=== PATIENT | female | born 1950 | race Caucasian/White ===

== ENCOUNTER 2018-12-20 01:00 | Observation (INO) ==
[2018-12-20] MEDS ORDERED: TRAMADOL HCL 50 MG TABLET PO STA (01:18)
[2018-12-20] MEDS ORDERED: SODIUM CHLORIDE 0.9% 1000ML 1,000 ML IV ONE (01:18)
[2018-12-20] MEDS ORDERED: fentaNYL citrate 100 MCG/2 ML VIAL IV STA (01:18)
[2018-12-20 01:38] LABS: Hematocrit (blood only) 35.8 % (37-47); Hemoglobin 11.8 g/dL (12.0-16.0); Mean Corpuscular Volume 87.1 fL (80-100); Mean Platelet Volume 10.9 fL (7.4-10.4); Platelet Count 109 K/uL (130-400); RDW Coefficient of Variation 14.2 % (11.5-14.5); RDW Standard Deviation 45.4 fL (36.4-46.3); Red Blood Count 4.11 M/uL (4.2-5.4); White Blood Count 22.16 K/uL (4.8-10.8)
[2018-12-20 01:55] LABS: Alanine Aminotransferase 17 U/L (12-78); Albumin Level 3.7 gm/dl (3.4-5.0); Aspartate Aminotransferase 10 U/L (15-37); BUN Creatinine Ratio 19.4 (10-20); Bilirubin Direct < 0.1 mg/dl (0-0.2); Blood Urea Nitrogen 18 mg/dl (7-18); Calcium 8.8 mg/dl (8.5-10.1); Carbon Dioxide 27 mmol/L (21-32); Chloride 107 mmol/L (98-107); Creatinine Clr Calc Pharmacy 50.3 ml/min; Est GFR (African American) 73.2; Est GFR (Non-African American) 63.1; Glucose 96 mg/dl (70-99); Sodium 138 mmol/L (136-145)
[2018-12-20 01:57] LABS: Alkaline Phosphatase 47 U/L (45-117); Bilirubin,Total 0.3 mg/dl (0.2-1); C Reactive Protein < 0.29 mg/dl (0-0.29); Total Protein 6.1 gm/dl (6.4-8.2)
[2018-12-20 02:20] LABS: Basophils # (auto) 0.02 K/uL (0-0.2); Basophils % (auto) 0.1 %; Eosinophils # (auto) 0.02 K/uL (0-0.5); Eosinophils % (auto) 0.1 %; Immature Granulocytes # (auto) 0.08 K/uL (0.00-0.02); Immature Granulocytes % (auto) 0.4 %; Lymphocytes # (auto) 18.55 K/uL (1.2-3.4); Lymphocytes % (auto) 83.7 %; Monocytes % (auto) 1.8 %; Neutrophils # (auto) 3.09 K/uL (1.4-6.5); Neutrophils % (auto) 13.9 %; Smudge Cells Present
[2018-12-20] MEDS ORDERED: MoRPHine SULFATE 10 MG/ML CARP/VIAL IV STA ×2 (02:35→03:33)
[2018-12-20] MEDS ORDERED: ONDANSETRON INJ 2 MG/ML 2 ML VIAL IV STA (02:35)
[2018-12-20] MEDS ORDERED: LORazepam 0.5 MG/1 ML VIAL IV STA (02:57)
[2018-12-20] MEDS ORDERED: DEXAMETHASONE **PF** INJ 10 MG/ML VIAL IV ONE (03:33)
[2018-12-20 03:40] LABS: Appearance Urine Clear (Clear); Bilirubin Urine Negative (Negative); Color Urine Yellow; Glucose Urine UA Negative (Negative); Ketones Urine Negative (Negative); Leukocyte Esterase Urine Negative (Negative); Nitrite Urine Negative (Negative); Protein Urine Negative (Negative); Specific Gravity Urine 1.012 (1.000-1.030); Urobilinogen Urine Negative (Negative); pH Urine 8.5 (4.5-7.5)
--- NOTE | 2018-12-20 06:32 | Emergency Department Note ---
Entered by Kenna Ziegler acting as a scribe for ED Provider Note Name: Tina Mclean Age: 68 F Arrives Via: EMS Informant: The patient CC: Head pain HPI: A 68 year old female arrives for evaluation of worsening head pain starting 1 month ago. The patient reports that she had head pain, chills and abdominal pain. She states that she feels a pressure behind her face and temples. She notes that her tonsils and neck were swelled. She adds that she hasnt been able to sleep and has lost 20 pounds because she has no appetite. The patient reports that she feels week and fatigued. She states that she was in the hospital 5 days ago where she had a CT done that was negative. She notes that she also had a biopsy done that she does not know the results of. The patient reports that she sees Dr. Clevealnd Valiente PCP. She states that she took Prednisone and Venlafaxine which helped with her swelling. 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 She denies shortness of breath, chest pains, sore throat and fevers. ROS: See above HPI for pertinent positives & negatives. A total of 10 systems reviewed and were otherwise negative. Past Medical History: CLL Past Surgical History: Lymphnode and thyroid biopsy Family History: none Social History: Lives at home with spouse, nonsmoker, no etoh, no drug use, retired Home Medications: Omeprazole, Lisinopril, Metoclopramide Allergies Penicillin Physical: Vitals: BP: 163/81, Pulse: 61, Resp: 16, Temp: 98.1F, O2 Sat: 99, Delivery: Room Air Exam: GENERAL: Patient is elderly, tired appearing and in moderate distress. EYES: No scleral icterus, unremarkable pupils. ENT: Mucous membranes dry, no nasal congestion. NECK: No masses appreciated, no meningismus, trachea is midline. RESPIRATORY: No dyspnea. Clear to auscultation and equal bilaterally. No wheeze , no rhonchi. CARDIOVASCULAR: Regular rate and rhythm. No murmurs, rubs, gallops appreciated. GASTROINTESTINAL: Abdomen soft, non-tender, no peritonitis. Bowel sounds positive. No masses appreciated. BACK: No midline tenderness, no CVA tenderness EXTREMITIES: Normal motion all extremities, no cyanosis, no edema. NEUROLOGIC: Alert and oriented, no acute motor or sensory deficits, no focal weakness, cranial nerves grossly intact. SKIN: No rash, no jaundice, no diaphoresis. ED Course: Prior Medical Record, Triage/Nursing Notes, Medications, Allergies reviewed by Me 0107: Past medical records reviewed. The patient was evaluated in room C4, and a complete history and physical examination were performed. 0250: I reevaluated the patient at this time who reports that she is now experiencing lower abdominal pain. She states that her nausea is worse and that her facial pain is still present. The patient is crying and anxious appearing. She is asking for medication that can help her nausea and continued facial pain. 0325: I reevaluated the patient at this time who is having continuous pain and has had no resolution with any medications here. She was able to walk to the bathroom with no distress however states that she was unable to do so. Dr. Bong carbone has been paged for consult. 0345: I reviewed the patient's case with Dr. Bong carbone. [facility]. 0515:Dr. Bong carbone will evaluate the patient for further management. Vital Signs: reviewed and remarkable for HTN Labs: Reviewed and remarkable for wbc 22 otherwise normal cbc, bmp, crp, esr Interventions: Saline Lock, Tramadol PO, Fentanyl 25mcg IV, Morphine 6mg IV, Ativan .5mg IV, Morphine 6mg IV, decadron 10mg IV Imaging: Reviewed [facility] CT face without acute findings EKG: none Consults: Dr Woody Blood pressure: Elevated - Further management by hospitalist Disposition: Being evaluated by hospitalist Differentials: Sinus infection, temporal arteritis, trigeminal neuralgia, uti, electrolyte imbalance amongst other pathologies. Medical Decision Making: Uncomfortable 68 yr old female with bilateral facial pain of uncertain etiology who has been following with PCP and ENT, has been on two rounds abx/steroids. Also notes recent lymph node swelling of neck which has resolved. Furthermore had recent FNA of neck lymph node and thyroid. Review in chart reveals CLL on path as well as atypical cells thyroid (I have made it clear to patient I do not regularly evaluate these reports and that she should discuss these with ENT/ PCP). She notes continued pain in face dispite multiple rounds of IV narcotics. WBC is 22 which is consistent with her CLL. No recent labs in the chart though EPIC reveals WBC several months ago of 22. No fevers, no rashes, no other findings of infection. She does not have evidence of ICH, meningitis, dissection. She while here she notes worsening nausea and UTI symptoms, though abdominal exam is completely benign and UA is clear. She is clearly upset with all of this she has been going through though I do not have clear cause of her symptoms of bilateral facial pain. I am unable to discharge her due to continued complaints of severe pain and thus asked hospitalist to evaluate her further. Impression: Intractable Pain CLL Atypical Face Pain Leukocytosis Bigg Gaytan MD The scribe's documentation has been prepared under my direction and personally reviewed by me in its entirety. I confirm that the note above accurately reflects all work, treatment, procedures, and medical decision making performed by me. Impression & Plan Intractable pain, CLL (chronic lymphocytic leukemia), Atypical face pain, Leukocytosis Past Med/Surg History Medical History CLL (chronic lymphocytic leukemia) Social History Feels Safe at Home: Yes Smoking Status: Never smoker Results & Data Vital Signs Vital Signs - 24 hr 12/20/18 01:05 12/20/18 02:02 12/20/18 03:25 Temperature 36.7 C Temperature Source Oral Sepsis Recent Fever Within 48 Hours No Sepsis Action Taken by Nursing No Action Required Pulse Rate 65 Pulse Rate [Right Finger] 61 63 Pulse Rhythm [Right Finger] Pulse Strength [Right Finger] Respiratory Rate 12 16 22 Respiratory Effort / Characteristics Non-Labored Respiratory Depth Normal Respiratory Pattern Regular Blood Pressure 171/73 H Blood Pressure [Left Arm] 163/81 H 175/104 H Blood Pressure Mean 105 Blood Pressure Mean [Left Arm] 108 127 Blood Pressure Position Lying Blood Pressure Position [Left Arm] Sitting Pulse Oximetry 98 99 91 Oxygen Delivery Method Room Air Room Air Oxygen Flow Rate 12/20/18 03:40 12/20/18 03:50 12/20/18 04:31 Temperature Temperature Source Sepsis Recent Fever Within 48 Hours Sepsis Action Taken by Nursing Pulse Rate Pulse Rate [Right Finger] 64 62 Pulse Rhythm [Right Finger] Regular Regular Pulse Strength [Right Finger] Normal Respiratory Rate 14 20 Respiratory Effort / Characteristics Non-Labored Spontaneous Non-Labored Spontaneous Respiratory Depth Normal Normal Respiratory Pattern Regular Regular Blood Pressure Blood Pressure [Left Arm] 156/66 H 170/70 H Blood Pressure Mean Blood Pressure Mean [Left Arm] 96 103 Blood Pressure Position Blood Pressure Position [Left Arm] Pulse Oximetry 98 95 100 Oxygen Delivery Method Room Air Nasal Cannula Nasal Cannula Oxygen Flow Rate 2 2 12/20/18 06:16 Temperature Temperature Source Sepsis Recent Fever Within 48 Hours Sepsis Action Taken by Nursing Pulse Rate 62 Pulse Rate [Right Finger] Pulse Rhythm [Right Finger] Pulse Strength [Right Finger] Respiratory Rate Respiratory Effort / Characteristics Respiratory Depth Respiratory Pattern Blood Pressure 125/63 Blood Pressure [Left Arm] Blood Pressure Mean Blood Pressure Mean [Left Arm] Blood Pressure Position Blood Pressure Position [Left Arm] Pulse Oximetry 99 Oxygen Delivery Method Room Air Oxygen Flow Rate Home Medications Current Medication List: was personally reviewed by me Laboratory Data Attestation: I reviewed the patient's lab results. Result diagrams: 12/20/18 01:29 12/20/18 01:29 Lab Results 12/20/18 12/20/18 12/20/18 Range/Units 01:29 01:29 01:29 WBC 22.16 H (4.8-10.8) K/uL RBC 4.11 L (4.2-5.4) M/uL Hgb 11.8 L (12.0-16.0) g/dL Hct 35.8 L (37-47) % MCV 87.1 (80-100) fL MCH 28.7 (25-34) pg MCHC 33.0 (32-36) g/dL RDW Std Deviation 45.4 (36.4-46.3) fL RDW Coeff of [place] 14.2 (11.5-14.5) % Plt Count 109 L (130-400) K/uL MPV 10.9 H (7.4-10.4) fL Immature Gran % (Auto) 0.4 % Neut % (Auto) 13.9 % Lymph % (Auto) 83.7 % [place] % (Auto) 1.8 % Eos % (Auto) 0.1 % Baso % (Auto) 0.1 % Immature Gran # (Auto) 0.08 H (0.00-0.02) K/uL Neut # (Auto) 3.09 (1.4-6.5) K/uL Lymph # (Auto) 18.55 H (1.2-3.4) K/uL [place] # (Auto) 0.40 (0.11-0.59) K/uL Eos # (Auto) 0.02 (0-0.5) K/uL Baso # (Auto) 0.02 (0-0.2) K/uL Smudge Cells Present ESR 2 (0-21) mm/hr Sodium 138 (136-145) mmol/L Potassium 4.0 (3.5-5.1) mmol/L Chloride 107 (98-107) mmol/L Carbon Dioxide 27 (21-32) mmol/L Anion Gap 4.0 (3-11) BUN 18 (7-18) mg/dl Creatinine 0.93 (0.6-1.2) mg/dl Est Cr Clr Drug Dosing 50.3 ml/min Est GFR ( Amer) 73.2 Est GFR (Non-Af Amer) 63.1 BUN/Creatinine Ratio 19.4 (10-20) Glucose 96 (70-99) mg/dl Calcium 8.8 (8.5-10.1) mg/dl Total Bilirubin 0.3 (0.2-1) mg/dl Direct Bilirubin < 0.1 (0-0.2) mg/dl AST 10 L (15-37) U/L ALT 17 (12-78) U/L Alkaline Phosphatase 47 (45-117) U/L C-Reactive Protein < 0.29 (0-0.29) mg/dl Total Protein 6.1 L (6.4-8.2) gm/dl Albumin 3.7 (3.4-5.0) gm/dl Lipase 175 (73-393) U/L Urine Color Urine Appearance (Clear) Urine pH (4.5-7.5) Ur Specific [place] (1.000-1.030) Urine Protein (Negative) Urine Glucose (UA) (Negative) Urine Ketones (Negative) Urine Blood (Negative) Urine Nitrite (Negative) Urine Bilirubin (Negative) Urine Urobilinogen (Negative) Ur Leukocyte Esterase (Negative) 12/20/18 Range/Units 03:25 WBC (4.8-10.8) K/uL RBC (4.2-5.4) M/uL Hgb (12.0-16.0) g/dL Hct (37-47) % MCV (80-100) fL MCH (25-34) pg MCHC (32-36) g/dL RDW Std Deviation (36.4-46.3) fL RDW Coeff of [place] (11.5-14.5) % Plt Count (130-400) K/uL MPV (7.4-10.4) fL Immature Gran % (Auto) % Neut % (Auto) % Lymph % (Auto) % [place] % (Auto) % Eos % (Auto) % Baso % (Auto) % Immature Gran # (Auto) (0.00-0.02) K/uL Neut # (Auto) (1.4-6.5) K/uL Lymph # (Auto) (1.2-3.4) K/uL [place] # (Auto) (0.11-0.59) K/uL Eos # (Auto) (0-0.5) K/uL Baso # (Auto) (0-0.2) K/uL Smudge Cells ESR (0-21) mm/hr Sodium (136-145) mmol/L Potassium (3.5-5.1) mmol/L Chloride (98-107) mmol/L Carbon Dioxide (21-32) mmol/L Anion Gap (3-11) BUN (7-18) mg/dl Creatinine (0.6-1.2) mg/dl Est Cr Clr Drug Dosing ml/min Est GFR ( Amer) Est GFR (Non-Af Amer) BUN/Creatinine Ratio (10-20) Glucose (70-99) mg/dl Calcium (8.5-10.1) mg/dl Total Bilirubin (0.2-1) mg/dl Direct Bilirubin (0-0.2) mg/dl AST (15-37) U/L ALT (12-78) U/L Alkaline Phosphatase (45-117) U/L C-Reactive Protein (0-0.29) mg/dl Total Protein (6.4-8.2) gm/dl Albumin (3.4-5.0) gm/dl Lipase (73-393) U/L Urine Color Yellow Urine Appearance Clear (Clear) Urine pH 8.5 H (4.5-7.5) Ur Specific [place] 1.012 (1.000-1.030) Urine Protein Negative (Negative) Urine Glucose (UA) Negative (Negative) Urine Ketones Negative (Negative) Urine Blood Negative (Negative) Urine Nitrite Negative (Negative) Urine Bilirubin Negative (Negative) Urine Urobilinogen Negative (Negative) Ur Leukocyte Esterase Negative (Negative) Administered Medications Discontinued Medications Dexamethasone Sodium Phosphate (Decadron Pf) 10 mg IV NOW ONE Stop: 12/20/18 03:34 Last Admin: 12/20/18 03:39 Dose: 10 mg Fentanyl Citrate (Fentanyl Citrate) 25 mcg IV NOW STA Stop: 12/20/18 01:19 Last Admin: 12/20/18 01:33 Dose: 25 mcg Sodium Chloride (Nss 1000ml) 1,000 mls @ 999 mls/hr IV .Q1H1M ONE Stop: 12/20/18 02:18 Last Infusion: 12/20/18 02:29 Dose: 0 mls/hr Admin: 12/20/18 01:33 Dose: 999 mls/hr Lorazepam (Ativan) 0.5 mg in 1 mls @ 1 mls/min IV NOW STA Stop: 12/20/18 02:58 Last Admin: 12/20/18 03:08 Dose: 1 mls/min Morphine Sulfate (Morphine Sulfate) 6 mg IV NOW STA Stop: 12/20/18 02:36 Last Admin: 12/20/18 02:43 Dose: 6 mg Morphine Sulfate (Morphine Sulfate) 6 mg IV NOW STA Stop: 12/20/18 03:34 Last Admin: 12/20/18 03:39 Dose: 6 mg Ondansetron HCl (Zofran) 4 mg IV NOW STA Stop: 12/20/18 02:36 Last Admin: 12/20/18 02:43 Dose: 4 mg Tramadol HCl (Ultram) 50 mg PO NOW STA Stop: 12/20/18 01:19 Last Admin: 12/20/18 01:34 Dose: 50 mg Blood Pressure Blood Pressure Findings: Elevated blood pressure Blood Pressure Disposition: further management by hospitalist Discharge Plan Visit Data Chief Complaint: Head Pain ED Provider: Bigg Gaytan Discharge Problem: Intractable pain, CLL (chronic lymphocytic leukemia), Atypical face pain, Leukocytosis Patient Disposition: Being Evaluated by Hospitalist Discharge Instructions Interventions: ED Discharge Assessment Last Done: 12/20/18 06:16 Forms Stand Alone Forms: My [facility] Prescriptions Prescriptions: No Action lisinopril 20 mg tablet 20 mg PO DAILY RF: 0 metoclopramide HCl 5 mg tablet 5 mg PO AC RF: 0 omeprazole 20 mg capsule,delayed release(DR/EC) 20 mg PO QAM RF: 0 fluticasone 50 mcg/actuation spray,suspension 2 spray Intranasal DAILY RF: 0 peg 400-propylene glycol (PF) [Systane (PF)] 0.4-0.3 % Dropperette 1 drp OPB BID PRN (Reason: Dry Eyes) RF: 0 Referrals Referrals: PCP,NO [Primary Care Provider] - The scribe's documentation has been prepared under my direction and personally reviewed by me in its entirety. I confirm that the note above accurately reflects all work, treatment, procedures, and medical decision making performed by me.
[2018-12-20] MEDS ORDERED: ACETAMINOPHEN 325 MG TAB PO PRN (07:05)
[2018-12-20] MEDS ORDERED: ALUMINUM/MAGNESIUM SUSP 30 ML UDC PO PRN (07:05)
[2018-12-20] MEDS ORDERED: ARTIFICIAL TEARS OPB PRN (07:05)
[2018-12-20] MEDS ORDERED: MoRPHine SULFATE 4 MG/ML 1 ML CARP\\VIAL IV PRN (07:05)
[2018-12-20] MEDS ORDERED: OXYCODONE/ACETAMINOPHEN 5mg/325mg TAB PO PRN (07:05)
[2018-12-20] MEDS ORDERED: ONDANSETRON INJ 2 MG/ML 2 ML VIAL IV PRN (07:05)
[2018-12-20] MEDS ORDERED: KETOROLAC TROMETHAMINE 15 MG/ML VIAL IV PRN (07:18)
[2018-12-20 07:31] LABS: Hematocrit (blood only) 35.9 % (37-47); Hemoglobin 11.6 g/dL (12.0-16.0); Mean Corpuscular Hgb Conc 32.3 g/dL (32-36); Mean Corpuscular Volume 88.9 fL (80-100); Mean Platelet Volume 10.8 fL (7.4-10.4); Platelet Count 103 K/uL (130-400); RDW Coefficient of Variation 14.1 % (11.5-14.5); RDW Standard Deviation 45.8 fL (36.4-46.3); Red Blood Count 4.04 M/uL (4.2-5.4)
--- NOTE | 2018-12-20 07:47 | History and Physical Report ---
DATE OF ADMISSION: 12/20/2018 CHIEF COMPLAINT: Severe facial and head pain. HISTORY OF PRESENT ILLNESS: This is a 68-year-old female with past medical history significant for hypertension, gastroparesis, GERD, chronic kidney disease stage III, generalized osteoarthritis, CLL, presents with severe facial pain and head pain. The patient states that this facial pain is going on for some time,few months now.. She was recently seen by ENT. The facial pain is located in the forehead, temples and posterior side of the neck for several months. She states since fall last year, she has on and off congestion and took antibiotics, it seems goes away and then it comes back. She is getting cough on and off. The pain is getting severe. She also states she has enlarged tonsils which made her difficulty swallowing and lost few pounds, but it is improved now. Denies any chest pain, no shortness of breath. After pain medications in the ER, she had episode of vomiting. No abdominal pain, somewhat constipated, but no black or blood in the stools. Normal micturition. No blurred vision. No runny nose currently. No sore throat. Appetite is not great. Afebrile. Lives with her and ambulates okay. She also has thyroid nodule, cervical lymph nodes, for some time now, follows with hematology and she recently had biopsies done, awaiting results. ENT also ordered a facial CT and it was unremarkable. ENT advised if she still has severe pain, to consider neurology consult. Because the pain is not getting better, she came to the ER and somewhat adamant of getting admitted. ALLERGIES: PENICILLINS. PAST MEDICAL HISTORY: As mentioned above. PAST SURGICAL HISTORY: Colonoscopy with biopsy, EGDs, right foot fusion of bones, upper endoscopy. MEDICATIONS: The patient is on omeprazole 20 mg p.o. daily, fluticasone nasal spray, lisinopril 20 mg p.o. daily, Reglan 5 mg p.o. a.c. and Systane ophthalmic eyedrops. FAMILY HISTORY: Significant for: Mother has arthritis, heart disorder, osteoporosis. Father of [place] at age 68, history of diabetes. SOCIAL HISTORY: , lives with . No smoking history, no alcohol use, no drug use. REVIEW OF SYMPTOMS: As per HPI. Rest of review of systems is negative. PHYSICAL EXAMINATION: GENERAL: The patient is of moderate build, not in acute distress. VITAL SIGNS: Temperature 36.7, pulse 62, respiratory rate 20, blood pressure 170/70, oxygen 100% on 2 liters. HEENT: No pallor, no icterus. Pupils equal, round, and react to light. NECK: No JVD, no neck masses. Thyroid was palpable. CARDIOVASCULAR: S1, S2 heard. Regular rate and rhythm. No murmur, no gallop. RESPIRATORY SYSTEM: Clear to auscultation bilaterally. No wheezing. No crackles. ABDOMEN: Soft, bowel sounds present. Nontender. No distention. CENTRAL NERVOUS SYSTEM: Nonfocal. EXTREMITIES: No edema, no erythema. LABORATORY DATA: WBC 22, hemoglobin 11.8, hematocrit 35.8, platelets 109. Sodium 138, potassium 4, chloride 107, bicarbonate 27, BUN 18, creatinine 0.9, serum glucose 96, calcium 8.8, total bilirubin 0.3, direct bilirubin less than 0.1, AST 10, ALT 17, alkaline phosphatase is 47. C-reactive protein is less than 0.29. Lipase 175. Urinalysis negative. ASSESSMENT AND PLAN: This is a 68-year-old female who presents with severe head pain and facial pain. 1. Severe facial pain and head pain in the forehead and temporal regions in the back of the neck. The patient was seen by ENT. Nasal endoscopy was normal and recommended a CT of the sinuses which was done and it was unremarkable and ENT recommended a neurology consult if the CT sinus is negative. The patient still has significant pain. We will place her on pain medications as needed and then consult neurology for further recommendations. Observe in medical floor. 2. Thyroid nodules and cervical lymph nodes, history of CLL, recently had a biopsy done. Awaiting for the biopsy results. 3. Malnutrition. The patient says she is losing weight. We will consult nutrition. 4. Hypertension. Continue lisinopril. The patient' says blood pressure is going up and down, mostly be from her pain and anxiety. We will monitor blood pressure. 5. Gastroesophageal reflux disease and gastroparesis. On omeprazole and Reglan. Follows with GI. 6. DVT prophylaxis. Will be placed on SCDs. 7. Disposition: Observation in medical floor. Expect discharge home and follow with her family doctor. Level 1 full code. MTDD
[2018-12-20 07:57] LABS: BUN Creatinine Ratio 17.2 (10-20); Calcium 8.3 mg/dl (8.5-10.1); Creatinine Clr Calc Pharmacy 49.2 ml/min; Est GFR (African American) 71.3; Est GFR (Non-African American) 61.5; Magnesium 1.8 mg/dl (1.8-2.4); Potassium 4.4 mmol/L (3.5-5.1)
[2018-12-20] MEDS ORDERED: LISINOPRIL 20 MG TAB PO STA ×2 (08:20→08:26)
[2018-12-20] MEDS: METOCLOPRAMIDE HCL 5 MG TABLET PO SCH ×3 (08:21→17:42)
[2018-12-20] MEDS: PANTOprazole 40 MG TAB PO SCH (08:21)
[2018-12-20 08:23] LABS: Basophils # (auto) 0.02 K/uL (0-0.2); Basophils % (auto) 0.1 %; Eosinophils # (auto) 0.01 K/uL (0-0.5); Immature Granulocytes # (auto) 0.11 K/uL (0.00-0.02); Immature Granulocytes % (auto) 0.4 %; Lymphocytes # (auto) 19.92 K/uL (1.2-3.4); Lymphocytes % (auto) 72.2 %; Monocytes # (auto) 0.11 K/uL (0.11-0.59); Monocytes % (auto) 0.4 %; Neutrophils # (auto) 7.43 K/uL (1.4-6.5); Neutrophils % (auto) 26.9 %; Smudge Cells Present
[2018-12-20] MEDS: FLUTICASONE PROPIONATE NA SPR 16 GM BTL SCH (08:26)
--- NOTE | 2018-12-20 08:26 | Hospitalist Progress Note ---
Date of Service December 20, 2018 Assessment & Plan (1) CLL (chronic lymphocytic leukemia): Chronic Lymphocytic Leukemia outpatient WBC months ago was 16,000 of note, patient had recent steroid use and it is unclear whether this promoted recent leukocytosis admission WBC 22K, follow up WBC 27,000 recent 12/15/18 aspiration by ENT of thyroid gland and left cervical lymph node consistent will some lymphocyte involvement as per pathology report but it is unclear whether these results are consistent with severe worsening of CLL no fevers discussed with Dr. Gilman for hematology consult and initial suggestions of infection work up will send blood cultures, ESR, and CRP Head/Neck pain CLL workup as above control pain: give anti-inflammatory such as Toradol for now, other pain control medication with percocet Hypertension: control blood pressure, blood pressure on exam 179/68 in AM of 08/28, will increase lisinopril home dose from 20 mg daily to 40 mg daily for now admitting physician had also placed neurology consult Malnutrition The patient says she is losing weight consult nutrition. Gastroesophageal reflux disease and gastroparesis On omeprazole and Reglan DVT prophylaxis. SCDs Subjective Discussed with patient with her at bedside. Patient reports history of CLL diagnosed 5 years ago with chronic head and neck pain symptoms starting around 1 year ago. Reported recent treatment with prednisone for head/neck inflammation. Recent 12/15/18 aspiration by ENT of thyroid gland and left cervical lymph node. Recent head CT CT SINUS FUSION WO CONTRAST - 12/15/2018 as outpatient: "No obstructive paranasal sinus disease appreciated. No masses within the skullbase" Patient not in acute distress. But reports pressure discomfort of forehead and maxillary area. No acute tenderness on palpation. But patient evidently bothered by her symptoms and these symptoms have been lingering. denies recent fevers. denies vomiting. denies chest pain or abdominal pain. only when asked, patient reports feeling dizziness or lightheaded before but not currently no obvious palpable lymph nodes on exam Physical Exam 2 Vital Signs (Past 24 Hours): Last Vital Signs Temp 36.4 C L 12/20/18 07:07 Pulse 63 12/20/18 07:07 Resp 16 12/20/18 07:07 BP 179/68 H 12/20/18 07:07 Pulse Ox 94 12/20/18 07:07 Constitutional: WD/WN, vitals as above Eyes: PERRL, conjunctivae normal, anicteric sclerae ENMT: external ear and nose normal, oropharynx normal Neck: trachea midline, no thyromegaly Respiratory: normal respiratory effort, lungs clear to auscultation Cardiovascular: RRR, no murmur, no edema Gastrointestinal (Abdomen): normal bowel sounds, soft, nontender, no hepatosplenomegaly Musculoskeletal: no cyanosis or clubbing, extremities motor strength 5/5 Head/Neck/Chest: normocephalic and head atraumatic Neurologic: PERRL, EOMI, accommodation nl, no face palsy, no dysarthria CN' s II-XI intact bilaterally Psychiatric: A+Ox3, euthymic affect
[2018-12-20] MEDS ORDERED: MAGNESIUM SULFATE / D5W 1 GM/100 ML BAG IV ONE (08:36)
[2018-12-20] MEDS ORDERED: LISINOPRIL 20 MG TAB PO SCH (09:00)
[2018-12-20] MEDS ORDERED: LORazepam 0.25 MG/0.5 ML VIAL IV PRN (11:14)
--- NOTE | 2018-12-20 12:09 | Consultation Report ---
DATE OF CONSULTATION: 12/20/2018 REASON FOR CONSULTATION: Head pain. HISTORY OF PRESENT ILLNESS: Mrs. Mclean is a 68-year-old right-handed female with a history of hypertension, gastroparesis, reflux, chronic kidney disease, osteoarthritis, CLL, never been treated, presented with severe facial and head pain. This pain has been going on for months. It was atraumatic. She noted in the fall that she had multiple bouts of nasal congestion with clear and frequent nasal discharge, during which time she would have head pain. This was treated several times with an oral antibiotic. She recently saw ENT, I believe they did a thyroid biopsy, they did a general exam and a CT of the sinuses, I am assuming all of which were normal. The headache has been continuous for an unknown period of time. It is not worse lying or sitting or any particular time of day, it is a frontotemporal and occipital pressure type pain. There has been no real change in vision, no graying out of vision. She had had some blurred vision, but recently had cataract surgeries. She has lost 25 pounds over the last 1 year, but that much of that weight loss predated the headache. She occasionally has chills. Her jaw sometimes hurt, it is not clear that there is jaw claudication. There is no unilateral weakness or numbness. There has been no trauma. There has been no change in her medications. There is neck pain, but nonradiating neck pain. She has tried ibuprofen 400, has not tried Tylenol as it is not effective for her and she has tried Excedrin Migraine. REVIEW OF SYSTEMS: In addition to above, the patient notes a sense of decreased taste and smell since the upper respiratory tract infection which she explains was attributed to her antibiotic use. The headaches are worse with activity and coughing. PAST MEDICAL HISTORY: As above. PAST SURGICAL HISTORY: Colonoscopy, right first fusion, bilateral cataracts. SOCIAL HISTORY: Nonsmoker, nondrinker. 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 FAMILY HISTORY: Mother had leukemia, heart disease, osteoporosis. Father and brother, [place], diabetes. HOME MEDICATIONS: Omeprazole, Nasonex, lisinopril, Reglan and Systane. ALLERGIES: PENICILLIN. LABORATORY DATA: Database: White count 22.16, platelet count 109, lymphocytes 18.6. Sed rate 2. Chemistry profile notable for an AST of 10, total protein of 6.1. Urinalysis negative. Flow cytometry pending. PHYSICAL EXAMINATION: VITAL SIGNS: On initial admission, blood pressure was 177/73, it has varied, but on the whole has remained that approximate level. Her temperature has been afebrile. Pulse ox 98%, although transiently overnight was 81%. GENERAL: She is awake and alert. There is normal speech and language. Her affect is appropriate. There is a right carotid bruit. HEART: No heart murmurs are noted. Heart is regular rate and rhythm. HEAD: There is no temporal tenderness, temporal artery tenderness. She is mildly diffusely tender in the biparietal region. There is bilateral paracervical muscle spasm. There is some pain on palpation in the occipital notches bilaterally. NECK: Her neck is otherwise supple. NEUROLOGIC: Pupils are equal, postsurgical I had difficulty visualizing the optic nerves. Yap were full, motility, normal facial sensation and facial symmetry. Speech and language are normal. Motor 5/5, no drift. Normal rapid alternating movement. Mildly diffusely brisk reflexes, nonpathologic. Toes ____ withdrawal. [id number] and [id number]-uh-[id number] are normal. Sensation is intact bilaterally to light touch and temperature. IMPRESSION: New onset persistent tension type headache. Query with cervicogenic trigger or component of occipital neuralgia. PLAN: 1. MRI brain with or without contrast. 2. Cervical spine x-ray. 3. Begin gabapentin prophylaxis. 4. Treat headaches with nonsteroidals if possible. 5. The patient may need pain management for evaluation of trigger point injections and/or occipital nerve injection. 6. Physical therapy may be helpful. 7. Finally the patient appears to have a right carotid bruit, I would recommend a carotid ultrasound.
[2018-12-20] MEDS: GABAPENTIN 100 MG CAP PO SCH ×2 (12:22→21:16)
--- NOTE | 2018-12-20 13:21 | Oncology Consultation ---
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 Her WBC is elevated above her baseline with new thrombocytopenia and neutrophilia. She recently took prednisone and levaquin, felt improvement in tonsillitis but not in frontal headache or maxillary facial pain Spoke to Dr Harry this morning and recommended neuro consult and Recommend rule out infection as she has neutrophilia which is new and due to her symptoms. She also had recent prednisone outpatient. monitor cbc w/ diff also recommend check MRI brain and also neck imaging new thrombcoytopenia mild anemia: recommend check smear immature platelet fraction LDH haptoglobin retic count direct wesley iron tibc ferritin b12 folate She has unintentional weight loss and abdominal discomfort and reports discomfort in her chest with eating - recommend further evaluation with CT scan of the chest abdomen and pelvis to evaluate for any bulky adenopathy or other abnormality. when feasible. She is going to MRI at this time. also continue follow up with ENT for thyroid nodules and recommend endocrine evaluation as well recommend follow up with hematology in the office upon discharge. thank you for consult Reason for consult: Chronic lymphocytic leukemia History of Present Illness Attending Physician: Go Harry MD 68 year old female with chronic lymphocytic leukemia ZAP 70 positive, CD38 negative, IgVH unmutated. She has with chronic lymphocytosis since 2008, flow cytometry in 05/2015 showed chronic lymphocytic leukemia. She states that since fall she has been having facial pain/pressure and treated with antibiotics for this and that she would feel some mild improvement but then symptoms would recur. She has thyroid nodules and cervical lymphadenopathy and was evaluated by ENT and had thyroid FNA and left cervical LN FNA recently. She was also treated with prednisone and levaquin for acute tonsillitis and maxillary sinusitis recently. She states that her tonsillitis and cervical LN swelling improved but that she continued to have pressure in the forehead and maxillary sinus areas. She states that she has also recently noticed some tinnitus and states that she has nausea on and off at home. She states that she vomited one this morning. She denies fever but has chills sometimes, denies night sweats. Denies any other swollen glands than in her neck. She has unintentional weight loss. She states that appetite has decreased over the past several months and that she has some pain/discomfort in the abdomen. She states she is eating her meals but not regaining her weight and that she also has some discomfort when she eats, states she feels as if food is going down but there is some discomfort in chest area when she eats as food is going down. She had head CT sinus 12/15/18 that showed no obstructive paranasal sinus disease appreciated. No masses within the skull. She states that she also notice blurriness of the vision sometimes and said she avoids bending due to symptoms tend to worsen with bending. She states that her sense of taste and smell have also been decreased. WBC at baseline is between 16 to 19 range. In 05/05/18 wbc was 16.03 hgb 11.7 and platelet counts were previously normal On admission WBC was 22 with ALC 19.9 neutr 3.09 and new thrombocytopenia with platelet ct 109 today her cbc with diff show WBC 27.6 WITH alc 22.16 AND NEUTROPHILS 7.43 AND PLATELET count 103 hemoglobin 11.6 Allergies Allergy/AdvReac Type Severity Reaction Status Date / Time Penicillins Allergy Unknown Verified 12/20/18 04:32 Home Medications Home Medications Medication Instructions Recorded Confirmed Type fluticasone 2 spray INTRANASAL DAILY 12/20/18 12/20/18 History lisinopril 20 mg PO DAILY 12/20/18 12/20/18 History metoclopramide HCl 5 mg PO AC 12/20/18 12/20/18 History omeprazole 20 mg PO QAM 12/20/18 12/20/18 History peg 400-propylene glycol (PF) 1 drp OPB BID PRN 12/20/18 12/20/18 History [Systane (PF)] Patient History Medical History CLL (chronic lymphocytic leukemia) Social History Current Living Situation: Spouse Other Information That Helps Us Care for You: No Feels Safe at Home: Yes Safety Concerns: Feels Safe At This Time Smoking Status: Never smoker Hx Alcohol Use: No Hx Substance Use: No Beliefs That Will Affect Care: Restoration Restoration Beliefs: Temple Preferred Language: Sierra Leonean Communication Ability: Effective Electron Tube Assembler Required: No Review of Systems as stated per HPI Physical Exam 2 Vital Signs (Past 24 Hours): Last Vital Signs Temp 36.4 C L 12/20/18 07:07 Pulse 63 12/20/18 07:07 Resp 16 12/20/18 07:07 BP 179/68 H 12/20/18 07:07 Pulse Ox 94 12/20/18 07:07 Gen: thin female, ill appearing, no acute distress HEENT: anicteric, no pallor, moist buccal mucosa, Neck: palpable cervical adenopathy lungs: CTAB no wheezes or rales or rhonchi CV: S1 S2, RRR Abd: bowel sounds present soft NT/ND Ext: no edema Neuro: alert and oriented x3 Results & Data Laboratory Results PATHOLOGY: FINAL DIAGNOSIS THYROID GLAND, LEFT MID (FINE NEEDLE ASPIRATION): 1. BENIGN FOLLICULAR EPITHELIAL CELLS, SCATTERED HURTHLE CELLS, AND MANY LYMPHOCYTES ARE ALL SEEN. 2. AN EPITHELIAL NEOPLASM IS NOT SEEN ON CYTOLOGY. 3. A MONOCLONAL CD5, CD23 POSITIVE B-CELL POPULATION CONSISTENT WITH CHRONIC LYMPHOCYTIC LEUKEMIA/SMALL LYMPHOCYTIC LYMPHOMA IS IDENTIFIED, THIS NODULE REPRESENTS EITHER FAY'S THYROIDITIS CONTAMINATED WITH PERIPHERAL BLOOD DURING ASPIRATION, CHRONIC LYMPHOCYTIC LEUKEMIA PRESENTING A NODULE IN THE THYROID GLAND, OR A COMBINATION OF BOTH PROCESSES. 4. PLEASE SEE ABOVE DISCUSSION. FINAL DIAGNOSIS THYROID GLAND, LEFT LOBE, LOWER REGION (FINE NEEDLE ASPIRATION): 1. ATYPIA OF UNDETERMINED SIGNIFICANCE/FOLLICULAR LESION OF UNDETERMINED SIGNIFICANCE IS SEEN. 2. PLEASE SEE ABOVE DISCUSSION. LYMPH NODE, LEFT CERVICAL (FINE NEEDLE ASPIRATION): 1. CHANGES CONSISTENT WITH CHRONIC LYMPHOCYTIC LEUKEMIA/SMALL LYMPHOCYTIC LYMPHOMA ARE SEEN. 2. PLEASE SEE ABOVE DISCUSSION.
[2018-12-20] MEDS ORDERED: GADOBUTROL 7.5ML VIAL IV PRN (13:34)
--- NOTE | 2018-12-20 14:33 | XRay Report ---
CERVICAL SPINE 5 VIEWS HISTORY: neck pAIN, HEADACHE COMPARISON: None. FINDINGS: The cervical spine is visualized from C1 through C7. There is no fracture. No subluxation. Disc spaces are preserved. Prevertebral soft tissues and the atlantodens interval are intact. Mild f acet degenerative changes throughout the cervical spine. IMPRESSION: No fracture or subluxation within the cervical spine. Mild facet degenerative changes. Electronically signed by: Mendez Bravo M.D. 12/20/2018 2:32 PM
--- NOTE | 2018-12-20 15:02 | Magnetic Resonance Report ---
MRI OF THE BRAIN WITHOUT AND WITH IV CONTRAST CLINICAL HISTORY: headache COMPARISON STUDY: No previous studies for comparison. TECHNIQUE: Utilizing a 1.5 Xiomara magnet and dedicated coil, multiplanar, multiecho imaging of the br ain was performed pre and postcontrast administration. IV administration of 5.5 mL of Gadavist contr ast was uneventful. FINDINGS: There are no foci of restricted diffusion to suggest acute infarct. No acute intracranial h emorrhage, midline shift or mass effect is present. Ventricular system is normal. Basilar cisterns ar e patent. There are no extra-axial collections. Flow-voids for the major intracranial vessels are pre sent. There is no intracranial mass or pathologic enhancement. Scattered white matter T2 hyperintense foci suggest mild small vessel disease. Calvarial signal is maintained. There is no intracranial mas s or pathologic enhancement. There is mild polypoid mucosal thickening of the left maxillary sinus. IMPRESSION: 1. No acute intracranial findings. 2. No intracranial mass or pathologic adenopathy. 3. Scattered white matter T2 hyperintense foci which favor mild small vessel disease. Electronically signed by: Héctor Apodaca M.D. 12/20/2018 3:00 PM
[2018-12-21 07:35] LABS: Hematocrit (blood only) 37.6 % (37-47); Hemoglobin 11.9 g/dL (12.0-16.0); Mean Corpuscular Hgb Conc 31.6 g/dL (32-36); Mean Platelet Volume 10.9 fL (7.4-10.4); Platelet Count 100 K/uL (130-400); RDW Coefficient of Variation 14.6 % (11.5-14.5); RDW Standard Deviation 47.9 fL (36.4-46.3); Red Blood Count 4.18 M/uL (4.2-5.4); Reticulocyte % 1.1 % (0.5-2.0); Reticulocytes # 0.05 10^6/uL (0.02-0.10); White Blood Count 19.27 K/uL (4.8-10.8)
[2018-12-21] MEDS: METOCLOPRAMIDE HCL 5 MG TABLET PO SCH ×2 (08:04→10:36)
[2018-12-21 08:14] LABS: BUN Creatinine Ratio 16.3 (10-20); Calcium 8.6 mg/dl (8.5-10.1); Creatinine Clr Calc Pharmacy 53.7 ml/min; Est GFR (African American) 79.3; Est GFR (Non-African American) 68.5; Magnesium 2.3 mg/dl (1.8-2.4)
[2018-12-21 08:18] LABS: Folate (Folic Acid) 7.95 ng/ml (>5.38)
[2018-12-21 08:25] LABS: Ferritin 46.7 ng/ml (8-388)
[2018-12-21 08:30] LABS: Basophils # (auto) 0.01 K/uL (0-0.2); Basophils % (auto) 0.1 %; Eosinophils # (auto) 0.01 K/uL (0-0.5); Eosinophils % (auto) 0.1 %; Immature Granulocytes # (auto) 0.04 K/uL (0.00-0.02); Immature Granulocytes % (auto) 0.2 %; Lymphocytes % (auto) 72.7 %; Monocytes % (auto) 2.1 %; Neutrophils # (auto) 4.81 K/uL (1.4-6.5); Neutrophils % (auto) 24.8 %; Smudge Cells Present
[2018-12-21] MEDS ORDERED: LISINOPRIL 40 MG TAB PO SCH (09:00)
[2018-12-21] MEDS ORDERED: IOVERSOL 100ml IV PRN (10:00)
--- NOTE | 2018-12-21 10:30 | CT Scan Report ---
CT abd pelvis oral and IV con CLINICAL HISTORY: CLL, weight loss COMPARISON STUDY: None. TECHNIQUE: The patient was scanned following administration of dilute oral contrast, and in a dynamic helical fashion during intravenous administration of 93 cc of Optiray 320.. A dose lowering techniq ue was utilized adhering to the principles of ALARA. CT DOSE: 261.37 mGy.cm FINDINGS: Lower chest: There are minor dependent atelectatic changes. Liver: There are 2 subcentimeter right lobe hypodensities, the largest of which measures 8 mm. These likely represent small cysts Gallbladder: Unremarkable. Spleen: Spleen is enlarged measuring 15 cm in length. No focal splenic masses are visualized. The spl enic vein is prominent. Pancreas: Unremarkable. Adrenal glands: Unremarkable. Kidneys: There is an 8 mm left renal cyst. There is no hydronephrosis. Bowel: There are no transition zones indicate bowel obstruction. There is no acute diverticulitis. Th ere are no findings to indicate appendicitis. Peritoneum: There is no intraperitoneal free air or abdominal ascites. Vasculature: The abdominal aorta is normal in course and caliber. Adenopathy: None. Pelvic viscera: The bladder, and pelvic viscera are unremarkable. Skeletal structures: No destructive osseous lesions are seen. IMPRESSION: 1. Splenomegaly (15 cm). 2. No evidence of pathologic adenopathy Electronically signed by: Mir Gibson M.D. 12/21/2018 10:29 AM
[2018-12-21] MEDS: FLUTICASONE PROPIONATE NA SPR 16 GM BTL SCH (10:35)
[2018-12-21] MEDS: GABAPENTIN 100 MG CAP PO SCH (10:35)
[2018-12-21] MEDS: PANTOprazole 40 MG TAB PO SCH (10:35)
--- NOTE | 2018-12-21 13:17 | Hospitalist Progress Note ---
Date of Service December 21, 2018 Assessment & Plan (1) CLL (chronic lymphocytic leukemia): Chronic Lymphocytic Leukemia outpatient WBC months ago was 16,000 of note, patient had recent steroid use and it is unclear whether this promoted recent leukocytosis Recent head CT CT SINUS FUSION WO CONTRAST - 12/15/2018 as outpatient: "No obstructive paranasal sinus disease appreciated. No masses within the skullbase " Recent 12/15/18 aspiration by ENT of thyroid gland and left cervical lymph node consistent will some lymphocyte involvement as per pathology report admission WBC 22K, follow up WBC 27,000. WBC on 12/21/18 is 19,000 and patient remains afebrile, blood culture from 12/20/18 are pending results but patient can follow up results as outpatient no antibiotics at this time Patient was evaluated by hematology service Dr. Gilman who recommended CT abdomen/ Pelvis imaging CT abdomen/Pelvis with no evidence of CLL associated adnenopathy Head/Neck pain CLL workup as above pain medication: controlled in the hospital with pain medications Patient should take gabapentin 100 mg twice a day for fdc pain control of headache and neck pain Patient can take Ibuprofen 200 mg every 6 hours as needed for pain (5 day prescription supply made) Patient should take lisinopril 40 mg daily for hypertension all new prescriptions sent to [facility] electronically patient evaluated by neurology service with relative normal Brain MRI and Cervical X ray imaging (No fracture or subluxation within the cervical spine. Mild facet degenerative changes) Hypertension: blood pressure on exam 179/68 in AM of 12/20/18, increased lisinopril home dose from 20 mg daily to 40 mg daily, MRI brain on 12/20/18 as ordered by neurology to work up the headache shows evidence for need for better blood pressure control but there is no evidence of stroke "1. No acute intracranial findings. 2. No intracranial mass or pathologic adenopathy. 3. Scattered white matter T2 hyperintense foci which favor mild small vessel disease" blood pressure improved as of 12/21/18 and to be discharged on lisinopril 40 mg daily Carotid Ultrasound as outpatient 11/12/2018 Right carotid artery duplex examination indicates evidence of less than 50% stenosis of the internal carotid artery. Left carotid artery duplex examination indicates evidence of less than 50% stenosis of the internal carotid artery. Gastroesophageal reflux disease and gastroparesis On omeprazole and Reglan Malnutrition The patient reports she is losing weight CT abdomen with no evidence of CLL assoiated adnenopathy CT abdomen showing Splenomegaoly (15 cm) -outpatient follow up DVT prophylaxis. 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 a day for fdc pain control of headache and neck pain Patient can take Ibuprofen 200 mg every 6 hours as needed for pain (5 day prescription supply made) Patient should take lisinopril 40 mg daily for hypertension all new prescriptions sent to [facility] electronically Patient is discharged to home and should follow up with primary care doctor including the hospital blood culture results 12/22/2018 8:00 AM Provider Carmen Haider MD Department Internal Medicine [facility] 12/25/2018 11:15 AM Provider Kaitlyn Ruffin PA-C Department Hematology/Oncology [facility] 12/25/2018 1:00 PM Provider Pham Guthrie DO Department Internal Medicine [facility] Neurology clinic at Address: [address] [place] [address], [place] [id number] will arrange for outpatient follow up with the patient for headache symptoms if these symptoms return Subjective Patient had CT abdomen and pelvis test today Patient has been feeling much better even before the testing and continues to be asymptomatic afterwards. denies headache or neck pain. no vomiting. no abdominal pain. no fever. no lightheadedness. no chest pain. no shortness of breath Physical Exam 2 Vital Signs (Past 24 Hours): Last Vital Signs Temp 36.8 C 12/21/18 07:18 Pulse 51 L 12/21/18 07:18 Resp 20 12/21/18 07:18 BP 120/70 12/21/18 07:18 Pulse Ox 99 12/21/18 07:18 Constitutional: WD/WN, vitals as above Eyes: PERRL, conjunctivae normal, anicteric sclerae ENMT: external ear and nose normal, oropharynx normal Neck: trachea midline, no thyromegaly Respiratory: normal respiratory effort, lungs clear to auscultation Cardiovascular: RRR, no murmur, no edema Gastrointestinal (Abdomen): normal bowel sounds, soft, nontender, no hepatosplenomegaly Musculoskeletal: no cyanosis or clubbing, extremities motor strength 5/5 Head/Neck/Chest: normocephalic and head atraumatic Neurologic: PERRL, EOMI, accommodation nl, no face palsy, no dysarthria CN' s II-XI intact bilaterally Psychiatric: A+Ox3, euthymic affect
[2018-12-21] MEDS ORDERED: IBUPROFEN 200 MG TAB PO PRN (13:21)
--- NOTE | 2018-12-21 13:49 | Discharge Summary ---
Date of Service December 21, 2018 Admission HPI Per Admitting Provider CHIEF COMPLAINT: Severe facial and head pain. HISTORY OF PRESENT ILLNESS: This is a 68-year-old female with past medical history significant for hypertension, gastroparesis, GERD, chronic kidney disease stage III, generalized osteoarthritis, CLL, presents with severe facial pain and head pain. The patient states that this facial pain is going on for some time,few months now.. She was recently seen by ENT. The facial pain is located in the forehead, temples and posterior side of the neck for several months. She states since fall last year, she has on and off congestion and took antibiotics, it seems goes away and then it comes back. She is getting cough on and off. The pain is getting severe. She also states she has enlarged tonsils which made her difficulty swallowing and lost few pounds, but it is improved now. Denies any chest pain, no shortness of breath. After pain medications in the ER, she had episode of vomiting. No abdominal pain, somewhat constipated, but no black or blood in the stools. Normal micturition. No blurred vision. No runny nose currently. No sore throat. Appetite is not great. Afebrile. Lives with her and ambulates okay. She also has thyroid nodule, cervical lymph nodes, for some time now, follows with hematology and she recently had biopsies done, awaiting results. ENT also ordered a facial CT and it was unremarkable. ENT advised if she still has severe pain, to consider neurology consult. Because the pain is not getting better, she came to the ER and somewhat adamant of getting admitted. ALLERGIES: PENICILLINS. PAST MEDICAL HISTORY: As mentioned above. PAST SURGICAL HISTORY: Colonoscopy with biopsy, EGDs, right foot fusion of bones, upper endoscopy. MEDICATIONS: The patient is on omeprazole 20 mg p.o. daily, fluticasone nasal spray, lisinopril 20 mg p.o. daily, Reglan 5 mg p.o. a.c. and Systane ophthalmic eyedrops. FAMILY HISTORY: Significant for: Mother has arthritis, heart disorder, osteoporosis. Father of ND at age 68, history of diabetes. SOCIAL HISTORY: , lives with . No smoking history, no alcohol use, no drug use. REVIEW OF SYMPTOMS: As per HPI. Rest of review of systems is negative. Admission Exam Per Admitting Provider PHYSICAL EXAMINATION: GENERAL: The patient is of moderate build, not in acute distress. VITAL SIGNS: Temperature 36.7, pulse 62, respiratory rate 20, blood pressure 170/70, oxygen 100% on 2 liters. HEENT: No pallor, no icterus. Pupils equal, round, and react to light. NECK: No JVD, no neck masses. Thyroid was palpable. CARDIOVASCULAR: S1, S2 heard. Regular rate and rhythm. No murmur, no gallop. RESPIRATORY SYSTEM: Clear to auscultation bilaterally. No wheezing. No crackles. ABDOMEN: Soft, bowel sounds present. Nontender. No distention. CENTRAL NERVOUS SYSTEM: Nonfocal. EXTREMITIES: No edema, no erythema. Principal Diagnosis Discharge Diagnosis: Chronic Lymphocytic Leukemia, Headache/Neck pain resolved, Splenomegaly, Hypertension Discharge Exam Constitutional WD/WN, vitals as above Eyes PERRL, conjunctivae normal, anicteric sclerae ENMT external ear and nose normal, oropharynx normal Neck trachea midline, no thyromegaly Respiratory normal respiratory effort, lungs clear to auscultation Cardiovascular RRR, no murmur, no edema Gastrointestinal (Abdomen) normal bowel sounds, soft, nontender, no hepatosplenomegaly Musculoskeletal no cyanosis or clubbing, extremities motor strength 5/5 Head/Neck/Chest: normocephalic and head atraumatic Neurologic PERRL, EOMI, accommodation nl, no face palsy, no dysarthria CN's II-XI intact bilaterally Psychiatric A+Ox3, euthymic affect Discharge Data Allergies Allergy/AdvReac Type Severity Reaction Status Date / Time Penicillins Allergy Unknown Verified 12/20/18 04:32 Consultations 12/20/18 05:22 ED Decision to Admit Stat 12/20/18 07:05 Consult Neurology Routine 12/20/18 08:21 Consult Hematology Routine Ordered Studies 12/20/18 11:15 MR brain wo/w con Routine 12/21/18 07:23 CT abd pelvis oral and IV con Routine Hospital Course (1) CLL (chronic lymphocytic leukemia): Chronic Lymphocytic Leukemia outpatient WBC months ago was 16,000 of note, patient had recent steroid use and it is unclear whether this promoted recent leukocytosis Recent head CT CT SINUS FUSION WO CONTRAST - 12/15/2018 as outpatient: "No obstructive paranasal sinus disease appreciated. No masses within the skullbase " Recent 12/15/18 aspiration by ENT of thyroid gland and left cervical lymph node consistent will some lymphocyte involvement as per pathology report admission WBC 22K, follow up WBC 27,000. WBC on 12/21/18 is 19,000 and patient remains afebrile, blood culture from 12/20/18 are pending results but patient can follow up results as outpatient no antibiotics at this time Patient was evaluated by hematology service Dr. Gilman who recommended CT abdomen/ Pelvis imaging CT abdomen/Pelvis with no evidence of CLL associated adnenopathy Head/Neck pain CLL workup as above pain medication: controlled in the hospital with pain medications Patient should take gabapentin 100 mg twice a day for halfway pain control of headache and neck pain Patient can take Ibuprofen 200 mg every 6 hours as needed for pain (5 day prescription supply made) Patient should take lisinopril 40 mg daily for hypertension all new prescriptions sent to [facility] electronically patient evaluated by neurology service with relative normal Brain MRI and Cervical X ray imaging (No fracture or subluxation within the cervical spine. Mild facet degenerative changes) Hypertension: blood pressure on exam 179/68 in AM of 12/20/18, increased lisinopril home dose from 20 mg daily to 40 mg daily, MRI brain on 12/20/18 as ordered by neurology to work up the headache shows evidence for need for better blood pressure control but there is no evidence of stroke "1. No acute intracranial findings. 2. No intracranial mass or pathologic adenopathy. 3. Scattered white matter T2 hyperintense foci which favor mild small vessel disease" blood pressure improved as of 12/21/18 and to be discharged on lisinopril 40 mg daily Carotid Ultrasound as outpatient 11/12/2018 Right carotid artery duplex examination indicates evidence of less than 50% stenosis of the internal carotid artery. Left carotid artery duplex examination indicates evidence of less than 50% stenosis of the internal carotid artery. Gastroesophageal reflux disease and gastroparesis On omeprazole and Reglan Malnutrition The patient reports she is losing weight CT abdomen with no evidence of CLL assoiated adnenopathy CT abdomen showing Splenomegaoly (15 cm) -outpatient follow up DVT prophylaxis. 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 control of headache and neck pain Patient can take Ibuprofen 200 mg every 6 hours as needed for pain (5 day prescription supply made) Patient should take lisinopril 40 mg daily for hypertension all new prescriptions sent to [facility] electronically Patient is discharged to home and should follow up with primary care doctor including the hospital blood culture results 12/22/2018 8:00 AM Provider Carmen Haider MD Department Internal Medicine [facility] 12/25/2018 11:15 AM Provider Kaitlyn Ruffin PA-C Department Hematology/Oncology [facility] 12/25/2018 1:00 PM Provider Pham Guthrie DO Department Internal Medicine [facility] Neurology clinic at Address: [address] [place] [address] will arrange for outpatient follow up with the patient for headache symptoms if these symptoms return Total Time Total Time Spent Total Time Spent (In Minutes): 40 minutes Total Time Includes: Examination of the Patient, Discharge Planning and Medication Reconciliation Discharge Plan Discharge Items Patient Disposition: Home - Self-Care Reason For Visit: SEVERE FACIAL PAIN Discharge Diagnosis: Chronic Lymphocytic Leukemia with Leukocytosis but no signs of infection, Headache/Neck pain resolved, Splenomegaly, Hypertension Condition: Good Discharge Goals: Decrease discomfort Activity: Resume your previous activity Sexual Activity: When tolerated Non-emergency contact: Primary Care Provider and Specialist Call non-emergency contact if: you have any medication questions Diet: Regular Addtl Provider Instructions: Discharge Instructions Patient should take gabapentin 100 mg twice a day for halfway pain control of headache and neck pain Patient can take Ibuprofen 200 mg every 6 hours as needed for pain (5 day prescription supply made) Patient should take lisinopril 40 mg daily for hypertension all new prescriptions sent to [facility] electronically Patient is discharged to home and should follow up with primary care doctor including the hospital blood culture results 12/22/2018 8:00 AM Provider Carmen Haider MD Department Internal Medicine [facility] 12/25/2018 11:15 AM Provider Kaitlyn Ruffin PA-C Department Hematology/Oncology [facility] 12/25/2018 1:00 PM Provider Pham Guthrie DO Department Internal Medicine [facility] Neurology clinic at Address: [address] [place] [address] will arrange for outpatient follow up with the patient for headache symptoms if these symptoms return Prescriptions: New ibuprofen 200 mg Tablet 200 mg PO Q6H PRN (Reason: pain) 5 Days Qty: 20 RF: 0 gabapentin 100 mg Capsule 100 mg PO BID 30 Days Qty: 60 RF: 0 lisinopril [Zestril] 40 mg Tablet 40 mg PO QAM 30 Days Qty: 30 RF: 0 Continue metoclopramide HCl 5 mg tablet 5 mg PO AC RF: 0 omeprazole 20 mg capsule,delayed release(DR/EC) 20 mg PO QAM RF: 0 fluticasone 50 mcg/actuation spray,suspension 2 spray Intranasal DAILY RF: 0 peg 400-propylene glycol (PF) [Systane (PF)] 0.4-0.3 % Dropperette 1 drp OPB BID PRN (Reason: Dry Eyes) RF: 0 Discontinued lisinopril 20 mg tablet 20 mg PO DAILY RF: 0 Stand-Alone Forms: [facility] Discharge Orders: Discharge Order (Routine); Ordered 12/21/18 Ordered By: Go Harry Admission Data Admit Date/Time: 12/20/18 04:39 Attending Provider: Go Harry Admit Provider: William Woody Primary Care Provider: PCP,NO Other Providers: William Woody ; Lacey Fernandez ; Jono Owens ; Lacey Obando ; Evette Martinez ; Dwight Mota ; Jeni Parikh ; Dave Gilman Service: Medical Other Pending Studies at Discharge: Yes (12/20/18 blood cultures)
== END 2018-12-21 14:13 | disposition home or self-care (01) ==
LOC: 4E 01:00 → ED 01:00 → 4E 06:16

== ENCOUNTER 2021-08-19 22:25 | Inpatient (IN) ==
[2021-08-19 23:33] LABS: Appearance Urine Cloudy (Clear); Bacteria Urine Automated 4+ (Negative); Bilirubin Urine Negative (Negative); Blood Urine 2+ (Negative); Color Urine Dark Yellow; Epithelial Cell Urine Auto >30 /lpf (0-5); Glucose Urine UA Negative (Negative); Ketones Urine Negative (Negative); Leukocyte Esterase Urine Trace (Negative); Nitrite Urine Positive (Negative); Protein Urine 1+ (Negative); RBC Urine Automated 0-4 /hpf (0-4); Specific Gravity Urine 1.024 (1.000-1.030); Urobilinogen Urine Negative (Negative); pH Urine 5.5 (4.5-7.5)
[2021-08-19 23:40] LABS: INR 1.1 (0.9-1.1); Partial Thromboplastin Time 27.6 Seconds (21.0-31.0); Prothrombin Time 11.1 Seconds (9.0-12.0)
[2021-08-19 23:50] LABS: Alanine Aminotransferase 13 U/L (12-78); Albumin Level 2.8 gm/dl (3.4-5.0); Aspartate Aminotransferase 17 U/L (15-37); BUN Creatinine Ratio 16.1 (10-20); Blood Urea Nitrogen 15 mg/dl (7-18); Calcium 7.9 mg/dl (8.5-10.1); Carbon Dioxide 25 mmol/L (21-32); Chloride 103 mmol/L (98-107); Creatinine Clr Calc Pharmacy 45.9 ml/min; Est GFR (African American) 71.7 ml/min; Est GFR (Non-African American) 61.8 ml/min; Glucose 107 mg/dl (70-99); Lipase 131 U/L (73-393); Magnesium 1.2 mg/dl (1.8-2.4); Potassium 3.8 mmol/L (3.5-5.1); Sodium 137 mmol/L (136-145)
[2021-08-19 23:55] LABS: Albumin Globulin Ratio 0.9 (0.9-2); Alkaline Phosphatase 50 U/L (45-117); Bilirubin,Total 0.2 mg/dl (0.2-1); Globulin 3.2 gm/dl (2.5-4.0); Troponin I < 0.015 ng/ml (0-0.045)
[2021-08-20] LABS: Hematocrit (blood only) 29.3 % (37-47); Hemoglobin 8.9 g/dL (12.0-16.0); Mean Corpuscular Hgb Conc 30.4 g/dL (32-36); Mean Corpuscular Volume 85.7 fL (80-100); Mean Platelet Volume 11.8 fL (7.4-10.4); Platelet Count 157 K/uL (130-400); RDW Coefficient of Variation 15.4 % (11.5-14.5); RDW Standard Deviation 47.2 fL (36.4-46.3); Red Blood Count 3.42 M/uL (4.2-5.4); White Blood Count 102.18 K/uL (4.8-10.8)
[2021-08-20 00:14] LABS: Mucus Urine Present (None Prsent)
[2021-08-20 00:16] LABS: Influenza A virus by PCR Negative (Negative); Influenza B virus by PCR Negative (Negative)
[2021-08-20] MEDS ORDERED: ONDANSETRON INJ 2 MG/ML 2 ML VIAL ONE (00:17)
[2021-08-20 00:21] LABS: Basophils # (auto) 0.16 K/uL (0-0.2); Basophils % (auto) 0.2 %; Eosinophils # (auto) 0.17 K/uL (0-0.5); Eosinophils % (auto) 0.2 %; Immature Granulocytes # (auto) 0.19 K/uL (0.00-0.02); Immature Granulocytes % (auto) 0.2 %; Lymphocytes # (auto) 94.11 K/uL (1.2-3.4); Lymphocytes % (auto) 92.1 %; Monocytes # (auto) 1.15 K/uL (0.11-0.59); Monocytes % (auto) 1.1 %; Neutrophils % (auto) 6.2 %; Ovalocytes 1+; Smudge Cells Present
[2021-08-20] MEDS: MAGNESIUM SULFATE / D5W 1 GM/100 ML BAG IV SCH ×5 (00:53→09:34)
[2021-08-20] MEDS ORDERED: OPTIRAY 320 100ml IV ONE (00:59)
[2021-08-20] MEDS ORDERED: CIPROFLOXACIN / D5W 400 MG/200 ML BAG IV STA (01:10)
--- NOTE | 2021-08-20 01:11 | Emergency Department Note ---
History of Present Illness General Chief complaint: Hip Pain Stated complaint: ?syncope, fall, CHEN Time Seen by Provider: 08/19/21 23:14 History of Present Illness Provider complaint: Weakness fall left hip pain Onset (ago): day(s) 1 Location: hip and left Radiation: non-radiation Severity: moderate Maximum Pain Intensity: 5 Current Pain Intensity: 5 Quality: + stabbing, + aching, + sharp and + dull Relieved By: + immobilization Exacerbated By: + movement Associated symptoms: + cough, + malaise and + weakness; no chest pain, no fever/chills, no headaches, no nausea/vomiting or no shortness of breath 71-year-old female on chemotherapy for CLL presents emergency department for weakness and left hip pain. Patient states she got up this evening after lying down and was feeling very weak and faint. Patient states she fell and hit her head. She reports left hip pain after she fell. She reports she has been feeling increasingly weak. She states her tested positive for COVID-19 this week. Patient states she is vaccinated with the maternal vaccine. Patient reports having diarrhea. She reports her stools have been black. She reports no hematuria or dysuria. Home Medications Medication Instructions Recorded Confirmed Type fluticasone propionate 50 2 spray INTRANASAL DAILY 12/20/18 12/20/18 History mcg/actuation nasal spray,suspension metoclopramide HCl 5 mg tablet 5 mg PO AC 12/20/18 12/20/18 History omeprazole 20 mg capsule,delayed 20 mg PO QAM 12/20/18 12/20/18 History release peg 400-propylene glycol (PF) 0.4 1 drp OPB BID PRN 12/20/18 12/20/18 History %-0.3 % eye drops in a dropperette (Systane (PF)) Allergies Allergy/AdvReac Type Severity Reaction Status Date / Time Penicillins Allergy Unknown Verified 12/20/18 04:32 Past Med/Surg History Medical History CLL (chronic lymphocytic leukemia) No pertinent family history Surgical History No pertinent past surgical history Social History Smoking Status: Never smoker Hx Alcohol Use: No Hx Substance Use: No Preferred Language: Greek Communication Ability: Effective [place] Seamer Required: No Beliefs That Will Affect Care: Scientologist Scientologist Beliefs: Sikh Current Living Situation: Spouse Feels Safe at Home: Yes Assistive Devices: None Review of Systems A total of 10 systems reviewed and were otherwise negative Physical Exam Vital Signs Vital Signs - 24 hr 08/19/21 22:44 08/19/21 22:50 08/19/21 22:58 Temperature 36.8 C Temperature Source Oral Pulse Rate 73 63 64 Pulse Rhythm Regular Pulse Strength Normal Respiratory Rate 13 24 20 Respiratory Effort / Characteristics Non-Labored Respiratory Depth Normal Blood Pressure 113/60 113/60 Blood Pressure Mean 77 77 Blood Pressure Position Lying Pulse Oximetry 100 97 92 Oxygen Delivery Method Nasal Cannula Nasal Cannula Room Air Oxygen Flow Rate 2 2 Sepsis Recent Fever Within 48 Hours No Sepsis New/Unexplained Change in Mental Status No Sepsis Action Taken by Nursing No Action Required 08/19/21 23:00 08/19/21 23:10 08/19/21 23:20 Temperature Temperature Source Pulse Rate 65 66 61 Pulse Rhythm Pulse Strength Respiratory Rate 24 21 23 Respiratory Effort / Characteristics Respiratory Depth Blood Pressure Blood Pressure Mean Blood Pressure Position Pulse Oximetry 99 99 100 Oxygen Delivery Method Nasal Cannula Nasal Cannula Nasal Cannula Oxygen Flow Rate 2 2 2 Sepsis Recent Fever Within 48 Hours Sepsis New/Unexplained Change in Mental Status Sepsis Action Taken by Nursing 08/19/21 23:30 08/19/21 23:40 08/19/21 23:50 Temperature Temperature Source Pulse Rate 57 L 72 75 Pulse Rhythm Pulse Strength Respiratory Rate 26 H 19 16 Respiratory Effort / Characteristics Respiratory Depth Blood Pressure Blood Pressure Mean Blood Pressure Position Pulse Oximetry 98 96 94 Oxygen Delivery Method Oxygen Flow Rate 2 2 2 Sepsis Recent Fever Within 48 Hours Sepsis New/Unexplained Change in Mental Status Sepsis Action Taken by Nursing 08/20/21 00:00 08/20/21 00:10 08/20/21 00:40 Temperature Temperature Source Pulse Rate 66 64 68 Pulse Rhythm Pulse Strength Respiratory Rate 19 18 13 Respiratory Effort / Characteristics Respiratory Depth Blood Pressure 126/59 L Blood Pressure Mean 81 Blood Pressure Position Pulse Oximetry 98 99 Oxygen Delivery Method Oxygen Flow Rate 2 2 Sepsis Recent Fever Within 48 Hours Sepsis New/Unexplained Change in Mental Status Sepsis Action Taken by Nursing 08/20/21 00:50 08/20/21 01:00 08/20/21 01:10 Temperature Temperature Source Pulse Rate 72 63 66 Pulse Rhythm Pulse Strength Respiratory Rate 17 18 18 Respiratory Effort / Characteristics Respiratory Depth Blood Pressure Blood Pressure Mean Blood Pressure Position Pulse Oximetry 96 96 97 Oxygen Delivery Method Oxygen Flow Rate 2 2 2 Sepsis Recent Fever Within 48 Hours Sepsis New/Unexplained Change in Mental Status Sepsis Action Taken by Nursing 08/20/21 01:20 08/20/21 01:30 08/20/21 01:40 Temperature Temperature Source Pulse Rate 56 L 71 65 Pulse Rhythm Pulse Strength Respiratory Rate 20 15 20 Respiratory Effort / Characteristics Respiratory Depth Blood Pressure Blood Pressure Mean Blood Pressure Position Pulse Oximetry 91 93 97 Oxygen Delivery Method Oxygen Flow Rate Sepsis Recent Fever Within 48 Hours Sepsis New/Unexplained Change in Mental Status Sepsis Action Taken by Nursing 08/20/21 01:50 08/20/21 02:00 08/20/21 02:10 Temperature Temperature Source Pulse Rate 69 66 72 Pulse Rhythm Pulse Strength Respiratory Rate 16 20 20 Respiratory Effort / Characteristics Respiratory Depth Blood Pressure Blood Pressure Mean Blood Pressure Position Pulse Oximetry 94 92 94 Oxygen Delivery Method Oxygen Flow Rate Sepsis Recent Fever Within 48 Hours Sepsis New/Unexplained Change in Mental Status Sepsis Action Taken by Nursing 08/20/21 02:20 08/20/21 02:30 08/20/21 02:40 Temperature Temperature Source Pulse Rate 68 65 57 L Pulse Rhythm Pulse Strength Respiratory Rate 20 17 23 Respiratory Effort / Characteristics Respiratory Depth Blood Pressure Blood Pressure Mean Blood Pressure Position Pulse Oximetry 96 98 96 Oxygen Delivery Method Oxygen Flow Rate Sepsis Recent Fever Within 48 Hours Sepsis New/Unexplained Change in Mental Status Sepsis Action Taken by Nursing 08/20/21 02:50 Temperature Temperature Source Pulse Rate 63 Pulse Rhythm Pulse Strength Respiratory Rate 23 Respiratory Effort / Characteristics Respiratory Depth Blood Pressure Blood Pressure Mean Blood Pressure Position Pulse Oximetry 96 Oxygen Delivery Method Oxygen Flow Rate Sepsis Recent Fever Within 48 Hours Sepsis New/Unexplained Change in Mental Status Sepsis Action Taken by Nursing Physical Exam GENERAL: She is oriented to person, place, and time. She appears well-developed and well-nourished. She does not appear distressed. HENT: Exam performed. -Head: Normocephalic and atraumatic. -Right Ear: External ear normal. No mastoid tenderness. -Left Ear: External ear normal. No mastoid tenderness. -Mouth/Throat: The oropharynx is clear and moist. No trismus in the jaw. No dental abscesses or uvula swelling. No oropharyngeal exudate or tonsillar abscesses. EYES: Conjunctivae and EOM are normal. Pupils are equal, round, and reactive to light. Right eye exhibits no discharge. Left eye exhibits no discharge. No scleral icterus. NECK: Normal range of motion. Neck supple. No JVD present. No spinous process tenderness present. No carotid bruit present. No rigidity. No tracheal deviation and normal range of motion present. No Brudzinski's sign and no Kernig's sign noted. CV: Normal rate, regular rhythm, normal heart sounds and intact distal pulses. There is no peripheral edema. Palpable radial pulses bue. PULM/CHEST: Rhonchi bilaterally. -Chest Wall: She exhibits no tenderness. ABD: The abdomen is soft. Bowel sounds are normal. She has no distension. No mass is present. There is no tenderness. There is no rebound, no guarding, no Vanec's sign and no tenderness at McBurney's point. Rovsig negative MUSC/SKEL: Pain on palpation of the left hip. LYMPH: No cervical adenopathy. NEURO: She is alert and oriented to person, place, and time. She has normal strength. No cranial nerve deficit or sensory deficit. GCS eye subscore is 4. GCS verbal subscore is 5. GCS motor subscore is 6. Cerebellar tests wnl. SKIN: Skin is warm and dry. She is not diaphoretic. PSYCH: She has a normal mood and affect. Behavior is normal. Judgment and thought content normal. Course Course 2314: The patient was evaluated in room C8. A complete history and physical exam was performed Cardiac monitoring: An order was placed for continuous cardiac monitoring. The monitor shows a rate of 60 sinus with rhythm 0257: Vital signs stable. Imaging shows left-sided hip fracture. CT of the head C-spine and abdomen is negative. Patient has hypomagnesemia. Labs show leukocytosis of 102. This is baseline for the patient only obtain labs from [facility] as the patient has CLL. Lactic acid is within normal limits. Magnesium replaced in the emergency department. Patient also has UTI. Patient started Cipro for UTI. Patient also tested positive for COVID-19. Patient will be admitted to the [facility] hospitalist team Dr. Guaman. Administered Medications Ciprofloxacin (Cipro / D5w) 400 mg in 200 mls @ 100 mls/hr IV NOW STA; Protocol Stop: 08/20/21 03:09 Last Admin: 08/20/21 02:08 Dose: 100 mls/hr Documented by: [id number] Pantoprazole Sodium 40 mg/ (Dextrose) 100 mls @ 20 mls/hr IV Q5H REBEKA Stop: 09/19/21 01:44 Last Admin: 08/20/21 02:33 Dose: 8 mg/hr, 20 mls/hr Documented by: [id number] Discontinued Medications Magnesium Sulfate/Dextrose (Magnesium Sulfate / D5w) 1 gm in 100 mls @ 100 mls/hr IV Q1H REBEKA Stop: 08/20/21 01:54 Last Infusion: 08/20/21 02:03 Dose: 100 mls/hr Documented by: [id number] Admin: 08/20/21 00:53 Dose: 100 mls/hr Documented by: [id number] Pantoprazole Sodium (Protonix Bolus/Drip) 0 mls @ 1 mls/hr IV ONE STA Stop: 08/20/21 01:22 Last Admin: 08/20/21 01:49 Dose: Not Given Documented by: [id number] Pantoprazole Sodium 80 mg/ (Dextrose) 120 mls @ 400 mls/hr IV NOW ONE Stop: 08/20/21 01:38 Last Infusion: 08/20/21 02:52 Dose: 400 mls/hr Documented by: [id number] Admin: 08/20/21 02:05 Dose: 400 mls/hr Documented by: [id number] Ioversol (Optiray 320 100ml) 94 ml IV ONCE ONE Stop: 08/20/21 01:00 Last Admin: 08/20/21 00:59 Dose: 1 ml Documented by: [id number] Morphine Sulfate (Morphine Sulfate 2 Mg/Ml Carp) 2 mg IV NOW STA Stop: 08/20/21 01:22 Last Admin: 08/20/21 02:03 Dose: 2 mg Documented by: [id number] Ondansetron HCl (Ondansetron Inj 2 Mg/Ml 2 Ml Vial) Confirm Administered Dose 4 mg .ROUTE .STK-MED ONE Stop: 08/20/21 00:18 Last Admin: 08/20/21 00:20 Dose: 4 mg Documented by: [id number] Medical Decision Making Laboratory Data Result diagrams: 08/19/21 Unknown 08/19/21 Unknown Lab Results 08/19/21 08/19/21 08/19/21 Range/Units 23:49 23:49 Unknown WBC 102.18 H* (4.8-10.8) K/uL RBC 3.42 L (4.2-5.4) M/uL Hgb 8.9 L (12.0-16.0) g/dL Hct 29.3 L (37-47) % MCV 85.7 (80-100) fL MCH 26.0 (25-34) pg MCHC 30.4 L (32-36) g/dL RDW Std Deviation 47.2 H (36.4-46.3) fL RDW Coeff of Ashanti 15.4 H (11.5-14.5) % Plt Count 157 (130-400) K/uL MPV 11.8 H (7.4-10.4) fL Immature Gran % (Auto) 0.2 % Neut % (Auto) 6.2 % Lymph % (Auto) 92.1 % [place] % (Auto) 1.1 % Eos % (Auto) 0.2 % Baso % (Auto) 0.2 % Neut # (Auto) 6.40 (1.4-6.5) K/uL Lymph # (Auto) 94.11 H (1.2-3.4) K/uL [place] # (Auto) 1.15 H (0.11-0.59) K/uL Eos # (Auto) 0.17 (0-0.5) K/uL Baso # (Auto) 0.16 (0-0.2) K/uL Immature Gran # (Auto) 0.19 H (0.00-0.02) K/uL Smudge Cells Present Ovalocytes 1+ PT (9.0-12.0) Seconds INR (0.9-1.1) APTT (21.0-31.0) Seconds PTT Ratio Sodium (136-145) mmol/L Potassium (3.5-5.1) mmol/L Chloride (98-107) mmol/L Carbon Dioxide (21-32) mmol/L Anion Gap (3-11) BUN (7-18) mg/dl Creatinine (0.6-1.2) mg/dl Est Cr Clr Drug Dosing ml/min Est GFR ( Amer) ml/min Est GFR (Non-Af Amer) ml/min BUN/Creatinine Ratio (10-20) Glucose (70-99) mg/dl Lactate 0.8 (0.4-2.0) mmol/L Calcium (8.5-10.1) mg/dl Magnesium (1.8-2.4) mg/dl Total Bilirubin (0.2-1) mg/dl AST (15-37) U/L ALT (12-78) U/L Alkaline Phosphatase (45-117) U/L Troponin I (0-0.045) ng/ml Total Protein (6.4-8.2) gm/dl Albumin (3.4-5.0) gm/dl Globulin (2.5-4.0) gm/dl Albumin/Globulin Ratio (0.9-2) Lipase (73-393) U/L Urine Color Urine Appearance (Clear) Urine pH (4.5-7.5) Ur Specific [place] (1.000-1.030) Urine Protein (Negative) Urine Glucose (UA) (Negative) Urine Ketones (Negative) Urine Blood (Negative) Urine Nitrite (Negative) Urine Bilirubin (Negative) Urine Urobilinogen (Negative) Ur Leukocyte Esterase (Negative) Urine WBC (Auto) (0-5) /hpf Urine RBC (Auto) (0-4) /hpf U Hyaline Cast (Auto) (0-5) /lpf U Epithel Cells (Auto) (0-5) /lpf Urine Bacteria (Auto) (Negative) Ur Renal Epithelial Cell Urine Mucus (None Prsent) COVID-19 Eval Order SARS-CoV-2 (PCR) (Negative) Influ A Molecular Assay (Negative) Influ B Molecular Assay (Negative) Blood Type AB Positive Antibody Screen NEGATIVE 08/19/21 08/19/21 08/19/21 Range/Units Unknown Unknown Unknown WBC (4.8-10.8) K/uL RBC (4.2-5.4) M/uL Hgb (12.0-16.0) g/dL Hct (37-47) % MCV (80-100) fL MCH (25-34) pg MCHC (32-36) g/dL RDW Std Deviation (36.4-46.3) fL RDW Coeff of [place]anti (11.5-14.5) % Plt Count (130-400) K/uL MPV (7.4-10.4) fL Immature Gran % (Auto) % Neut % (Auto) % Lymph % (Auto) % [place] % (Auto) % Eos % (Auto) % Baso % (Auto) % Neut # (Auto) (1.4-6.5) K/uL Lymph # (Auto) (1.2-3.4) K/uL [place] # (Auto) (0.11-0.59) K/uL Eos # (Auto) (0-0.5) K/uL Baso # (Auto) (0-0.2) K/uL Immature Gran # (Auto) (0.00-0.02) K/uL Smudge Cells Ovalocytes PT 11.1 (9.0-12.0) Seconds INR 1.1 (0.9-1.1) APTT 27.6 (21.0-31.0) Seconds PTT Ratio 1.0 Sodium 137 (136-145) mmol/L Potassium 3.8 (3.5-5.1) mmol/L Chloride 103 (98-107) mmol/L Carbon Dioxide 25 (21-32) mmol/L Anion Gap 9.0 (3-11) BUN 15 (7-18) mg/dl Creatinine 0.93 (0.6-1.2) mg/dl Est Cr Clr Drug Dosing 45.9 ml/min Est GFR ( Amer) 71.7 ml/min Est GFR (Non-Af Amer) 61.8 ml/min BUN/Creatinine Ratio 16.1 (10-20) Glucose 107 H (70-99) mg/dl Lactate (0.4-2.0) mmol/L Calcium 7.9 L (8.5-10.1) mg/dl Magnesium 1.2 L (1.8-2.4) mg/dl Total Bilirubin 0.2 (0.2-1) mg/dl AST 17 (15-37) U/L ALT 13 (12-78) U/L Alkaline Phosphatase 50 (45-117) U/L Troponin I < 0.015 (0-0.045) ng/ml Total Protein 6.0 L (6.4-8.2) gm/dl Albumin 2.8 L (3.4-5.0) gm/dl Globulin 3.2 (2.5-4.0) gm/dl Albumin/Globulin Ratio 0.9 (0.9-2) Lipase 131 (73-393) U/L Urine Color Dark Yellow Urine Appearance Cloudy A (Clear) Urine pH 5.5 (4.5-7.5) Ur Specific [place] 1.024 (1.000-1.030) Urine Protein 1+ H (Negative) Urine Glucose (UA) Negative (Negative) Urine Ketones Negative (Negative) Urine Blood 2+ H (Negative) Urine Nitrite Positive A (Negative) Urine Bilirubin Negative (Negative) Urine Urobilinogen Negative (Negative) Ur Leukocyte Esterase Trace H (Negative) Urine WBC (Auto) 10-30 H (0-5) /hpf Urine RBC (Auto) 0-4 (0-4) /hpf U Hyaline Cast (Auto) 10-30 H (0-5) /lpf U Epithel Cells (Auto) >30 H (0-5) /lpf Urine Bacteria (Auto) 4+ H (Negative) Ur Renal Epithelial Cell Not Reportable Urine Mucus Present A (None Prsent) COVID-19 Eval Order SARS-CoV-2 (PCR) (Negative) Influ A Molecular Assay (Negative) Influ B Molecular Assay (Negative) Blood Type Antibody Screen 08/19/21 08/19/21 08/19/21 Range/Units Unknown Unknown Unknown WBC (4.8-10.8) K/uL RBC (4.2-5.4) M/uL Hgb (12.0-16.0) g/dL Hct (37-47) % MCV (80-100) fL MCH (25-34) pg MCHC (32-36) g/dL RDW Std Deviation (36.4-46.3) fL RDW Coeff of [place] (11.5-14.5) % Plt Count (130-400) K/uL MPV (7.4-10.4) fL Immature Gran % (Auto) % Neut % (Auto) % Lymph % (Auto) % [place] % (Auto) % Eos % (Auto) % Baso % (Auto) % Neut # (Auto) (1.4-6.5) K/uL Lymph # (Auto) (1.2-3.4) K/uL [place] # (Auto) (0.11-0.59) K/uL Eos # (Auto) (0-0.5) K/uL Baso # (Auto) (0-0.2) K/uL Immature Gran # (Auto) (0.00-0.02) K/uL Smudge Cells Ovalocytes PT (9.0-12.0) Seconds INR (0.9-1.1) APTT (21.0-31.0) Seconds PTT Ratio Sodium (136-145) mmol/L Potassium (3.5-5.1) mmol/L Chloride (98-107) mmol/L Carbon Dioxide (21-32) mmol/L Anion Gap (3-11) BUN (7-18) mg/dl Creatinine (0.6-1.2) mg/dl Est Cr Clr Drug Dosing ml/min Est GFR ( Amer) ml/min Est GFR (Non-Af Amer) ml/min BUN/Creatinine Ratio (10-20) Glucose (70-99) mg/dl Lactate (0.4-2.0) mmol/L Calcium (8.5-10.1) mg/dl Magnesium (1.8-2.4) mg/dl Total Bilirubin (0.2-1) mg/dl AST (15-37) U/L ALT (12-78) U/L Alkaline Phosphatase (45-117) U/L Troponin I (0-0.045) ng/ml Total Protein (6.4-8.2) gm/dl Albumin (3.4-5.0) gm/dl Globulin (2.5-4.0) gm/dl Albumin/Globulin Ratio (0.9-2) Lipase (73-393) U/L Urine Color Urine Appearance (Clear) Urine pH (4.5-7.5) Ur Specific [place] (1.000-1.030) Urine Protein (Negative) Urine Glucose (UA) (Negative) Urine Ketones (Negative) Urine Blood (Negative) Urine Nitrite (Negative) Urine Bilirubin (Negative) Urine Urobilinogen (Negative) Ur Leukocyte Esterase (Negative) Urine WBC (Auto) (0-5) /hpf Urine RBC (Auto) (0-4) /hpf U Hyaline Cast (Auto) (0-5) /lpf U Epithel Cells (Auto) (0-5) /lpf Urine Bacteria (Auto) (Negative) Ur Renal Epithelial Cell Urine Mucus (None Prsent) COVID-19 Eval Order Covid19 at [facility] SARS-CoV-2 (PCR) POSITIVE A* (Negative) Influ A Molecular Assay Negative (Negative) Influ B Molecular Assay Negative (Negative) Blood Type Antibody Screen Imaging Data My Impression: Chest x-ray negative. Airway clear. No pneumothorax. No consolidation. No cardiomegaly or cephalization.. No free air under the diaphragm. No fractures of the skeletal structures. Pelvis and femur x-ray: Left-sided hip fracture. Radiologist's Impression: Preliminary Findings Only See Final Report For Complete Findings CT C SPINE: No fracture or listhesis. Multiple, small scattered bony lucencies that may relate to osteoporosis, metastatic lesions not excluded. Radiologist: Azalia Schofield M.D. Study ready at 01:08 and initial results transmitted at 02:53 Preliminary Findings Only See Final Report For Complete Findings CT ABDOMEN & PELVIS With Contrast: Comparison is made with previous CT abdomen pelvis December 21, 2018. Stable, moderate to severe splenomegaly and splenic varices. Moderate fluid levels throughout the mildly distended colon, nonspecific, possible gastroenteritis or ileus. Somewhat hyperdense focus within the lumen of the cecum and right colon, nonspecific, could possibly reflect site of GI bleeding. Consider confirmation with CTA or nuclear medicine bleeding study. Mildly prominent fluid distended appendix, without secondary signs of an acute appendicitis. No SBO, free air or free fluid. Radiologist: Azalia Schofield M.D. Study ready at 01:08 and initial results transmitted at 02:51 Preliminary Findings Only See Final Report For Complete Findings CT HEAD: No skull fracture, acute bleed, infarct, or acute intracranial abnormality. Partially imaged left maxillary and ethmoid sinusitis, nonspecific, may be acute and/or chronic. Mild age-related findings. Radiologist: Azalia Schofield M.D. Study ready at 01:08 and initial results transmitted at 01:15 ECG Data Indication: + weakness Rate (beats per minute): 60 Rhythm: + normal sinus ECG Intervals/blocks: + Normal MS and + Normal QT-c ECG ST segments: + Normal ST segments Additional Comments: QRS 72 MDM Narrative Vital signs stable. Imaging shows left-sided hip fracture. CT of the head C- spine and abdomen is negative. Patient has hypomagnesemia. Labs show leukocytosis of 102. This is baseline for the patient only obtain labs from [facility] as the patient has CLL. Lactic acid is within normal limits. Magnesium replaced in the emergency department. Patient also has UTI. Patient started Cipro for UTI. Patient also tested positive for COVID-19. Patient will be admitted to the [facility] hospitalist team Dr. Guaman. Impression & Plan Closed hip fracture, CLL (chronic lymphocytic leukemia), Acute UTI, Hypomagnesemia, COVID-19 Discharge Plan Visit Data Chief Complaint: Hip Pain Stated Complaint: ?syncope, fall, CHEN Discharge Problem: Closed hip fracture, CLL (chronic lymphocytic leukemia), Acute UTI, Hypomagnesemia, COVID-19 Patient Disposition: Admitted As Inpatient Forms Stand Alone Forms: [facility] Prescriptions Prescriptions: No Action metoclopramide HCl 5 mg tablet 5 mg PO AC RF: 0 omeprazole 20 mg capsule,delayed release(DR/EC) 20 mg PO QAM RF: 0 fluticasone propionate 50 mcg/actuation spray,suspension 2 spray Intranasal DAILY RF: 0 peg 400-propylene glycol (PF) [Systane (PF)] 0.4-0.3 % Dropperette 1 drp OPB BID PRN (Reason: Dry Eyes) RF: 0 Referrals Referrals: Carmen Pineda MD [Primary Care Provider] -
[2021-08-20] MEDS ORDERED: PANTOPRAZOLE BOLUS/DRIP 1 EA IV STA (01:21)
[2021-08-20] MEDS ORDERED: PANTOprazole 80 MG in DEXTROSE 5% 100 ML IV ONE (01:21)
[2021-08-20] MEDS ORDERED: MoRPHine SULFATE 2 MG/ML CARP IV STA (01:21)
[2021-08-20] MEDS: PANTOprazole 40 MG in DEXTROSE 5% 100 ML IV SCH ×5 (02:33→22:08)
--- NOTE | 2021-08-20 03:56 | History & Physical Report ---
Date of Service August 20, 2021 Assessment & Plan (1) UGIB (upper gastrointestinal bleed): Plan: Hemoglobin drop from baseline Patient predisposed by blood dyscrasia from CLL and ongoing ibrutinib chemotherapy. Left hip fracture secondary to fall from syncopal event Syncopal event likely secondary to orthostasis given low BP noted at the ER Rule out obstructive cardiac pathology Complicated UTI, no sepsis for now COVID-19 illness with dry cough symptoms and stable oxygenation. hypertension, BP on the lower side Medical telemetry IV PPI Serial H&H, transfuse PRBC to maintain hemoglobin greater than 7 and or for symptomatic anemia Hold ibrutinib for now given acute bleed [Patient's oncologist (Dr. Ortiz) agreeable.] GI consult Re: UGI B Orthopedics consult Re: Left hip fracture Urine CS, Cefepime TTE RE syncope Appropriate to hold home BP medication for now until BP stable. DVT prophylaxis. SCDs Re: GI bleed Full code Text document was generated using [employer] voice recognition software. It may contain grammatical or spelling errors. Kindly contact undersigned for clarification of any documentation item in question. History of Present Illness Chief Complaint: Fall, left hip pain Primary Care Provider: Carmen Haider MD History obtained from patient and records. Medical history significant for CLL on chemotherapy, hypogammaglobinemia, hypertension, GERD, gastroparesis, chronic anemia (baseline hemoglobin 10), chronic thrombocytopenia. Last confinement December 2018 for CLL and head and neck pain. Patient not feeling well the last few days. Dry cough symptoms without shortness of breath. Sick COVID-19 contacts at home. Poor appetite. Achy abdominal pain with dark stools which patient attributed to iron prescription at home. Patient felt lightheaded when she got up last night. She subsequently felt weak and passed out for few seconds. Patient landed on the floor. Achy left hip pain. Patient unable to get up. No witnessed seizures. Patient brought to the ER for evaluation. IV Protonix started for UGI B with positive Hemoccult. Ciprofloxacin given for UTI. 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 Allergies Allergy/AdvReac Type Severity Reaction Status Date / Time Penicillins Allergy Unknown Verified 08/20/21 03:19 Home Medications Medication Instructions Recorded Confirmed Type fluticasone propionate 50 2 spray INTRANASAL DAILY 12/20/18 08/20/21 History mcg/actuation nasal spray,suspension omeprazole 20 mg capsule,delayed 20 mg PO QAM 12/20/18 08/20/21 History release peg 400-propylene glycol (PF) 0.4 1 drp OPB BID PRN 12/20/18 08/20/21 History %-0.3 % eye drops in a dropperette (Systane (PF)) allopurinol 100 mg tablet 100 mg PO DAILY PRN 08/20/21 08/20/21 History amlodipine 10 mg tablet 10 mg PO DAILY 08/20/21 08/20/21 History azelastine 137 mcg (0.1 %) nasal 2 spray INTRANASAL BID 08/20/21 08/20/21 History spray aerosol ferrous sulfate 325 mg (65 mg 325 mg PO Q OTHER DAY 08/20/21 08/20/21 History iron) tablet (FeroSul) ibrutinib 420 mg tablet (Imbruvica) 420 mg PO DAILY 08/20/21 08/20/21 History lisinopril 40 mg tablet 40 mg PO DAILY 08/20/21 08/20/21 History ondansetron HCl 4 mg tablet 4 mg PO Q6 PRN 08/20/21 08/20/21 History Past Med/Surg History Medical History CLL (chronic lymphocytic leukemia) No pertinent family history Surgical History No pertinent past surgical history Social History Smoking Status: Never smoker Hx Alcohol Use: No Hx Substance Use: No Preferred Language: Sinhala Communication Ability: Effective Pathology Specialist Required: No Beliefs That Will Affect Care: None Current Living Situation: Spouse Feels Safe at Home: Yes Safety Concerns: Feels Safe At This Time Assistive Devices: None Review of Systems Review of Systems: As per HPI, all 10 systems reviewed, all other ROS negative Physical Exam Physical Exam: GENERAL: Slightly uncomfortable , no respiratory distress SKIN: Pallor , warm HEENT: Pale palpebral conjunctivae, no ptosis, dry buccal mucosa NECK : Supple, no tenderness CHEST : Decreased breath sounds, no tenderness HEART : RRR, no obvious murmurs ABDOMEN: Some distention, nontender EXTREMITIES : Minimal LE swelling, left hip tenderness NEUROLOGIC : Coherent, no facial asymmetry, no other gross focality Results & Data Results & Data ([facility]) Vital Signs (Past 12 Hours) Vital Signs Temp Pulse Resp BP Pulse Ox 08/20/21 02:50 63 23 96 08/20/21 02:40 57 L 23 96 08/20/21 02:30 65 17 98 08/20/21 02:20 68 20 96 08/20/21 02:10 72 20 94 08/20/21 02:00 66 20 92 08/20/21 01:50 69 16 94 08/20/21 01:40 65 20 97 08/20/21 01:30 71 15 93 08/20/21 01:20 56 L 20 91 08/20/21 01:10 66 18 97 08/20/21 01:00 63 18 96 08/20/21 00:50 72 17 96 08/20/21 00:40 68 13 126/59 L 08/20/21 00:10 64 18 99 08/20/21 00:00 66 19 98 08/19/21 23:50 75 16 94 08/19/21 23:40 72 19 96 08/19/21 23:30 57 L 26 H 98 08/19/21 23:20 61 23 100 08/19/21 23:10 66 21 99 08/19/21 23:00 65 24 99 08/19/21 22:58 36.8 C 64 20 113/60 92 08/19/21 22:50 63 24 113/60 97 08/19/21 22:44 73 13 100 Laboratory Results Laboratory Results WBC 102.18 K/uL (4.8-10.8) H* 08/19/21 Unknown RBC 3.42 M/uL (4.2-5.4) L 08/19/21 Unknown Hgb 8.9 g/dL (12.0-16.0) L 08/19/21 Unknown Hct 29.3 % (37-47) L 08/19/21 Unknown MCV 85.7 fL (80-100) 08/19/21 Unknown MCH 26.0 pg (25-34) 08/19/21 Unknown MCHC 30.4 g/dL (32-36) L 08/19/21 Unknown RDW Std Deviation 47.2 fL (36.4-46.3) H 08/19/21 Unknown RDW Coeff of Ashanti 15.4 % (11.5-14.5) H 08/19/21 Unknown Plt Count 157 K/uL (130-400) 08/19/21 Unknown MPV 11.8 fL (7.4-10.4) H 08/19/21 Unknown Immature Gran % (Auto) 0.2 % 08/19/21 Unknown Neut % (Auto) 6.2 % 08/19/21 Unknown Lymph % (Auto) 92.1 % 08/19/21 Unknown [place] % (Auto) 1.1 % 08/19/21 Unknown Eos % (Auto) 0.2 % 08/19/21 Unknown Baso % (Auto) 0.2 % 08/19/21 Unknown Neut # (Auto) 6.40 K/uL (1.4-6.5) 08/19/21 Unknown Lymph # (Auto) 94.11 K/uL (1.2-3.4) H 08/19/21 Unknown Gladwin # (Auto) 1.15 K/uL (0.11-0.59) H 08/19/21 Unknown Eos # (Auto) 0.17 K/uL (0-0.5) 08/19/21 Unknown Baso # (Auto) 0.16 K/uL (0-0.2) 08/19/21 Unknown Immature Gran # (Auto) 0.19 K/uL (0.00-0.02) H 08/19/21 Unknown Smudge Cells Present 08/19/21 Unknown Ovalocytes 1+ 08/19/21 Unknown PT 11.1 Seconds (9.0-12.0) 08/19/21 Unknown INR 1.1 (0.9-1.1) 08/19/21 Unknown APTT 27.6 Seconds (21.0-31.0) 08/19/21 Unknown PTT Ratio 1.0 08/19/21 Unknown Sodium 137 mmol/L (136-145) 08/19/21 Unknown Potassium 3.8 mmol/L (3.5-5.1) 08/19/21 Unknown Chloride 103 mmol/L (98-107) 08/19/21 Unknown Carbon Dioxide 25 mmol/L (21-32) 08/19/21 Unknown Anion Gap 9.0 (3-11) 08/19/21 Unknown BUN 15 mg/dl (7-18) 08/19/21 Unknown Creatinine 0.93 mg/dl (0.6-1.2) 08/19/21 Unknown Est Cr Clr Drug Dosing 45.9 ml/min 08/19/21 Unknown Est GFR ( Amer) 71.7 ml/min 08/19/21 Unknown Est GFR (Non-Af Amer) 61.8 ml/min 08/19/21 Unknown BUN/Creatinine Ratio 16.1 (10-20) 08/19/21 Unknown Glucose 107 mg/dl (70-99) H 08/19/21 Unknown Lactate 0.8 mmol/L (0.4-2.0) 08/19/21 23:49 Calcium 7.9 mg/dl (8.5-10.1) L 08/19/21 Unknown Magnesium 1.2 mg/dl (1.8-2.4) L 08/19/21 Unknown Total Bilirubin 0.2 mg/dl (0.2-1) 08/19/21 Unknown AST 17 U/L (15-37) 08/19/21 Unknown ALT 13 U/L (12-78) 08/19/21 Unknown Alkaline Phosphatase 50 U/L (45-117) 08/19/21 Unknown Troponin I < 0.015 ng/ml (0-0.045) 08/19/21 Unknown Total Protein 6.0 gm/dl (6.4-8.2) L 08/19/21 Unknown Albumin 2.8 gm/dl (3.4-5.0) L 08/19/21 Unknown Globulin 3.2 gm/dl (2.5-4.0) 08/19/21 Unknown Albumin/Globulin Ratio 0.9 (0.9-2) 08/19/21 Unknown Lipase 131 U/L (73-393) 08/19/21 Unknown Urine Color Dark Yellow 08/19/21 Unknown Urine Appearance Cloudy (Clear) A 08/19/21 Unknown Urine pH 5.5 (4.5-7.5) 08/19/21 Unknown Ur Specific [place] 1.024 (1.000-1.030) 08/19/21 Unknown Urine Protein 1+ (Negative) H 08/19/21 Unknown Urine Glucose (UA) Negative (Negative) 08/19/21 Unknown Urine Ketones Negative (Negative) 08/19/21 Unknown Urine Blood 2+ (Negative) H 08/19/21 Unknown Urine Nitrite Positive (Negative) A 08/19/21 Unknown Urine Bilirubin Negative (Negative) 08/19/21 Unknown Urine Urobilinogen Negative (Negative) 08/19/21 Unknown Ur Leukocyte Esterase Trace (Negative) H 08/19/21 Unknown Urine WBC (Auto) 10-30 /hpf (0-5) H 08/19/21 Unknown Urine RBC (Auto) 0-4 /hpf (0-4) 08/19/21 Unknown U Hyaline Cast (Auto) 10-30 /lpf (0-5) H 08/19/21 Unknown U Epithel Cells (Auto) >30 /lpf (0-5) H 08/19/21 Unknown Urine Bacteria (Auto) 4+ (Negative) H 08/19/21 Unknown Ur Renal Epithelial Cell Not Reportable 08/19/21 Unknown Urine Mucus Present (None Prsent) A 08/19/21 Unknown COVID-19 Eval Order Covid19 at [facility] 08/19/21 Unknown SARS-CoV-2 (PCR) POSITIVE (Negative) A* 08/19/21 Unknown Influ A Molecular Assay Negative (Negative) 08/19/21 Unknown Influ B Molecular Assay Negative (Negative) 08/19/21 Unknown Blood Type AB Positive 08/19/21 23:49 Antibody Screen NEGATIVE 08/19/21 23:[address] head initial read: No skull fracture, acute bleed, infarct, or acute intracranial abnormality. Partiallyimaged left maxillaryand ethmoid sinusitis, nonspecific, maybe acute and/or chronic. Mild age-related findings. CT cervical spine initial read: No fracture or listhesis. Multiple, small scattered bonylucencies that mayrelate to osteoporosis, metastatic lesions not excluded. CT abdomen pelvis initial read: Comparison is made with previous CT abdomen pelvis 2018. Stable, moderate to severe splenomegalyand splenic varices. Moderate fluid levels throughout the mildlydistended colon, nonspecific, possible gastroenteritis or ileus. Somewhat hyperdense focuswithin the lumen of the cecumand right colon, nonspecific, could possiblyreflect site of GI bleeding. Consider confirmation with CTAor nuclear medicine bleeding study. Mildlyprominent fluid distended appendix, without secondarysigns of an acute appendicitis. No SBO, free air or free fluid Left femur x-ray as per my interpretation femoral neck fracture Chest x-ray as per my interpretation borderline cardiomegaly EKG as per my interpretation : Rate 65, NSR, normal axis, T wave flattening inferior leads
[2021-08-20] MEDS ORDERED: MAGNESIUM SULFATE / D5W 1 GM/100 ML BAG IV STA (04:08)
[2021-08-20] MEDS ORDERED: CEFEPIME CONSULT ACTIVE PRN (04:13)
[2021-08-20] MEDS ORDERED: CEFEPIME 20 ML IV STA (04:21)
[2021-08-20] MEDS: NSS + 20MEQ KCL 20 MEQ/1,000 ML BAG IV SCH ×2 (05:22→17:59)
[2021-08-20] MEDS ORDERED: allopurinoL 100 MG TAB PO PRN (06:07)
[2021-08-20] MEDS ORDERED: NALOXONE HCL 0.4 MG/1 ML VIAL/CARP IV PRN (06:07)
[2021-08-20] MEDS ORDERED: ARTIFICIAL TEARS OP PRN (06:11)
--- NOTE | 2021-08-20 06:44 | XRay Report ---
XR chest 1V portable HISTORY: 71 years-old Female hypoxic acute hypoxia COMPARISON: None TECHNIQUE: Portable AP view of the chest FINDINGS: The patient is slightly rotated. The cardiac silhouette is upper limits of normal in size. No pneumot horax, pleural effusion, airspace consolidation or overt pulmonary edema. No acute fracture. IMPRESSION: No acute process. ACT 112: Negative or not required by law. The above report was generated using voice recognition software. It may contain grammatical, syntax o r spelling errors. Electronically signed by: Bruce Saini M.D. 08/20/2021 6:43 AM
--- NOTE | 2021-08-20 06:48 | XRay Report ---
XR pelvis 1-2V routine, XR femur LT 2V routine HISTORY: 71 years-old Female fall acute pelvic and left hip pain status post fall COMPARISON: CT abdomen and pelvis of same day TECHNIQUE: AP view of the pelvis with 2 views of the left femur FINDINGS: PELVIS: Acute impacted left femoral neck fracture. Mild to moderate osteoarthritis of the hips. Mildly demine ralized appearance of the bones. No dislocation, additional acute fracture or opaque foreign body. No avascular necrosis. FEMUR: There is an acute impacted subcapital fracture of the left femoral neck with several millimeters of i mpaction and no significant displacement. The mid and distal femur appear intact. Osteoarthritis of t he left knee with trace left knee joint effusion. No additional acute fracture or dislocation. IMPRESSION: Acute impacted subcapital fracture of the left femoral neck. ACT 112: Negative or not required by law. The above report was generated using voice recognition software. It may contain grammatical, syntax o r spelling errors. Electronically signed by: Bruce Saini M.D. 08/20/2021 6:46 AM
[2021-08-20 06:54] LABS: Hematocrit (blood only) 28.4 % (37-47); Hemoglobin 8.8 g/dL (12.0-16.0); Mean Corpuscular Hemoglobin 26.3 pg (25-34); Mean Corpuscular Volume 84.8 fL (80-100); Mean Platelet Volume 11.9 fL (7.4-10.4); Platelet Count 140 K/uL (130-400); RDW Coefficient of Variation 15.1 % (11.5-14.5); RDW Standard Deviation 46.2 fL (36.4-46.3); Red Blood Count 3.35 M/uL (4.2-5.4); White Blood Count 89.43 K/uL (4.8-10.8)
--- NOTE | 2021-08-20 07:04 | CT Scan Report ---
CT head/brain wo con CLINICAL HISTORY: 71 years-old Female with fall. Acute head trauma status post fall TECHNIQUE: Multiple axial CT images of the head were obtained without contrast. A dose lowering tech nique was utilized adhering to the principles of ALARA. COMPARISON: Brain MRI 12/20/2018 FINDINGS: No acute intracranial hemorrhage, midline shift, intracranial mass, hydrocephalus, territorial ischem ia or abnormal extra-axial collection. Age-related involutional changes. Minimal white matter hypoden sities suggest chronic microvascular ischemic disease. The calvarium is intact. The mastoid air cells and middle ear cavities are clear. Mucoperiosteal thi ckening of the paranasal sinuses, at least moderate within the left maxillary sinus. Prior bilateral lens repair. IMPRESSION: No acute intracranial abnormality. ACT 112: Negative or not required by law. The above report was generated using voice recognition software. It may contain grammatical, syntax o r spelling errors. Electronically signed by: Bruce Saini M.D. 08/20/2021 7:03 AM
[2021-08-20 07:09] LABS: BUN Creatinine Ratio 12.4 (10-20); Calcium 7.4 mg/dl (8.5-10.1); Creatinine Clr Calc Pharmacy 47.4 ml/min; Est GFR (African American) 74.6 ml/min; Est GFR (Non-African American) 64.3 ml/min; Potassium 4.1 mmol/L (3.5-5.1)
--- NOTE | 2021-08-20 07:14 | CT Scan Report ---
CERVICAL SPINE CT CT DOSE: 1257.41 mGy.cm HISTORY: Neck pain. fall TECHNIQUE: Multiaxial CT images of the cervical spine were performed and reformatted in the sagittal and coronal plane without the use of contrast. A dose lowering technique was utilized adhering to th e principles of ALARA. COMPARISON: None. FINDINGS: No fractures. No subluxation. Prevertebral soft tissues and the C1-C2 interval are intact. No pneumothorax. A few borderline-enlarged cervical lymph nodes. The palatine and lingual tonsils are enlarged. IMPRESSION: 1. No fractures within the cervical spine. 2. The palatine and lingual tonsils are enlarged. This could be due to reactive hypertrophy in the se tting of a tonsillitis. However, direct visualization recommended to exclude an underlying lesion. Cl inical correlation recommended. 3. Mild bilateral cervical lymphadenopathy. 4. These findings were called/faxed to the emergency department following dictation. ACT 112: Negative or not required by law. Electronically signed by: Mendez Bravo M.D. 08/20/2021 7:12 AM
[2021-08-20] MEDS: MoRPHine SULFATE 2 MG/ML CARP IV PRN ×3 (07:41→15:57)
[2021-08-20 07:52] LABS: Basophils # (auto) 0.11 K/uL (0-0.2); Basophils % (auto) 0.1 %; Eosinophils # (auto) 0.01 K/uL (0-0.5); Immature Granulocytes # (auto) 0.16 K/uL (0.00-0.02); Immature Granulocytes % (auto) 0.2 %; Lymphocytes # (auto) 81.38 K/uL (1.2-3.4); Monocytes # (auto) 0.73 K/uL (0.11-0.59); Monocytes % (auto) 0.8 %; Neutrophils # (auto) 7.04 K/uL (1.4-6.5); Neutrophils % (auto) 7.9 %; Ovalocytes 1+; Smudge Cells Present
--- NOTE | 2021-08-20 07:53 | CT Scan Report ---
ABDOMEN AND PELVIS CT WITH IV CONTRAST HISTORY: Acute generalized abdominal pain and left hip pain status post fall. Acute left femoral frac ture. abd pain fall TECHNIQUE: Multiaxial CT images of the abdomen and pelvis were performed following the IV administrat ion of 94 cc of Optiray, A dose lowering technique was utilized adhering to the principles of ALARA. COMPARISON STUDY: Radiographs of the pelvis and left femur 08/19/2021, CT abdomen and pelvis 9. FINDINGS: Moderate cardiomegaly. Bibasilar groundglass densities are suggestive of atelectasis. Mildl y motion degraded exam. No pneumatosis or pneumoperitoneum. The spleen is enlarged measuring up to 16 .4 cm in length, previously approximately 15 cm. There is a linear area of ill-defined decreased atte nuation involving the posterolateral spleen on image 90 series 7 measuring 2.2 x 1.1 cm. Trace adjace nt perisplenic edema/hemorrhage. Upper abdominal varices. Mild thickening of the adrenal glands sugge stive of hyperplasia. Patency of the hepatic and portal veins. Unremarkable appearance of the liver w ith probable cyst of the right hepatic lobe, 9 mm. Unremarkable gallbladder and pancreas. The kidneys are within normal limits. 11 mm cyst of the superior pole left kidney. No hydronephrosis. Pelvic floor relaxation. Unremarkable urinary bladder, uterus and adnexa. The abdominal aorta and IV C are unremarkable. There is no adenopathy. Small hiatal hernia with air-fluid level of the distal esophagus. No bowel obstruction or bowel wall thickening. Scattered colonic air-fluid levels may be physiologic or represent a diarrheal illness. T he appendix is mildly dilated measuring 8 mm and is fluid-filled however appears noninflamed. Layerin g hyperdense material within the cecum may be medicinal or less likely hemorrhagic. Scattered air-flu id levels are also noted within nondilated loops of small bowel, likely physiologic. Chronic appearing left-sided rib fractures. There is an acute impacted and slightly angulated subcapi alek fracture of the left femur with anterior displacement of approximately 11 mm. Chondrocalcinosis w ith severe degeneration of the pubic symphysis. Mild superior endplate compression at T11 without ret ropulsion. Age-indeterminate however favor to be chronic. IMPRESSION: 1. Moderate to marked splenomegaly has increased in size from 12/21/2018. There is a 2.2 x 1.1 cm line ar area of decreased attenuation involving the peripheral posterior mid spleen with trace perisplenic fluid/hemorrhage. With history of recent trauma, this is suggestive of an acute splenic laceration ( grade II injury). This finding was called/faxed to the emergency department at time of dictation. 2. Acute, impacted, mildly displaced and angulated subcapital fracture of the left femur. 3. Additional findings as above. ACT 112: Negative or not required by law. The above report was generated using voice recognition software. It may contain grammatical, syntax o r spelling errors. Electronically signed by: Bruce Saini M.D. 08/20/2021 7:51 AM
--- NOTE | 2021-08-20 09:05 | Communication Note ---
Date of Service: August 20, 2021 Chart reviewed given COVID-19 infection. 71 year old female w/ history of CLL on chemotherapy, hypogammaglobinemia, hypertension, GERD, gastroparesis, chronic anemia (baseline hemoglobin 10), chronic thrombocytopenia admitted w/ weakness, syncopal event, drop in HGB. HGB 8.8 from baselines 12. No BUN elevation. Imaging shows fracture of left femur a nd concern for splenic laceration. CTAP 2020: . Moderate to marked splenomegaly has increased in size from 12/21/2018. There is a 2.2 x 1.1 cm linear area of decreased attenuation involv ing the peripheral posterior mid spleen with trace perisplenic fluid/hemorrhage. With history of recent trauma, this is suggestive of an acute splenic laceration (grade II injury). This finding was called/faxed to the emergency department at time of dictation. Acute, impacted, mildly displaced and angulated subcapital fracture of the left femur. Additional findings as above. 71 year old female admitted w/ fall, syncope imaging showing left hip fracture, splenic laceration and COVID-19 infection. Drop in HGB likely multifactorial as no dark stools are reported. No acute indication for EGD. Would recommend IV PPI BID and monitor HGB. Thank you for allowing us to participate in the care of this patient. Please call with any acute changes, questions or concerns. Please see addendum below with additional recommendation from my supervising physician. Patient discussed in detail with LUCILA Peterson. Chart, imaging and labs reviewed. Recommendations as above. note written along with LUCILA.
[2021-08-20 10:08] LABS: Hematocrit (blood only) 28.4 % (37-47); Hemoglobin 8.8 g/dL (12.0-16.0)
--- NOTE | 2021-08-20 11:46 | Surgery Consultation ---
Date of Consultation August 20, 2021 Assessment & Plan (1) Closed hip fracture: (2) UGIB (upper gastrointestinal bleed): (3) COVID-19: (4) Splenic laceration: 71-year-old woman with CLL on chemotherapy presents following a fall at home. She has a grade 2 splenic laceration, a left hip fracture, and is positive for COVID-19. She also has Hemoccult positive stools with dark stools. For the splenic laceration, she will need to be on bedrest for the next 24 hours. We will check every 6 hour hemoglobin and hematocrit for 24 hours, and subsequently every 12 hours to ensure stability of her hemoglobin. No surgical intervention is required at this time. If her hemoglobin continues to drop, she will likely need a repeat CT scan. We will follow closely with you. History of Present Illness Reason for Consultation: Grade 2 splenic laceration Requesting Physician: Angel Cantrell MD Attending Physician: Angel Cantrell MD History of Present Illness 71-year-old woman with a history of chronic lymphocytic leukemia currently on chemotherapy presents to the hospital after falling on her left side at home. She states that she felt weak and fell. She does not know if she hit anything. When she woke up her hip and abdomen were painful. Her tested positive for Covid last week. On entry to the emergency department, she has tested positive for Covid. She denies shortness of breath or chest pain. She has had a dry cough. She denies fevers or chills. She does endorse dark stools, however she states that this started after starting her chemotherapy pills 3 weeks ago. She denies coffee-ground emesis, nausea, bright red blood per rectum. Allergies Allergy/AdvReac Type Severity Reaction Status Date / Time Penicillins Allergy Unknown Verified 08/20/21 03:19 Home Medications Medication Instructions Recorded Confirmed Type fluticasone propionate 50 2 spray INTRANASAL DAILY 12/20/18 08/20/21 History mcg/actuation nasal spray,suspension omeprazole 20 mg capsule,delayed 20 mg PO QAM 12/20/18 08/20/21 History release peg 400-propylene glycol (PF) 0.4 1 drp OPB BID PRN 12/20/18 08/20/21 History %-0.3 % eye drops in a dropperette (Systane (PF)) allopurinol 100 mg tablet 100 mg PO DAILY PRN 08/20/21 08/20/21 History amlodipine 10 mg tablet 10 mg PO DAILY 08/20/21 08/20/21 History azelastine 137 mcg (0.1 %) nasal 2 spray INTRANASAL BID 08/20/21 08/20/21 History spray aerosol ferrous sulfate 325 mg (65 mg 325 mg PO Q OTHER DAY 08/20/21 08/20/21 History iron) tablet (FeroSul) ibrutinib 420 mg tablet (Imbruvica) 420 mg PO DAILY 08/20/21 08/20/21 History lisinopril 40 mg tablet 40 mg PO DAILY 08/20/21 08/20/21 History ondansetron HCl 4 mg tablet 4 mg PO Q6 PRN 08/20/21 08/20/21 History Patient History Medical History CLL (chronic lymphocytic leukemia) No pertinent family history Surgical History No pertinent past surgical history Social History Smoking Status: Never smoker Hx Alcohol Use: No Hx Substance Use: No Preferred Language: [place] Communication Ability: Effective 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 Beliefs That Will Affect Care: None Current Living Situation: Spouse Feels Safe at Home: Yes Safety Concerns: Feels Safe At This Time Assistive Devices: None Review of Systems Review of Systems: All systems reviewed & are unremarkable except as noted in HPI & below Physical Exam Constitutional: WD/WN, vitals as above Eyes: PERRL, conjunctivae normal, anicteric sclerae Neck: trachea midline, no thyromegaly Respiratory: normal respiratory effort, lungs clear to auscultation Cardiovascular: RRR, no murmur, no edema Gastrointestinal (Abdomen): normal bowel sounds, soft, nontender, no hepatosplenomegaly Musculoskeletal: Head/Neck/Chest: normocephalic and head atraumatic Extremities: no cyanosis and no clubbing Skin: no rashes, warm and dry Psychiatric: A+Ox3, euthymic affect Lymphatic: no cervical lymphadenopathy Results & Data ([facility]) Vital Signs (Past 12 Hours) Vital Signs Pulse Pulse Resp BP BP Pulse Ox Pulse Ox 10/11/21 11:30 63 19 96 08/20/21 11:00 65 22 100 08/20/21 10:30 61 20 138/70 94 08/20/21 10:00 55 L 16 98 08/20/21 09:30 55 L 19 99 08/20/21 09:00 66 18 94 08/20/21 08:30 56 L 18 100 08/20/21 08:00 71 68 17 141/68 H 94 08/20/21 07:30 65 18 08/20/21 07:00 56 L 20 92 08/20/21 06:30 66 20 96 08/20/21 06:16 63 18 129/60 98 08/20/21 06:10 99 08/20/21 06:02 74 19 94 08/20/21 05:30 60 23 95 08/20/21 05:25 59 L 16 106/68 98 08/20/21 05:20 58 L 17 97 08/20/21 05:10 58 L 13 99 08/20/21 05:00 57 L 17 96 08/20/21 04:50 58 L 16 98 08/20/21 04:40 58 L 20 97 08/20/21 04:30 60 21 99 08/20/21 04:20 59 L 25 H 96 08/20/21 04:00 68 17 127/62 100 08/20/21 03:50 62 28 H 98 08/20/21 03:40 66 22 97 08/20/21 03:30 60 17 96 08/20/21 03:20 55 L 19 99 08/20/21 03:10 66 30 H 96 08/20/21 03:00 58 L 18 95 08/20/21 02:50 63 23 96 08/20/21 02:40 57 L 23 96 08/20/21 02:30 65 17 98 08/20/21 02:20 68 20 96 08/20/21 02:10 72 20 94 08/20/21 02:00 66 20 92 08/20/21 01:50 69 16 94 08/20/21 01:40 65 20 97 08/20/21 01:30 71 15 93 08/20/21 01:20 56 L 20 91 08/20/21 01:10 66 18 97 08/20/21 01:00 63 18 96 08/20/21 00:50 72 17 96 08/20/21 00:40 68 13 126/59 L 08/20/21 00:10 64 18 99 08/20/21 00:00 66 19 98 08/19/21 23:50 75 16 94 Laboratory Results 08/20/21 08/20/21 08/20/21 Range/Units 09:53 06:27 06:27 WBC (4.8-10.8) K/uL RBC (4.2-5.4) M/uL Hgb 8.8 L (12.0-16.0) g/dL Hct 28.4 L (37-47) % MCV (80-100) fL MCH (25-34) pg MCHC (32-36) g/dL RDW Std Deviation (36.4-46.3) fL RDW Coeff of Ash[place] (11.5-14.5) % Plt Count (130-400) K/uL MPV (7.4-10.4) fL Immature Gran % (Auto) % Neut % (Auto) % Lymph % (Auto) % [place] % (Auto) % Eos % (Auto) % Baso % (Auto) % Neut # (Auto) (1.4-6.5) K/uL Lymph # (Auto) (1.2-3.4) K/uL [place] # (Auto) (0.11-0.59) K/uL Eos # (Auto) (0-0.5) K/uL Baso # (Auto) (0-0.2) K/uL Immature Gran # (Auto) (0.00-0.02) K/uL Smudge Cells Ovalocytes PT (9.0-12.0) Seconds INR (0.9-1.1) APTT (21.0-31.0) Seconds PTT Ratio Sodium 132 L (136-145) mmol/L Potassium 4.1 (3.5-5.1) mmol/L Chloride 102 (98-107) mmol/L Carbon Dioxide 22 (21-32) mmol/L Anion Gap 8.0 (3-11) BUN 11 (7-18) mg/dl Creatinine 0.90 (0.6-1.2) mg/dl Est Cr Clr Drug Dosing 47.4 ml/min Est GFR ( Amer) 74.6 ml/min Est GFR (Non-Af Amer) 64.3 ml/min BUN/Creatinine Ratio 12.4 (10-20) Glucose 128 H (70-99) mg/dl Lactate 0.7 (0.4-2.0) mmol/L Calcium 7.4 L (8.5-10.1) mg/dl Magnesium (1.8-2.4) mg/dl Total Bilirubin (0.2-1) mg/dl AST (15-37) U/L ALT (12-78) U/L Alkaline Phosphatase (45-117) U/L Troponin I (0-0.045) ng/ml Total Protein (6.4-8.2) gm/dl Albumin (3.4-5.0) gm/dl Globulin (2.5-4.0) gm/dl Albumin/Globulin Ratio (0.9-2) Lipase (73-393) U/L Urine Color Urine Appearance (Clear) Urine pH (4.5-7.5) Ur Specific [place] (1.000-1.030) Urine Protein (Negative) Urine Glucose (UA) (Negative) Urine Ketones (Negative) Urine Blood (Negative) Urine Nitrite (Negative) Urine Bilirubin (Negative) Urine Urobilinogen (Negative) Ur Leukocyte Esterase (Negative) Urine WBC (Auto) (0-5) /hpf Urine RBC (Auto) (0-4) /hpf U Hyaline Cast (Auto) (0-5) /lpf U Epithel Cells (Auto) (0-5) /lpf Urine Bacteria (Auto) (Negative) Ur Renal Epithelial Cell Urine Mucus (None Prsent) COVID-19 Eval Order SARS-CoV-2 (PCR) (Negative) Influ A Molecular Assay (Negative) Influ B Molecular Assay (Negative) Blood Type Antibody Screen 08/20/21 08/19/21 08/19/21 Range/Units 06:27 Unknown Unknown WBC 89.43 H* D (4.8-10.8) K/uL RBC 3.35 L (4.2-5.4) M/uL Hgb 8.8 L (12.0-16.0) g/dL Hct 28.4 L (37-47) % MCV 84.8 (80-100) fL MCH 26.3 (25-34) pg MCHC 31.0 L (32-36) g/dL RDW Std Deviation 46.2 (36.4-46.3) fL RDW Coeff of [place] 15.1 H (11.5-14.5) % Plt Count 140 (130-400) K/uL MPV 11.9 H (7.4-10.4) fL Immature Gran % (Auto) 0.2 % Neut % (Auto) 7.9 % Lymph % (Auto) 91.0 % [place] % (Auto) 0.8 % Eos % (Auto) 0.0 % Baso % (Auto) 0.1 % Neut # (Auto) 7.04 H (1.4-6.5) K/uL Lymph # (Auto) 81.38 H (1.2-3.4) K/uL [place] # (Auto) 0.73 H (0.11-0.59) K/uL Eos # (Auto) 0.01 (0-0.5) K/uL Baso # (Auto) 0.11 (0-0.2) K/uL Immature Gran # (Auto) 0.16 H (0.00-0.02) K/uL Smudge Cells Present Ovalocytes 1+ PT (9.0-12.0) Seconds INR (0.9-1.1) APTT (21.0-31.0) Seconds PTT Ratio Sodium (136-145) mmol/L Potassium (3.5-5.1) mmol/L Chloride (98-107) mmol/L Carbon Dioxide (21-32) mmol/L Anion Gap (3-11) BUN (7-18) mg/dl Creatinine (0.6-1.2) mg/dl Est Cr Clr Drug Dosing ml/min Est GFR ( Amer) ml/min Est GFR (Non-Af Amer) ml/min BUN/Creatinine Ratio (10-20) Glucose (70-99) mg/dl Lactate (0.4-2.0) mmol/L Calcium (8.5-10.1) mg/dl Magnesium (1.8-2.4) mg/dl Total Bilirubin (0.2-1) mg/dl AST (15-37) U/L ALT (12-78) U/L Alkaline Phosphatase (45-117) U/L Troponin I (0-0.045) ng/ml Total Protein (6.4-8.2) gm/dl Albumin (3.4-5.0) gm/dl Globulin (2.5-4.0) gm/dl Albumin/Globulin Ratio (0.9-2) Lipase (73-393) U/L Urine Color Urine Appearance (Clear) Urine pH (4.5-7.5) Ur Specific [place] (1.000-1.030) Urine Protein (Negative) Urine Glucose (UA) (Negative) Urine Ketones (Negative) Urine Blood (Negative) Urine Nitrite (Negative) Urine Bilirubin (Negative) Urine Urobilinogen (Negative) Ur Leukocyte Esterase (Negative) Urine WBC (Auto) (0-5) /hpf Urine RBC (Auto) (0-4) /hpf U Hyaline Cast (Auto) (0-5) /lpf U Epithel Cells (Auto) (0-5) /lpf Urine Bacteria (Auto) (Negative) Ur Renal Epithelial Cell Urine Mucus (None Prsent) COVID-19 Eval Order Covid19 at [facility] SARS-CoV-2 (PCR) POSITIVE A* (Negative) Influ A Molecular Assay (Negative) Influ B Molecular Assay (Negative) Blood Type Antibody Screen 08/19/21 08/19/21 08/19/21 Range/Units Unknown Unknown Unknown WBC (4.8-10.8) K/uL RBC (4.2-5.4) M/uL Hgb (12.0-16.0) g/dL Hct (37-47) % MCV (80-100) fL MCH (25-34) pg MCHC (32-36) g/dL RDW Std Deviation (36.4-46.3) fL RDW Coeff of Ash[place] (11.5-14.5) % Plt Count (130-400) K/uL MPV (7.4-10.4) fL Immature Gran % (Auto) % Neut % (Auto) % Lymph % (Auto) % [place] % (Auto) % Eos % (Auto) % Baso % (Auto) % Neut # (Auto) (1.4-6.5) K/uL Lymph # (Auto) (1.2-3.4) K/uL [place] # (Auto) (0.11-0.59) K/uL Eos # (Auto) (0-0.5) K/uL Baso # (Auto) (0-0.2) K/uL Immature Gran # (Auto) (0.00-0.02) K/uL Smudge Cells Ovalocytes PT (9.0-12.0) Seconds INR (0.9-1.1) APTT (21.0-31.0) Seconds PTT Ratio Sodium 137 (136-145) mmol/L Potassium 3.8 (3.5-5.1) mmol/L Chloride 103 (98-107) mmol/L Carbon Dioxide 25 (21-32) mmol/L Anion Gap 9.0 (3-11) BUN 15 (7-18) mg/dl Creatinine 0.93 (0.6-1.2) mg/dl Est Cr Clr Drug Dosing 45.9 ml/min Est GFR ( Amer) 71.7 ml/min Est GFR (Non-Af Amer) 61.8 ml/min BUN/Creatinine Ratio 16.1 (10-20) Glucose 107 H (70-99) mg/dl Lactate (0.4-2.0) mmol/L Calcium 7.9 L (8.5-10.1) mg/dl Magnesium 1.2 L (1.8-2.4) mg/dl Total Bilirubin 0.2 (0.2-1) mg/dl AST 17 (15-37) U/L ALT 13 (12-78) U/L Alkaline Phosphatase 50 (45-117) U/L Troponin I < 0.015 (0-0.045) ng/ml Total Protein 6.0 L (6.4-8.2) gm/dl Albumin 2.8 L (3.4-5.0) gm/dl Globulin 3.2 (2.5-4.0) gm/dl Albumin/Globulin Ratio 0.9 (0.9-2) Lipase 131 (73-393) U/L Urine Color Dark Yellow Urine Appearance Cloudy A (Clear) Urine pH 5.5 (4.5-7.5) Ur Specific [place] 1.024 (1.000-1.030) Urine Protein 1+ H (Negative) Urine Glucose (UA) Negative (Negative) Urine Ketones Negative (Negative) Urine Blood 2+ H (Negative) Urine Nitrite Positive A (Negative) Urine Bilirubin Negative (Negative) Urine Urobilinogen Negative (Negative) Ur Leukocyte Esterase Trace H (Negative) Urine WBC (Auto) 10-30 H (0-5) /hpf Urine RBC (Auto) 0-4 (0-4) /hpf U Hyaline Cast (Auto) 10-30 H (0-5) /lpf U Epithel Cells (Auto) >30 H (0-5) /lpf Urine Bacteria (Auto) 4+ H (Negative) Ur Renal Epithelial Cell Not Reportable Urine Mucus Present A (None Prsent) COVID-19 Eval Order SARS-CoV-2 (PCR) (Negative) Influ A Molecular Assay Negative (Negative) Influ B Molecular Assay Negative (Negative) Blood Type Antibody Screen 08/19/21 08/19/21 08/19/21 Range/Units Unknown Unknown 23:49 WBC 102.18 H* (4.8-10.8) K/uL RBC 3.42 L (4.2-5.4) M/uL Hgb 8.9 L (12.0-16.0) g/dL Hct 29.3 L (37-47) % MCV 85.7 (80-100) fL MCH 26.0 (25-34) pg MCHC 30.4 L (32-36) g/dL RDW Std Deviation 47.2 H (36.4-46.3) fL RDW Coeff of Ash[place] 15.4 H (11.5-14.5) % Plt Count 157 (130-400) K/uL MPV 11.8 H (7.4-10.4) fL Immature Gran % (Auto) 0.2 % Neut % (Auto) 6.2 % Lymph % (Auto) 92.1 % [place] % (Auto) 1.1 % Eos % (Auto) 0.2 % Baso % (Auto) 0.2 % Neut # (Auto) 6.40 (1.4-6.5) K/uL Lymph # (Auto) 94.11 H (1.2-3.4) K/uL [place] # (Auto) 1.15 H (0.11-0.59) K/uL Eos # (Auto) 0.17 (0-0.5) K/uL Baso # (Auto) 0.16 (0-0.2) K/uL Immature Gran # (Auto) 0.19 H (0.00-0.02) K/uL Smudge Cells Present Ovalocytes 1+ PT 11.1 (9.0-12.0) Seconds INR 1.1 (0.9-1.1) APTT 27.6 (21.0-31.0) Seconds PTT Ratio 1.0 Sodium (136-145) mmol/L Potassium (3.5-5.1) mmol/L Chloride (98-107) mmol/L Carbon Dioxide (21-32) mmol/L Anion Gap (3-11) BUN (7-18) mg/dl Creatinine (0.6-1.2) mg/dl Est Cr Clr Drug Dosing ml/min Est GFR ( Amer) ml/min Est GFR (Non-Af Amer) ml/min BUN/Creatinine Ratio (10-20) Glucose (70-99) mg/dl Lactate 0.8 (0.4-2.0) mmol/L Calcium (8.5-10.1) mg/dl Magnesium (1.8-2.4) mg/dl Total Bilirubin (0.2-1) mg/dl AST (15-37) U/L ALT (12-78) U/L Alkaline Phosphatase (45-117) U/L Troponin I (0-0.045) ng/ml Total Protein (6.4-8.2) gm/dl Albumin (3.4-5.0) gm/dl Globulin (2.5-4.0) gm/dl Albumin/Globulin Ratio (0.9-2) Lipase (73-393) U/L Urine Color Urine Appearance (Clear) Urine pH (4.5-7.5) Ur Specific [place] (1.000-1.030) Urine Protein (Negative) Urine Glucose (UA) (Negative) Urine Ketones (Negative) Urine Blood (Negative) Urine Nitrite (Negative) Urine Bilirubin (Negative) Urine Urobilinogen (Negative) Ur Leukocyte Esterase (Negative) Urine WBC (Auto) (0-5) /hpf Urine RBC (Auto) (0-4) /hpf U Hyaline Cast (Auto) (0-5) /lpf U Epithel Cells (Auto) (0-5) /lpf Urine Bacteria (Auto) (Negative) Ur Renal Epithelial Cell Urine Mucus (None Prsent) COVID-19 Eval Order SARS-CoV-2 (PCR) (Negative) Influ A Molecular Assay (Negative) Influ B Molecular Assay (Negative) Blood Type Antibody Screen 08/19/21 Range/Units 23:49 WBC (4.8-10.8) K/uL RBC (4.2-5.4) M/uL Hgb (12.0-16.0) g/dL Hct (37-47) % MCV (80-100) fL MCH (25-34) pg MCHC (32-36) g/dL RDW Std Deviation (36.4-46.3) fL RDW Coeff of [place] (11.5-14.5) % Plt Count (130-400) K/uL MPV (7.4-10.4) fL Immature Gran % (Auto) % Neut % (Auto) % Lymph % (Auto) % [place] % (Auto) % Eos % (Auto) % Baso % (Auto) % Neut # (Auto) (1.4-6.5) K/uL Lymph # (Auto) (1.2-3.4) K/uL [place] # (Auto) (0.11-0.59) K/uL Eos # (Auto) (0-0.5) K/uL Baso # (Auto) (0-0.2) K/uL Immature Gran # (Auto) (0.00-0.02) K/uL Smudge Cells Ovalocytes PT (9.0-12.0) Seconds INR (0.9-1.1) APTT (21.0-31.0) Seconds PTT Ratio Sodium (136-145) mmol/L Potassium (3.5-5.1) mmol/L Chloride (98-107) mmol/L Carbon Dioxide (21-32) mmol/L Anion Gap (3-11) BUN (7-18) mg/dl Creatinine (0.6-1.2) mg/dl Est Cr Clr Drug Dosing ml/min Est GFR ( Amer) ml/min Est GFR (Non-Af Amer) ml/min BUN/Creatinine Ratio (10-20) Glucose (70-99) mg/dl Lactate (0.4-2.0) mmol/L Calcium (8.5-10.1) mg/dl Magnesium (1.8-2.4) mg/dl Total Bilirubin (0.2-1) mg/dl AST (15-37) U/L ALT (12-78) U/L Alkaline Phosphatase (45-117) U/L Troponin I (0-0.045) ng/ml Total Protein (6.4-8.2) gm/dl Albumin (3.4-5.0) gm/dl Globulin (2.5-4.0) gm/dl Albumin/Globulin Ratio (0.9-2) Lipase (73-393) U/L Urine Color Urine Appearance (Clear) Urine pH (4.5-7.5) Ur Specific [place] (1.000-1.030) Urine Protein (Negative) Urine Glucose (UA) (Negative) Urine Ketones (Negative) Urine Blood (Negative) Urine Nitrite (Negative) Urine Bilirubin (Negative) Urine Urobilinogen (Negative) Ur Leukocyte Esterase (Negative) Urine WBC (Auto) (0-5) /hpf Urine RBC (Auto) (0-4) /hpf U Hyaline Cast (Auto) (0-5) /lpf U Epithel Cells (Auto) (0-5) /lpf Urine Bacteria (Auto) (Negative) Ur Renal Epithelial Cell Urine Mucus (None Prsent) COVID-19 Eval Order SARS-CoV-2 (PCR) (Negative) Influ A Molecular Assay (Negative) Influ B Molecular Assay (Negative) Blood Type AB Positive Antibody Screen NEGATIVE Diagnostic Findings ABDOMEN AND PELVIS CT WITH IV CONTRAST HISTORY: Acute generalized abdominal pain and left hip pain status post fall. Acute left femoral fracture. abd pain fall TECHNIQUE: Multiaxial CT images of the abdomen and pelvis were performed following the IV administration of 94 cc of Optiray, A dose lowering technique was utilized adhering to the principles of ALARA. COMPARISON STUDY: Radiographs of the pelvis and left femur 08/19/2021, CT abdomen and pelvis 12/21/2018. FINDINGS: Moderate cardiomegaly. Bibasilar groundglass densities are suggestive of atelectasis. Mildly motion degraded exam. No pneumatosis or pneumoperitoneum. The spleen is enlarged measuring up to 16.4 cm in length, previously approximately 15 cm. There is a linear area of ill-defined decreased attenuation involving the posterolateral spleen on image 90 series 7 measuring 2.2 x 1.1 cm. Trace adjacent perisplenic edema/hemorrhage. Upper abdominal varices. Mild thickening of the adrenal glands suggestive of hyperplasia. Patency of the hepatic and portal veins. Unremarkable appearance of the liver with probable cyst of the right hepatic lobe, 9 mm. Unremarkable gallbladder and pancreas. The kidneys are within normal limits. 11 mm cyst of the superior pole left kidney. No hydronephrosis. Pelvic floor relaxation. Unremarkable urinary bladder, uterus and adnexa. The abdominal aorta and IVC are unremarkable. There is no adenopathy. Small hiatal hernia with air-fluid level of the distal esophagus. No bowel obstruction or bowel wall thickening. Scattered colonic air-fluid levels may be physiologic or represent a diarrheal illness. The appendix is mildly dilated measuring 8 mm and is fluid-filled however appears noninflamed. Layering hyperdense material within the cecum may be medicinal or less likely hemorrhagic. Scattered air-fluid levels are also noted within nondilated loops of small bowel, likely physiologic. Chronic appearing left-sided rib fractures. There is an acute impacted and slightly angulated subcapital fracture of the left femur with anterior displacement of approximately 11 mm. Chondrocalcinosis with severe degeneration of the pubic symphysis. Mild superior endplate compression at T11 without ret ropulsion. Age-indeterminate however favor to be chronic. IMPRESSION: 1. Moderate to marked splenomegaly has increased in size from 12/21/2018. There is a 2.2 x 1.1 cm linear area of decreased attenuation involving the peripheral posterior mid spleen with trace perisplenic fluid/hemorrhage. With history of recent trauma, this is suggestive of an acute splenic laceration (grade II injury). This finding was called/faxed to the emergency department at time of dictation. 2. Acute, impacted, mildly displaced and angulated subcapital fracture of the left femur. 3. Additional findings as above. (1) Closed hip fracture Encounter type: initial encounter Laterality: left Qualified Code(s): S72.002A - Fracture of unspecified part of neck of left femur, initial encounter for closed fracture
--- NOTE | 2021-08-20 12:42 | Orthopedic Consultation ---
Date of Consultation August 20, 2021 Assessment & Plan (1) Closed hip fracture: 1. Left displaced subcapital hip fracture 2. Covid 19 positive 3. Small splenic laceration 4. CLL 5. UTI-urine culture pending 6. Anemia with Hemoccult positive stool X-rays have been reviewed. Patient may require bipolar hemiarthroplasty. Will discuss with [facility] physicians. Patient would like to get the surgery done as soon as possible. We discussed that with her Covid positive status along with her immunocompromised system secondary to her CLL with chemotherapeutic treatment makes her a high risk patient for complications. I have spoken to Dr. Cantrell who has spoken to the patient's oncology physician. Chemotherapy agents will be discontinued at this time. Along with her CLL and positive Covid 19, is the question of GI bleed with anemia and her splenic laceration which will need to b e monitored. We will continue to follow and plan for operative fixation of the left hip fracture when she is cleared medically. History of Present Illness Reason for Consultation: Left hip fracture Attending Physician: Angel Cantrell MD History of Present Illness Patient is a 71-year-old female with past medical history significant for CLL on chemotherapy, hypogammaglobinemia, hypertension, GERD, gastroparesis, chronic anemia (baseline hemoglobin 10), chronic thrombocytopenia. Patient states that she had been not feeling well over the last several days at home. She apparently has some positive contacts at home for Covid. She was feeling tired and weak when she decided to get up and attempt to ambulate. She ended up falling and hit her head. She had immediate pain in her left hip and groin and was having difficulty ambulating. She was brought into the emergency room and was seen by the staff. X-rays were taken and was found that she had a subcapital hip fracture of the left hip. Patient was also noted to be Covid positive and also positive for UTI. During her work-up it was also found that she had a small splenic laceration as well as the possibility of a upper GI bleed with positive Hemoccult test. Patient apparently was having dark stools at home but attributed that to iron pills that she has been taking. She is being admitted to the hospitalist service and we have been asked to take care of her hip fracture. Allergies Allergy/AdvReac Type Severity Reaction Status Date / Time Penicillins Allergy Unknown Verified 08/20/21 03:19 Home Medications Medication Instructions Recorded Confirmed Type fluticasone propionate 50 2 spray INTRANASAL DAILY 12/20/18 08/20/21 History mcg/actuation nasal spray,suspension omeprazole 20 mg capsule,delayed 20 mg PO QAM 12/20/18 08/20/21 History release peg 400-propylene glycol (PF) 0.4 1 drp OPB BID PRN 12/20/18 08/20/21 History %-0.3 % eye drops in a dropperette (Systane (PF)) allopurinol 100 mg tablet 100 mg PO DAILY PRN 08/20/21 08/20/21 History amlodipine 10 mg tablet 10 mg PO DAILY 08/20/21 08/20/21 History azelastine 137 mcg (0.1 %) nasal 2 spray INTRANASAL BID 08/20/21 08/20/21 History spray aerosol ferrous sulfate 325 mg (65 mg 325 mg PO Q OTHER DAY 08/20/21 08/20/21 History iron) tablet (FeroSul) ibrutinib 420 mg tablet (Imbruvica) 420 mg PO DAILY 08/20/21 08/20/21 History lisinopril 40 mg tablet 40 mg PO DAILY 08/20/21 08/20/21 History ondansetron HCl 4 mg tablet 4 mg PO Q6 PRN 08/20/21 08/20/21 History Patient History Medical History CLL (chronic lymphocytic leukemia) No pertinent family history Surgical History No pertinent past surgical history Social History Smoking Status: Never smoker Hx Alcohol Use: No Hx Substance Use: No Preferred Language: Nigerian Communication Ability: Effective 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 She states that she is currently having some hip discomfort but pain medication is helping. She is keeping the left hip in a flexed position which is the most comfortable for her. On examination of the left lower extremity, taking her through gentle range of motion causes her discomfort in the left hip and groin. There is some mild leg length discrepancy compared to the right. She has no overt ecchymosis noted over the left lateral hip but is mildly tender on palpation. She has no pain in the left knee or ankle. Range of motion is are intact. Right lower extremity is unaffected and is nontender at the hip, knee, ankle. Range of motion within normal limits. Upper extremities are unaffected and she is nontender at the shoulders, elbows, and wrists. Range of motion within normal limits. Distal pulses are equal bilaterally of the upper and lower extremities. There is no gross motor or sensory loss seen at this time. Results & Data ([facility]) Vital Signs (Past 12 Hours) Vital Signs Pulse Pulse Resp BP BP Pulse Ox Pulse Ox 08/20/21 11:30 63 19 96 08/20/21 11:00 65 22 100 08/20/21 10:30 61 20 138/70 94 08/20/21 10:00 55 L 16 98 08/20/21 09:30 55 L 19 99 08/20/21 09:00 66 18 94 08/20/21 08:30 56 L 18 100 08/20/21 08:00 71 68 17 141/68 H 94 08/20/21 07:30 65 18 08/20/21 07:00 56 L 20 92 08/20/21 06:30 66 20 96 08/20/21 06:16 63 18 129/60 98 08/20/21 06:10 99 08/20/21 06:02 74 19 94 08/20/21 05:30 60 23 95 08/20/21 05:25 59 L 16 106/68 98 08/20/21 05:20 58 L 17 97 08/20/21 05:10 58 L 13 99 08/20/21 05:00 57 L 17 96 08/20/21 04:50 58 L 16 98 08/20/21 04:40 58 L 20 97 08/20/21 04:30 60 21 99 08/20/21 04:20 59 L 25 H 96 08/20/21 04:00 68 17 127/62 100 08/20/21 03:50 62 28 H 98 08/20/21 03:40 66 22 97 08/20/21 03:30 60 17 96 08/20/21 03:20 55 L 19 99 08/20/21 03:10 66 30 H 96 08/20/21 03:00 58 L 18 95 08/20/21 02:50 63 23 96 08/20/21 02:40 57 L 23 96 08/20/21 02:30 65 17 98 08/20/21 02:20 68 20 96 08/20/21 02:10 72 20 94 08/20/21 02:00 66 20 92 08/20/21 01:50 69 16 94 08/20/21 01:40 65 20 97 08/20/21 01:30 71 15 93 08/20/21 01:20 56 L 20 91 08/20/21 01:10 66 18 97 08/20/21 01:00 63 18 96 08/20/21 00:50 72 17 96 08/20/21 00:40 68 13 126/59 L Diagnostic Findings Patient: SARAH BERUMENAdmit Date: 08/20/21#: [id number]: [address] ID:[id number]: Date: 1950[facility] Zip: [place] [id number]: [id number]: EDINPSex: FRoom/Bed: [facility] 1-10Att Phy: Angel Cantrell, MDDiagnosis: UGIB, L HIP FX, COVIDPri Phy: Carmen Pineda, MDService Date: 08/19/21Fa Phy:Interpreting Phy: Bruce SainiAdmit Phy: Pola Ring MD Ordering Phy: Darrian Quesada MD cc: ~ XR pelvis 1-2V routine, XR femur LT 2V routine HISTORY: 71 years-old Female fall acute pelvic and left hip pain status post fall COMPARISON: CT abdomen and pelvis of same day TECHNIQUE: AP view of the pelvis with 2 views of the left femur FINDINGS: PELVIS: Acute impacted left femoral neck fracture. Mild to moderate osteoarthritis of the hips. Mildly demineralized appearance of the bones. No dislocation, additional acute fracture or opaque foreign body. No avascular necrosis. FEMUR: There is an acute impacted subcapital fracture of the left femoral neck with several millimeters of impaction and no significant displacement. The mid and distal femur appear intact. Osteoarthritis of the left knee with trace left knee joint effusion. No additional acute fracture or dislocation. IMPRESSION: Acute impacted subcapital fracture of the left femoral neck. ABDOMEN AND PELVIS CT WITH IV CONTRAST HISTORY: Acute generalized abdominal pain and left hip pain status post fall. Acute left femoral fracture. abd pain fall TECHNIQUE: Multiaxial CT images of the abdomen and pelvis were performed following the IV administration of 94 cc of Optiray, A dose lowering technique was utilized adhering to the principles of ALARA. COMPARISON STUDY: Radiographs of the pelvis and left femur 08/19/2021, CT abdomen and pelvis 12/21/2018. FINDINGS: Moderate cardiomegaly. Bibasilar groundglass densities are suggestive of atelectasis. Mildly motion degraded exam. No pneumatosis or pneumoperitoneum. The spleen is enlarged measuring up to 16.4 cm in length, previously approximately 15 cm. There is a linear area of ill-defined decreased attenuation involving the posterolateral spleen on image 90 series 7 measuring 2.2 x 1.1 cm. Trace adjacent perisplenic edema/hemorrhage. Upper abdominal varices. Mild thickening of the adrenal glands suggestive of hyperplasia. Patency of the hepatic and portal veins. Unremarkable appearance of the liver with probable cyst of the right hepatic lobe, 9 mm. Unremarkable gallbladder and pancreas. The kidneys are within normal limits. 11 mm cyst of the superior pole left kidney. No hydronephrosis. Pelvic floor relaxation. Unremarkable urinary bladder, uterus and adnexa. The abdominal aorta and IVC are unremarkable. There is no adenopathy. Small hiatal hernia with air-fluid level of the distal esophagus. No bowel obstruction or bowel wall thickening. Scattered colonic air-fluid levels may be physiologic or represent a diarrheal illness. The appendix is mildly dilated measuring 8 mm and is fluid-filled however appears noninflamed. Layering hyperdense material within the cecum may be medicinal or less likely hemorrhagic. Scattered air-fluid levels are also noted within nondilated loops of small bowel, likely physiologic. Chronic appearing left-sided rib fractures. There is an acute impacted and slightly angulated subcapital fracture of the left femur with anterior displacement of approximately 11 mm. Chondrocalcinosis with severe degeneration of the pubic symphysis. Mild superior endplate compression at T11 without retropulsion. Age-indeterminate however favor to be chronic. IMPRESSION: 1. Moderate to marked splenomegaly has increased in size from 12/21/2018. There is a 2.2 x 1.1 cm linear area of decreased attenuation involving the peripheral posterior mid spleen with trace perisplenic fluid/hemorrhage. With history of recent trauma, this is suggestive of an acute splenic laceration (grade II injury). This finding was called/faxed to the emergency department at time of dictation. 2. Acute, impacted, mildly displaced and angulated subcapital fracture of the left femur. 3. Additional findings as above. (1) Closed hip fracture Encounter type: initial encounter Laterality: left Qualified Code(s): S72.002A - Fracture of unspecified part of neck of left femur, initial encounter for closed fracture
--- NOTE | 2021-08-20 14:20 | Electrocardiogram Report ---
Test Reason : Blood Pressure : / mmHG Vent. Rate : 060 BPM Atrial Rate : 060 BPM P-R Int : 134 ms QRS Dur : 072 ms QT Int : 406 ms P-R-T Axes : 069 046 043 degrees QTc Int : 406 ms Poor data quality, interpretation may be adversely affected Normal sinus rhythm Normal ECG No previous ECGs available Confirmed by Xavier Woods ([id number]) on 08/20/2021 2:20:19 PM Referred By: REFERRED SELF Confirmed By:Xavier Woods
--- NOTE | 2021-08-20 14:29 | Electrocardiogram Report ---
Test Reason : Blood Pressure : / mmHG Vent. Rate : 065 BPM Atrial Rate : 065 BPM P-R Int : 142 ms QRS Dur : 080 ms QT Int : 388 ms P-R-T Axes : 044 019 014 degrees QTc Int : 403 ms Normal sinus rhythm Normal ECG When compared with ECG of 19-AUG-2021 22:46, (unconfirmed) No significant change was found Confirmed by Xavier Woods ([id number]) on 08/20/2021 2:29:15 PM Referred By: REFERRED SELF Confirmed By:Xavier Woods
[2021-08-20] MEDS ORDERED: SODIUM CHLORIDE 0.9% 250 ML IV PRN (16:00)
--- NOTE | 2021-08-20 16:05 | Hospitalist Progress Note ---
Date of Service August 20, 2021 Assessment & Plan (1) UGIB (upper gastrointestinal bleed): Plan: Melena Acute on Chronic anemia Baseline Hb ~10 Hb 8.8 Hemoglobin drop likely multifactorial given melena, splenic rupture, left hip fracture in setting of CLL Monitor H&H Transfuse PRBCs as needed GI consulted Continue PPI Avoid anticoagulation Acute respiratory failure with hypoxia COVID 19 Infection COVID Screen:positive on 08/19/21 H/O COVID 19 exposure CXR:No acute process. Found to have oxygen saturation in the 80s while in ED Check CRP, Procalcitonin in AM Started on Dexamethasone Ok to use steroids in setting of CLL as per oncology Lasix, Albuterol PRN Continue Supplemental Oxygen as needed DVT prophylaxis: SCDs Re: Melena Left Hip Fracture Secondary to Fall Syncopal Episode likely due to Orthostasis X ray:Acute impacted subcapital fracture of the left femoral neck. ECHO: Left ventricle is normal in size. Normal left ventricular wall thickness. Left ventricle wall motion is normal. EF 55 to 60%. Diastolic function is normal. No significant valvular disease. Doppler findings do not suggest pulmonary hypertension. Pain Control High risk for surgery given multiple comorbidities Appreciate Orthopedics Input Acute Splenic Laceration: ? Secondary to Fall --CT ABD:Moderate to marked splenomegaly has increased in size from 12/21/2018. There is a 2.2 x 1.1 cm linear area of decreased attenuation involving the peripheral posterior mid spleen with trace perisplenic fluid/hemorrhage. With history of recent trauma, this is suggestive of an acute splenic laceration (grade II injury). -Monitor H&H -Transfuse PRBCs as needed -Appreciate Surgery Input Suspected Tonsillitis Incidental finding on Imaging --CT Neck:No fractures within the cervical spine. The palatine and lingual tonsils are enlarged. This could be due to reactive hypertrophy in the setting of a tonsillitis. However, direct visualization recommended to exclude an underlying lesion. Clinical correlation recommended. Mild bilateral cervical lymphadenopathy. -Currently denies any sore throat, dysphagia, odynophagia -On Cefepime Complicated UTI Culture pending Urine culture pending Empirically started on cefepime CLL Ongoing chemotherapy with ibrutinib Follows with Dr. Ariel Ortiz for oncology Appreciate oncology input Hold chemotherapy for now Monitor CBC Hypertension BP on the lower side on presentation Continue to hold amlodipine, lisinopril for now Monitor DVT Px: SCDs Re: GI bleed Code Status Full code Admission and Anticipated Discharge Date Admission Date: August 20, 2021 Subjective Patient is seen and examined at bedside States having left hip pain which worsens with movement Also states having abdominal pain earlier today which resolved Denies any significant cough Also denies dyspnea, dizziness, nausea Discussed with orthopedics, surgery. Oncology today Review of Systems Review of Systems: All systems reviewed & are unremarkable except as noted in Subjective Physical Exam Physical Exam: Physical Exam: Vitals signs as noted above General Appearance:Thin, Chronic ill appearing, no apparent distress Head: normocephalic, Atraumatic Eyes: normal inspection, EOMI Neck: supple, Trachea midline Respiratory/Chest: Decreased breath sounds, CTA Cardiovascular: S1, S2, No murmur Abdomen/GI:Soft, Non tender, Bowel sounds present Extremities/Musculoskeletal:normal inspection, Left hip tender, decreased ROM due to pain Neurologic/Psych:AAOX3, grossly no focal neurological deficits Skin: normal color, warm Results & Data Results & Data ([facility]) Vital Signs (Past 12 Hours) Vital Signs Temp Pulse Pulse Resp BP BP Pulse Ox 08/20/21 15:10 36.6 C 64 14 135/66 95 08/20/21 14:41 59 L 16 151/63 H 98 08/20/21 14:30 59 L 26 H 94 08/20/21 14:00 56 L 20 151/63 H 97 08/20/21 13:00 58 L 20 144/68 H 100 08/20/21 12:00 56 L 19 124/48 L 93 08/20/21 11:30 63 19 96 08/20/21 11:00 65 22 100 08/20/21 10:30 61 20 138/70 94 08/20/21 10:00 55 L 16 98 08/20/21 09:30 55 L 19 99 08/20/21 09:00 66 18 94 08/20/21 08:30 56 L 18 100 08/20/21 08:00 71 68 17 141/68 H 94 08/20/21 07:30 65 18 08/20/21 07:00 56 L 20 92 08/20/21 06:30 66 20 96 08/20/21 06:16 63 18 129/60 98 08/20/21 06:10 08/20/21 06:02 74 19 94 08/20/21 05:30 60 23 95 08/20/21 05:25 59 L 16 106/68 98 08/20/21 05:20 58 L 17 97 08/20/21 05:10 58 L 13 99 08/20/21 05:00 57 L 17 96 08/20/21 04:50 58 L 16 98 08/20/21 04:40 58 L 20 97 08/20/21 04:30 60 21 99 08/20/21 04:20 59 L 25 H 96 Pulse Ox 08/20/21 15:10 08/20/21 14:41 08/20/21 14:30 08/20/21 14:00 08/20/21 13:00 08/20/21 12:00 08/20/21 11:30 08/20/21 11:00 08/20/21 10:30 08/20/21 10:00 08/20/21 09:30 08/20/21 09:00 08/20/21 08:30 08/20/21 08:00 08/20/21 07:30 08/20/21 07:00 08/20/21 06:30 08/20/21 06:16 08/20/21 06:10 99 08/20/21 06:02 08/20/21 05:30 08/20/21 05:25 08/20/21 05:20 08/20/21 05:10 08/20/21 05:00 08/20/21 04:50 08/20/21 04:40 08/20/21 04:30 08/20/21 04:20 Laboratory Results Short CBC 08/19/21 08/20/21 08/20/21 Range/Units Unknown 06:27 09:53 WBC 102.18 H* 89.43 H* D (4.8-10.8) K/uL Hgb 8.9 L 8.8 L 8.8 L (12.0-16.0) g/dL Hct 29.3 L 28.4 L 28.4 L (37-47) % Plt Count 157 140 (130-400) K/uL 08/20/21 Range/Units 15:42 WBC (4.8-10.8) K/uL Hgb 8.8 L (12.0-16.0) g/dL Hct 28.4 L (37-47) % Plt Count (130-400) K/uL BMP 08/19/21 08/20/21 Unknown 06:27 Sodium 137 132 L Potassium 3.8 4.1 Chloride 103 102 Carbon Dioxide 25 22 BUN 15 11 Creatinine 0.93 0.90 Glucose 107 H 128 H Calcium 7.9 L 7.4 L Cardiac Enzymes 08/19/21 Range/Units Unknown Troponin I < 0.015 (0-0.045) ng/ml Liver Function 08/19/21 Range/Units Unknown Total Bilirubin 0.2 (0.2-1) mg/dl AST 17 (15-37) U/L ALT 13 (12-78) U/L Alkaline Phosphatase 50 (45-117) U/L Albumin 2.8 L (3.4-5.0) gm/dl Urine 08/19/21 Range/Units Unknown Urine Color Dark Yellow Urine Appearance Cloudy A (Clear) Urine pH 5.5 (4.5-7.5) Ur Specific [place] 1.024 (1.000-1.030) Urine Protein 1+ H (Negative) Urine Glucose (UA) Negative (Negative)
[2021-08-20 16:06] LABS: Hematocrit (blood only) 28.4 % (37-47); Hemoglobin 8.8 g/dL (12.0-16.0)
[2021-08-20] MEDS: dexAMETHasone 6 MG in SYRINGE 0 ML IV SCH (17:05)
[2021-08-20 21:09] LABS: Hematocrit (blood only) 27.5 % (37-47); Hemoglobin 8.6 g/dL (12.0-16.0)
[2021-08-20] MEDS: oxyCODONE HCL IR 5 MG TAB (IMMEDIATE RELEASE) PO PRN (23:17)
[2021-08-21] MEDS: PANTOprazole 40 MG in DEXTROSE 5% 100 ML IV SCH ×4 (03:05→18:54)
[2021-08-21 04:02] LABS: Albumin Globulin Ratio 0.6 (0.9-2); Albumin Level 2.2 gm/dl (3.4-5.0); BUN Creatinine Ratio 9.9 (10-20); Bilirubin,Total 0.3 mg/dl (0.2-1); C Reactive Protein 4.49 mg/dl (0-0.29); Calcium 7.1 mg/dl (8.5-10.1); Creatinine Clr Calc Pharmacy 50.2 ml/min; Est GFR (African American) 79.9 ml/min; Est GFR (Non-African American) 68.9 ml/min; Globulin 3.5 gm/dl (2.5-4.0); Magnesium 1.9 mg/dl (1.8-2.4); Total Protein 5.7 gm/dl (6.4-8.2)
[2021-08-21 04:08] LABS: Hematocrit (blood only) 27.4 % (37-47); Hemoglobin 8.4 g/dL (12.0-16.0); Mean Corpuscular Hemoglobin 25.8 pg (25-34); Mean Corpuscular Hgb Conc 30.7 g/dL (32-36); Mean Platelet Volume 12.2 fL (7.4-10.4); Platelet Count 118 K/uL (130-400); RDW Coefficient of Variation 15.1 % (11.5-14.5); RDW Standard Deviation 45.6 fL (36.4-46.3); Red Blood Count 3.26 M/uL (4.2-5.4); White Blood Count 75.92 K/uL (4.8-10.8)
[2021-08-21 04:16] LABS: Basophils # (auto) 0.18 K/uL (0-0.2); Basophils % (auto) 0.2 %; Immature Granulocytes # (auto) 0.08 K/uL (0.00-0.02); Immature Granulocytes % (auto) 0.1 %; Lymphocytes # (auto) 68.78 K/uL (1.2-3.4); Lymphocytes % (auto) 90.6 %; Monocytes # (auto) 0.61 K/uL (0.11-0.59); Monocytes % (auto) 0.8 %; Neutrophils # (auto) 6.27 K/uL (1.4-6.5); Neutrophils % (auto) 8.3 %; Ovalocytes 1+; Platelet Estimate Normal (Normal); Smudge Cells Present
[2021-08-21] MEDS: oxyCODONE HCL IR 5 MG TAB (IMMEDIATE RELEASE) PO PRN (06:28)
[2021-08-21] MEDS: CEFEPIME 2,000 MG in SYRINGE 0 ML IV SCH (06:28)
[2021-08-21] MEDS: NSS + 20MEQ KCL 20 MEQ/1,000 ML BAG IV SCH (06:29)
[2021-08-21] MEDS ORDERED: ALBUTEROL 0.083% NEBU SOLN 3 ML VIAL NEB PRN (09:57)
[2021-08-21 10:33] LABS: Hematocrit (blood only) 28.7 % (37-47); Hemoglobin 8.8 g/dL (12.0-16.0)
[2021-08-21] MEDS: SODIUM CHLORIDE 0.9% 1000ML 1,000 ML IV SCH (10:48)
--- NOTE | 2021-08-21 14:29 | Communication Note ---
Date of Service: August 21, [address] Cantrell as well as Dr. Ramos Jose from Gen Surgery. From General Surgery standpoint, patient is stable for OR. Hgb remaining stable. No further c/o abominal discomort. I discussed need for blood transfusion prior to surgery with Dr. Cantrell. (Dr Sánchez asking Hgb be around 10 for surgery if possible). Pt will need Irradiated blood secondary to CLL/treatment. He stated with will need to come from a facility outside of [facility]. 3 units of blood has been ordered and put on hold. Once blood consent has been signed, plan to tra nsfuse one unit of PRBC's initially. Repeat Hgb in the early AM. Currently, patient remaining stable. Plan for Bipolar Hemiarthroplasty tomorrow late morning.
--- NOTE | 2021-08-21 15:09 | Surgery Progress Note ---
Date of Service August 21, 2021 Assessment & Plan (1) Closed hip fracture: (2) UGIB (upper gastrointestinal bleed): (3) COVID-19: (4) Splenic laceration: Plan: 71-year-old woman with CLL on chemotherapy presents following a fall at home. She has a grade 2 splenic laceration, a left hip fracture, and is positive for COVID-19. She also has Hemoccult positive stools with dark stools. She has been on bedrest for 24 hours. Her every 6 hours hemoglobin and hematocrits have been stable. She is awaiting orthopedics for treatment of her hip. The blood counts can be scaled back to every 12 hours. We will continue to follow. Admission and Anticipated Discharge Date Admission Date: August 20, 2021 Subjective pain in left hip; no abdominal pain today Physical Exam Constitutional: WD/WN, vitals as above Eyes: PERRL, conjunctivae normal, anicteric sclerae Gastrointestinal (Abdomen): normal bowel sounds, soft, nontender, no hepatosplenomegaly Musculoskeletal: Head/Neck/Chest: normocephalic and head atraumatic Extremities: no cyanosis and no clubbing Skin: no rashes, warm and dry Psychiatric: A+Ox3, euthymic affect Results & Data ([facility]) Vital Signs (Past 12 Hours) Vital Signs Temp Pulse Pulse Resp BP Pulse Ox Pulse Ox 08/21/21 11:57 36.6 C 62 20 139/67 91 08/21/21 10:00 95 08/21/21 08:04 36.8 C 57 L 18 111/47 L 95 08/21/21 07:22 47 L 08/21/21 06:07 36.8 C 56 L 14 125/65 96 08/21/21 06:00 96 08/21/21 03:42 36.8 C 54 L 18 109/55 L 96 (1) Closed hip fracture Encounter type: initial encounter Laterality: left Qualified Code(s): S72.002A - Fracture of unspecified part of neck of left femur, initial encounter for closed fracture
[2021-08-21 15:23] LABS: Hematocrit (blood only) 28.8 % (37-47)
--- NOTE | 2021-08-21 15:52 | Anesthesiology Consultation ---
Date of Service August 21, 2021 The patient is positive for Covid 19. The patient has a splenic laceration and upper GI bleed but her hgb appears to be slowly increasing. There are four units of irradiated PRBCs available if necessary for transfusion. Medicine and general surgery are following the patient on the floor. Assessment & Plan (1) Encounter for pre-operative examination: Chart Review Chart Review: Pending: Refer to Additional Notes / Consult section (CBC is to be rechecked, also internal medicine is to re-evaluate the patient prior to surgery) and Patient NOT seen in Pre Admission Testing Consults Requested none medicine is following History Surgery Operation Date: 08/22/21 09:20 Proposed Procedures p Left Bipolar Hip - Henrik Sánchez MD Height/Weight Height: 5 ft 3 in Weight: 61.8 kg Allergies Allergy/AdvReac Type Severity Reaction Status Date / Time Penicillins Allergy Unknown Verified 08/20/21 03:19 Medications Home Medications Medication Instructions Recorded Confirmed Last Taken fluticasone propionate 50 2 spray INTRANASAL DAILY 12/20/18 08/20/21 Unknown mcg/actuation nasal spray,suspension omeprazole 20 mg capsule,delayed 20 mg PO QAM 12/20/18 08/20/21 12/19/18 release peg 400-propylene glycol (PF) 0.4 1 drp OPB BID PRN 12/20/18 08/20/21 Unknown %-0.3 % eye drops in a dropperette (Systane (PF)) allopurinol 100 mg tablet 100 mg PO DAILY PRN 08/20/21 08/20/21 Unknown amlodipine 10 mg tablet 10 mg PO DAILY 08/20/21 08/20/21 Unknown azelastine 137 mcg (0.1 %) nasal 2 spray INTRANASAL BID 08/20/21 08/20/21 Unknown spray aerosol ferrous sulfate 325 mg (65 mg 325 mg PO Q OTHER DAY 08/20/21 08/20/21 Unknown iron) tablet (FeroSul) ibrutinib 420 mg tablet (Imbruvica) 420 mg PO DAILY 08/20/21 08/20/21 Unknown lisinopril 40 mg tablet 40 mg PO DAILY 08/20/21 08/20/21 Unknown ondansetron HCl 4 mg tablet 4 mg PO Q6 PRN 08/20/21 08/20/21 Unknown Active Medications Generic Name Dose Route Start Last Admin Trade Name Freq PRN Reason Stop Dose Admin Pantoprazole Sodium 40 mg/ 100 mls @ 20 mls/hr 08/20/21 01:45 08/21/21 13:30 Dextrose IV 09/19/21 01:44 8 mg/hr Q5H REBEKA 20 mls/hr Administration 8 MG/HR Cefepime HCl 2,000 mg/ Syringe 20 mls @ 5 mls/min 08/21/21 06:00 08/21/21 06:28 IV 08/31/21 05:59 5 mls/min Q24H REBEKA Administration Protocol Dexamethasone 6 mg/ Syringe 1.5 mls @ 1 mls/min 08/20/21 16:15 08/20/21 17:05 IV 09/19/21 16:14 1 mls/min Q24H REBEKA Administration Sodium Chloride 1,000 mls @ 60 mls/hr 08/21/21 10:00 08/21/21 10:48 Nss 1000ml IV 08/22/21 19:19 60 mls/hr .[id number] REBEKA Administration Morphine Sulfate 2 mg 08/20/21 04:08 08/20/21 15:57 Morphine Sulfate 2 Mg/Ml Carp IV 09/03/21 04:07 2 mg Q3H PRN Administration Pain (1,2,3,4,5) & Pre PT Oxycodone HCl 5 mg 08/20/21 04:08 08/21/21 06:28 Oxycodone Hcl Ir 5 Mg Tab (Immediate Release) PO 09/03/21 04:07 5 mg Q4H PRN Administration MODERATE Pain (4,5,6) & Pre PT Oxycodone HCl 10 mg 08/20/21 04:08 08/20/21 23:17 Oxycodone Hcl Ir 5 Mg Tab (Immediate Release) PO 09/03/21 04:07 10 mg Q4H PRN Administration SEVERE Pain (7,8,9,10) Past Medical History Medical History Anemia CLL (chronic lymphocytic leukemia) COVID-19 GERD (gastroesophageal reflux disease) Hypertension Splenic laceration Thrombocytopenia Exercise / Class Metabolic Activity II 4-5 Yardwork/Stairs/Walk up hill Past Surgical History Surgical History No pertinent past surgical history Past Anesthesia History No Hx of Anesthesia Complications and No Family Hx of Anesthesia Complications Social History Smoking Status: Never smoker Hx Alcohol Use: No Hx Substance Use: No Physical Exam Vital Signs Last Vital Signs Temp 36.6 C 08/21/21 11:57 Pulse 62 08/21/21 11:57 Resp 20 08/21/21 11:57 BP 139/67 08/21/21 11:57 Pulse Ox 91 08/21/21 11:57 Testing Laboratory Results 08/21/21 15:11 08/21/21 03:18 PT 11.1 Seconds (9.0-12.0) 08/19/21 Unknown INR 1.1 (0.9-1.1) 08/19/21 Unknown APTT 27.6 Seconds (21.0-31.0) 08/19/21 Unknown Urine Color Dark Yellow 08/19/21 Unknown Urine Appearance Cloudy (Clear) A 08/19/21 Unknown Urine pH 5.5 (4.5-7.5) 08/19/21 Unknown Ur Specific [place] 1.024 (1.000-1.030) 08/19/21 Unknown Urine Protein 1+ (Negative) H 08/19/21 Unknown Urine Glucose (UA) Negative (Negative) 08/19/21 Unknown Urine Ketones Negative (Negative) 08/19/21 Unknown Urine Nitrite Positive (Negative) A 08/19/21 Unknown Ur Leukocyte Esterase Trace (Negative) H 08/19/21 Unknown Urine WBC (Auto) 10-30 /hpf (0-5) H 08/19/21 Unknown Urine RBC (Auto) 0-4 /hpf (0-4) 08/19/21 Unknown U Hyaline Cast (Auto) 10-30 /lpf (0-5) H 08/19/21 Unknown U Epithel Cells (Auto) >30 /lpf (0-5) H 08/19/21 Unknown Urine Bacteria (Auto) 4+ (Negative) H 08/19/21 Unknown Blood Type AB Positive 08/19/21 23:49 Antibody Screen NEGATIVE 08/19/21 23:49 08/19/21 Unknown Urine Culture - Preliminary Urine,Straight Cath Escherichia coli 08/19/21 23:49 Aerobic Blood Culture - Preliminary Blood No growth in Aerobic bottle after 24 hours. Anaerobic Blood Culture - Preliminary No growth in Anaerobic bottle after 24 hours. 08/19/21 23:49 Aerobic Blood Culture - Preliminary Blood No growth in Aerobic bottle after 24 hours. Anaerobic Blood Culture - Preliminary No growth in Anaerobic bottle after 24 hours. Electrocardiogram Date: 08/20/21 DICTATED BY: Xavier Woods MD Test Reason : Blood Pressure : / mmHG Vent. Rate : 060 BPM Atrial Rate : 060 BPM P-R Int : 134 ms QRS Dur : 072 ms QT Int : 406 ms P-R-T Axes : 069 046 043 degrees QTc Int : 406 ms Poor data quality, interpretation may be adversely affected Normal sinus rhythm Normal ECG No previous ECGs available Confirmed by Xavier Woods ([id number]) on 08/20/2021 2:20:19 PM Referred By: REFERRED SELF Confirmed By:Xavier Woods Signed By:[id number] Dictated: 08/19/216 Transcribed: Mortgage Banker: Chest X-Ray Date: 08/19/21 XR chest 1V portable HISTORY: 71 years-old Female hypoxic acute hypoxia COMPARISON: None TECHNIQUE: Portable AP view of the chest FINDINGS: The patient is slightly rotated. The cardiac silhouette is upper limits of normal in size. No pneumothorax, pleural effusion, airspace consolidation or overt pulmonary edema. No acute fracture. IMPRESSION: No acute process. ACT 112: Negative or not required by law. The above report was generated using voice recognition software. It may contain grammatical, syntax or spelling errors. Electronically signed by: Bruce Saini M.D. 08/20/2021 6:43 AM Dictated: 08/20/2142Transcribed: 08/20/21641 Echocardiogram Date: 08/20/21 EF: 55-60 LV Function: normal Valvular Disease: + no significant valvular disease Other Testing CERVICAL SPINE CT CT DOSE: 1257.41 mGy.cm HISTORY: Neck pain. fall TECHNIQUE: Multiaxial CT images of the cervical spine were performed and reformatted in the sagittal and coronal plane without the use of contrast. A dose lowering technique was utilized adhering to the principles of ALARA. COMPARISON: None. FINDINGS: No fractures. No subluxation. Prevertebral soft tissues and the C1-C2 interval are intact. No pneumothorax. A few borderline-enlarged cervical lymph nodes. The palatine and lingual tonsils are enlarged. IMPRESSION: 1. No fractures within the cervical spine. 2. The palatine and lingual tonsils are enlarged. This could be due to reactive hypertrophy in the setting of a tonsillitis. However, direct visualization recommended to exclude an underlying lesion. Clinical correlation recommended. 3. Mild bilateral cervical lymphadenopathy. 4. These findings were called/faxed to the emergency department following dictation. ACT 112: Negative or not required by law. Electronically signed by: Mendez Bravo M.D. 08/20/2021 7:12 AM Dictated: 08/20/21708Transcribed: 08/20/21708 CT head/brain wo con CLINICAL HISTORY: 71 years-old Female with fall. Acute head trauma status post fall TECHNIQUE: Multiple axial CT images of the head were obtained without contrast. A dose lowering technique was utilized adhering to the principles of ALARA. COMPARISON: Brain MRI 12/20/2018 FINDINGS: No acute intracranial hemorrhage, midline shift, intracranial mass, hydrocephalus, territorial ischemia or abnormal extra-axial collection. Age- related involutional changes. Minimal white matter hypodensities suggest chronic microvascular ischemic disease. The calvarium is intact. The mastoid air cells and middle ear cavities are clear. Mucoperiosteal thickening of the paranasal sinuses, at least moderate within the left maxillary sinus. Prior bilateral lens repair. IMPRESSION: No acute intracranial abnormality. ACT 112: Negative or not required by law. The above report was generated using voice recognition software. It may contain grammatical, syntax or spelling errors. Electronically signed by: Bruce Saini M.D. 08/20/2021 7:03 AM Dictated: 08/20/21700Transcribed: 08/20/21700
[2021-08-21] MEDS ORDERED: SODIUM CHLORIDE 0.9% 250 ML IV PRN (16:17)
[2021-08-21] MEDS ORDERED: ACETAMINOPHEN 325 MG TAB PO ONE (16:22)
[2021-08-21] MEDS: dexAMETHasone 6 MG in SYRINGE 0 ML IV SCH (16:23)
--- NOTE | 2021-08-21 18:48 | Hospitalist Progress Note ---
Date of Service August 21, 2021 Assessment & Plan (1) UGIB (upper gastrointestinal bleed): Plan: Melena Acute on Chronic anemia Baseline Hb ~10 Hb 9.0 Hemoglobin drop likely multifactorial given melena, splenic rupture, left hip fracture in setting of CLL Monitor H&H Transfuse PRBCs as needed GI consulted Continue PPI Hb stable Acute respiratory failure with hypoxia COVID 19 Infection COVID Screen:positive on 08/19/21 H/O COVID 19 exposure CXR:No acute process. Found to have oxygen saturation in the 80s while in ED CRP: 4.49 Procalcitonin Normal Continue Dexamethasone Ok to use steroids in setting of CLL as per oncology Lasix, Albuterol PRN Continue Supplemental Oxygen as needed DVT prophylaxis: SCDs Re: Melena Left Hip Fracture Secondary to Fall Syncopal Episode likely due to Orthostasis X ray:Acute impacted subcapital fracture of the left femoral neck. ECHO: Left ventricle is normal in size. Normal left ventricular wall thickness. Left ventricle wall motion is normal. EF 55 to 60%. Diastolic function is normal. No significant valvular disease. Doppler findings do not suggest pulmonary hypertension. Pain Control High risk for surgery given multiple comorbidities Appreciate Orthopedics Input Plan for surgery tomorrow Acute Splenic Laceration: ? Secondary to Fall --CT ABD:Moderate to marked splenomegaly has increased in size from 12/21/2018. There is a 2.2 x 1.1 cm linear area of decreased attenuation involving the peripheral posterior mid spleen with trace perisplenic fluid/hemorrhage. With history of recent trauma, this is suggestive of an acute splenic laceration (grade II injury). -Monitor H&H -Transfuse PRBCs as needed -Appreciate Surgery Input CBC stable Suspected Tonsillitis Incidental finding on Imaging --CT Neck:No fractures within the cervical spine. The palatine and lingual tonsils are enlarged. This could be due to reactive hypertrophy in the setting of a tonsillitis. However, direct visualization recommended to exclude an underlying lesion. Clinical correlation recommended. Mild bilateral cervical lymphadenopathy. -Currently denies any sore throat, dysphagia, odynophagia -On Cefepime Complicated UTI Urine Culture E.coli: Sensitivities pending Continue cefepime CLL Ongoing chemotherapy with ibrutinib Follows with Dr. Ariel Ortiz for oncology Appreciate oncology input Hold chemotherapy for now Monitor CBC Hypertension BP on the lower side on presentation Resume amlodipine, lisinopril as able Monitor DVT Px: SCDs Re: GI bleed Code Status Full code Admission and Anticipated Discharge Date Admission Date: August 20, 2021 Subjective Patient is seen and examined at bedside Reports left hip pain Discussed with orthopedics today Plan for left hip surgery tomorrow States having minimal nonexpectorant cough Denies any dyspnea, dizziness, nausea, dysuria Abdominal pain is better today Updated patient's family over the phone Review of Systems Review of Systems: All systems reviewed & are unremarkable except as noted in Subjective Physical Exam Physical Exam: Physical Exam: Vitals signs as noted above General Appearance:Thin, Chronic ill appearing, no apparent distress Head: normocephalic, Atraumatic Eyes: normal inspection, EOMI Neck: supple, Trachea midline Respiratory/Chest: Decreased breath sounds, CTA Cardiovascular: S1, S2, No murmur Abdomen/GI:Soft, Non tender, Bowel sounds present Extremities/Musculoskeletal:normal inspection, Left hip tender, decreased ROM due to pain Neurologic/Psych:AAOX3, grossly no focal neurological deficits Skin: normal color, warm Results & Data Results & Data ([facility]) Vital Signs (Past 12 Hours) Vital Signs Temp Pulse Pulse Resp BP BP BP 08/21/21 18:17 36.5 C 61 16 140/77 08/21/21 15:00 36.6 C 64 16 150/67 H 08/21/21 14:00 36.6 C 64 16 150/67 H 08/21/21 11:57 36.6 C 62 20 139/67 08/21/21 10:00 08/21/21 08:04 36.8 C 57 L 18 111/47 L 08/21/21 07:22 47 L Pulse Ox Pulse Ox 08/21/21 18:17 92 08/21/21 15:00 95 08/21/21 14:00 94 96 08/21/21 11:57 91 08/21/21 10:00 95 08/21/21 08:04 95 08/21/21 07:22 Laboratory Results Short CBC 08/20/21 08/21/21 08/21/21 Range/Units 20:50 03:18 10:00 WBC 75.92 H* D (4.8-10.8) K/uL Hgb 8.6 L 8.4 L 8.8 L (12.0-16.0) g/dL Hct 27.5 L 27.4 L 28.7 L (37-47) % Plt Count 118 L (130-400) K/uL 08/21/21 Range/Units 15:11 WBC (4.8-10.8) K/uL Hgb 9.0 L (12.0-16.0) g/dL Hct 28.8 L (37-47) % Plt Count (130-400) K/uL BMP 08/21/21 03:18 Sodium 133 L Potassium 5.0 D Chloride 105 Carbon Dioxide 23 BUN 8 Creatinine 0.85 Glucose 123 H Calcium 7.1 L Liver Function 08/21/21 Range/Units 03:18 Total Bilirubin 0.3 (0.2-1) mg/dl AST 21 (15-37) U/L ALT 14 (12-78) U/L Alkaline Phosphatase 42 L (45-117) U/L Albumin 2.2 L (3.4-5.0) gm/dl
[2021-08-21] MEDS: PANTOprazole 40 MG in SYRINGE 0 ML IV SCH (22:08)
[2021-08-21 23:18] LABS: Hematocrit (blood only) 31.2 % (37-47); Hemoglobin 10.1 g/dL (12.0-16.0)
[2021-08-22] MEDS: SODIUM CHLORIDE 0.9% 1000ML 1,000 ML IV SCH ×2 (03:49→17:11)
[2021-08-22] MEDS: PROMETHAZINE HCL 12.5 MG in SODIUM CHLORIDE 0.9% 50 ML IV PRN (04:06)
[2021-08-22] MEDS: CEFEPIME 2,000 MG in SYRINGE 0 ML IV SCH (06:16)
[2021-08-22] MEDS ORDERED: ceFAZolin 1000MG 1,000 MG/7.5 ML SYR IV ONE (08:00)
[2021-08-22 08:36] LABS: Hematocrit (blood only) 33.3 % (37-47); Hemoglobin 10.8 g/dL (12.0-16.0); Mean Corpuscular Hemoglobin 26.9 pg (25-34); Mean Corpuscular Hgb Conc 32.4 g/dL (32-36); Mean Corpuscular Volume 82.8 fL (80-100); Mean Platelet Volume 12.7 fL (7.4-10.4); Platelet Count 104 K/uL (130-400); RDW Coefficient of Variation 14.8 % (11.5-14.5); RDW Standard Deviation 44.2 fL (36.4-46.3); Red Blood Count 4.02 M/uL (4.2-5.4); White Blood Count 62.64 K/uL (4.8-10.8)
[2021-08-22 08:54] LABS: Basophils # (auto) 0.06 K/uL (0-0.2); Basophils % (auto) 0.1 %; Immature Granulocytes # (auto) 0.07 K/uL (0.00-0.02); Immature Granulocytes % (auto) 0.1 %; Lymphocytes # (auto) 56.69 K/uL (1.2-3.4); Lymphocytes % (auto) 90.5 %; Neutrophils # (auto) 5.22 K/uL (1.4-6.5); Neutrophils % (auto) 8.3 %; Smudge Cells Present
[2021-08-22 09:09] LABS: BUN Creatinine Ratio 19.3 (10-20); C Reactive Protein 4.6 mg/dl (0-0.29); Calcium 8.6 mg/dl (8.5-10.1); Creatinine Clr Calc Pharmacy 58.5 ml/min; Est GFR (Non-African American) 82.9 ml/min; Magnesium 1.8 mg/dl (1.8-2.4); Potassium 4.6 mmol/L (3.5-5.1)
[2021-08-22] MEDS: PANTOprazole 40 MG in SYRINGE 0 ML IV SCH ×2 (09:29→22:03)
[2021-08-22] MEDS ORDERED: fentaNYL citrate 100 MCG/2 ML VIAL ONE (10:04)
[2021-08-22] MEDS ORDERED: PROPOFOL IV EMULSION 10 MG/ML 20 ML VIAL IV ONE (10:04)
[2021-08-22] MEDS ORDERED: MIDAZOLAM HCL 1 MG/ML 2ML VIAL ONE (10:04)
[2021-08-22] MEDS ORDERED: LIDOCAINE 2% 2 ML VIAL/AMP(20MG/ML) INFIL ONE (10:04)
[2021-08-22] MEDS ORDERED: BUPIVACAINE 0.5 % 5 MG/1 ML PF 10ML VIAL ONE (10:23)
[2021-08-22] MEDS ORDERED: KETAMINE 50 MG/5 ML SYRINGE ONE (10:25)
--- NOTE | 2021-08-22 11:30 | History & Physical Bridge Note ---
Date of Service August 22, 2021 History & Physical Bridge Note I have examined the patient, reviewed the History & Physical and in the interval since the performance of the History & Physical I have noted the following changes of clinical significance: no changes noted
--- NOTE | 2021-08-22 14:24 | Post Operative Brief Note ---
Immediate Post Op Note v1 Date of Surgery August 22, 2021 Pre & Post Diagnosis Operation Date: 08/22/21 09:20 Pre-Op Diagnosis: Closed Left Hip Fracture Garden 3 displaced femoral neck fracture Post-Op Diagnosis: Closed Left Hip Fracture Garden 3 displaced femoral neck fracture I identified the patient and participated in the time-out.: Yes Procedure Operation Date: 08/22/21 09:20 Actual Procedures p Left Bipolar Hemiarthroplasty, Cemented(Left) - Henrik Sánchez MD Surgeon Henrik Sánchez MD Chopped Strand Operator Prateek BAKER Estimated Blood Loss 50 Findings Consistent with Post-Op Diagnosis Specimens Femoral head Anesthesia Type Spinal MAC Complications none Disposition Disposition: Recovery Room Overlapping Procedure I was immediately available: during the entire case.
[2021-08-22] MEDS ORDERED: ONDANSETRON INJ 2 MG/ML 2 ML VIAL ONE (14:26)
--- NOTE | 2021-08-22 14:39 | Operative Report ---
Post Operative Report Pre & Post Diagnosis Operation Date: 08/22/21 09:20 Pre-Op Diagnosis: Closed Left Hip Fracture, Garden 3 femoral neck fracture, Covid positive Post-Op Diagnosis: Closed Left Hip Fracture, Garden 3 femoral neck fracture, Covid positive I identified the patient and participated in the time-out.: Yes Procedure Operation Date: 08/22/21 09:20 Actual Procedures p Left Bipolar Hemiarthroplasty, Cemented(Left) - Henrik Sánchez MD Surgeon Henrik Sánchez MD Casing Fluid Tender Prateek BAKER Estimated Blood Loss 50 Findings Consistent with Post-Op Diagnosis Specimens Femoral head Drains None Anesthesia Type Spinal MAC Complications none Disposition Disposition: Recovery Room Indications 71-year-old female complex history with chronic lymphocytic leukemia anemia had a fall likely related to anemia and being fatigued from Covid 19 infection which she is Covid positive. Patient also had splenic injury which has been felt to be stable by surgery department. Description of Procedure Patient was taken to the operating room this is under anesthesia. The patient was placed supine on the operating table and the sacral pad. The left hip was sterilely prepped and draped in usual sterile fashion. A Siddiqui-type approach was performed to the left hip. A longitudinal incision was made over the hip. The skin was incised sharply and the subcutaneous tissues were divided down to the fascia. Subcutaneous bleeders were cauterized. The fascia jasvir was divided longitudinally. The gluteus medius was inspected and this demonstrated intact normal-appearing tendon. The medius was split between its anterior 40% and posterior 60%. The minimus was identified split longitudinally and reflected off of the capsule. An incision was made through the capsule extending up to the acetabulum leaving the acetabular labrum intact. There was a small superior acetabular labral tear that was debrided. A cuff of tissue of the medius was left on the greater trochanter for repair. The vastus lateralis was split for 3 cm. A muscular capsular flap was elevated off of the fracture. Femoral neck fracture demonstrated impacted angulated slightly posteriorly displaced but with significant angulation apex anterior with shortening. A broach for the Accolade cemented Tunde hip system was used to establish appropriate neck cut angle. The neck cut was made approximately 15 mm proximal to the lesser trochanter in neutral anteversion. The remnants of the ligamentum teres was resected. The acetabulum demonstrated some minor calcification otherwise intact articular cartilage. The acetabulum was sized for a size 48 bipolar component. There was a good suction fit with the trial. The femur was then exposed with flexion external rotation. The femoral canal was prepared with a canal reamer followed by sequential broaches up to a size 4 Accolade C trial component. This had good fit and fill with the trial. Trial reduction was performed with a +0 neck length 132 degree angle and 26 diameter femoral head with a trial 48 bipolar. The hip was stable through flexion adduction and internal rotation and extension adduction and external rotation. Leg lengths demonstrated normal leg length. The trials removed and the canal was irrigated copiously with pulsatile lavage solution. A cement restrictor was placed distal to the tip of the stem in the canal. Canal was irrigated with a pulsatile lavage solution with a canal brush and then a suction tampon was placed. The Accolade C size 4 stem with a distal centralizer was then cemented in position and maintained appropriate anteversion. After cement cured the cobalt chromium femoral head size +0 26 was impacted onto the stem and then the 48 bipolar head was assembled and snapped onto the head. The hip was reduced to the acetabulum and stability was verified. The wound was copiously irrigated again with pulsatile lavage. The capsule was then repaired with 2 [id number] #1 Vicryl sutures. The gluteus minimus was repaired with interrupted [id number] #1 Vicryl sutures. The gluteus minimus was reattached to the greater trochanter with #5 FiberWire transosseous suture with Tk-Collin suture technique. The gluteus medius was repaired with transosseous #5 FiberWire sutures x2 with Tk-Collin suture technique and interrupted [id number] 2-0 FiberWire lateral row fixation. The split in the medius was repaired with him to #1 Vicryl sutures and the small split in the vastus lateralis repaired with active #1 Vicryl sutures. The fascia jasvir was repaired with interrupted [id number] #1 Vicryl sutures the subcutaneous tissue closed with several #1 Vicryl sutures to reapproximate the deep fat and close space followed by interrupted 2-0 Vicryl sutures. The skin was closed with claus. Sterile dressings were applied. My physician reference assistant Prateek BAKER was my first coat operator and assisted throughout the the surgery with positioning prepping draping leg position and soft tissue retraction instrument management and assisted in the outer closure and will participate in the postoperative care the patient. The patient tolerated the procedure well. Logistically there was increase time for the procedure performed due to the COVID-19 positive status and protocol and precautions required for that. I attest to the content of the Intraoperative Record and any orders documented therein. Any exceptions are noted below.
--- NOTE | 2021-08-22 14:46 | Anesthesiology Progress Note ---
Date of Service August 22, 2021 Anesthesia Post Procedure Vital Signs Vital Signs: Temp Pulse Pulse Resp BP BP BP 08/22/21 14:30 60 20 141/61 H 08/22/21 14:20 36.6 C 64 22 139/70 08/22/21 10:00 08/22/21 07:53 36.8 C 56 L 20 157/66 H 08/22/21 03:51 36.6 C 54 L 20 170/77 H 08/22/21 01:00 60 08/21/21 23:00 36.8 C 55 L 19 145/64 H 08/21/21 21:35 36.4 C L 54 L 20 163/71 H 08/21/21 20:23 36.4 C L 54 L 20 163/71 H 08/21/21 19:23 36.9 C 54 L 16 159/67 H 08/21/21 18:53 36.6 C 61 16 132/61 08/21/21 18:38 36.6 C 59 L 16 148/68 H 08/21/21 18:17 36.5 C 61 16 140/77 08/21/21 18:00 08/21/21 15:00 36.6 C 64 16 150/67 H Pulse Ox Pulse Ox 08/22/21 14:30 100 08/22/21 14:20 100 08/22/21 10:00 96 08/22/21 07:53 96 08/22/21 03:51 99 08/22/21 01:00 08/21/21 23:00 97 08/21/21 21:35 96 08/21/21 20:23 96 08/21/21 19:23 94 08/21/21 18:53 94 08/21/21 18:38 94 08/21/21 18:17 92 08/21/21 18:00 95 08/21/21 15:00 95 Pain Intensity Left Hip: Pain Intensity: 4 Transfer of Care Handoff Completed per policy Notes Mental Status: alert / awake / arousable and participated in evaluation Patient Amnestic to Procedure: Yes Nausea / Vomiting: adequately controlled Pain: adequately controlled Airway Patency, RR, SpO2: stable & adequate BP & HR: stable & adequate Hydration State: stable & adequate Neuraxial Anesthesia: was administered and sensory block is resolving Anesthetic Complications: no major complications apparent
--- NOTE | 2021-08-22 15:28 | XRay Report ---
XR hip 1V LT w pelvis CLINICAL HISTORY: Postoperative evaluation. COMPARISON: Left femur radiographs August 19, 2021. FINDINGS: Expected findings following left hip arthroplasty are noted. No unexpected radiopaque fore ign body is noted. There are skin claus. IMPRESSION: Expected findings following left hip arthroplasty. ACT 112: Negative or not required by law. Electronically signed by: Héctor Apodaca M.D. 08/22/2021 3:26 PM
[2021-08-22] MEDS: dexAMETHasone 6 MG in SYRINGE 0 ML IV SCH (15:38)
[2021-08-22] MEDS ORDERED: MAGNESIUM HYDROXIDE SUSP 30 ML UDC PO PRN (15:58)
[2021-08-22] MEDS ORDERED: bisacodyL 10 MG SUPP PR PRN (15:58)
--- NOTE | 2021-08-22 16:08 | Hospitalist Progress Note ---
Date of Service August 22, 2021 Assessment & Plan (1) Acute blood loss anemia: Plan: Questionable melena earlier in admission, not currently present associated with hemoglobin drop which is also multifactorial given traumatic splenic rupture and presence of splenic hematoma. She also had left hip fracture and is going for surgery today all in the setting of active CLL on therapy. She remains on PPI IV twice daily and hemoglobin has remained stable. She remains hemodynamically stable as well. She was transfused 1 unit of irradiated leukocyte reduced red blood cells on 08/21 with appropriate increase in H&H from 08/08-09/09. Today's H&H is 10.8/33. Continue current therapy. Monitor CBC daily. (2) Closed hip fracture: Plan: Mechanical fall at home resulting in closed left hip fracture. Syncopal episode pr history thought secondary to orthostasis. She underwent left bipolar arthroplasty by Dr. Sánchez today. ECHO: Left ventricle is normal in size. Normal left ventricular wall thickness. Left ventricle wall motion is normal. EF 55 to 60%. Diastolic function is normal. No significant valvular disease. Doppler findings do not suggest pulmonary hypertension. Continue postoperative pain control efforts and activity per orthopedics. Wound care per orthopedics. (3) Post-operative state: Plan: s/p L hip repair on 08/22 (4) Splenic laceration: Plan: Likely traumatic splenic laceration. General surgery was consulted and recommended bedrest with frequent monitoring of H&H which remained stable. She appears to be improved. Notably she has been started on no chemoprophylaxis postoperatively for DVT in the setting of this anemia. (5) COVID-19: Plan: Started on dexamethasone in the ER after reported drop in oxygen saturation into the 80s. She is oxygenating better at this point, and no acute process was seen on chest x-ray performed on 08/19. She is currently on oxygen as she just arrived from the PACU postanesthesia. We will likely wean this off soon. We will work to wean steroids soon as possible. (6) Thrombocytopenia: Plan: chronic, stable. Multifactorial. May contribute to bleeding somewhat. (7) Acute UTI: Plan: Pansensitive E. coli resulted on urine culture. Will de-escalate cefepime to macrobid to complete the course with nitrofurantoin. (8) CLL (chronic lymphocytic leukemia): Plan: Ongoing therapy with ibrutinib which is on hold Follows with Dr. Ariel Ortiz for oncology (9) Hypertension: Plan: Continue holding home lisinopril and amlodipine in the postoperative setting. We will add back when able from a blood pressure standpoint. (10) DVT prophylaxis: Plan: SCDs, cautious with chemoprophylaxis until H/H stable. Then consider adding anticoagulant, specifically will consider daily Lovenox in setting of active malignancy. Aspirin would not be preferred with ongoing thrombocytopenia. Full Code Dispo-cont tele monitoring for now. [facility] Hospitalist Admission and Anticipated Discharge Date Admission Date: August 20, 2021 Subjective 71 yo F s/p fall with L hip fracture s/p surgical fix today. Seen postoperatively reports some pain present also having some nausea-->states "my belly just doesn't feel well" +constipation, no stool since admission apathetic to food at this point not noticing any blood in stool as no stool present since admission. denies CP or SOB. Review of Systems Review of Systems: At least ten systems were reviewed and negative except as indicated in HPI above. Physical Exam Physical Exam: CONSTITUTIONAL: WNWD, vitals as above, generally ill- appearing, NAD EYES: normal conjunctivae, no scleral icterus ENT: external ear and nose normal, MMM NECK: trachea midline RESPIRATORY: clear to auscultation bilaterally, no crackles, rales or wheezes, normal respiratory effort CARDIOVASCULAR: regular rate and rhythm, S1 and 2 heard without murmurs, gallops or rubs, no JVD GASTROINTESTINAL: soft, nontender, ND, no splenomegaly or LUQ pain present, no guarding MUSCULOSKELETAL: strength 5/5 throughout, head is normocephalic and atraumatic, lower extremities are warm and well perfused with 2+ palpable pulses bilatera lly. SKIN: warm and dry NEUROLOGIC: CN 2-12 grossly intact, normal cognition, normal speech, no tremor, no gross focal deficits. PSYCHIATRIC: alert cooperative and oriented to person, place and time. Results & Data Results & Data ([facility]) Vital Signs (Past 12 Hours) Vital Signs Temp Pulse Resp BP BP Pulse Ox Pulse Ox 08/22/21 15:37 36.6 C 60 16 152/68 H 97 08/22/21 15:00 36.5 C 64 16 165/73 H 98 08/22/21 14:30 60 20 141/61 H 100 08/22/21 14:20 36.6 C 64 22 139/70 100 08/22/21 10:00 96 08/22/21 07:53 36.8 C 56 L 20 157/66 H 96 Laboratory Results Short CBC 08/21/21 08/22/21 Range/Units 22:15 08:06 WBC 62.64 H* (4.8-10.8) K/uL Hgb 10.1 L 10.8 L (12.0-16.0) g/dL Hct 31.2 L 33.3 L (37-47) % Plt Count 104 L (130-400) K/uL BMP 08/22/21 08:06 Sodium 136 Potassium 4.6 Chloride 106 Carbon Dioxide 23 BUN 14 D Creatinine 0.73 Glucose 91 Calcium 8.6 D Diagnostic Findings Hip/Pelvis X-Ray 08/22/21 14:31 XR hip 1V LT w pelvis CLINICAL HISTORY: Postoperative evaluation. COMPARISON: Left femur radiographs August 19, 2021. FINDINGS: Expected findings following left hip arthroplasty are noted. No unexpected radiopaque foreign body is noted. There are skin claus. IMPRESSION: Expected findings following left hip arthroplasty. ACT 112: Negative or not required by law. Electronically signed by: Héctor Apodaca M.D. 08/22/2021 3:26 PM Medications Administered Current Inpatient Medications Acetaminophen (Acetaminophen 325 Mg Tab) 650 mg PO Q4H PRN PRN Reason: Pain or Fever Stop: 09/19/21 06:06 Albuterol (Albuterol 0.083% Nebu Soln 3 Ml Vial) 2.5 mg NEB Q6R PRN PRN Reason: Shortness Of Breath Or Wheezing Stop: 09/20/21 09:56 Allopurinol (Allopurinol 100 Mg Tab) 100 mg PO DAILY PRN PRN Reason: .gout Stop: 09/19/21 06:06 Artificial Tears (Artificial Tears) 1 drops OP BID PRN PRN Reason: Dry Eyes Stop: 09/19/21 06:10 Bisacodyl (Bisacodyl 10 Mg Supp) 10 mg [place] DAILY PRN PRN Reason: Constipation Stop: 09/21/21 15:57 Docusate Sodium (Docusate Sodium 100 Mg Cap) 100 mg PO BID REBEKA Stop: 09/21/21 20:59 Promethazine HCl 12.5 mg/ (Sodium Chloride) 50.5 mls @ 202 mls/hr IV Q6H PRN PRN Reason: Nausea And Vomiting Stop: 09/19/21 04:07 Last Infusion: 08/22/21 04:21 Dose: Infused Documented by: Cefepime HCl 2,000 mg/ Syringe 20 mls @ 5 mls/min IV Q24H [facility]; Protocol Stop: 08/31/21 05:59 Last Admin: 08/22/21 06:16 Dose: 5 mls/min Documented by: Dexamethasone 6 mg/ Syringe 1.5 mls @ 1 mls/min IV Q24H [facility] Stop: 09/19/21 16:14 Last Admin: 08/22/21 15:38 Dose: 1 mls/min Documented by: Sodium Chloride (Nss 1000ml) 1,000 mls @ 60 mls/hr IV .[id number] [facility] Stop: 08/22/21 19:19 Last Admin: 08/22/21 03:49 Dose: 60 mls/hr Documented by: Pantoprazole Sodium 40 mg/ (Syringe) 10 mls @ 5 mls/min IV BID [facility] Stop: 09/20/21 20:59 Last Admin: 08/22/21 09:29 Dose: 5 mls/min Documented by: Sodium Chloride (Nss 1000ml) 1,000 mls @ 100 mls/hr IV .Q10H [facility] Stop: 08/23/21 06:00 Magnesium Hydroxide (Magnesium Hydroxide Susp 30 Ml Udc) 30 ml PO Q6H PRN PRN Reason: Constipation Stop: 09/21/21 15:57 Miscellaneous Information (Cefepime Consult Active) 1 ea N/A UD PRN PRN Reason: Consult Stop: 09/19/21 04:12 Morphine Sulfate (Morphine Sulfate 2 Mg/Ml Carp) 2 mg IV Q3H PRN PRN Reason: Pain (1,2,3,4,5) & Pre PT Stop: 09/03/21 04:07 Last Admin: 08/20/21 15:57 Dose: 2 mg Documented by: Multivitamins (Multivitamin Tab) 1 tab PO QAM [facility] Stop: 09/22/21 08:59 Naloxone HCl (Naloxone Hcl 0.4 Mg/1 Ml Vial/Carp) 0.1 mg IV UD PRN PRN Reason: Opiate Overdose Stop: 09/19/21 06:06 Ondansetron HCl (Ondansetron Inj 2 Mg/Ml 2 Ml Vial) 4 mg IV Q6H PRN PRN Reason: Nausea And Vomiting Stop: 09/21/21 15:57 Oxycodone HCl (Oxycodone Hcl Ir 5 Mg Tab (Immediate Release)) 5 mg PO Q4H PRN PRN Reason: MODERATE Pain (4,5,6) & Pre PT Stop: 09/03/21 04:07 Last Admin: 08/21/21 06:28 Dose: 5 mg Documented by: Oxycodone HCl (Oxycodone Hcl Ir 5 Mg Tab (Immediate Release)) 10 mg PO Q4H PRN PRN Reason: SEVERE Pain (7,8,9,10) Stop: 09/03/21 04:07 Last Admin: 08/20/21 23:17 Dose: 10 mg Documented by: Sennosides (Senna 8.6 Mg Tab) 17.2 mg PO HS [facility] Stop: 09/21/21 20:59 (1) Closed hip fracture Encounter type: initial encounter Laterality: left Qualified Code(s): S72.002A - Fracture of unspecified part of neck of left femur, initial encounter for closed fracture
[2021-08-22] MEDS: oxyCODONE HCL IR 5 MG TAB (IMMEDIATE RELEASE) PO PRN (17:11)
[2021-08-22] MEDS: MoRPHine SULFATE 2 MG/ML CARP IV PRN (19:28)
[2021-08-22] MEDS: DOCUSATE SODIUM 100 MG CAP PO SCH (22:02)
[2021-08-22] MEDS: SENNA 8.6 MG TAB PO SCH (22:02)
[2021-08-23] MEDS: PROMETHAZINE HCL 12.5 MG in SODIUM CHLORIDE 0.9% 50 ML IV PRN (02:08)
[2021-08-23] MEDS: MoRPHine SULFATE 2 MG/ML CARP IV PRN ×3 (02:09→08:39)
[2021-08-23] MEDS: SODIUM CHLORIDE 0.9% 1000ML 1,000 ML IV SCH (02:09)
[2021-08-23] MEDS: CEFEPIME 2,000 MG in SYRINGE 0 ML IV SCH (06:03)
[2021-08-23 07:21] LABS: Hemoglobin 9.5 g/dL (12.0-16.0); Mean Corpuscular Hemoglobin 26.8 pg (25-34); Mean Corpuscular Hgb Conc 32.8 g/dL (32-36); Mean Corpuscular Volume 81.9 fL (80-100); Mean Platelet Volume 12.1 fL (7.4-10.4); Platelet Count 119 K/uL (130-400); RDW Coefficient of Variation 14.9 % (11.5-14.5); RDW Standard Deviation 44.5 fL (36.4-46.3); Red Blood Count 3.54 M/uL (4.2-5.4); White Blood Count 43.91 K/uL (4.8-10.8)
[2021-08-23 07:52] LABS: BUN Creatinine Ratio 22.3 (10-20); Basophils # (auto) 0.03 K/uL (0-0.2); Basophils % (auto) 0.1 %; Creatinine Clr Calc Pharmacy 59.3 ml/min; Est GFR (African American) 97.7 ml/min; Est GFR (Non-African American) 84.3 ml/min; Immature Granulocytes # (auto) 0.05 K/uL (0.00-0.02); Immature Granulocytes % (auto) 0.1 %; Lymphocytes # (auto) 37.49 K/uL (1.2-3.4); Lymphocytes % (auto) 85.4 %; Monocytes # (auto) 0.56 K/uL (0.11-0.59); Monocytes % (auto) 1.3 %; Neutrophils # (auto) 5.78 K/uL (1.4-6.5); Neutrophils % (auto) 13.1 %; Potassium 4.3 mmol/L (3.5-5.1); Smudge Cells Present
[2021-08-23] MEDS: DOCUSATE SODIUM 100 MG CAP PO SCH ×2 (08:39→20:41)
[2021-08-23] MEDS: PANTOprazole 40 MG in SYRINGE 0 ML IV SCH ×2 (08:39→20:41)
[2021-08-23] MEDS: MULTIVITAMIN TAB PO SCH (08:39)
--- NOTE | 2021-08-23 11:47 | Orthopedic Progress Note ---
Date of Service August 23, 2021 Assessment & Plan (1) Closed hip fracture: Plan: Postop day 1 status post left bipolar hemiarthroplasty PT/OT protocols. Weightbearing as tolerated. DVT prophylaxis-SCDs, begin low-dose heparin twice daily later today. Pain management-we will change morphine sulfate to hydromorphone to see if this helps for pain control. Admission and Anticipated Discharge Date Admission Date: August 20, 2021 Subjective Postop day 1 Awake and alert. Sitting up in bed. Both hips in flexion to about 70 degrees at this time for comfort. Is not adequate at this time. Denies shortness of breath, chest pain, lightheadedness. No other complaints at this time. Physical Exam Physical Exam: Dressings are clean, dry, and intact. Calves are soft nontender. Neurovascular is intact. Toes are mobile. Leg lengths appear equal . Results & Data ([facility]) Vital Signs (Past 12 Hours) Vital Signs Temp Pulse Resp BP Pulse Ox 08/23/21 07:30 64 18 138/70 99 08/23/21 04:04 36.7 C 62 16 129/68 100 Laboratory Results Laboratory Results WBC 43.91 K/uL (4.8-10.8) H* D 08/23/21 06:46 RBC 3.54 M/uL (4.2-5.4) L 08/23/21 06:46 Hgb 9.5 g/dL (12.0-16.0) L 08/23/21 06:46 Hct 29.0 % (37-47) L 08/23/21 06:46 MCV 81.9 fL (80-100) 08/23/21 06:46 MCH 26.8 pg (25-34) 08/23/21 06:46 MCHC 32.8 g/dL (32-36) 08/23/21 06:46 RDW Std Deviation 44.5 fL (36.4-46.3) 08/23/21 06:46 RDW Coeff of [place] 14.9 % (11.5-14.5) H 08/23/21 06:46 Plt Count 119 K/uL (130-400) L 08/23/21 06:46 MPV 12.1 fL (7.4-10.4) H 08/23/21 06:46 Immature Gran % (Auto) 0.1 % 08/23/21 06:46 Neut % (Auto) 13.1 % 08/23/21 06:46 Lymph % (Auto) 85.4 % 08/23/21 06:46 [place] % (Auto) 1.3 % 08/23/21 06:46 Eos % (Auto) 0.0 % 08/23/21 06:46 Baso % (Auto) 0.1 % 08/23/21 06:46 Neut # (Auto) 5.78 K/uL (1.4-6.5) 08/23/21 06:46 Lymph # (Auto) 37.49 K/uL (1.2-3.4) H 08/23/21 06:46 [place] # (Auto) 0.56 K/uL (0.11-0.59) 08/23/21 06:46 Eos # (Auto) 0.00 K/uL (0-0.5) 08/23/21 06:46 Baso # (Auto) 0.03 K/uL (0-0.2) 08/23/21 06:46 Immature Gran # (Auto) 0.05 K/uL (0.00-0.02) H 08/23/21 06:46 Smudge Cells Present 08/23/21 06:46 Platelet Estimate Normal (Normal) 08/21/21 03:18 Ovalocytes 1+ 08/21/21 03:18 PT 11.1 Seconds (9.0-12.0) 08/19/21 Unknown INR 1.1 (0.9-1.1) 08/19/21 Unknown APTT 27.6 Seconds (21.0-31.0) 08/19/21 Unknown PTT Ratio 1.0 08/19/21 Unknown Sodium 134 mmol/L (136-145) L 08/23/21 06:46 Potassium 4.3 mmol/L (3.5-5.1) 08/23/21 06:46 Chloride 104 mmol/L (98-107) 08/23/21 06:46 Carbon Dioxide 22 mmol/L (21-32) 08/23/21 06:46 Anion Gap 8.0 (3-11) 08/23/21 06:46 BUN 16 mg/dl (7-18) 08/23/21 06:46 Creatinine 0.72 mg/dl (0.6-1.2) 08/23/21 06:46 Est Cr Clr Drug Dosing 59.3 ml/min 08/23/21 06:46 Est GFR ( Amer) 97.7 ml/min 08/23/21 06:46 Est GFR (Non-Af Amer) 84.3 ml/min 08/23/21 06:46 BUN/Creatinine Ratio 22.3 (10-20) H 08/23/21 06:46 Glucose 98 mg/dl (70-99) 08/23/21 06:46 Lactate 0.7 mmol/L (0.4-2.0) 08/20/21 06:27 Calcium 8.0 mg/dl (8.5-10.1) L 08/23/21 06:46 Magnesium 1.8 mg/dl (1.8-2.4) 08/22/21 08:06 Total Bilirubin 0.3 mg/dl (0.2-1) 08/21/21 03:18 AST 21 U/L (15-37) 08/21/21 03:18 ALT 14 U/L (12-78) 08/21/21 03:18 Alkaline Phosphatase 42 U/L (45-117) L 08/21/21 03:18 Troponin I < 0.015 ng/ml (0-0.045) 08/19/21 Unknown C-Reactive Protein 4.60 mg/dl (0-0.29) H 08/22/21 08:06 Total Protein 5.7 gm/dl (6.4-8.2) L 08/21/21 03:18 Albumin 2.2 gm/dl (3.4-5.0) L 08/21/21 03:18 Globulin 3.5 gm/dl (2.5-4.0) 08/21/21 03:18 Albumin/Globulin Ratio 0.6 (0.9-2) L 08/21/21 03:18 Lipase 131 U/L (73-393) 08/19/21 Unknown Procalcitonin < 0.05 ng/ml (0-0.5) 08/21/21 03:18 Urine Color Dark Yellow 08/19/21 Unknown Urine Appearance Cloudy (Clear) A 08/19/21 Unknown Urine pH 5.5 (4.5-7.5) 08/19/21 Unknown Ur Specific [place] 1.024 (1.000-1.030) 08/19/21 Unknown Urine Protein 1+ (Negative) H 08/19/21 Unknown Urine Glucose (UA) Negative (Negative) 08/19/21 Unknown Urine Ketones Negative (Negative) 08/19/21 Unknown Urine Blood 2+ (Negative) H 08/19/21 Unknown Urine Nitrite Positive (Negative) A 08/19/21 Unknown Urine Bilirubin Negative (Negative) 08/19/21 Unknown Urine Urobilinogen Negative (Negative) 08/19/21 Unknown Ur Leukocyte Esterase Trace (Negative) H 08/19/21 Unknown Urine WBC (Auto) 10-30 /hpf (0-5) H 08/19/21 Unknown Urine RBC (Auto) 0-4 /hpf (0-4) 08/19/21 Unknown U Hyaline Cast (Auto) 10-30 /lpf (0-5) H 08/19/21 Unknown U Epithel Cells (Auto) >30 /lpf (0-5) H 08/19/21 Unknown Urine Bacteria (Auto) 4+ (Negative) H 08/19/21 Unknown Ur Renal Epithelial Cell Not Reportable 08/19/21 Unknown Urine Mucus Present (None Prsent) A 08/19/21 Unknown COVID-19 Eval Order Covid19 at [facility] 08/19/21 Unknown SARS-CoV-2 (PCR) POSITIVE (Negative) A* 08/19/21 Unknown Influ A Molecular Assay Negative (Negative) 08/19/21 Unknown Influ B Molecular Assay Negative (Negative) 08/19/21 Unknown Blood Type AB Positive 08/19/21 23:49 Blood Type Recheck AB Positive 08/21/21 03:18 Antibody Screen NEGATIVE 08/19/21 23:49 Crossmatch See Detail 08/19/21 23:49 Hip/Pelvis X-Ray 08/22/21 14:31 XR hip 1V LT w pelvis CLINICAL HISTORY: Postoperative evaluation. COMPARISON: Left femur radiographs August 19, 2021. FINDINGS: Expected findings following left hip arthroplasty are noted. No unexpected radiopaque foreign body is noted. There are skin claus. IMPRESSION: Expected findings following left hip arthroplasty. ACT 112: Negative or not required by law. Electronically signed by: Héctor Apodaca M.D. 08/22/2021 3:26 PM (1) Closed hip fracture Encounter type: initial encounter Laterality: left Qualified Code(s): S72.00 2A - Fracture of unspecified part of neck of left femur, initial encounter for closed fracture
[2021-08-23] MEDS ORDERED: KETOROLAC TROMETHAMINE 15 MG/ML VIAL IV ONE (11:52)
[2021-08-23] MEDS: HYDROmorphone INJ 0.5 MG/0.5 ML SYR IV PRN (12:10)
[2021-08-23] MEDS: NITROFURANTOIN MONOHYDRATE 100 MG CAP PO SCH ×2 (12:11→20:41)
--- NOTE | 2021-08-23 12:27 | Surgery Progress Note ---
Date of Service August 23, 2021 Assessment & Plan (1) Closed hip fracture: (2) UGIB (upper gastrointestinal bleed): (3) COVID-19: (4) Splenic laceration: Plan: 71-year-old woman with CLL on chemotherapy presents following a fall at home. She has a grade 2 splenic laceration, a left hip fracture, and is positive for COVID-19. POD 1 s/p left hip. H/H dropped slightly following surgery; but she has been stable. continue to monitor H/H will need to be on activity restriction for 6 weeks following discharge Admission and Anticipated Discharge Date Admission Date: August 20, 2021 Subjective POD1 s/p left hip surgery. no abdominal pain Physical Exam Constitutional: WD/WN, vitals as above Eyes: PERRL, conjunctivae normal, anicteric sclerae Neck: trachea midline, no thyromegaly Gastrointestinal (Abdomen): normal bowel sounds, soft, nontender, no hepatosplenomegaly Musculoskeletal: Head/Neck/Chest: normocephalic and head atraumatic Extremities: no cyanosis and no clubbing Skin: no rashes, warm and dry Results & Data ([facility]) Vital Signs (Past 12 Hours) Vital Signs Temp Pulse Resp BP Pulse Ox 08/23/21 07:30 64 18 138/70 99 08/23/21 04:04 36.7 C 62 16 129/68 100 Laboratory Results 08/23/21 08/23/21 08/19/21 Range/Units 06:46 06:46 23:49 WBC 43.91 H* D (4.8-10.8) K/uL RBC 3.54 L (4.2-5.4) M/uL Hgb 9.5 L (12.0-16.0) g/dL Hct 29.0 L (37-47) % MCV 81.9 (80-100) fL MCH 26.8 (25-34) pg MCHC 32.8 (32-36) g/dL RDW Std Deviation 44.5 (36.4-46.3) fL RDW Coeff of [place] 14.9 H (11.5-14.5) % Plt Count 119 L (130-400) K/uL MPV 12.1 H (7.4-10.4) fL Immature Gran % (Auto) 0.1 % Neut % (Auto) 13.1 % Lymph % (Auto) 85.4 % [place] % (Auto) 1.3 % Eos % (Auto) 0.0 % Baso % (Auto) 0.1 % Neut # (Auto) 5.78 (1.4-6.5) K/uL Lymph # (Auto) 37.49 H (1.2-3.4) K/uL [place] # (Auto) 0.56 (0.11-0.59) K/uL Eos # (Auto) 0.00 (0-0.5) K/uL Baso # (Auto) 0.03 (0-0.2) K/uL Immature Gran # (Auto) 0.05 H (0.00-0.02) K/uL Smudge Cells Present Sodium 134 L (136-145) mmol/L Potassium 4.3 (3.5-5.1) mmol/L Chloride 104 (98-107) mmol/L Carbon Dioxide 22 (21-32) mmol/L Anion Gap 8.0 (3-11) BUN 16 (7-18) mg/dl Creatinine 0.72 (0.6-1.2) mg/dl Est Cr Clr Drug Dosing 59.3 ml/min Est GFR ( Amer) 97.7 ml/min Est GFR (Non-Af Amer) 84.3 ml/min BUN/Creatinine Ratio 22.3 H (10-20) Glucose 98 (70-99) mg/dl Calcium 8.0 L (8.5-10.1) mg/dl Crossmatch See Detail (1) Closed hip fracture Encounter type: initial encounter Laterality: left Qualified Code(s): S72.002A - Fracture of unspecified part of neck of left femur, initial encounter for closed fracture
[2021-08-23] MEDS: ONDANSETRON INJ 2 MG/ML 2 ML VIAL IV PRN (14:51)
[2021-08-23 15:36] LABS: Hematocrit (blood only) 27.8 % (37-47); Hemoglobin 9.1 g/dL (12.0-16.0)
[2021-08-23] MEDS ORDERED: ENOXAPARIN INJ 30 MG/0.3 ML SYR SQ SCH (16:00)
[2021-08-23] MEDS ORDERED: ENOXAPARIN INJ 40 MG/0.4 ML SYR SQ SCH (16:00)
[2021-08-23] MEDS: oxyCODONE HCL IR 5 MG TAB (IMMEDIATE RELEASE) PO PRN (18:21)
--- NOTE | 2021-08-23 18:45 | Hospitalist Progress Note ---
Date of Service August 23, 2021 Assessment & Plan (1) Acute blood loss anemia: Plan: Questionable melena earlier in admission, not currently present associated with hemoglobin drop which is also multifactorial given traumatic splenic rupture and presence of splenic hematoma. She also had left hip fracture and is is post operative, all in the setting of active CLL on therapy. She remains on PPI IV twice daily and hemoglobin has remained relatively stable. She remains hemodynamically stable as well. She was transfused 1 unit of irradiated leukocyte reduced red blood cells on 08/21 with appropriate increase in H&H from 08/08-09/09. 10.8/3.3-->9./. Continue current therapy. Monitor CBC daily. H/H now in setting of lightheadedness. Noted Lovenox started and giving Toradol for pain. High risk for DVT post op in setting of active malignancy so OK with this with close monitoring of H/H. (2) Closed hip fracture: Plan: Mechanical fall at home resulting in closed left hip fracture. Syncopal episode per history thought secondary to orthostasis. She underwent left bipolar arthroplasty by Dr. Sánchez today. ECHO: Left ventricle is normal in size. Normal left ventricular wall thickness. Left ventricle wall motion is normal. EF 55 to 60%. Diastolic function is normal. No significant valvular disease. Doppler findings do not suggest pulmonary hypertension. Continue postoperative pain control efforts and activity per orthopedics. Wound care per orthopedics. (3) Post-operative state: Plan: s/p L hip repair on 08/22 (4) Splenic laceration: Plan: Likely traumatic splenic laceration. General surgery was consulted and recommended bedrest with frequent monitoring of H&H which remained stable. She appears to be improved. No LUQ pain. (5) Lightheadedness: Plan: Orthostatics are negative, however, patient is unable to stand up because of pain in her hip when she does this. Ortho VS lying and sitting were negative, however, this provoked her symptoms of lightheadedness. Repeat H/H now out of concern for symptomatic anemia. Also, it is postulated that orthostatic hypotension may have precipitated her fall at home initially. Consider possible drug side effect, etiher from ibrutinib (may cause dizziness as a known side effect) or from other new medication such as macrobid? No focal findings to suggest stroke. Will cont to monitor. (6) COVID-19: Plan: Started on dexamethasone in the ER after reported drop in oxygen saturation into the 80s. She is oxygenating better at this point, and no acute process was seen on chest x-ray performed on 08/19. She is currently on oxygen as she just arrived from the PACU postanesthesia. As she has an active infection, has tendency to bleed and now has a post op wound that is healing need to stop steroids as soon as able. As she is oxygenating in the high 90s today, will stop the decadron at this time. (7) Thrombocytopenia: Plan: chronic, stable. Multifactorial. May contribute to bleeding somewhat. (8) Acute UTI: Plan: Pansensitive E. coli resulted on urine culture. Will de-escalate cefepime to macrobid to complete the course with nitrofurantoin. (9) CLL (chronic lymphocytic leukemia): Plan: Ongoing therapy with ibrutinib which is on hold Follows with Dr. Ariel Ortiz for oncology (10) Hypertension: Plan: Continue holding home lisinopril and amlodipine in the postoperative setting. We will add back when able from a blood pressure standpoint and lightheadedness has resolved. (11) DVT prophylaxis: Plan: Lovenox Full Dispo-cont hospitalization. Leanna Dillon DO [facility] Hospitalist Admission and Anticipated Discharge Date Admission Date: August 20, 2021 Subjective 71 yo F s/p fall with L hip fracture s/p surgery on 08/22 pain better controlled with Toradol now having some lightheadedness, orthostatics negative denies chest pain or SOB changed abx to nitrofurantoin this morning--lightheadedness reported to be positional but started around noon Review of Systems Review of Systems: At least ten systems were reviewed and negative except as indicated in HPI above. Physical Exam Physical Exam: CONSTITUTIONAL: WNWD, vitals as above, generally ill- appearing, NAD EYES: normal conjunctivae, no scleral icterus ENT: external ear and nose normal, MMM NECK: trachea midline RESPIRATORY: clear to auscultation bilaterally, no crackles, rales or wheezes, normal respiratory effort CARDIOVASCULAR: regular rate and rhythm, S1 and 2 heard without murmurs, gallop s or rubs, no JVD GASTROINTESTINAL: soft, nontender, ND, no splenomegaly or LUQ pain present, no guarding MUSCULOSKELETAL: strength 5/5 throughout, head is normocephalic and atraumatic, lower extremities are warm and well perfused with 2+ palpable pulses bilaterally. L hip wound covered with foam tape. SKIN: warm and dry NEUROLOGIC: CN 2-12 grossly intact, normal cognition, normal speech, no tremor, no gross focal deficits. PSYCHIATRIC: alert cooperative and oriented to person, place and time. Results & Data Results & Data ([facility]) Vital Signs (Past 12 Hours) Vital Signs Temp Pulse Resp BP Pulse Ox 08/23/21 17:15 36.7 C 67 18 106/64 99 08/23/21 07:30 64 18 138/70 99 Laboratory Results Short CBC 08/23/21 08/23/21 Range/Units 06:46 15:16 WBC 43.91 H* D (4.8-10.8) K/uL Hgb 9.5 L 9.1 L (12.0-16.0) g/dL Hct 29.0 L 27.8 L (37-47) % Plt Count 119 L (130-400) K/uL BMP 08/23/21 06:46 Sodium 134 L Potassium 4.3 Chloride 104 Carbon Dioxide 22 BUN 16 Creatinine 0.72 Glucose 98 Calcium 8.0 L Medications Administered Current Inpatient Medications Acetaminophen (Acetaminophen 325 Mg Tab) 650 mg PO Q4H PRN PRN Reason: Pain or Fever Stop: 09/19/21 06:06 Albuterol (Albuterol 0.083% Nebu Soln 3 Ml Vial) 2.5 mg NEB Q6R PRN PRN Reason: Shortness Of Breath Or Wheezing Stop: 09/20/21 09:56 Allopurinol (Allopurinol 100 Mg Tab) 100 mg PO DAILY PRN PRN Reason: .gout Stop: 09/19/21 06:06 Artificial Tears (Artificial Tears) 1 drops OP BID PRN PRN Reason: Dry Eyes Stop: 09/19/21 06:10 Bisacodyl (Bisacodyl 10 Mg Supp) 10 mg [place] DAILY PRN PRN Reason: Constipation Stop: 09/21/21 15:57 Docusate Sodium (Docusate Sodium 100 Mg Cap) 100 mg PO BID REBEKA Stop: 09/21/21 20:59 Last Admin: 08/23/21 08:39 Dose: 100 mg Documented by: Enoxaparin Sodium (Enoxaparin Inj 40 Mg/0.4 Ml Syr) 40 mg SQ Q24H [facility] Stop: 09/22/21 15:59 Last Admin: 08/23/21 18:21 Dose: 40 mg Documented by: Hydromorphone HCl (Hydromorphone Inj 0.5 Mg/0.5 Ml Syr) 0.5 mg IV Q4H PRN PRN Reason: Pain Stop: 09/06/21 11:47 Last Admin: 08/23/21 12:10 Dose: 0.5 mg Documented by: Promethazine HCl 12.5 mg/ (Sodium Chloride) 50.5 mls @ 202 mls/hr IV Q6H PRN PRN Reason: Nausea And Vomiting Stop: 09/19/21 04:07 Last Infusion: 08/23/21 02:23 Dose: Infused Documented by: Pantoprazole Sodium 40 mg/ (Syringe) 10 mls @ 5 mls/min IV BID [facility] Stop: 09/20/21 20:59 Last Admin: 08/23/21 08:39 Dose: 5 mls/min Documented by: Magnesium Hydroxide (Magnesium Hydroxide Susp 30 Ml Udc) 30 ml PO Q6H PRN PRN Reason: Constipation Stop: 09/21/21 15:57 Multivitamins (Multivitamin Tab) 1 tab PO QAM [facility] Stop: 09/22/21 08:59 Last Admin: 08/23/21 08:39 Dose: 1 tab Documented by: Naloxone HCl (Naloxone Hcl 0.4 Mg/1 Ml Vial/Carp) 0.1 mg IV UD PRN PRN Reason: Opiate Overdose Stop: 09/19/21 06:06 Nitrofurantoin Macrocrystals (Nitrofurantoin Monohydrate 100 Mg Cap) 100 mg PO BID [facility] Stop: 08/28/21 10:59 Last Admin: 08/23/21 12:11 Dose: 100 mg Documented by: Ondansetron HCl (Ondansetron Inj 2 Mg/Ml 2 Ml Vial) 4 mg IV Q6H PRN PRN Reason: Nausea And Vomiting Stop: 09/21/21 15:57 Last Admin: 08/23/21 14:51 Dose: 4 mg Documented by: Oxycodone HCl (Oxycodone Hcl Ir 5 Mg Tab (Immediate Release)) 5 mg PO Q4H PRN PRN Reason: MODERATE Pain (4,5,6) & Pre PT Stop: 09/03/21 04:07 Last Admin: 08/23/21 18:21 Dose: 5 mg Documented by: Oxycodone HCl (Oxycodone Hcl Ir 5 Mg Tab (Immediate Release)) 10 mg PO Q4H PRN PRN Reason: SEVERE Pain (7,8,9,10) Stop: 09/03/21 04:07 Last Admin: 08/20/21 23:17 Dose: 10 mg Documented by: Sennosides (Senna 8.6 Mg Tab) 17.2 mg PO HS REBEKA Stop: 09/21/21 20:59 Last Admin: 08/22/21 22:02 Dose: 17.2 mg Documented by: (1) Closed hip fracture Encounter type: initial encounter Laterality: left Qualified Code(s): S72.002A - Fracture of unspecified part of neck of left femur, initial encounter for closed fracture
[2021-08-23] MEDS: SENNA 8.6 MG TAB PO SCH (20:41)
[2021-08-24] MEDS: HYDROmorphone INJ 0.5 MG/0.5 ML SYR IV PRN ×2 (03:46→07:38)
[2021-08-24] MEDS: PANTOprazole 40 MG in SYRINGE 0 ML IV SCH ×2 (07:39→22:33)
[2021-08-24] MEDS: NITROFURANTOIN MONOHYDRATE 100 MG CAP PO SCH ×2 (07:40→21:40)
[2021-08-24] MEDS: MULTIVITAMIN TAB PO SCH (07:40)
[2021-08-24] MEDS: DOCUSATE SODIUM 100 MG CAP PO SCH ×2 (07:40→21:41)
--- NOTE | 2021-08-24 09:32 | Surgery Progress Note ---
Date of Service August 24, 2021 Assessment & Plan (1) Closed hip fracture: (2) UGIB (upper gastrointestinal bleed): (3) COVID-19: (4) Splenic laceration: Plan: 71-year-old woman with CLL on chemotherapy presents following a fall at home. She has a grade 2 splenic laceration, a left hip fracture, and is positive for COVID-19. POD 2 s/p left hip. H/H dropped slightly following surgery, has been stable since then. Has been started on DVT prophylaxis as per Ortho. continue to monitor H/H will need to be on activity restriction for 6 weeks following discharge Please call with any questions or concerns Admission and Anticipated Discharge Date Admission Date: August 20, 2021 Subjective POD2 s/p left hip surgery. no abdominal pain Physical Exam Constitutional: WD/WN, vitals as above Eyes: PERRL, conjunctivae normal, anicteric sclerae Neck: trachea midline, no thyromegaly Respiratory: normal respiratory effort, lungs clear to auscultation Cardiovascular: RRR, no murmur, no edema Gastrointestinal (Abdomen): normal bowel sounds, soft, nontender, no hepatosplenomegaly Musculoskeletal: Head/Neck/Chest: normocephalic and head atraumatic Extremities: no cyanosis and no clubbing Skin: no rashes, warm and dry Psychiatric: A+Ox3, euthymic affect Lymphatic: no cervical lymphadenopathy Results & Data ([facility]) Vital Signs (Past 12 Hours) Vital Signs Temp Pulse Pulse Resp BP Pulse Ox 08/24/21 07:10 36.8 C 69 18 133/68 96 08/24/21 03:47 36.8 C 70 20 122/66 96 08/24/21 00:00 60 08/23/21 23:41 37.0 C 81 16 149/66 H 97 (1) Closed hip fracture Encounter type: initial encounter Laterality: left Qualified Code(s): S72.002A - Fracture of unspecified part of neck of left femur, initial encounter for closed fracture
--- NOTE | 2021-08-24 09:54 | Orthopedic Progress Note ---
Date of Service August 24, 2021 Assessment & Plan (1) Closed hip fracture: Plan: Postop day 2 status post left bipolar hemiarthroplasty PT/OT protocols. Weightbearing as tolerated. DVT prophylaxis-SCDs, Lovenox Pain management- as written. Appears to be better today. Admission and Anticipated Discharge Date Admission Date: August 20, 2021 Subjective POD 2 Pt sitting up in bed eating breakfast. States she's having a better day today. No new complaints. Pain control appears better today. Physical Exam Physical Exam: Dressings C/D/I. Calves are soft, NT. NV intact. Leg lengths appear equal. Toes mobile. Results & Data ([facility]) Vital Signs (Past 12 Hours) Vital Signs Temp Pulse Pulse Resp BP Pulse Ox 08/24/21 07:10 36.8 C 69 18 133/68 96 08/24/21 03:47 36.8 C 70 20 122/66 96 08/24/21 00:00 60 08/23/21 23:41 37.0 C 81 16 149/66 H 97 (1) Closed hip fracture Encounter type: initial encounter Laterality: left Qualified Code(s): S72.002A - Fracture of unspecified part of neck of left femur, initial encounter for closed fracture
[2021-08-24 11:07] LABS: Hemoglobin 8.5 g/dL (12.0-16.0); Mean Corpuscular Hemoglobin 26.9 pg (25-34); Mean Corpuscular Hgb Conc 32.7 g/dL (32-36); Mean Corpuscular Volume 82.3 fL (80-100); Mean Platelet Volume 10.9 fL (7.4-10.4); Platelet Count 106 K/uL (130-400); RDW Coefficient of Variation 15.2 % (11.5-14.5); RDW Standard Deviation 45.6 fL (36.4-46.3); Red Blood Count 3.16 M/uL (4.2-5.4); White Blood Count 31.98 K/uL (4.8-10.8)
[2021-08-24 11:14] LABS: BUN Creatinine Ratio 20.4 (10-20); Calcium 8.3 mg/dl (8.5-10.1); Creatinine Clr Calc Pharmacy 58.5 ml/min; Est GFR (Non-African American) 82.9 ml/min; Potassium 3.7 mmol/L (3.5-5.1)
[2021-08-24] MEDS: ONDANSETRON INJ 2 MG/ML 2 ML VIAL IV PRN ×2 (11:15)
[2021-08-24 11:17] LABS: Basophils # (auto) 0.02 K/uL (0-0.2); Basophils % (auto) 0.1 %; Eosinophils # (auto) 0.01 K/uL (0-0.5); Immature Granulocytes # (auto) 0.04 K/uL (0.00-0.02); Immature Granulocytes % (auto) 0.1 %; Lymphocytes # (auto) 26.12 K/uL (1.2-3.4); Lymphocytes % (auto) 81.7 %; Monocytes # (auto) 0.47 K/uL (0.11-0.59); Monocytes % (auto) 1.5 %; Neutrophils # (auto) 5.32 K/uL (1.4-6.5); Neutrophils % (auto) 16.6 %
[2021-08-24] MEDS: oxyCODONE HCL IR 5 MG TAB (IMMEDIATE RELEASE) PO PRN ×2 (15:37→20:01)
[2021-08-24] MEDS ORDERED: OPTIRAY 320 100ml IV ONE (16:38)
--- NOTE | 2021-08-24 16:57 | CT Scan Report ---
CT OF THE ABDOMEN AND PELVIS WITH CONTRAST CLINICAL HISTORY: Abdominal pain. Evaluate for splenic hematoma. COMPARISON STUDY: CT of the abdomen and pelvis August 20, 2021. TECHNIQUE: Following IV administration of 94 mL of Optiray, axial images of the abdomen and pelvis we re obtained from the lung bases to the proximal femurs. Images were reviewed in the axial, sagittal, and coronal planes. IV contrast was administered without complication. Automated exposure control wa s utilized for the study. A dose lowering technique was utilized adhering to the principles of ALARA . CT DOSE: 267.46 mGy.cm FINDINGS: There are trace bilateral pleural effusions. No pneumatosis, free air or portal venous gas is present. Splenomegaly is unchanged. A 2.1 cm wedge-shaped hypodense focus within the posterior asp ect of the spleen is unchanged since CT of August 20, 2021. There is no perisplenic fluid. The appea thompson of the spleen is unchanged. Upper abdominal collaterals are noted. There are suspected gallston es within the gallbladder. There is no evidence for a bowel obstruction. The colon is fluid-filled. F oley balloon within the bladder is noted. There are postoperative findings consistent with recent lef t hip arthroplasty. There is expected fluid and gas within the operative bed. No acute fracture or perez spicious lesion is identified within the visualized skeletal structures. IMPRESSION: 1. No change in a 2.1 cm wedge-shaped hypodense focus within the spleen since CT of August 20, 2021. This may reflect a splenic laceration. A splenic infarct could appear similar. No change since prior exam. No perisplenic hematoma. Stable splenomegaly. 2. Fluid-filled colon. No bowel obstruction. 3. Postoperative findings consistent with recent left hip arthroplasty. ACT 112: Negative or not required by law. Electronically signed by: Héctor Apodaca M.D. 08/24/2021 4:55 PM
--- NOTE | 2021-08-24 18:47 | Hospitalist Progress Note ---
Date of Service August 24, 2021 Assessment & Plan (1) Acute blood loss anemia: Plan: Questionable melena earlier in admission, not currently present associated with hemoglobin drop which is also multifactorial given traumatic splenic rupture and presence of splenic hematoma, persistent without enlargement on today's CT. She also had a left hip fracture and is is post operative, all in the setting of active CLL on therapy. She remains on PPI IV twice daily and hemoglobin has remained relatively stable. She remains hemodynamically stable as well. She was transfused 1 unit of irradiated leukocyte reduced red blood cells on 08/21 with appropriate increase in H&H from 08/08-09/09. 10.8/3.3-->9.04/07-->8.5/. Continue current therapy. Monitor CBC daily. H/H now in setting of lightheadedness. Hold Lovenox or any issues. High risk for DVT post op in se tting of active malignancy so OK with this with close monitoring of H/H. (2) Closed hip fracture: Plan: Mechanical fall at home resulting in closed left hip fracture. Syncopal episode per history thought secondary to orthostasis. She underwent left bipolar arthroplasty by Dr. Sánchez today. ECHO: Left ventricle is normal in size. Normal left ventricular wall thickness. Left ventricle wall motion is normal. EF 55 to 60%. Diastolic function is normal. No significant valvular disease. Doppler findings do not suggest pul monary hypertension. Continue postoperative pain control efforts and activity per orthopedics. Wound care per orthopedics. (3) Post-operative state: Plan: s/p L hip repair on 08/22. Wound care per orthopedics. (4) Splenic laceration: Plan: Likely traumatic splenic laceration. General surgery was consulted and recommended bedrest with frequent monitoring of H&H which remained stable. She appears to be improved. No LUQ pain. ACtivity restriction at time of dicsharge (5) Lightheadedness: Plan: Orthostatics are negative, however, patient is unable to stand up because of pain in her hip when she does this. Ortho VS lying and sitting were negative, however, this provoked her symptoms of lightheadedness. Repeat H/H now out of concern for symptomatic anemia. Also, it is postulated that orthostatic hypotension may have precipitated her fall at home initially. Consider possible drug side effect, etiher from ibrutinib (may cause dizziness as a known side effect) or from other new medication such as macrobid? No focal findings to suggest stroke. Will cont to monitor. (6) COVID-19: Plan: Started on dexamethasone in the ER after reported drop in oxygen saturation into the 80s. She is oxygenating better at this point, and no acute process was seen on chest x-ray performed on 08/19. She is currently on oxygen as she just arrived from the PACU postanesthesia. As she has an active infection, has tendency to bleed and now has a post op wound that is healing need to stop steroids as soon as able. As she is oxygenating in the high 90s she is not on steroids. (7) Thrombocytopenia: Plan: chronic, stable. Multifactorial. May contribute to bleeding somewhat. (8) Acute UTI: Plan: Pansensitive E. coli resulted on urine culture. Will de-escalate cefepime to macrobid to complete the course with nitrofurantoin. (9) CLL (chronic lymphocytic leukemia): Plan: Ongoing therapy with ibrutinib which is on hold Follows with Dr. Ariel Ortiz for oncology-leulocytosis continues to improve. (10) Hypertension: Plan: Continue holding home lisinopril and amlodipine in the postoperative setting. We will add back when able from a blood pressure standpoint and lightheadedness has resolved. (11) DVT prophylaxis: Plan: Lovenox Full Dispo-cont hospitalization. Leanna Dillon DO [facility] Hospitalist Admission and Anticipated Discharge Date Admission Date: August 20, 2021 Subjective 71 yo F s/p fall with L hip fracture s/p surgery on 08/22 reports feels terrible today persistent lightheadedness today pain all over her back since the fall L hip pain +nausea cannot eat much Review of Systems Review of Systems: At least ten systems were reviewed and negative except as indicated in HPI above. Physical Exam Physical Exam: CONSTITUTIONAL: WNWD, vitals as above, generally ill- appearing, NAD EYES: normal conjunctivae, no scleral icterus ENT: external ear and nose normal, MMM NECK: trachea midline RESPIRATORY: clear to auscultation bilaterally, no crackles, rales or wheezes, normal respiratory effort CARDIOVASCULAR: regular rate and rhythm, S1 and 2 heard without murmurs, gallops or rubs, no JVD GASTROINTESTINAL: soft, RUQ and LUQ TTP, non-distended. MUSCULOSKELETAL: generalized weakness, head is normocephalic and atraumatic, lower extremities are warm and well perfused with 2+ palpable pulses bilaterally. L hip wound covered with foam tape. SKIN: warm and dry NEUROLOGIC: CN 2-12 grossly intact, normal cognition, normal speech, no juliana mor, no gross focal deficits. PSYCHIATRIC: alert cooperative and oriented to person, place and time. Results & Data Results & Data ([facility]) Vital Signs (Past 12 Hours) Vital Signs Temp Pulse Resp BP BP Pulse Ox Pulse Ox 08/24/21 15:42 36.8 C 78 20 121/68 94 08/24/21 13:48 94 08/24/21 12:07 36.9 C 75 19 123/66 94 08/24/21 07:10 36.8 C 69 18 133/68 96 Pulse Ox Pulse Ox 08/24/21 15:42 08/24/21 13:48 92 90 08/24/21 12:07 08/24/21 07:10 Laboratory Results Short CBC 08/24/21 Range/Units 10:28 WBC 31.98 H* (4.8-10.8) K/uL Hgb 8.5 L (12.0-16.0) g/dL Hct 26.0 L (37-47) % Plt Count 106 L (130-400) K/uL BMP 08/24/21 10:28 Sodium 134 L Potassium 3.7 Chloride 102 Carbon Dioxide 25 BUN 15 Creatinine 0.73 Glucose 104 H Calcium 8.3 L Diagnostic Findings Abdomen/Pelvis CT 08/24/21 15:52 CT OF THE ABDOMEN AND PELVIS WITH CONTRAST CLINICAL HISTORY: Abdominal pain. Evaluate for splenic hematoma. COMPARISON STUDY: CT of the abdomen and pelvis August 20, 2021. TECHNIQUE: Following IV administration of 94 mL of Optiray, axial images of the abdomen and pelvis were obtained from the lung bases to the proximal femurs. Images were reviewed in the axial, sagittal, and coronal planes. IV contrast was administered without complication. Automated exposure control was utilized for the study. A dose lowering technique was utilized adhering to the principles of ALARA. CT DOSE: 267.46 mGy.cm FINDINGS: There are trace bilateral pleural effusions. No pneumatosis, free air or portal venous gas is present. Splenomegaly is unchanged. A 2.1 cm wedge- shaped hypodense focus within the posterior aspect of the spleen is unchanged since CT of August 20, 2021. There is no perisplenic fluid. The appearance of the spleen is unchanged. Upper abdominal collaterals are noted. There are suspected gallstones within the gallbladder. There is no evidence for a bowel obstruction. The colon is fluid-filled. Jama balloon within the bladder is noted. There are postoperative findings consistent with recent left hip arthroplasty. There is expected fluid and gas within the operative bed. No acute fracture or suspicious lesion is identified within the visualized skeletal structures. IMPRESSION: 1. No change in a 2.1 cm wedge-shaped hypodense focus within the spleen since CT of August 20, 2021. This may reflect a splenic laceration. A splenic infarct could appear similar. No change since prior exam. No perisplenic hematoma. Stable splenomegaly. 2. Fluid-filled colon. No bowel obstruction. 3. Postoperative findings consistent with recent left hip arthroplasty. ACT 112: Negative or not required by law. Electronically signed by: Héctor Apodaca M.D. 08/24/2021 4:55 PM Medications Administered Current Inpatient Medications Acetaminophen (Acetaminophen 325 Mg Tab) 650 mg PO Q4H PRN PRN Reason: Pain or Fever Stop: 09/19/21 06:06 Albuterol (Albuterol 0.083% Nebu Soln 3 Ml Vial) 2.5 mg NEB Q6R PRN PRN Reason: Shortness Of Breath Or Wheezing Stop: 09/20/21 09:56 Allopurinol (Allopurinol 100 Mg Tab) 100 mg PO DAILY PRN PRN Reason: .gout Stop: 09/19/21 06:06 Artificial Tears (Artificial Tears) 1 drops OP BID PRN PRN Reason: Dry Eyes Stop: 09/19/21 06:10 Bisacodyl (Bisacodyl 10 Mg Supp) 10 mg [place] DAILY PRN PRN Reason: Constipation Stop: 09/21/21 15:57 Docusate Sodium (Docusate Sodium 100 Mg Cap) 100 mg PO BID REBEKA Stop: 09/21/21 20:59 Last Admin: 08/24/21 07:40 Dose: 100 mg Documented by: Enoxaparin Sodium (Enoxaparin Inj 40 Mg/0.4 Ml Syr) 40 mg SQ Q24H REBEKA Stop: 09/22/21 15:59 Last Admin: 08/23/21 18:21 Dose: 40 mg Documented by: Hydromorphone HCl (Hydromorphone Inj 0.5 Mg/0.5 Ml Syr) 0.5 mg IV Q4H PRN PRN Reason: Pain Stop: 09/06/21 11:47 Last Admin: 08/24/21 07:38 Dose: 0.5 mg Documented by: Promethazine HCl 12.5 mg/ (Sodium Chloride) 50.5 mls @ 202 mls/hr IV Q6H PRN PRN Reason: Nausea And Vomiting Stop: 09/19/21 04:07 Last Infusion: 08/23/21 02:23 Dose: Infused Documented by: Pantoprazole Sodium 40 mg/ (Syringe) 10 mls @ 5 mls/min IV BID [facility] Stop: 09/20/21 20:59 Last Admin: 08/24/21 07:39 Dose: 5 mls/min Documented by: Magnesium Hydroxide (Magnesium Hydroxide Susp 30 Ml Udc) 30 ml PO Q6H PRN PRN Reason: Constipation Stop: 09/21/21 15:57 Multivitamins (Multivitamin Tab) 1 tab PO QAM [facility] Stop: 09/22/21 08:59 Last Admin: 08/24/21 07:40 Dose: 1 tab Documented by: Naloxone HCl (Naloxone Hcl 0.4 Mg/1 Ml Vial/Carp) 0.1 mg IV UD PRN PRN Reason: Opiate Overdose Stop: 09/19/21 06:06 Nitrofurantoin Macrocrystals (Nitrofurantoin Monohydrate 100 Mg Cap) 100 mg PO BID [facility] Stop: 08/28/21 10:59 Last Admin: 08/24/21 07:40 Dose: 100 mg Documented by: Ondansetron HCl (Ondansetron Inj 2 Mg/Ml 2 Ml Vial) 4 mg IV Q6H PRN PRN Reason: Nausea And Vomiting Stop: 09/21/21 15:57 Last Admin: 08/24/21 11:15 Dose: 4 mg Documented by: Oxycodone HCl (Oxycodone Hcl Ir 5 Mg Tab (Immediate Release)) 5 mg PO Q4H PRN PRN Reason: MODERATE Pain (4,5,6) & Pre PT Stop: 09/03/21 04:07 Last Admin: 08/24/21 15:37 Dose: 5 mg Documented by: Oxycodone HCl (Oxycodone Hcl Ir 5 Mg Tab (Immediate Release)) 10 mg PO Q4H PRN PRN Reason: SEVERE Pain (7,8,9,10) Stop: 09/03/21 04:07 Last Admin: 08/20/21 23:17 Dose: 10 mg Documented by: Sennosides (Senna 8.6 Mg Tab) 17.2 mg PO HS REBEKA Stop: 09/21/21 20:59 Last Admin: 08/23/21 20:41 Dose: 17.2 mg Documented by: (1) Closed hip fracture Encounter type: initial encounter Laterality: left Qualified Code(s): S72.002A - Fracture of unspecified part of neck of left femur, initial encounter for closed fracture
[2021-08-24] MEDS: SENNA 8.6 MG TAB PO SCH (21:40)
[2021-08-25 04:33] LABS: Hematocrit (blood only) 25.2 % (37-47); Hemoglobin 8.1 g/dL (12.0-16.0); Mean Corpuscular Hemoglobin 26.7 pg (25-34); Mean Corpuscular Volume 83.2 fL (80-100); Mean Platelet Volume 11.8 fL (7.4-10.4); Platelet Count 113 K/uL (130-400); RDW Coefficient of Variation 15.5 % (11.5-14.5); RDW Standard Deviation 46.7 fL (36.4-46.3); Red Blood Count 3.03 M/uL (4.2-5.4); White Blood Count 25.32 K/uL (4.8-10.8)
[2021-08-25 04:52] LABS: BUN Creatinine Ratio 20.5 (10-20); Calcium 8.4 mg/dl (8.5-10.1); Creatinine Clr Calc Pharmacy 64.7 ml/min; Est GFR (Non-African American) 88.9 ml/min; Magnesium 1.7 mg/dl (1.8-2.4); Potassium 3.6 mmol/L (3.5-5.1)
--- NOTE | 2021-08-25 06:13 | Surgery Progress Note ---
Date of Service August 25, 2021 Assessment & Plan (1) Splenic laceration: Plan: Acute surgical intervention is not required. Hemoglobin and hematocrit this morning are noted to be stable As noted by Dr. Jose patient will require activity restriction for approxim ately 6 weeks following discharge Admission and Anticipated Discharge Date Admission Date: August 20, 2021 Subjective Patient is resting comfortably in bed. She denies any nausea vomiting or abdominal pain overnight Discussed with the patient's nurse and she does not identify any general surgical issues such as worsening abdominal pain or other concerns. Physical Exam Gastrointestinal (Abdomen): Abdomen is soft and nondistended. Patient had minimal pain with palpation in the left upper quadrant. I do not appreciate any ecchymosis in the left upper quadrant. Results & Data ([facility]) Vital Signs (Past 12 Hours) Vital Signs Temp Pulse Pulse Resp BP Pulse Ox 08/25/21 05:16 37.6 C H 74 16 128/58 L 96 08/25/21 05:00 37.6 C H 68 16 128/58 L 97 08/24/21 22:22 36.9 C 70 16 121/64 98 08/24/21 22:18 69 08/24/21 19:05 37.0 C 71 18 127/58 L 97 PG Care Time/CCT Total # of Minutes Spent Total Time Spent with Patient: Total time spent is greater than 50% in coordination of care (as documented) at patient's floor/unit and/or counseling patient: Coding Level of Care Code 47341 Subseq Hosp Care Lvl 1 Diagnoses Splenic laceration S36.039A
[2021-08-25] MEDS: oxyCODONE HCL IR 5 MG TAB (IMMEDIATE RELEASE) PO PRN ×2 (06:16→11:29)
[2021-08-25 06:38] LABS: Mean Corpuscular Hgb Conc 32.1 g/dL (32-36)
[2021-08-25] MEDS: NITROFURANTOIN MONOHYDRATE 100 MG CAP PO SCH ×2 (08:22→20:12)
[2021-08-25] MEDS: MULTIVITAMIN TAB PO SCH (08:22)
[2021-08-25] MEDS: DOCUSATE SODIUM 100 MG CAP PO SCH ×2 (08:23→20:12)
[2021-08-25] MEDS: PANTOprazole 40 MG in SYRINGE 0 ML IV SCH (08:23)
--- NOTE | 2021-08-25 09:52 | Hospitalist Progress Note ---
Date of Service August 25, 2021 Assessment & Plan (1) Acute blood loss anemia: Plan: Questionable melena earlier in admission, not currently present associated with hemoglobin drop which is also multifactorial given traumatic splenic rupture and presence of splenic hematoma, persistent without enlargement on today's CT. She also had a left hip fracture and is is post operative, all in the setting of active CLL on therapy. She remains on PPI IV twice daily and hemoglobin has remained relatively stable. Switch to PO BID. She remains hemodynamically stable as well. She was transfused 1 unit of irradiated leukocyte reduced red blood cells on 08/21 (preop) with appropriate increase in H&H from 08/08-09/09. 10.8/3.3-->9.04/07-->8.04/03-->8.12/04. Continue current therapy. Monitor CBC daily. Hold Lovenox or any NSAIDs for now. High risk for DVT post op in setting of active malignancy-noted. (2) Closed hip fracture: Plan: Mechanical fall at home resulting in closed left hip fracture. Syncopal episode per history thought secondary to orthostasis. She underwent left bipolar arthroplasty by Dr. Sánchez. ECHO: Left ventricle is normal in size. Normal left ventricular wall thickness. Left ventricle wall motion is normal. EF 55 to 60%. Diastolic function is normal. No significant valvular disease. Doppler findings do not suggest pulmonary hypertension. Continue postoperative pain control efforts and activity per orthopedics. Wound care per orthopedics. (3) Post-operative state: Plan: s/p L hip repair on 08/22. Wound care per orthopedics. (4) Splenic laceration: Plan: Likely traumatic splenic laceration. General surgery was consulted and recommended bedrest with frequent monitoring of H&H which remained stable. She appears to be improved. No LUQ pain. Activity restriction at time of discharge (5) Lightheadedness: Plan: Orthostatics are negative, however, patient is unable to stand up because of pain in her hip when she does this. Ortho VS lying and sitting were negative, however, this provoked her symptoms of lightheadedness. Repeat H/H now out of concern for symptomatic anemia. Also, it is postulated that orthostatic hypotension may have precipitated her fall at home initially. Consider possible drug side effect, etiher from ibrutinib (may cause dizziness as a known side effect) or from other new medication such as macrobid? No focal findings to suggest stroke. Will cont to monitor. (6) COVID-19: Plan: Started on dexamethasone in the ER after reported drop in oxygen saturation into the 80s. She is oxygenating better at this point, and no acute process was seen on chest x-ray performed on 08/19. She is currently on oxygen as she just arrived from the PACU postanesthesia. As she has an active infection, has tendency to bleed and now has a post op wound that is healing steroids were stopped. (7) Thrombocytopenia: Plan: chronic, stable. Multifactorial. May contribute to bleeding somewhat. (8) Acute UTI: Plan: Pansensitive E. coli resulted on urine culture. Will de-escalate cefepime to macrobid to complete the course with nitrofurantoin. (9) CLL (chronic lymphocytic leukemia): Plan: Ongoing therapy with ibrutinib which is on hold Follows with Dr. Ariel Ortiz for oncology-leucocytosis continues to improve. (10) Hypertension: Plan: Continue holding home lisinopril and amlodipine in the postoperative setting. We will add back when able from a blood pressure standpoint and lightheadedness has resolved. (11) DVT prophylaxis: Plan: Lovenox Full Dispo-cont hospitalization. Leanna Dillon DO [facility] Hospitalist Admission and Anticipated Discharge Date Admission Date: August 20, 2021 Subjective 71 yo F s/p fall with L hip fracture s/p surgery on 08/22 feels better today had BM yesterday, may have helped her abdominal pain which has since resolved asking to move around more today, sick of laying around denies nausea and is eating more, lower appetite due to low activity state Review of Systems Review of Systems: At least ten systems were reviewed and negative except as indicated in HPI above. Physical Exam Physical Exam: CONSTITUTIONAL: WNWD, vitals as above, NAD EYES: normal conjunctivae, no scleral icterus ENT: external ear and nose normal, MMM NECK: trachea midline RESPIRATORY: clear to auscultation bilaterally, no crackles, rales or wheezes, normal respiratory effort CARDIOVASCULAR: regular rate and rhythm, S1 and 2 heard without murmurs, gallops or rubs, no JVD GASTROINTESTINAL: soft,NTND MUSCULOSKELETAL: generalized weakness, head is normocephalic and atraumatic, lower extremities are warm and well perfused with 2+ palpable pulses bilaterally. SKIN: warm and dry NEUROLOGIC: CN 2-12 grossly intact, normal cognition, normal speech, no tremor, no gross focal deficits. PSYCHIATRIC: alert cooperative and oriented to person, place and time. Results & Data Results & Data ([facility]) Vital Signs (Past 12 Hours) Vital Signs Temp Pulse Pulse Resp BP Pulse Ox 08/25/21 08:17 37.1 C 67 19 113/58 L 98 08/25/21 05:16 37.6 C H 74 16 128/58 L 96 08/25/21 05:00 37.6 C H 68 16 128/58 L 97 08/24/21 22:22 36.9 C 70 16 121/64 98 08/24/21 22:18 69 Laboratory Results Short CBC 08/25/21 Range/Units 04:08 WBC 25.32 H (4.8-10.8) K/uL Hgb 8.1 L (12.0-16.0) g/dL Hct 25.2 L (37-47) % Plt Count 113 L (130-400) K/uL BMP 08/25/21 04:08 Sodium 132 L Potassium 3.6 Chloride 102 Carbon Dioxide 25 BUN 13 Creatinine 0.66 Glucose 97 Calcium 8.4 L Medications Administered Current Inpatient Medications Acetaminophen (Acetaminophen 325 Mg Tab) 650 mg PO Q4H PRN PRN Reason: Pain or Fever Stop: 09/19/21 06:06 Albuterol (Albuterol 0.083% Nebu Soln 3 Ml Vial) 2.5 mg NEB Q6R PRN PRN Reason: Shortness Of Breath Or Wheezing Stop: 09/20/21 09:56 Allopurinol (Allopurinol 100 Mg Tab) 100 mg PO DAILY PRN PRN Reason: .gout Stop: 09/19/21 06:06 Artificial Tears (Artificial Tears) 1 drops OP BID PRN PRN Reason: Dry Eyes Stop: 09/19/21 06:10 Bisacodyl (Bisacodyl 10 Mg Supp) 10 mg MS DAILY PRN PRN Reason: Constipation Stop: 09/21/21 15:57 Docusate Sodium (Docusate Sodium 100 Mg Cap) 100 mg PO BID [facility] Stop: 09/21/21 20:59 Last Admin: 08/25/21 08:23 Dose: 100 mg Documented by: Enoxaparin Sodium (Enoxaparin Inj 40 Mg/0.4 Ml Syr) 40 mg SQ Q24H [facility] Stop: 09/22/21 15:59 Last Admin: 08/23/21 18:21 Dose: 40 mg Documented by: Promethazine HCl 12.5 mg/ (Sodium Chloride) 50.5 mls @ 202 mls/hr IV Q6H PRN PRN Reason: Nausea And Vomiting Stop: 09/19/21 04:07 Last Infusion: 08/23/21 02:23 Dose: Infused Documented by: Magnesium Sulfate/Dextrose (Magnesium Sulfate / D5w) 1 gm in 100 mls @ 50 mls/hr IV Q2H [facility] Stop: 08/25/21 18:29 Last Admin: 08/25/21 14:57 Dose: 50 mls/hr Documented by: Magnesium Hydroxide (Magnesium Hydroxide Susp 30 Ml Udc) 30 ml PO Q6H PRN PRN Reason: Constipation Stop: 09/21/21 15:57 Multivitamins ([facility]ivitamin Tab) [facility] [place] [facility] Stop: 09/22/21 08:59 Last Admin: 08/25/21 08:22 Dose: 1 tab Documented by: Naloxone HCl (Naloxone Hcl 0.4 Mg/1 Ml Vial/Carp) 0.1 mg IV UD PRN PRN Reason: Opiate Overdose Stop: 09/19/21 06:06 Nitrofurantoin Macrocrystals (Nitrofurantoin Monohydrate 100 Mg Cap) 100 mg PO BID [facility] Stop: 08/28/21 10:59 Last Admin: 08/25/21 08:22 Dose: 100 mg Documented by: Ondansetron HCl (Ondansetron Inj 2 Mg/Ml 2 Ml Vial) 4 mg IV Q6H PRN PRN Reason: Nausea And Vomiting Stop: 09/21/21 15:57 Last Admin: 08/24/21 11:15 Dose: 4 mg Documented by: Oxycodone HCl (Oxycodone Hcl Ir 5 Mg Tab (Immediate Release)) 5 mg PO Q4H PRN PRN Reason: MODERATE Pain (4,5,6) & Pre PT Stop: 09/03/21 04:07 Last Admin: 08/25/21 06:16 Dose: 5 mg Documented by: Oxycodone HCl (Oxycodone Hcl Ir 5 Mg Tab (Immediate Release)) 10 mg PO Q4H PRN PRN Reason: SEVERE Pain (7,8,9,10) Stop: 09/03/21 04:07 Last Admin: 08/25/21 11:29 Dose: 10 mg Documented by: Pantoprazole Sodium (Pantoprazole 40 Mg Tab) 40 mg PO BID [facility] Stop: 09/24/21 20:59 Sennosides (Senna 8.6 Mg Tab) 17.2 mg PO HS [facility] Stop: 09/21/21 20:59 Last Admin: 08/24/21 21:40 Dose: 17.2 mg Documented by: (1) Closed hip fracture Encounter type: initial encounter Laterality: left Qualified Code(s): S72.002A - Fracture of unspecified part of neck of left femur, initial encounter for closed fracture
--- NOTE | 2021-08-25 11:04 | Orthopedic Progress Note ---
Date of Service August 25, 2021 Assessment & Plan (1) Closed hip fracture: Plan: Postop day 3 status post left bipolar hemiarthroplasty PT/OT protocols. Weightbearing as tolerated. DVT prophylaxis-SCDs, Lovenox Pain management- as written. Hemoglobin at 8.1 this morning. Transfuse per medicine. Ortho will sign off at this time. Please call with any questions or concerns. Patient should Follow up with Dr. Sánchez or his PA about 12-14 days post operatively. She can call [phone] for an appointment. Admission and Anticipated Discharge Date Admission Date: August 20, 2021 Subjective Patient resting in bed comfortably. Pain controlled, about the same as yesterday. No other complaints at this time. Review of Systems Review of Systems: All systems reviewed & are unremarkable except as noted in Subjective Physical Exam Physical Exam: Left hip: Dressing is c/d/i. Incision is well approximated with no erythema or drainage. Toes mobile. No calf tenderness. Distally n/v status and sensation intact. Constitutional: WD/WN, vitals as above Results & Data ([facility]) Vital Signs (Past 12 Hours) Vital Signs Temp Pulse Resp BP Pulse Ox 08/25/21 08:17 37.1 C 67 19 113/58 L 98 08/25/21 05:16 37.6 C H 74 16 128/58 L 96 08/25/21 05:00 37.6 C H 68 16 128/58 L 97 (1) Closed hip fracture Encounter type: initial encounter Laterality: left Qualified Code(s): S72.002A - Fracture of unspecified part of neck of left femur, initial encounter for closed fracture
[2021-08-25] MEDS: MAGNESIUM SULFATE / D5W 1 GM/100 ML BAG IV SCH ×2 (14:57→17:05)
[2021-08-25] MEDS: ONDANSETRON INJ 2 MG/ML 2 ML VIAL IV PRN (18:53)
[2021-08-25] MEDS: PANTOprazole 40 MG TAB PO SCH (20:11)
[2021-08-25] MEDS: SENNA 8.6 MG TAB PO SCH (20:12)
[2021-08-25] MEDS ORDERED: PROMETHAZINE HCL 12.5 MG in SODIUM CHLORIDE 0.9% 50 ML IV STA (22:47)
[2021-08-25] MEDS ORDERED: HYDROmorphone INJ 0.5 MG/0.5 ML SYR IV STA (22:48)
[2021-08-26 08:04] LABS: Hemoglobin 8.7 g/dL (12.0-16.0); Mean Corpuscular Hemoglobin 26.9 pg (25-34); Mean Corpuscular Hgb Conc 32.2 g/dL (32-36); Mean Corpuscular Volume 83.3 fL (80-100); Mean Platelet Volume 11.8 fL (7.4-10.4); Platelet Count 171 K/uL (130-400); RDW Coefficient of Variation 15.4 % (11.5-14.5); RDW Standard Deviation 47.1 fL (36.4-46.3); Red Blood Count 3.24 M/uL (4.2-5.4); White Blood Count 30.46 K/uL (4.8-10.8)
[2021-08-26] MEDS: ONDANSETRON INJ 2 MG/ML 2 ML VIAL IV PRN ×2 (08:16→23:44)
[2021-08-26] MEDS: ACETAMINOPHEN 325 MG TAB PO PRN (08:16)
[2021-08-26 08:20] LABS: BUN Creatinine Ratio 26.4 (10-20); Calcium 8.5 mg/dl (8.5-10.1); Creatinine Clr Calc Pharmacy 61.9 ml/min; Est GFR (African American) 101.5 ml/min; Est GFR (Non-African American) 87.6 ml/min; Potassium 3.7 mmol/L (3.5-5.1)
[2021-08-26] MEDS: MULTIVITAMIN TAB PO SCH (08:21)
[2021-08-26] MEDS: PANTOprazole 40 MG TAB PO SCH ×2 (08:21→19:50)
[2021-08-26] MEDS: NITROFURANTOIN MONOHYDRATE 100 MG CAP PO SCH ×2 (08:21→19:50)
[2021-08-26] MEDS: DOCUSATE SODIUM 100 MG CAP PO SCH ×2 (08:48→19:50)
[2021-08-26] MEDS: oxyCODONE HCL IR 5 MG TAB (IMMEDIATE RELEASE) PO PRN ×2 (10:31→23:42)
--- NOTE | 2021-08-26 14:31 | Hospitalist Progress Note ---
Date of Service August 26, 2021 Assessment & Plan (1) Acute blood loss anemia: Plan: Questionable melena earlier in admission, not currently present associated with hemoglobin drop which is also multifactorial given traumatic splenic rupture and presence of splenic hematoma, persistent without enlargement or worsening on CT. She also had a left hip fracture and is is post operative, all in the setting of active CLL on therapy. Protonix BID. She remains hemodynamically stable, as well. She was transfused 1 unit of irradiated leukocyte reduced red blood cells on 08/21 (preop) with appropriate increase in H&H from 08/08-09/09. 10.8/3.3-->9.5/-->8.5/-->8.1/-->8.7/ (today). Continue current therapy. Monitor CBC daily. Hold Lovenox or any NSAIDs for now. High risk for DVT post op in setting of active malignancy-noted. (2) Closed hip fracture: Plan: Mechanical fall at home resulting in closed left hip fracture. Syncopal episode per history thought secondary to orthostasis. She underwent left bipolar arthroplasty by Dr. Sánchez. ECHO: Left ventricle is normal in size. Normal left ventricular wall thickness. Left ventricle wall motion is normal. EF 55 to 60%. Diastolic function is normal. No significant valvular disease. Doppler findings do not suggest pulmonary hypertension. Continue postoperative pain control efforts and activity per orthopedics. Wound care per orthopedics. (3) Post-operative state: Plan: s/p L hip repair on 08/22. Wound care per orthopedics. (4) Splenic laceration: Plan: Likely traumatic splenic laceration. General surgery was consulted and recommended bedrest with frequent monitoring of H&H which remained stable. She appears to be improved. No LUQ pain. Activity restriction at time of discharge (5) Lightheadedness: Plan: resolved. (6) COVID-19: Plan: Started on dexamethasone in the ER after reported drop in oxygen saturation into the 80s. She is oxygenating better at this point, and no acute process was seen on chest x-ray performed on 08/19. Steroids were stopped as oxygenation improved and she had an active bacterial infection in her urine. She is off oxygen with no respiratory symptoms at this time. (7) Thrombocytopenia: Plan: chronic, stable. Multifactorial. (8) Acute UTI: Plan: Pansensitive E. coli resulted on urine culture. Complete the course with nitrofurantoin. (9) CLL (chronic lymphocytic leukemia): Plan: Ongoing therapy with ibrutinib which is on hold Follows with Dr. Ariel Ortiz for oncology-leucocytosis continues to improve. (10) Hypertension: Plan: Continue holding home lisinopril and amlodipine in the postoperative setting. We will add back when able from a blood pressure standpoint and lightheadedness has resolved. (11) DVT prophylaxis: Plan: Lovenox Full Dispo-she is medically stable for discharge to rehab facility. OK to place auth in am. Leanna Dillon [facility] and Anticipated Discharge Date Admission Date: August 20, 2021 Subjective 71 yo F s/p fall with L hip fracture s/p surgery on 08/22 feels poorly today in general--when asked why she states she is just not getting better reports pain well managed in her left hip denies nausea and is eating we discussed her WBC count and her CLL and if this may be contributing. Review of Systems Review of Systems: At least ten systems were reviewed and negative except as indicated in HPI above. Physical Exam Physical Exam: CONSTITUTIONAL: WNWD, vitals as above, NAD, sitting in bedside chair. EYES: normal conjunctivae, no scleral icterus ENT: external ear and nose normal, MMM NECK: trachea midline RESPIRATORY: clear to auscultation bilaterally, no crackles, rales or wheezes, normal respiratory effort CARDIOVASCULAR: regular rate and rhythm, S1 and 2 heard without murmurs, gallops or rubs, no JVD GASTROINTESTINAL: soft, NTND MUSCULOSKELETAL: generalized weakness, head is normocephalic and atraumatic, lower extremities are warm and well perfused with 2+ palpable pulses bilaterally. SKIN: warm and dry NEUROLOGIC: CN 2-12 grossly intact, normal cognition, normal speech, no tremor, no gross focal deficits. PSYCHIATRIC: alert cooperative and oriented to person, place and time. Results & Data Results & Data ([facility]) Vital Signs (Past 12 Hours) Vital Signs Temp Pulse Resp BP Pulse Ox 08/26/21 08:15 36.8 C 76 18 128/59 L 94 08/26/21 06:37 94 Laboratory Results Short CBC 08/26/21 Range/Units 07:35 WBC 30.46 H* (4.8-10.8) K/uL Hgb 8.7 L (12.0-16.0) g/dL Hct 27.0 L (37-47) % Plt Count 171 D (130-400) K/uL BMP 08/26/21 07:35 Sodium 134 L Potassium 3.7 Chloride 100 Carbon Dioxide 28 BUN 18 Creatinine 0.69 Glucose 104 H Calcium 8.5 Medications Administered Current Inpatient Medications Acetaminophen (Acetaminophen 325 Mg Tab) 650 mg PO Q4H PRN PRN Reason: Pain or Fever Stop: 09/19/21 06:06 Last Admin: 08/26/21 08:16 Dose: 650 mg Documented by: Albuterol (Albuterol 0.083% Nebu Soln 3 Ml Vial) 2.5 mg NEB Q6R PRN PRN Reason: Shortness Of Breath Or Wheezing Stop: 09/20/21 09:56 Allopurinol (Allopurinol 100 Mg Tab) 100 mg PO DAILY PRN PRN Reason: .gout Stop: 09/19/21 06:06 Artificial Tears (Artificial Tears) 1 drops OP BID PRN PRN Reason: Dry Eyes Stop: 09/19/21 06:10 Bisacodyl (Bisacodyl 10 Mg Supp) 10 mg AK DAILY PRN PRN Reason: Constipation Stop: 09/21/21 15:57 Docusate Sodium (Docusate Sodium 100 Mg Cap) 100 mg PO BID [facility] Stop: 09/21/21 20:59 Last Admin: 08/26/21 08:48 Dose: Not Given Documented by: Enoxaparin Sodium (Enoxaparin Inj 40 Mg/0.4 Ml Syr) 40 mg SQ Q24H [facility] Stop: 09/22/21 15:59 Last Admin: 08/23/21 18:21 Dose: 40 mg Documented by: Promethazine HCl 12.5 mg/ (Sodium Chloride) 50.5 mls @ 202 mls/hr IV Q6H PRN PRN Reason: Nausea And Vomiting Stop: 09/19/21 04:07 Last Infusion: 08/23/21 02:23 Dose: Infused Documented by: Magnesium Hydroxide (Magnesium Hydroxide Susp 30 Ml Udc) 30 ml PO Q6H PRN PRN Reason: Constipation Stop: 09/21/21 15:57 Last Admin: 08/25/21 21:08 Dose: 30 ml Documented by: Multivitamins (Multivitamin Tab) 1 tab PO QAM [facility] Stop: 09/22/21 08:59 Last Admin: 08/26/21 08:21 Dose: 1 tab Documented by: Naloxone HCl (Naloxone Hcl 0.4 Mg/1 Ml Vial/Carp) 0.1 mg IV UD PRN PRN Reason: Opiate Overdose Stop: 09/19/21 06:06 Nitrofurantoin Macrocrystals (Nitrofurantoin Monohydrate 100 Mg Cap) 100 mg PO BID [facility] Stop: 08/28/21 10:59 Last Admin: 08/26/21 08:21 Dose: 100 mg Documented by: Ondansetron HCl (Ondansetron Inj 2 Mg/Ml 2 Ml Vial) 4 mg IV Q6H PRN PRN Reason: Nausea And Vomiting Stop: 09/21/21 15:57 Last Admin: 08/26/21 08:16 Dose: 4 mg Documented by: Oxycodone HCl (Oxycodone Hcl Ir 5 Mg Tab (Immediate Release)) 5 mg PO Q4H PRN PRN Reason: MODERATE Pain (4,5,6) & Pre PT Stop: 09/03/21 04:07 Last Admin: 08/26/21 10:31 Dose: 5 mg Documented by: Pantoprazole Sodium (Pantoprazole 40 Mg Tab) 40 mg PO BID [facility] Stop: 09/24/21 20:59 Last Admin: 08/26/21 08:21 Dose: 40 mg Documented by: Sennosides (Senna 8.6 Mg Tab) 17.2 mg PO HS [facility] Stop: 09/21/21 20:59 Last Admin: 08/25/21 20:12 Dose: 17.2 mg Documented by: (1) Closed hip fracture Encounter type: initial encounter Laterality: left Qualified Code(s): S72.002A - Fracture of unspecified part of neck of left femur, initial encounter for closed fracture
[2021-08-26] MEDS: SENNA 8.6 MG TAB PO SCH (19:50)
[2021-08-27] MEDS: MULTIVITAMIN TAB PO SCH (09:30)
[2021-08-27] MEDS: PANTOprazole 40 MG TAB PO SCH ×2 (09:30→21:44)
[2021-08-27] MEDS: NITROFURANTOIN MONOHYDRATE 100 MG CAP PO SCH ×2 (09:31→21:44)
[2021-08-27] MEDS: DOCUSATE SODIUM 100 MG CAP PO SCH ×2 (09:31→21:42)
--- NOTE | 2021-08-27 10:45 | Hospitalist Progress Note ---
Date of Service August 27, 2021 Assessment & Plan (1) Acute blood loss anemia: Plan: Questionable melena earlier in admission, not currently present associated with hemoglobin drop which is also multifactorial given traumatic splenic rupture and presence of splenic hematoma, persistent without enlargement or worsening on CT performed a few days ago post-operatively. She also had a left hip fracture s/p surgery, all in the setting of active CLL on therapy. Protonix BID. She remains hemodynamically stable, as well. She was transfused 1 unit of irradiated leukocyte reduced red blood cells on 08/21 (preop) with appropriate increase in H&H. Currently hemoglobin is stable. Continue current therapy. Monitor CBC daily. Hold Lovenox or any NSAIDs for now. High risk for DVT post op in setting of active malignancy-noted. (2) Closed hip fracture: Plan: Mechanical fall at home resulting in closed left hip fracture. Syncopal episode per history thought secondary to orthostasis. She underwent left bipolar arthroplasty by Dr. Sánchez on 08/22. ECHO: Left ventricle is normal in size. Normal left ventricular wall thickness. Left ventricle wall motion is normal. EF 55 to 60%. Diastolic function is normal. No significant valvular disease. Doppler findings do not suggest pulmonary hypertension. Continue postoperative pain control efforts and activity per orthopedics. Wound care per orthopedics. Awaiting SNF (3) Post-operative state: Plan: s/p L hip repair on 08/22. Wound care per orthopedics. (4) Splenic laceration: Plan: Likely traumatic splenic laceration from fall at home. General surgery was consulted and recommended bedrest with frequent monitoring of H&H which remained stable. She appears to be improved and is now off bedrest. No LUQ pain. Persistent nausea is concerning, however, this is multifactorial. Hold off on imaging at this time with a normal abdomen exam and stable H/H. Activity restriction at time of discharge. (5) Lightheadedness: Plan: resolved. (6) COVID-19: Plan: Started on dexamethasone in the ER after reported drop in oxygen saturation into the 80s. She is oxygenating better at this point, and no acute process was seen on chest x-ray performed on 08/19. Steroids were stopped as oxygenation improved and she had an active bacterial infection in her urine. She is off oxygen with no respiratory symptoms at this time. (7) Thrombocytopenia: Plan: chronic, stable. Multifactorial. (8) Acute UTI: Plan: Pansensitive E. coli resulted on urine culture. Complete the course with nitrofurantoin--may be the source of nausea although more likely active CLL on therapy? Could consider changing or stopping this in am. (9) CLL (chronic lymphocytic leukemia): Plan: Ongoing therapy with ibrutinib which is on hold Follows with Dr. Ariel Ortiz for oncology-leucocytosis continues to improve. As patient is waiting for a SNF bed, would reach out to oncology for guidance on the most appropriate time to restart her ibrutinib therapy. (10) Hypertension: Plan: amlodipine and lisinopril per home regimen. (11) DVT prophylaxis: Plan: Lovenox Full Dispo-she is medically stable for discharge to rehab facility. [facility]anna Dillon [facility] and Anticipated Discharge Date Admission Date: August 20, 2021 Subjective 71 yo F s/p fall with L hip fracture s/p surgery on 08/22 general malaise reported, cannot put her finger on it. reports pain well managed in her left hip denies nausea and is eating Review of Systems Review of Systems: At least ten systems were reviewed and negative except as indicated in HPI above. Physical Exam Physical Exam: CONSTITUTIONAL: WNWD, vitals as above, NAD EYES: normal conjunctivae, no scleral icterus ENT: external ear and nose normal, MMM NECK: trachea midline RESPIRATORY: clear to auscultation bilaterally, no crackles, rales or wheezes, normal respiratory effort CARDIOVASCULAR: regular rate and rhythm, S1 and 2 heard without murmurs, gallops or rubs, no JVD GASTROINTESTINAL: soft, NTND MUSCULOSKELETAL: generalized weakness, head is normocephalic and atraumatic, lower extremities are warm and well perfused with 2+ palpable pulses bilaterally. SKIN: warm and dry NEUROLOGIC: CN 2-12 grossly intact, normal cognition, normal speech, no tremor, no gross focal deficits. PSYCHIATRIC: alert cooperative and oriented to person, place and time. Results & Data Results & Data ([facility]) Laboratory Results Short CBC 08/28/21 Range/Units 09:19 WBC 28.64 H (4.8-10.8) K/uL Hgb 8.4 L (12.0-16.0) g/dL Hct 26.1 L (37-47) % Plt Count 225 (130-400) K/uL BMP 08/28/21 09:19 Sodium 135 L Potassium 3.5 Chloride 100 Carbon Dioxide 27 BUN 21 H Creatinine 0.64 Glucose 104 H Calcium 8.7 Medications Administered Current Inpatient Medications Acetaminophen (Acetaminophen 325 Mg Tab) 650 mg PO Q4H PRN PRN Reason: Pain or Fever Stop: 09/19/21 06:06 Last Admin: 08/26/21 08:16 Dose: 650 mg Documented by: Albuterol (Albuterol 0.083% Nebu Soln 3 Ml Vial) 2.5 mg NEB Q6R PRN PRN Reason: Shortness Of Breath Or Wheezing Stop: 09/20/21 09:56 Allopurinol (Allopurinol 100 Mg Tab) 100 mg PO DAILY PRN PRN Reason: .gout Stop: 09/19/21 06:06 Artificial Tears (Artificial Tears) 1 drops OP BID PRN PRN Reason: Dry Eyes Stop: 09/19/21 06:10 Bisacodyl (Bisacodyl 10 Mg Supp) 10 mg OR DAILY PRN PRN Reason: Constipation Stop: 09/21/21 15:57 Docusate Sodium (Docusate Sodium 100 Mg Cap) 100 mg PO BID REBEKA Stop: 09/21/21 20:59 Last Admin: 08/27/21 09:31 Dose: Not Given Documented by: Enoxaparin Sodium (Enoxaparin Inj 40 Mg/0.4 Ml Syr) 40 mg SQ Q24H [facility]BE[facility] Stop: 09/22/21 15:59 Last Admin: 08/23/21 18:21 Dose: 40 mg Documented by: Promethazine HCl 12.5 mg/ (Sodium Chloride) 50.5 mls @ 202 mls/hr IV Q6H PRN PRN Reason: Nausea And Vomiting Stop: 09/19/21 04:07 Last Infusion: 08/23/21 02:23 Dose: Infused Documented by: Magnesium Hydroxide (Magnesium Hydroxide Susp 30 Ml Udc) 30 ml PO Q6H PRN PRN Reason: Constipation Stop: 09/21/21 15:57 Last Admin: 08/25/21 21:08 Dose: 30 ml Documented by: Multivitamins (Multivitamin Tab) 1 tab PO QAM REBEKA Stop: 09/22/21 08:59 Last Admin: 08/27/21 09:30 Dose: 1 tab Documented by: Naloxone HCl (Naloxone Hcl 0.4 Mg/1 Ml Vial/Carp) 0.1 mg IV UD PRN PRN Reason: Opiate Overdose Stop: 09/19/21 06:06 Nitrofurantoin Macrocrystals (Nitrofurantoin Monohydrate 100 Mg Cap) 100 mg PO BID [facility] Stop: 08/28/21 10:59 Last Admin: 08/27/21 09:31 Dose: 100 mg Documented by: Nystatin (Nystatin Susp 500,000 U/5 Ml Udc) 10 ml PO QID [facility] Stop: 09/06/21 12:59 Ondansetron HCl (Ondansetron Inj 2 Mg/Ml 2 Ml Vial) 4 mg IV Q6H PRN PRN Reason: Nausea And Vomiting Stop: 09/21/21 15:57 Last Admin: 08/26/21 23:44 Dose: 4 mg Documented by: Oxycodone HCl (Oxycodone Hcl Ir 5 Mg Tab (Immediate Release)) 5 mg PO Q4H PRN PRN Reason: MODERATE Pain (4,5,6) & Pre PT Stop: 09/03/21 04:07 Last Admin: 08/26/21 23:42 Dose: 5 mg Documented by: Pantoprazole Sodium (Pantoprazole 40 Mg Tab) 40 mg PO BID [facility]BE[facility] Stop: 09/24/21 20:59 Last Admin: 08/27/21 09:30 Dose: 40 mg Documented by: Sennosides (Senna 8.6 Mg Tab) 17.2 mg PO HS [facility] Stop: 09/21/21 20:59 Last Admin: 08/26/21 19:50 Dose: 17.2 mg Documented by: (1) Closed hip fracture Encounter type: initial encounter Laterality: left Qualified Code(s): S72.002A - Fracture of unspecified part of neck of left femur, initial encounter for closed fracture
[2021-08-27] MEDS: ACETAMINOPHEN 325 MG TAB PO PRN (11:05)
[2021-08-27] MEDS: ONDANSETRON INJ 2 MG/ML 2 ML VIAL IV PRN (11:05)
[2021-08-27] MEDS: NYSTATIN SUSP 500,000 U/5 ML UDC PO SCH ×3 (12:14→21:44)
[2021-08-27] MEDS ORDERED: PROMETHAZINE HCL 25 MG TAB PO ONE (15:34)
[2021-08-27] MEDS: SENNA 8.6 MG TAB PO SCH (21:43)
[2021-08-28] MEDS: DOCUSATE SODIUM 100 MG CAP PO SCH ×2 (07:37→21:26)
[2021-08-28] MEDS: NYSTATIN SUSP 500,000 U/5 ML UDC PO SCH ×4 (07:37→21:32)
[2021-08-28] MEDS: PANTOprazole 40 MG TAB PO SCH ×2 (07:38→21:32)
[2021-08-28] MEDS: MULTIVITAMIN TAB PO SCH (07:38)
[2021-08-28] MEDS: NITROFURANTOIN MONOHYDRATE 100 MG CAP PO SCH (07:39)
[2021-08-28 09:43] LABS: Hematocrit (blood only) 26.1 % (37-47); Hemoglobin 8.4 g/dL (12.0-16.0); Mean Corpuscular Hemoglobin 26.7 pg (25-34); Mean Corpuscular Hgb Conc 32.2 g/dL (32-36); Mean Corpuscular Volume 82.9 fL (80-100); Mean Platelet Volume 11.1 fL (7.4-10.4); Platelet Count 225 K/uL (130-400); RDW Coefficient of Variation 15.6 % (11.5-14.5); RDW Standard Deviation 46.5 fL (36.4-46.3); Red Blood Count 3.15 M/uL (4.2-5.4); White Blood Count 28.64 K/uL (4.8-10.8)
[2021-08-28 09:58] LABS: Calcium 8.7 mg/dl (8.5-10.1); Creatinine Clr Calc Pharmacy 66.7 ml/min; Est GFR (African American) 104.1 ml/min; Est GFR (Non-African American) 89.8 ml/min; Potassium 3.5 mmol/L (3.5-5.1)
[2021-08-28] MEDS: ONDANSETRON INJ 2 MG/ML 2 ML VIAL IV PRN (10:15)
[2021-08-28] MEDS: PROMETHAZINE HCL 25 MG TAB PO PRN (14:59)
--- NOTE | 2021-08-28 19:27 | Hospitalist Progress Note ---
Date of Service August 28, 2021 Assessment & Plan (1) Acute blood loss anemia: Plan: Questionable melena earlier in admission, not currently present associated with hemoglobin drop which is also multifactorial given traumatic splenic rupture and presence of splenic hematoma, persistent without enlargement or worsening on CT performed a few days ago post-operatively. She also had a left hip fracture s/p surgery, all in the setting of active CLL on therapy. Protonix BID. She remains hemodynamically stable, as well. She was transfused 1 unit of irradiated leukocyte reduced red blood cells on 08/21 (preop) with appropriate increase in H&H. Currently hemoglobin is stable. Continue current therapy. Monitor CBC daily. Hold Lovenox or any NSAIDs for now. High risk for DVT post op in setting of active malignancy-noted. (2) Closed hip fracture: Plan: Mechanical fall at home resulting in closed left hip fracture. Syncopal episode per history thought secondary to orthostasis. She underwent left bipolar arthroplasty by Dr. Sánchez on 08/22. ECHO: Left ventricle is normal in size. Normal left ventricular wall thickness. Left ventricle wall motion is normal. EF 55 to 60%. Diastolic function is normal. No significant valvular disease. Doppler findings do not suggest pulmonary hypertension. Continue postoperative pain control efforts and activity per orthopedics. Wound care per orthopedics. Awaiting SNF (3) Post-operative state: Plan: s/p L hip repair on 08/22. Wound care per orthopedics. (4) Splenic laceration: Plan: Likely traumatic splenic laceration from fall at home. General surgery was consulted and recommended bedrest with frequent monitoring of H&H which remained stable. She appears to be improved and is now off bedrest. No LUQ pain. Persistent nausea is concerning, however, this is multifactorial. Hold off on imaging at this time with a normal abdomen exam and stable H/H. Activity restriction at time of discharge. (5) Lightheadedness: Plan: resolved. (6) COVID-19: Plan: Started on dexamethasone in the ER after reported drop in oxygen saturation into the 80s. She is oxygenating better at this point, and no acute process was seen on chest x-ray performed on 08/19. Steroids were stopped as oxygenation improved and she had an active bacterial infection in her urine. She is off oxygen with no respiratory symptoms at this time. (7) Thrombocytopenia: Plan: chronic, stable. Multifactorial. (8) Acute UTI: Plan: Pansensitive E. coli resulted on urine culture. Complete the course with nitrofurantoin--may be the source of nausea although more likely active CLL on therapy? Today is final day of nitrofurantoin. (9) CLL (chronic lymphocytic leukemia): Plan: Ongoing therapy with ibrutinib which is on hold Follows with Dr. Ariel Ortiz for oncology-leucocytosis continues to improve. As patient is waiting for a SNF bed, oncology for guidance on the most appropriate time to restart her ibrutinib therapy. (10) Hypertension: Plan: amlodipine and lisinopril per home regimen. (11) DVT prophylaxis: Plan: Lovenox Full Dispo-she is medically stable for discharge to rehab facility. Leanna [facility] and Anticipated Discharge Date Admission Date: August 20, 2021 Subjective 71 yo F s/p fall with L hip fracture s/p surgery on 08/22 still nauseous today, improved with zofran reports pain well managed in her left hip she is tolerating PO generally ill-appearing. Review of Systems Review of Systems: At least ten systems were reviewed and negative except as indicated in HPI above. Physical Exam Physical Exam: CONSTITUTIONAL: WNWD, vitals as above, NAD, ill-appearing, cachectic. EYES: normal conjunctivae, no scleral icterus ENT: external ear and nose normal, MMM NECK: trachea midline RESPIRATORY: clear to auscultation bilaterally, no crackles, rales or wheezes, normal respiratory effort CARDIOVASCULAR: regular rate and rhythm, S1 and 2 heard without murmurs, gallops or rubs, no JVD GASTROINTESTINAL: soft, NTND MUSCULOSKELETAL: generalized weakness, head is normocephalic and atraumatic, lower extremities are warm and well perfused SKIN: warm and dry NEUROLOGIC: CN 2-12 grossly intact, normal cognition, normal speech, no tremor, no gross focal deficits. PSYCHIATRIC: alert cooperative and oriented to person, place and time. Results & Data Results & Data ([facility]) Vital Signs (Past 12 Hours) Vital Signs Temp Pulse Resp BP Pulse Ox 08/28/21 14:46 36.5 C 84 16 150/78 H 95 Laboratory Results Short CBC 08/28/21 Range/Units 09:19 WBC 28.64 H (4.8-10.8) K/uL Hgb 8.4 L (12.0-16.0) g/dL Hct 26.1 L (37-47) % Plt Count 225 (130-400) K/uL [facility] 08/28/21 09:19 Sodium 135 L Potassium 3.5 Chloride 100 Carbon Dioxide 27 BUN 21 H Creatinine 0.64 Glucose 104 H Calcium 8.7 Medications Administered Current Inpatient Medications Acetaminophen (Acetaminophen 325 Mg Tab) 650 mg PO Q4H PRN PRN Reason: Pain or Fever Stop: 09/19/21 06:06 Last Admin: 08/27/21 11:05 Dose: 650 mg Documented by: Albuterol (Albuterol 0.083% Nebu Soln 3 Ml Vial) 2.5 mg NEB Q6R PRN PRN Reason: Shortness Of Breath Or Wheezing Stop: 09/20/21 09:56 Allopurinol (Allopurinol 100 Mg Tab) 100 mg PO DAILY PRN PRN Reason: .gout Stop: 09/19/21 06:06 Amlodipine Besylate (Amlodipine Besylate 5 Mg Tab) 10 mg PO DAILY [facility] Stop: 09/28/21 08:59 Artificial Tears (Artificial Tears) 1 drops OP BID PRN PRN Reason: Dry Eyes Stop: 09/19/21 06:10 Bisacodyl (Bisacodyl 10 Mg Supp) 10 mg MA DAILY PRN PRN Reason: Constipation Stop: 09/21/21 15:57 Docusate Sodium (Docusate Sodium 100 Mg Cap) 100 mg PO BID [facility]BEKA Stop: 09/21/21 20:59 Last Admin: 08/28/21 07:37 Dose: Not Given Documented by: Enoxaparin Sodium (Enoxaparin Inj 40 Mg/0.4 Ml Syr) 40 mg SQ Q24H [facility] Stop: 09/22/21 15:59 Last Admin: 08/23/21 18:21 Dose: 40 mg Documented by: Promethazine HCl 12.5 mg/ (Sodium Chloride) 50.5 mls @ 202 mls/hr IV Q6H PRN PRN Reason: Nausea And Vomiting Stop: 09/19/21 04:07 Last Infusion: 08/23/21 02:23 Dose: Infused Documented by: Lisinopril (Lisinopril 40 Mg Tab) 40 mg PO DAILY [facility] Stop: 09/28/21 08:59 Magnesium Hydroxide (Magnesium Hydroxide Susp 30 Ml Udc) 30 ml PO Q6H PRN PRN Reason: Constipation Stop: 09/21/21 15:57 Last Admin: 08/25/21 21:08 Dose: 30 ml Documented by: Multivitamins (Multivitamin Tab) 1 tab PO QAM [facility] Stop: 09/22/21 08:59 Last Admin: 08/28/21 07:38 Dose: 1 tab Documented by: Naloxone HCl (Naloxone Hcl 0.4 Mg/1 Ml Vial/Carp) 0.1 mg IV UD PRN PRN Reason: Opiate Overdose Stop: 09/19/21 06:06 Nystatin (Nystatin Susp 500,000 U/5 Ml Udc) 10 ml PO QID [facility] Stop: 09/06/21 12:59 Last Admin: 08/28/21 18:19 Dose: 10 ml Documented by: Ondansetron HCl (Ondansetron Inj 2 Mg/Ml 2 Ml Vial) 4 mg IV Q6H PRN PRN Reason: Nausea And Vomiting Stop: 09/21/21 15:57 Last Admin: 08/28/21 10:15 Dose: 4 mg Documented by: Oxycodone HCl (Oxycodone Hcl Ir 5 Mg Tab (Immediate Release)) 5 mg PO Q4H PRN PRN Reason: MODERATE Pain (4,5,6) & Pre PT Stop: 09/03/21 04:07 Last Admin: 08/26/21 23:42 Dose: 5 mg Documented by: Pantoprazole Sodium (Pantoprazole 40 Mg Tab) 40 mg PO BID [facility] Stop: 09/24/21 20:59 Last Admin: 08/28/21 07:38 Dose: 40 mg Documented by: Promethazine HCl (Promethazine Hcl 25 Mg Tab) 25 mg PO Q6H PRN PRN Reason: Nausea And Vomiting Stop: 09/26/21 20:59 Last Admin: 08/28/21 14:59 Dose: 25 mg Documented by: Sennosides (Senna 8.6 Mg Tab) 17.2 mg PO HS [facility] Stop: 09/21/21 20:59 Last Admin: 08/27/21 21:43 Dose: Not Given Documented by: (1) Closed hip fracture Encounter type: initial encounter Laterality: left Qualified Code(s): S72.002A - Fracture of unspecified part of neck of left femur, initial encounter for closed fracture
[2021-08-28] MEDS: SENNA 8.6 MG TAB PO SCH (21:26)
[2021-08-28] MEDS: oxyCODONE HCL IR 5 MG TAB (IMMEDIATE RELEASE) PO PRN (21:30)
[2021-08-29 06:33] LABS: Hematocrit (blood only) 25.2 % (37-47); Mean Corpuscular Hemoglobin 26.4 pg (25-34); Mean Corpuscular Hgb Conc 31.7 g/dL (32-36); Mean Corpuscular Volume 83.2 fL (80-100); Platelet Count 225 K/uL (130-400); RDW Coefficient of Variation 15.6 % (11.5-14.5); RDW Standard Deviation 46.7 fL (36.4-46.3); Red Blood Count 3.03 M/uL (4.2-5.4)
[2021-08-29 07:06] LABS: BUN Creatinine Ratio 31.1 (10-20); Calcium 8.3 mg/dl (8.5-10.1); Creatinine Clr Calc Pharmacy 62.8 ml/min; Magnesium 1.5 mg/dl (1.8-2.4); Potassium 3.7 mmol/L (3.5-5.1)
[2021-08-29] MEDS: NYSTATIN SUSP 500,000 U/5 ML UDC PO SCH ×4 (07:34→20:11)
[2021-08-29] MEDS: PROMETHAZINE HCL 25 MG TAB PO PRN ×3 (07:34→23:23)
[2021-08-29] MEDS: ACETAMINOPHEN 325 MG TAB PO PRN ×2 (07:34→15:56)
[2021-08-29 07:36] LABS: Basophils # (auto) 0.02 K/uL (0-0.2); Basophils % (auto) 0.1 %; Eosinophils # (auto) 0.11 K/uL (0-0.5); Eosinophils % (auto) 0.4 %; Immature Granulocytes # (auto) 0.03 K/uL (0.00-0.02); Immature Granulocytes % (auto) 0.1 %; Lymphocytes % (auto) 85.7 %; Monocytes # (auto) 0.43 K/uL (0.11-0.59); Monocytes % (auto) 1.5 %; Neutrophils # (auto) 3.61 K/uL (1.4-6.5); Neutrophils % (auto) 12.2 %; Ovalocytes 1+; Smudge Cells Present
[2021-08-29] MEDS: amLODIPine BESYLATE 5 MG TAB PO SCH (07:36)
[2021-08-29] MEDS: lisinopril 40 MG TAB PO SCH (07:36)
[2021-08-29] MEDS: PANTOprazole 40 MG TAB PO SCH ×2 (07:36→20:21)
[2021-08-29] MEDS: MULTIVITAMIN TAB PO SCH (07:37)
[2021-08-29] MEDS: DOCUSATE SODIUM 100 MG CAP PO SCH ×2 (07:37→20:11)
[2021-08-29] MEDS: MAGNESIUM SULFATE / D5W 1 GM/100 ML BAG IV SCH ×2 (12:41→16:52)
[2021-08-29] MEDS: SENNA 8.6 MG TAB PO SCH (20:11)
[2021-08-29] MEDS: ONDANSETRON INJ 2 MG/ML 2 ML VIAL IV PRN (20:18)
--- NOTE | 2021-08-29 23:32 | Hospitalist Progress Note ---
Date of Service August 29, 2021 Assessment & Plan (1) Acute blood loss anemia: Plan: Questionable melena earlier in admission Hgb dropped, multifactorial given traumatic splenic rupture and presence of splenic hematoma, persistent without enlargement or worsening on CT performed a few days ago post-operatively. She also had a left hip fracture s/p surgery, all in the setting of active CLL on therapy. Received 1 unit PRBC during hospital course on 08/21 Hgb 8 today Lovenox or any NSAIDs have been on hold. High risk for DVT post op in setting of active malignancy-noted. Continue monitor H/H (2) Closed hip fracture: Plan: Mechanical fall at home resulting in closed left hip fracture. S/P left bipolar arthroplasty by Dr. Sánchez on 08/22. Continue monitor CBC PT/OT eval Fall precaution Pain control Waiting for placement to SNF (3) Post-operative state: Plan: s/p L hip repair on 08/22. Wound care per orthopedics. (4) Splenic laceration: Plan: Likely traumatic splenic laceration from fall at home. General surgery was consulted and recommended bedrest with frequent monitoring of H&H which remained stable. She appears to be improved and is now off bedrest. No LUQ pain. Persistent nausea is concerning, however, this is multifactorial. Hold off on imaging at this time with a normal abdomen exam and stable H/H. Activity restriction at time of discharge. (5) Lightheadedness: Plan: resolved. (6) COVID-19: Plan: Started on dexamethasone in the ER after reported drop in oxygen saturation into the 80s. She is oxygenating better at this point, and no acute process was seen on chest x-ray performed on 08/19. Steroids were stopped as oxygenation improved and she had an active bacterial infection in her urine. She is off oxygen with no respiratory symptoms at this time. (7) Thrombocytopenia: Plan: chronic, stable. Multifactorial. (8) Acute UTI: Plan: Pansensitive E. coli resulted on urine culture. Completed the abx course with nitrofurantoin (9) CLL (chronic lymphocytic leukemia): Plan: Ongoing therapy with ibrutinib which is on hold Follows with Dr. Ariel Ortiz for oncology-leucocytosis continues to improve. case discussed with Dr. Ortiz that recommended to resume the ibrutinib on discharge (10) Hypertension: Plan: amlodipine and lisinopril per home regimen. (11) DVT prophylaxis: Plan: Lovenox on hold due to Low hgb Full Dispo-she is medically stable for discharge to rehab facility. Admission and Anticipated Discharge Date Admission Date: August 20, 2021 Subjective 71 yo F s/p fall with L hip fracture s/p surgery on 08/22 Lying in bed with no acute distress Continue to feel nauseated She has very poor appetite She is complaining of soreness in her mouth Denies any chest pain, palpitation, dizziness and shortness of breath Review of Systems Review of Systems: All systems reviewed & are unremarkable except as noted in Subjective Physical Exam Physical Exam: General- No acute distress, +Cachectic Head- atraumatic Eyes- PERRL, EOMI, ENT- oropharynx clear Neck- supple, no JVD Lungs- clear to auscultation Heart- regular rhythm; no murmur Abdomen- normal bowel sounds, soft, nontender Extremities- no calf tenderness Neuro- alert, oriented x 3; PERRL, EOMI; no facial palsy; no dysarthria Skin- warm & dry Results & Data Results & Data ([facility]) Vital Signs (Past 12 Hours) Vital Signs Temp Pulse Resp BP Pulse Ox 08/29/21 22:53 37.0 C 79 18 139/65 94 08/29/21 19:37 89 L 08/29/21 14:55 37.4 C 73 16 131/80 (1) Closed hip fracture Encounter type: initial encounter Laterality: left Qualified Code(s): S72.002A - Fracture of unspecified part of neck of left femur, initial encounter for closed fracture
[2021-08-30] MEDS ORDERED: METOCLOPRAMIDE HCL INJ 5 MG/ML 2 ML VIAL IV ONE (02:10)
[2021-08-30] MEDS ORDERED: METOCLOPRAMIDE HCL INJ 5 MG/ML 2 ML VIAL ONE (02:29)
[2021-08-30 06:57] LABS: Hematocrit (blood only) 24.2 % (37-47); Hemoglobin 7.8 g/dL (12.0-16.0); Mean Corpuscular Hemoglobin 26.5 pg (25-34); Mean Corpuscular Hgb Conc 32.2 g/dL (32-36); Mean Corpuscular Volume 82.3 fL (80-100); Mean Platelet Volume 10.6 fL (7.4-10.4); Platelet Count 248 K/uL (130-400); RDW Coefficient of Variation 15.4 % (11.5-14.5); RDW Standard Deviation 45.7 fL (36.4-46.3); Red Blood Count 2.94 M/uL (4.2-5.4); White Blood Count 31.85 K/uL (4.8-10.8)
[2021-08-30] MEDS: DOCUSATE SODIUM 100 MG CAP PO SCH ×2 (07:05→19:39)
[2021-08-30 07:30] LABS: Basophils # (auto) 0.01 K/uL (0-0.2); Eosinophils # (auto) 0.02 K/uL (0-0.5); Eosinophils % (auto) 0.1 %; Immature Granulocytes # (auto) 0.04 K/uL (0.00-0.02); Immature Granulocytes % (auto) 0.1 %; Lymphocytes # (auto) 25.82 K/uL (1.2-3.4); Lymphocytes % (auto) 81.1 %; Monocytes # (auto) 0.38 K/uL (0.11-0.59); Monocytes % (auto) 1.2 %; Neutrophils # (auto) 5.58 K/uL (1.4-6.5); Neutrophils % (auto) 17.5 %; Smudge Cells Present
[2021-08-30] MEDS: NYSTATIN SUSP 500,000 U/5 ML UDC PO SCH ×4 (07:36→19:42)
[2021-08-30] MEDS: MULTIVITAMIN TAB PO SCH (07:37)
[2021-08-30] MEDS: lisinopril 40 MG TAB PO SCH (07:37)
[2021-08-30] MEDS: amLODIPine BESYLATE 5 MG TAB PO SCH (07:37)
[2021-08-30] MEDS ORDERED: CHLORASEPTIC 1.4% SOLN 180 ML BTL MT PRN (07:45)
[2021-08-30] MEDS: PANTOprazole 40 MG TAB PO SCH ×2 (09:29→19:43)
[2021-08-30] MEDS: guaiFENesin 200 MG TAB PO SCH ×3 (10:28→19:43)
--- NOTE | 2021-08-30 19:23 | Hospitalist Progress Note ---
Date of Service August 30, 2021 Assessment & Plan (1) Acute blood loss anemia: Plan: Questionable melena earlier in admission Hgb dropped, multifactorial given traumatic splenic rupture and presence of splenic hematoma, persistent without enlargement or worsening on CT performed a few days ago post-operatively. She also had a left hip fracture s/p surgery, all in the setting of active CLL on therapy. Received 1 unit PRBC during hospital course on 08/21 Hgb7.8 today Lovenox or any NSAIDs have been on hold. High risk for DVT post op in setting of active malignancy-noted. Will repeat hemoglobin level and possible transfuse 1 unit PRBC Continue monitor H/H (2) Closed hip fracture: Mechanical fall at home resulting in closed left hip fracture. S/P left bipolar arthroplasty by Dr. Sánchez on 08/22. Continue monitor CBC Case discussed with Ortho about DVT prophylaxis Ortho recommend at least aspirin twice daily due to patient high risk for blood clot (patient Covid 19, history of CLL and recent orthopedic procedure) PT/OT eval Fall precaution Pain control Waiting for placement to SNF (3) Splenic laceration: Likely traumatic splenic laceration from fall at home. General surgery was consulted and recommended bedrest with frequent monitoring of H&H which remained stable. She appears to be improved and is now off bedrest. No LUQ pain. Persistent nausea is concerning, however, this is multifactorial. Hold off on imaging at this time with a normal abdomen exam and stable H/H. Activity restriction at time of discharge. (4) Lightheadedness: CT head showed no acute intracranial abnormality resolved. (5) COVID-19: Started on dexamethasone in the ER after reported drop in oxygen saturation into the 80s. She is oxygenating better at this point, and no acute process was seen on chest x-ray performed on 08/19. Steroids were stopped as oxygenation improved and she had an active bacterial infection in her urine. She is off oxygen with no respiratory symptoms at this time. (6) Thrombocytopenia: chronic, Multifactorial. Continue monitor CBC (8) Acute UTI: Pansensitive E. coli resulted on urine culture. Completed the abx course with nitrofurantoin (9) CLL (chronic lymphocytic leukemia): Ongoing therapy with ibrutinib which is on hold Follows with Dr. Ariel Ortiz for oncology-leucocytosis continues to improve. case discussed with Dr. Ortiz that recommended to resume the ibrutinib on discharge Dr. Ortiz said if patient is asymptomatic we can hold on blood transfusion (10) Hypertension: amlodipine and lisinopril per home regimen. (11) DVT prophylaxis: Lovenox on hold due to Low hgb But patient is very high risk for blood clot Full Dispo-possible discharge to rehab facility in a.m. Admission and Anticipated Discharge Date Admission Date: August 20, 2021 Subjective 71 yo F s/p fall with L hip fracture s/p surgery on 08/22 Lying in bed with no acute distress She has very poor appetite She she said the Chloraseptic helps with the soreness in her mouth Called today to provide with updates, unfortunately no one answered, left voicemail Denies any chest pain, palpitation, dizziness and shortness of breath Review of Systems Review of Systems: All systems reviewed & are unremarkable except as noted in Subjective Physical Exam Physical Exam: General- No acute distress, +Cachectic Head- atraumatic Eyes- PERRL, EOMI, ENT- oropharynx clear Neck- supple, no JVD Lungs- clear to auscultation Heart- regular rhythm; no murmur Abdomen- normal bowel sounds, soft, nontender Extremities- no calf tenderness Neuro- alert, oriented x 3; PERRL, EOMI; no facial palsy; no dysarthria Skin- warm & dry Results & Data Results & Data ([facility]) Vital Signs (Past 12 Hours) Vital Signs Temp Pulse Resp BP Pulse Ox 08/30/21 15:31 37.1 C 82 20 107/63 93 08/30/21 13:46 96 08/30/21 09:28 92
[2021-08-30] MEDS: ONDANSETRON INJ 2 MG/ML 2 ML VIAL IV PRN (19:38)
[2021-08-30] MEDS: SENNA 8.6 MG TAB PO SCH (19:39)
[2021-08-31] LABS: Hematocrit (blood only) 23.7 % (37-47); Hemoglobin 7.7 g/dL (12.0-16.0)
[2021-08-31] MEDS ORDERED: SODIUM CHLORIDE 0.9% 250 ML IV PRN (02:15)
[2021-08-31] MEDS: guaiFENesin 200 MG TAB PO SCH ×2 (02:26→07:23)
[2021-08-31] MEDS: PROMETHAZINE HCL 25 MG TAB PO PRN (02:26)
[2021-08-31] MEDS: ONDANSETRON INJ 2 MG/ML 2 ML VIAL IV PRN ×2 (05:00→12:52)
[2021-08-31] MEDS ORDERED: COUGH DROP (SUGAR FREE) LOZ 24 LOZ/1 BOX BUCCAL PRN (06:05)
[2021-08-31] MEDS ORDERED: NSS + 20MEQ KCL 20 MEQ/1,000 ML BAG IV ONE (06:45)
[2021-08-31] MEDS: DOCUSATE SODIUM 100 MG CAP PO SCH (07:01)
[2021-08-31] MEDS: NYSTATIN SUSP 500,000 U/5 ML UDC PO SCH ×2 (07:23→12:03)
[2021-08-31] MEDS: PANTOprazole 40 MG TAB PO SCH (07:23)
[2021-08-31] MEDS: amLODIPine BESYLATE 5 MG TAB PO SCH (07:23)
[2021-08-31] MEDS: MULTIVITAMIN TAB PO SCH (07:23)
[2021-08-31] MEDS: lisinopril 40 MG TAB PO SCH (07:23)
[2021-08-31 09:39] LABS: Hematocrit (blood only) 27.7 % (37-47); Hemoglobin 9.1 g/dL (12.0-16.0); Mean Corpuscular Hgb Conc 32.9 g/dL (32-36); Mean Corpuscular Volume 82.2 fL (80-100); Mean Platelet Volume 10.7 fL (7.4-10.4); Platelet Count 250 K/uL (130-400); RDW Coefficient of Variation 15.6 % (11.5-14.5); RDW Standard Deviation 46.2 fL (36.4-46.3); Red Blood Count 3.37 M/uL (4.2-5.4); White Blood Count 36.65 K/uL (4.8-10.8)
[2021-08-31 09:53] LABS: BUN Creatinine Ratio 30.5 (10-20); Calcium 8.3 mg/dl (8.5-10.1); Creatinine Clr Calc Pharmacy 67.8 ml/min; Est GFR (African American) 104.6 ml/min; Est GFR (Non-African American) 90.2 ml/min; Potassium 3.7 mmol/L (3.5-5.1)
[2021-08-31] MEDS: oxyCODONE HCL IR 5 MG TAB (IMMEDIATE RELEASE) PO PRN (12:52)
--- NOTE | 2021-08-31 15:20 | Discharge Summary ---
Date of Service August 31, 2021 Discharge Data Allergies Allergy/AdvReac Type Severity Reaction Status Date / Time Penicillins Allergy Unknown Verified 08/20/21 03:19 Consultations 08/20/21 02:45 Consult Orthopedic Surgery Stat 08/20/21 02:56 ED Decision to Admit Stat 08/20/21 06:07 Consult Gastroenterology Routine 08/20/21 08:37 Consult General Surgery Stat Procedures Performed Operation Date: 08/22/21 09:20 Actual Procedures p Left Bipolar Hemiarthroplasty, Cemented(Left) - Henrik Sánchez MD Ordered Studies 08/19/21 23:20 CT abd pelvis IV con only Urgent CT cervical spine wo con Urgent CT head/brain wo con Urgent 08/24/21 15:52 CT abd pelvis IV con only Stat Hospital Course (1) Acute blood loss anemia: Questionable melena earlier in admission Hgb dropped, multifactorial given traumatic splenic rupture and presence of splenic hematoma, persistent without enlargement or worsening on CT performed a few days ago post-operatively. She also had a left hip fracture s/p surgery, all in the setting of active CLL on therapy. Received 1 unit PRBC during hospital course on 08/21 Hgb7.8 today Lovenox or any NSAIDs have been on hold. High risk for DVT post op in setting of active malignancy-noted. Will repeat hemoglobin level and possible transfuse 1 unit PRBC Continue monitor H/H (2) Closed hip fracture: Mechanical fall at home resulting in closed left hip fracture. S/P left bipolar arthroplasty by Dr. Sánchez on 08/22. Continue monitor CBC Case discussed with Ortho about DVT prophylaxis Ortho recommend at least aspirin twice daily due to patient high risk for blood clot (patient Covid 19, history of CLL and recent orthopedic procedure) PT/OT eval Fall precaution Pain control Waiting for placement to SNF (3) Splenic laceration: Likely traumatic splenic laceration from fall at home. General surgery was consulted and recommended bedrest with frequent monitoring of H&H which remained stable. She appears to be improved and is now off bedrest. No LUQ pain. Persistent nausea is concerning, however, this is multifactorial. Hold off on imaging at this time with a normal abdomen exam and stable H/H. Activity restriction at time of discharge. (4) Lightheadedness: CT head showed no acute intracranial abnormality resolved. (5) COVID-19: Started on dexamethasone in the ER after reported drop in oxygen saturation into the 80s. She is oxygenating better at this point, and no acute process was seen on chest x-ray performed on 08/19. Steroids were stopped as oxygenation improved and she had an active bacterial infection in her urine. She is off oxygen with no respiratory symptoms at this time. (6) Thrombocytopenia: chronic, Multifactorial. Continue monitor CBC (8) Acute UTI: Pansensitive E. coli resulted on urine culture. Completed the abx course with nitrofurantoin (9) CLL (chronic lymphocytic leukemia): Ongoing therapy with ibrutinib which is on hold Follows with Dr. Ariel Cervantes for oncology-leucocytosis continues to improve. case discussed with Dr. Cervantes that recommended to resume the ibrutinib on discharge Dr. Cervantes said if patient is asymptomatic we can hold on blood transfusion (10) Hypertension: amlodipine and lisinopril per home regimen. (11) DVT prophylaxis: Lovenox on hold due to Low hgb But patient is very high risk for blood clot Full Dispo-possible discharge to rehab facility in a.m. Discharge Plan Discharge Items Patient Disposition: Transfer Inpatient Rehab Fac Reason For Visit: UGIB, L HIP FX, COVID Discharge Diagnosis: Acute blood loss anemia: Closed hip fracture: Splenic laceration: Lightheadedness: COVID-19: Thrombocytopenia: Acute UTI: CLL (chronic lymphocytic leukemia): Hypertension: Activity: Resume your previous activity Weightbearing: Left weightbearing Weightbearing Comment: as tolerated with walker Non-emergency contact: Surgeon Call non-emergency contact if: your pain is not controlled, your temperature is above 101.5, your wound has increased redness and your wound has increased drainage Follow-up/Referrals: Henrik Sánchez MD [Surgeon] - (Follow up in 10-14 days from the day of your surgery for a wound check. ) Carmen Pineda MD [Primary Care Provider] - Diet: Heart Healthy Addtl Attending Provider Instructions: Follow up with your primary are provider once discharge from [facility] Follow up with orthopedic Dr. Sánchez in 7-10 days Follow up with oncology Dr. cervantes Continue physical and occupational therapy Continue oxygen supplement with 1L NC at night Check CBC in 1 week to monitor your hemoglobin since you are on Lovenox for DVT prophylaxis Please increase potassium intake in your diet Fall precaution please continue to wear mask and practice social distance Home Isolation COVID-19 Instructions The following information about Home Isolation is from the CDC Website: https://www.cdc.gov/coronavirus/2019-ncov/hcp/ozrcezym-qxmdhpb-hgoqya.html Stay home except to get medical care People who are mildly ill with COVID-19 are able to isolate at home during their illness. You should restrict activities outside your home, except for getting medical care. Do not go to work, school, or public areas. Avoid using public transportation, ride-sharing, or taxis. Separate yourself from other people and animals in your home People: As much as possible, you should stay in a specific room and away from other people in your home. Also, you should use a separate bathroom, if available. Animals: You should restrict contact with pets and other animals while you are sick with COVID-19, just like you would around other people. Although there have not been reports of pets or other animals becoming sick with COVID-19, it is still recommended that people sick with COVID-19 limit contact with animals until more information is known about the virus. When possible, have another member of your household care for your animals while you are sick. If you are sick with COVID-19, avoid contact with your pet, including petting, snuggling, being kissed or licked, and sharing food. If you must care for your pet or be around animals while you are sick, wash your hands before and after you interact with pets and wear a face mask. Call ahead before visiting your doctor If you have a medical appointment, call the healthcare provider and tell them that you have or may have COVID-19. This will help the healthcare providers office take steps to keep other people from getting infected or exposed. Wear a face mask You should wear a face mask when you are around other people (e.g., sharing a room or vehicle) or pets and before you enter a healthcare providers office. If you are not able to wear a face mask (for example, because it causes trouble breathing), then people who live with you should not stay in the same room with you, or they should wear a face mask if they enter your room. Cover your coughs and sneezes Cover your mouth and nose with a tissue when you cough or sneeze. Throw used tissues in a lined trash can. Immediately wash your hands with soap and water for at least 20 seconds or, if soap and water are not available, clean your hands with an alcohol-based hand bingo manager that contains at least 60% alcohol. Clean your hands often Wash your hands often with soap and water for at least 20 seconds, especially after blowing your nose, coughing, or sneezing; going to the bathroom; and before eating or preparing food. If soap and water are not readily available, use an alcohol-based hand bingo manager with at least 60% alcohol, covering all surfaces of your hands and rubbing them together until they feel dry. Soap and water are the best option if hands are visibly dirty. Avoid touching your eyes, nose, and mouth with unwashed hands. Avoid sharing personal household items You should not share dishes, drinking glasses, cups, eating utensils, towels, or bedding with other people or pets in your home. After using these items, they should be washed thoroughly with soap and water. Clean all high-touch surfaces everyday High touch surfaces include counters, tabletops, doorknobs, bathroom fixtures, toilets, phones, keyboards, tablets, and bedside tables. Also, clean any surfaces that may have blood, stool, or body fluids on them. Use a household cleaning spray or wipe, according to the label instructions. Labels contain instructions for safe and effective use of the cleaning product including precautions you should take when applying the product, such as wearing gloves and making sure you have good ventilation during use of the product. Monitor your symptoms Seek prompt medical attention if your illness is worsening (e.g., difficulty breathing).Beforeseeking care, call your healthcare provider and tell them that you have, or are being evaluated for, COVID-19. Put on a face mask before you enter the facility. These steps will help the healthcare providers office to keep other people in the office or waiting room from getting infected or exposed. Ask your healthcare provider to call the local or [facility]. Persons who are placed under active monitoring or facilitated self- monitoring should follow instructions provided by their local health department or occupational health professionals, as appropriate. When working with your local health department check their available hours. If you have a medical emergency and need to call 911, notify the dispatch personnel that you have, or are being evaluated for COVID-19. If possible, put on a face mask before emergency medical services arrive. Discontinuing home isolation Patients with confirmed COVID-19 should remain under home isolation precautions until the risk of secondary transmission to others is thought to be low. The decision to discontinue home isolation precautions should be made on a sscm-tm-rbpa basis, in consultation with healthcare providers and state and local health departments. Coronavirus disease 2019 (COVID-19) is a virus that causes a respiratory illness. It is caused by a coronavirus called 2019 novel coronavirus (2019- nCoV). There are many types of coronavirus. Coronaviruses are a very common cause of bronchitis. They may sometimes cause lung infection(pneumonia). Symptoms can range from mild to severe respiratory illness. These viruses are also foundin some animals. COVID-19 was first found in people in [facility], in late 2018. In 2020, several cases of COVID-19 have been confirmed in the [place] Public health officials are working to find the source. How the virus spreads is not yet fully known. It may be spread through droplets of fluid that a person coughs or sneezes into the air. It may be spread if you touch a surface with virus on it, such as a handle or object, and then touch your mouth. What are the symptoms of COVID-19? Some people have no symptoms or mild symptoms. Symptoms may appear 2 to 14 days after contact with the virus. Symptoms can include: Fever Coughing Trouble breathing What are possible complications from COVID-19? In many cases, this virus can cause infection (pneumonia) in both lungs. In some cases, this can cause . How is COVID-19 diagnosed? Your healthcare provider will ask about your symptoms. He or she will also ask about your recent travel and contact with sick people. Testing for the virus is only done through the CDC. If yourhealthcare provider thinks you may have COVID- 19, he or she will work with your local health department and the CDC on testing. Follow all instructions from your healthcare provider. COVID-19 is diagnosed by: Nasal and throat swab. A cotton-tipped swab is wiped inside your nose or throat. This is done to check for viruses in your nasal mucus. Sputum culture. A small sample of mucus coughed from your lungs (sputum) is collected if you have a cough. It is checked for the virus. How is COVID-19 treated? There is currently no medicine to treat the virus. Treatment is done to help your body while it fights the virus. This is known as supportive care. Supportive care may include: Pain medicine. These include acetaminophen and ibuprofen. They are used to help ease pain and reduce fever. Bed rest. This helps your body fight the illness. For severe illness, you may need to stay in the hospital. Care during severe illness may include: IV (intravenous) fluids.These are given through a vein to help keep your body hydrated. Oxygen. Supplemental oxygen or ventilation with a breathing machine (ventilator) may be given. This is done to keep enough oxygen in your body. Are you at risk for COVID-19? If youve been to a place where people have been sick with this virus, you are at risk for infection. You are at risk if you: Recently traveled to an affected area Had contact with a sick person who recently traveled to this area Had contact with a person who was diagnosed with COVID-19 How can COVID-19 be prevented? There is no vaccine yet. The best prevention is to not have contact with the virus. The CDC advises that people should not travel to areas where there are COVID-19 outbreaks right now for any reason that is not urgent. To help prevent spreading the infection, wash your hands often, or use an alcohol-basedhand bingo manager. If you are in an area with COVID-19: Wash your hands often. Or use an alcohol-based hand bingo manager often. Only touch your eyes, nose, or mouth with clean hands. Dont have contact with people who are sick. Follow local instructions about being in public. For example, you may be told to not use public transport for a period of time. Stay away from markets that have live or animals. Wash your hands after touching any animals. Don't touch animals that may be sick. Dont share eating or drinking tools with sick people. Dont kiss someone who is sick. Clean surfaces often with disinfectant. If you were in an area with COVID-19 in the last 14 days: Call your healthcare provider. He or she can talk with local health staff to see what action may be needed. Follow all instructions from your provider. Take your temperature every morning and evening for at least 14 days. This is to check for fever. Keep a record of the readings. Keep watch for symptoms of the virus. Tell your provider right away if you have symptoms. If you were in an area with COVID-19 and have a fever or other symptoms: Dont panic. Keep in mind that other illnesses can cause similar symptoms. Stay away from work, school, and public places. Limit physical contact with family members. Don't kiss anyone or share eating or drinking utensils. Clean surfaces you touch with disinfectant. This is to help prevent the virus from spreading. Call your healthcare provider. Explain that you have been exposed to COVID-19 and have symptoms. Do this before going to any hospital. Wait for instructions. Keep in mind that healthcare staff may wear protective equipment such as masks, gowns, gloves, and eye protection. You may be put in a separate room. This is to prevent the possible virus from spreading. Tell the healthcare staff about recent travel. This includes local travel on public transport. Staff may need to find other people you have been in contact with. Follow all instructions the healthcare staff give you. If you have been diagnosed with COVID-19 Follow all instructions from your healthcare provider. Dont leave your home, except to get medical care. Call your healthcare providers office before going. They can prepare and give you instructions. This will help prevent the virus from spreading. Dont go to work, school, or public areas. Dont use public transport or taxis. Stay away from other people in your home. Have them wear face masks around you. Dont share household items or food. Wear a face mask if you can. This includes at home or in a medical facility. Cover your face with a tissue when you cough or sneeze. Throw the tissue away. Wash your hands. Wash your hands often. Caregivers should: Follow all instructions from healthcare staff. Wear a face mask and protective clothing as advised. Wash hands often. Keep track of the sick persons symptoms. Clean surfaces, fabrics, and laundry thoroughly. Keep other people away from the sick person. When to call your healthcare provider Call your healthcare provider: If youve recently traveled and have symptoms If you have been diagnosed with COVID-19 and your symptoms are worse To learn more To find out more about COVID-19, visit the CDC website at www.cdc.gov/coron avirus/2019-ncov/index.html. [employer]. [address] [place] [address], [place] [address]. All rights reserved. This information is not intended as a substitute for professional medical care. Always follow your healthcare professional's instructions. 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 A. Observe the following precautions to prevent dislocation: 1. Don't bend your hip greater than 90 degrees. 2. Avoid crossing your legs or ankles while standing or lying. 3. Sit with your feet placed 6 inches apart. 4. When sitting, keep your knees below your hips. Sit on a firm surface, avoid deep, soft chairs and couches. Use an elevated toilet seat in the bathroom. 5. Don't bend over at the waist. Use a long handled shoehorn and a sock aid to help you put on your shoes and socks. A greens planter can help you pharmacy picking tech objects that are too high or too low to reach. 6. Keep car riding to a minimum for at least one month after surgery. B. Your balance may be shaky for a while. Use crutches or a walker until directed by your doctor. C. Use hand rails when walking on stairs. D. Wear low heeled shoes with non-slip soles. E. Be sure that your floors are free of things that could trip you - throw rugs, electrical cords, small objects. Avoid wet and waxed floors, especially with crutches and canes. F. Try to walk several times a day with rest periods between. G. Continue with all the exercises taught to you in the hospital. Again, make walking a part of your daily routine. SPECIAL CARE INSTRUCTIONS: VERY IMPORTANT TO READ AND REVIEW A. You may still be at risk for phlebitis and blood clots. 1. Wear surgical stockings (ROB hose) for 2 weeks after surgery to improve circulation and reduce swelling. 2. You will be on a blood thinner for up to 4 weeks. .Please take as prescribed B. You must take antibiotics before having dental work, bladder, bowel and other surgery. Your doctor will provide you with a permanent card to carry describing precautions. C. Call [facility] if you have a fever, redness or swelling around the incision, cloudy drainage from incision, or sudden increase in pain in your hip, not relieved by your regular pain medication. D. Please call the office at if you have any concerns or questions about your operation or recovery. * YOU MAY SHOWER, NO TUB BATHS UNTIL CLEARED BY YOUR DOCTOR. * WEAR ROB HOSE 20 HOURS PER DAY FOR 2 WEEKS. * YOU SHOULD USE A WALKER OR CRUTCHES FOR 2-4 WEEKS. THIS WILL HELP PREVENT STRAIN ON YOUR HIP MUSCLE AND ALLOW IT TO HEAL PROPERLY. YOU MAY WEAN TO A CANE TOLERATED. * MOST PATIENTS WILL HAVE HOME NURSING FOR THERAPY. IF YOU DECIDE TO DO OUTPATIENT PHYSICAL THERAPY, PLEASE SCHEDULE THIS 3 TIMES PER WEEK. * PLEASE CHANGE YOUR DRESSING DAILY FOR THE FIRST WEEK. IF THE WOUND REMAINS DRY, YOU CAN CHANGE THE DRESSING EVERY OTHER DAY. PLEASE KEEP WOUND COVERED WITH GAUZE UNTIL SEEN BACK IN THE OFFICE FOR FOLLOW UP. . FOLLOW UP VISIT: If appointment is not already scheduled: Please call [facility] to make a follow-up appointment for 2 weeks after your surgery at . Pending Studies at Discharge: No Stand-Alone Forms: My [facility] VISUAL NACERT Skilled Items Patient informed of condition?: Yes DNR: No Discharge Level of Care: Acute rehab Communicable Disease: No Discharge Prognosis: Stable Lines: None Urinary Catheter: No Medications and DC Order Prescriptions: New nystatin 100,000 unit/mL Suspension 10 ml PO QID 5 Days Qty: 200 RF: 0 Sore Throat (phenol) 1.4 % Aerosol,Patterson 2 spray MT Q6H PRN (Reason: sore mouth ) 5 Days Qty: 177 RF: 0 acetaminophen 325 mg Tablet 650 mg PO Q6H PRN (Reason: mild pain (scale score 1-4)) Qty: 30 RF: 0 oxycodone 5 mg Tablet 5 mg PO Q8H PRN (Reason: moderate to severe pain) Qty: 10 RF: 0 docusate sodium 100 mg Capsule 100 mg PO BID PRN (Reason: constipation) Qty: 60 RF: 0 enoxaparin [Lovenox] 30 mg/0.3 mL syringe 30 mg subcut Q24H 30 Days Qty: 9 RF: 0 Continued omeprazole 20 mg capsule,delayed release(DR/EC) 20 mg PO QAM RF: 0 fluticasone propionate 50 mcg/actuation spray,suspension 2 spray Intranasal DAILY RF: 0 Systane (PF) 0.4-0.3 % Dropperette 1 drp OPB BID PRN (Reason: Dry Eyes) RF: 0 ondansetron HCl 4 mg tablet 4 mg PO Q6 PRN (Reason: Nausea) RF: 0 allopurinol 100 mg tablet 100 mg PO DAILY PRN (Reason: .gout) RF: 0 amlodipine 10 mg tablet 10 mg PO DAILY RF: 0 ferrous sulfate [FeroSul] 325 mg (65 mg iron) tablet 325 mg PO Q OTHER DAY RF: 0 azelastine 137 mcg (0.1 %) aerosol,spray 2 spray INTRANASAL BID RF: 0 lisinopril 40 mg tablet 40 mg PO DAILY RF: 0 Imbruvica 420 mg tablet 420 mg PO DAILY RF: 0 Discharge Orders: Discharge Order (Routine); Ordered 08/31/21 Ordered By: Marty Castano Admission Data Admit Date/Time: 08/20/21 04:00 Attending Provider: Marty Castano Admit Provider: Pola Ring Primary Care Provider: Carmen Pineda Other Providers: [facility] ; [facility] ; [facility], ; [facility] ; [facility] ; Henrik Sánchez ; Pola Ring ; Nilda Hernandez ; Chloé Villanueva ; Leighann Lara ; Анна Chacko ; Andrei Pang ; Jason Burns ; Maria Isabel Mullins ; Kin Dunham ; Yane Jean ; Christine Valero ; Salud Ovalles ; Mary Strickland ; Wendy Montiel ; Chaparro Gross
== END 2021-08-31 15:42 | DRG 956 ==
LOC: ED 22:25 → EDINP 08-20 04:00 → SUATTDRO 08-20 04:00 → EDINP 08-20 05:25 → 2S 08-20 15:28 → 3W 08-25 15:40

== ENCOUNTER 2021-09-04 08:43 | Inpatient (IN) ==
[2021-09-04 09:49] LABS: Alanine Aminotransferase 26 U/L (12-78); Albumin Level 2.1 gm/dl (3.4-5.0); Aspartate Aminotransferase 31 U/L (15-37); BUN Creatinine Ratio 33.1 (10-20); Blood Urea Nitrogen 23 mg/dl (7-18); Carbon Dioxide 26 mmol/L (21-32); Chloride 96 mmol/L (98-107); Est GFR (African American) 101.5 ml/min; Est GFR (Non-African American) 87.6 ml/min; Glucose 96 mg/dl (70-99); Lipase 193 U/L (73-393); Potassium 3.3 mmol/L (3.5-5.1); Sodium 130 mmol/L (136-145)
--- NOTE | 2021-09-04 09:50 | Emergency Department Note ---
Impression & Plan Chest pain, COVID-19, Acute electrocardiogram changes ED Provider Note INFORMANT: Patient ED PROVIDER(S): Jono Colon MD CHIEF COMPLAINT: Chest pain PLAN: Disposition: Admitted Condition: Guarded Outpatient prescription management: none Referral: None MEDICAL DECISION MAKING: Patient presented because of chest pain. ECG done at her rehab facility showed acute changes with T wave inversions. T wave inversions were slightly worse with EMS. ECG performed here showed resolved T wave inversions. The patient had an IV established. Blood work was obtained. Chest imaging ordered. Patient was found to have pneumonia on CT imaging. No thromboembolic disease was noted. Patient was given IV cefepime. Patient was hydrated. Further management will be necessary in the hospital. [facility] Patient was evaluated in ER admitted for further management. Triage Nursing notes reviewed and agree them. Vital Signs: reviewed and remarkable for no significant abnormalities Differential diagnosis: Complications of COVID-19, cardiac ischemia, aortic dissection, pulmonary embo lism, pneumothorax, pneumonia, pericarditis, myocarditis, esophageal rupture, GERD, cholecystitis, pancreatitis, musculoskeletal, as well as other pathologies. Diagnostics interpreted by me: EC Lead ECG performed and revealed Normal sinus rhythym at 74, normal [place], QRS normal. No elevation or depression. No PACs or PVCs. When compared to p rehospital ECG T wave inversions anteriorly have resolved. When compared to ECG done today at [facility] rehab there is resolution of T wave inversions in V1 and V2. Cardiac Monitoring: Cardiac monitoring ordered by me: The patient was placed on continuous cardiac monitoring and observed. It revealed a normal sinus rhythm at 69 beats per minute without ectopy or evidence of dysrhythmia. Imaging studies: CT imaging consistent with pneumonia. No PE noted. HPI: The patient is a 71 year old female who presents to the Emergency Room with complaints of chest pain. This started about 2 weeks ago and is worsening. The patient also notes the following associated symptoms, cough, fatigue, weakness. The patient has found no relieving factors. Current pain is rated as 6/10. Patient was admitted here after a fall and hip fracture on the . She was diagnosed with Covid. She underwent surgery. She was transferred to rehab. She states she has been so weak she has not been able to go through rehab well at all. The patient does note she has been dealing with a heavy cough and chest discomfort. Pt denies LOC, headache, fevers, chills, diaphoresis, visual changes, neck pain, chest pain, breathing difficulties, nausea, vomiting, abdominal pain, back pain, melena, hematochezia, urinary symptoms, numbness, weakness, lymphadenopathy, rash, or other complaints. ROS: See above HPI for pertinent positives & negatives. A total of 10 systems reviewed and were otherwise negative. PAST MEDICAL HISTORY:See Below , COVID-19, hip fracture PAST SURGICAL HISTORY:See Below, left total hip replacement FAMILY HISTORY:See Below SOCIAL HISTORY:See Below, retired HOME MEDICATIONS:See Below ALLERGIES:See Below VITALS:See Below PHYSICAL EXAMINATION: GENERAL: Awake, alert, uncomfortable-appearing, in no distress HENT: Normocephalic, atraumatic. Oropharynx unremarkable. EYES: Normal conjunctiva. Sclera non-icteric. NECK: Inspection normal. Non-tender. Supple. No nuchal rigidity. FROM. No masses. RESPIRATORY:No wheezes. Scattered basilar rales. Increased respiratory effort. CARDIAC: Normal rate. Normal rhythm. No murmurs. No rubs. Extremities warm and well perfused. Pulses equal. No JVD. GI: Soft, non-distended. No tenderness to palpation. No rebound or guarding. No masses. RECTAL: Deferred. MUSCULOSKELETAL: Atraumatic. Chest examination reveals no tenderness. The back is symmetrical on inspection without obvious abnormality. There is no CVA tenderness to palpation. No joint edema. LOWER EXTREMITIES: Calves are equal size bilaterally and non-tender. Trace edema. No discoloration. NEURO: Normal sensorium. No sensory or motor deficits noted. SKIN: No rash or jaundice noted. Jono Colon MD Past Med/Surg History Medical History Anemia CLL (chronic lymphocytic leukemia) Closed hip fracture GERD (gastroesophageal reflux disease) Hypertension Splenic laceration Thrombocytopenia UGIB (upper gastrointestinal bleed) Surgical History H/O endoscopy Hip fracture requiring operative repair Family History Other Diabetes Heart disease Social History Smoking Status: Never smoker Hx Alcohol Use: No Hx Substance Use: No Preferred Language: Pakistani Communication Ability: Effective Range Aid Required: No Beliefs That Will Affect Care: None Current Living Situation: Rehab Feels Safe at Home: Yes Safety Concerns: Feels Safe At This Time Assistive Devices: Oxygen - Continuous Allergies Allergies Allergy/AdvReac Type Severity Reaction Status Date / Time Penicillins Allergy Unknown Verified 09/04/21 10:08 Home Meds Home Medications Medication Instructions Recorded Confirmed fluticasone propionate 50 2 spray INTRANASAL DAILY 12/20/18 09/04/21 mcg/actuation nasal spray,suspension peg 400-propylene glycol (PF) 0.4 1 drp OPB BID PRN 12/20/18 09/04/21 %-0.3 % eye drops in a dropperette (Systane (PF)) allopurinol 100 mg tablet 100 mg PO DAILY PRN 08/20/21 09/04/21 amlodipine 10 mg tablet 10 mg PO DAILY 08/20/21 09/04/21 azelastine 137 mcg (0.1 %) nasal 2 spray INTRANASAL BID 08/20/21 09/04/21 spray aerosol ferrous sulfate 325 mg (65 mg 325 mg PO Q OTHER DAY 08/20/21 09/04/21 iron) tablet (FeroSul) ibrutinib 420 mg tablet (Imbruvica) 420 mg PO DAILY 08/20/21 09/04/21 lisinopril 40 mg tablet 40 mg PO DAILY 08/20/21 09/04/21 ondansetron HCl 4 mg tablet 4 mg PO Q6 PRN 08/20/21 09/04/21 nystatin 100,000 unit/mL oral 10 ml PO DAILY 09/04/21 09/04/21 suspension pantoprazole 40 mg tablet,delayed 40 mg PO DAILY 09/04/21 09/04/21 release Previous Rx's Medication Instructions Recorded acetaminophen 325 mg tablet 650 mg PO Q6H PRN #30 tab 08/31/21 docusate sodium 100 mg capsule 100 mg PO BID PRN #60 cap 08/31/21 enoxaparin 30 mg/0.3 mL 30 mg SUBCUT Q24H 30 Days #9 ml 08/31/21 subcutaneous syringe (Lovenox) nystatin 100,000 unit/mL oral 10 ml PO QID 5 Days #200 ml 08/31/21 suspension oxycodone 5 mg tablet 5 mg PO Q8H PRN #10 tab 08/31/21 phenol 1.4 % mucosal aerosol spray 2 spray MT Q6H PRN 5 Days #177 ml 08/31/21 (Sore Throat (phenol)) Results & Data (ED) Vital Signs Vital Signs - 24 hr 09/04/21 09:15 09/04/21 09:17 09/04/21 12:18 Temperature 36.6 C Temperature Source Oral Pulse Rate 69 Pulse Rate [Right Finger] 120 H Respiratory Rate 24 22 Respiratory Effort / Characteristics Non-Labored Spontaneous Spontaneous Respiratory Depth Shallow Respiratory Pattern Tachypnea Blood Pressure 112/60 Blood Pressure Mean 77 Blood Pressure Position Lying Pulse Oximetry 100 97 97 Oxygen Delivery Method Nasal Cannula Nasal Cannula Nasal Cannula Oxygen Flow Rate 2 2 4 Sepsis Recent Fever Within 48 Hours Yes Sepsis New/Unexplained Change in Mental Status No Sepsis Action Taken by Nursing No Action Required 09/04/21 12:35 Temperature Temperature Source Pulse Rate Pulse Rate [Right Finger] 120 H Respiratory Rate 19 Respiratory Effort / Characteristics Short of Breath Respiratory Depth Respiratory Pattern Blood Pressure Blood Pressure Mean Blood Pressure Position Pulse Oximetry 92 Oxygen Delivery Method Nasal Cannula Oxygen Flow Rate 4 Sepsis Recent Fever Within 48 Hours Sepsis New/Unexplained Change in Mental Status Sepsis Action Taken by Nursing Laboratory Data Result diagrams: 09/04/21 09:11 09/04/21 09:11 Lab Results 09/04/21 09/04/21 09/04/21 Range/Units 09:11 09:11 09:11 WBC 38.93 H* (4.8-10.8) K/uL RBC 3.82 L (4.2-5.4) M/uL Hgb 10.3 L (12.0-16.0) g/dL Hct 30.9 L (37-47) % MCV 80.9 (80-100) fL MCH 27.0 (25-34) pg MCHC 33.3 (32-36) g/dL RDW Std Deviation 47.7 H (36.4-46.3) fL RDW Coeff of [place] 16.2 H (11.5-14.5) % Plt Count 271 (130-400) K/uL MPV 11.2 H (7.4-10.4) fL Immature Gran % (Auto) 0.1 % Neut % (Auto) 13.5 % Lymph % (Auto) 86.0 % [place] % (Auto) 0.1 % Eos % (Auto) 0.2 % Baso % (Auto) 0.1 % Neut # (Auto) 5.29 (1.4-6.5) K/uL Lymph # (Auto) 33.49 H (1.2-3.4) K/uL [place] # (Auto) 0.02 L (0.11-0.59) K/uL Eos # (Auto) 0.06 (0-0.5) K/uL Baso # (Auto) 0.03 (0-0.2) K/uL Immature Gran # (Auto) 0.04 H (0.00-0.02) K/uL Smudge Cells Present Sodium 130 L (136-145) mmol/L Potassium 3.3 L (3.5-5.1) mmol/L Chloride 96 L (98-107) mmol/L Carbon Dioxide 26 (21-32) mmol/L Anion Gap 8.0 (3-11) BUN 23 H (7-18) mg/dl Creatinine 0.69 (0.6-1.2) mg/dl Est Cr Clr Drug Dosing 61.0 ml/min Est GFR ( Amer) 101.5 ml/min Est GFR (Non-Af Amer) 87.6 ml/min BUN/Creatinine Ratio 33.1 H (10-20) Glucose 96 (70-99) mg/dl Calcium 9.0 (8.5-10.1) mg/dl Total Bilirubin 0.5 (0.2-1) mg/dl AST 31 (15-37) U/L ALT 26 (12-78) U/L Alkaline Phosphatase 60 (45-117) U/L Troponin I < 0.015 (0-0.045) ng/ml C-Reactive Protein 5.78 H (0-0.29) mg/dl Total Protein 6.3 L (6.4-8.2) gm/dl Albumin 2.1 L (3.4-5.0) gm/dl Globulin 4.2 H (2.5-4.0) gm/dl Albumin/Globulin Ratio 0.5 L (0.9-2) Lipase 193 (73-393) U/L Procalcitonin (0-0.5) ng/ml COVID-19 Eval Order SARS-CoV-2 (PCR) (Negative) 09/04/21 09/04/21 09/04/21 Range/Units 09:58 09:58 12:31 WBC (4.8-10.8) K/uL RBC (4.2-5.4) M/uL Hgb (12.0-16.0) g/dL Hct (37-47) % MCV (80-100) fL MCH (25-34) pg MCHC (32-36) g/dL RDW Std Deviation (36.4-46.3) fL RDW Coeff of [place] (11.5-14.5) % Plt Count (130-400) K/uL MPV (7.4-10.4) fL Immature Gran % (Auto) % Neut % (Auto) % Lymph % (Auto) % [place] % (Auto) % Eos % (Auto) % Baso % (Auto) % Neut # (Auto) (1.4-6.5) K/uL Lymph # (Auto) (1.2-3.4) K/uL [place] # (Auto) (0.11-0.59) K/uL Eos # (Auto) (0-0.5) K/uL Baso # (Auto) (0-0.2) K/uL Immature Gran # (Auto) (0.00-0.02) K/uL Smudge Cells Sodium (136-145) mmol/L Potassium (3.5-5.1) mmol/L Chloride (98-107) mmol/L Carbon Dioxide (21-32) mmol/L Anion Gap (3-11) BUN (7-18) mg/dl Creatinine (0.6-1.2) mg/dl Est Cr Clr Drug Dosing ml/min Est GFR ( Amer) ml/min Est GFR (Non-Af Amer) ml/min BUN/Creatinine Ratio (10-20) Glucose (70-99) mg/dl Calcium (8.5-10.1) mg/dl Total Bilirubin (0.2-1) mg/dl AST (15-37) U/L ALT (12-78) U/L Alkaline Phosphatase (45-117) U/L Troponin I (0-0.045) ng/ml C-Reactive Protein (0-0.29) mg/dl Total Protein (6.4-8.2) gm/dl Albumin (3.4-5.0) gm/dl Globulin (2.5-4.0) gm/dl Albumin/Globulin Ratio (0.9-2) Lipase (73-393) U/L Procalcitonin 0.17 (0-0.5) ng/ml COVID-19 Eval Order Covid19 at [facility] SARS-CoV-2 (PCR) POSITIVE A* (Negative) Administered Medications Hydromorphone HCl (Hydromorphone Inj 0.5 Mg/0.5 Ml Syr) 0.25 mg IV Q15M PRN PRN Reason: Pain Stop: 09/18/21 11:53 Last Admin: 09/04/21 18:28 Dose: 0.25 mg Documented by: [id number] Dexamethasone 6 mg/ Syringe 1.5 mls @ 1 mls/min IV Q24H REBEKA Stop: 10/04/21 13:29 Last Admin: 09/04/21 14:57 Dose: 1 mls/min Documented by: [id number] Miscellaneous (Ibrutinib [Imbruvica] 420 Mg Tablet ~ Order Awaiting Action) 1 ea N/A QS REBEKA Stop: 10/04/21 15:59 Last Admin: 09/04/21 16:37 Dose: Not Given Documented by: [id number] Nystatin (Nystatin Susp 500,000 U/5 Ml Udc) 10 ml PO QID REBEKA Stop: 09/11/21 16:59 Last Admin: 09/04/21 16:37 Dose: 10 ml Documented by: [id number] Ondansetron HCl (Ondansetron Inj 2 Mg/Ml 2 Ml Vial) 4 mg IV Q6H PRN PRN Reason: Nausea Stop: 10/04/21 14:09 Last Admin: 09/04/21 18:28 Dose: 4 mg Documented by: [id number] Discontinued Medications Albuterol (Albut/Ipratrop 3mg/0.5mg Neb 3 Ml Vial) 3 ml NEB NOW STA Stop: 09/04/21 11:55 Last Admin: 09/04/21 12:17 Dose: 3 ml Documented by: [id number] Aspirin (Aspirin Chew 324 Mg) 324 mg PO NOW STA Stop: 09/04/21 11:53 Last Admin: 10/26/21 12:32 Dose: 324 mg Documented by: [id number] Cefepime HCl (Maxipime) 2,000 mg in 20 mls @ 5 mls/min IV NOW STA; Protocol Stop: 09/04/21 11:37 Last Admin: 09/04/21 12:06 Dose: 5 mls/min Documented by: [id number] Sodium Chloride (Nss 1000ml) 500 mls @ 999 mls/hr IV .Q31M ONE Stop: 09/04/21 12:24 Last Admin: 09/04/21 12:32 Dose: 999 mls/hr Documented by: [id number] Sodium Chloride (Nss 1000ml) 1,000 mls @ 125 mls/hr IV .Q8H STA Stop: 09/04/21 19:53 Last Admin: 09/04/21 12:32 Dose: 125 mls/hr Documented by: [id number] Ioversol (Optiray 320 125ml) 120 ml IV ONCE ONE Stop: 09/04/21 11:22 Last Admin: 09/04/21 11:21 Dose: 120 ml Documented by: [id number] Ondansetron HCl (Ondansetron Inj 2 Mg/Ml 2 Ml Vial) 4 mg IV NOW STA Stop: 09/04/21 11:55 Last Admin: 09/04/21 12:06 Dose: 4 mg Documented by: [id number] Potassium Chloride (Potassium Chloride Crtab 20 Meq Tabcr) 40 meq PO NOW STA Stop: 09/04/21 13:21 Last Admin: 09/04/21 15:06 Dose: 40 meq Documented by: [id number] Imaging Data Radiologist's Impression: Chest X-Ray 09/04/21 09:15 XR chest 1V portable HISTORY: Atypical Chest Pain. Dyspnea. Cough. COMPARISON: Chest 09/04/2021. FINDINGS: Patchy multifocal bilateral airspace opacities consistent with a pneumonia again noted. No pneumothorax. No pleural effusions. The heart is normal in size. IMPRESSION: Multifocal patchy bilateral airspace opacities consistent with a viral p neumonia. This is similar to the same day chest CTA. ACT 112: Negative or not required by law. Electronically signed by: Mendez Bravo M.D. 09/04/2021 12:34 PM Chest CTA 09/04/21 10:20 CT angio chest PE protocol CLINICAL HISTORY: Dyspnea and cough TECHNIQUE: Multidetector row helical CT of the chest was performed. Coronal and sagittal reformations were obtained. Automated dose lowering techniques and/or adjustment according to patient size were utilized for this exam. Comparison: Comparison is made to CT abdomen and pelvis 08/24/2021 FINDINGS: Lungs and pleura: Diffuse groundglass opacities are seen, predominantly in the lower lungs, new from prior CT abdomen pelvis. Heart and pericardium: Heart size is normal. No pericardial effusion. Vessels: No evidence of pulmonary embolism. Mediastinum and kimi: Unremarkable. Chest wall and lower neck: Unremarkable. Abdomen: Unremarkable. Bones: Degenerative changes in the thoracic spine. IMPRESSION: 1. No evidence of pulmonary embolism. 2. Interval development of diffuse groundglass opacities in the lungs which may be seen in pneumonia. Components of aspiration and/or atelectasis may be present. ACT 112: Negative or not required by law. Electronically signed by: Helio Cordova M.D. 09/04/2021 11:31 AM Discharge Plan Visit Data Chief Complaint: Illness Stated Complaint: chest pain, coughing ED Provider: Jono Colon Discharge Problem: Chest pain, COVID-19, Acute electrocardiogram changes Patient Disposition: Admitted As Inpatient Discharge Instructions Interventions: ED Discharge Assessment Last Done: 09/04/21 13:09
[2021-09-04 09:53] LABS: Albumin Globulin Ratio 0.5 (0.9-2); Alkaline Phosphatase 60 U/L (45-117); Bilirubin,Total 0.5 mg/dl (0.2-1); Globulin 4.2 gm/dl (2.5-4.0); Hematocrit (blood only) 30.9 % (37-47); Hemoglobin 10.3 g/dL (12.0-16.0); Mean Corpuscular Hgb Conc 33.3 g/dL (32-36); Mean Corpuscular Volume 80.9 fL (80-100); Mean Platelet Volume 11.2 fL (7.4-10.4); Platelet Count 271 K/uL (130-400); RDW Coefficient of Variation 16.2 % (11.5-14.5); RDW Standard Deviation 47.7 fL (36.4-46.3); Red Blood Count 3.82 M/uL (4.2-5.4); Total Protein 6.3 gm/dl (6.4-8.2); Troponin I < 0.015 ng/ml (0-0.045); White Blood Count 38.93 K/uL (4.8-10.8)
[2021-09-04 10:32] LABS: Basophils # (auto) 0.03 K/uL (0-0.2); Basophils % (auto) 0.1 %; Eosinophils # (auto) 0.06 K/uL (0-0.5); Eosinophils % (auto) 0.2 %; Immature Granulocytes # (auto) 0.04 K/uL (0.00-0.02); Immature Granulocytes % (auto) 0.1 %; Lymphocytes # (auto) 33.49 K/uL (1.2-3.4); Monocytes # (auto) 0.02 K/uL (0.11-0.59); Monocytes % (auto) 0.1 %; Neutrophils # (auto) 5.29 K/uL (1.4-6.5); Neutrophils % (auto) 13.5 %; Smudge Cells Present
[2021-09-04] MEDS ORDERED: OPTIRAY 320 125ml IV ONE (11:21)
--- NOTE | 2021-09-04 11:32 | CT Scan Report ---
CT angio chest PE protocol CLINICAL HISTORY: Dyspnea and cough TECHNIQUE: Multidetector row helical CT of the chest was performed. Coronal and sagittal reformations were obtained. Automated dose lowering techniques and/or adjustment according to patient size were u tilized for this exam. Comparison: Comparison is made to CT abdomen and pelvis 08/24/2021 FINDINGS: Lungs and pleura: Diffuse groundglass opacities are seen, predominantly in the lower lungs, new from prior CT abdomen pelvis. Heart and pericardium: Heart size is normal. No pericardial effusion. Vessels: No evidence of pulmonary embolism. Mediastinum and kimi: Unremarkable. Chest wall and lower neck: Unremarkable. Abdomen: Unremarkable. Bones: Degenerative changes in the thoracic spine. IMPRESSION: 1. No evidence of pulmonary embolism. 2. Interval development of diffuse groundglass opacities in the lungs which may be seen in pneumonia . Components of aspiration and/or atelectasis may be present. ACT 112: Negative or not required by law. Electronically signed by: Helio Cordova M.D. 09/04/2021 11:31 AM
[2021-09-04] MEDS ORDERED: CEFEPIME 2,000 MG/20 ML VIAL IV STA (11:34)
[2021-09-04] MEDS ORDERED: ASPIRIN CHEW 324 MG PO STA (11:52)
[2021-09-04] MEDS ORDERED: SODIUM CHLORIDE 0.9% 1000ML 500 ML IV ONE (11:54)
[2021-09-04] MEDS ORDERED: HYDROmorphone INJ 0.5 MG/0.5 ML SYR IV PRN (11:54)
[2021-09-04] MEDS ORDERED: SODIUM CHLORIDE 0.9% 1000ML 1,000 ML IV STA (11:54)
[2021-09-04] MEDS ORDERED: ALBUT/IPRATROP 3MG/0.5MG NEB 3 ML VIAL NEB STA (11:54)
[2021-09-04] MEDS ORDERED: ONDANSETRON INJ 2 MG/ML 2 ML VIAL IV STA (11:54)
--- NOTE | 2021-09-04 12:27 | History & Physical Report ---
Date of Service September 04, 2021 Assessment & Plan (1) Hypoxia: (2) Pneumonia due to COVID-19 virus: Plan: This is a 71yo F with a PMH of CLL on chemotherapy, hypogammaglobinemia, hypertension, GERD, gastroparesis, chronic anemia (baseline hemoglobin 10), chronic thrombocytopenia, recent hip fracture, covid and other medical problems listed below who presents from [facility] with pleuritic chest pain and EKG changes. Covid PCR positive on previous admission (08/19/21). Covid PCR today positive Has been experiencing pleuritic chest pain and SOB while at [facility], EKG today showed new TWI in V1-V3 that have since resolved Chest CTA today without evidence of pulmonary embolism. Interval development of diffuse ground glass opacities in the lungs which may be seen in pneumonia Given dexamethasone today. Plan to continue daily Given Cefepime in ED. MRSA swab pending WBC at baseline, procal pending - will use to determine continuation of abx (3) Chest pain: Plan: Pleuritic chest pain, EKG changes at [facility] with TWI V1-V3 that have since resolved No chest pain since arrival Initial troponin negative Monitor on telemetry (4) Hypokalemia: Plan: Initial K 3.3 in setting of poor intake. Replaced Monitor with daily BMP (5) Hyponatremia: Plan: Na 130 (baseline ~ 133) in setting of poor PO intake Given fluids in ED Monitor with daily BMP (6) LLQ pain: Plan: LLQ discomfort on exam, afebrile, LFTs WNL If discomfort continues, consider obtaining CT abd/pelvis (7) CLL (chronic lymphocytic leukemia): Plan: Ongoing therapy with ibrutinib Follows with Dr. Ariel Ortiz for oncology Leukocytosis at baseline in mid-high 30s (8) Hypertension: Plan: Continue lisinopril, amlodipine (9) Anemia: Plan: Hgb back to pre-surgery baseline of 10 Monitor with daily CBC DVT Ppx: SQ Lovenox Code status: FULL PCP: Job Haider Dispo: Sent from [facility], admitted to PCU Patient seen in collaboration with Dr. Batres. Please see addendum. History of Present Illness Chief Complaint: pleuritic CP, SOB Primary Care Provider: [facility] This is a 71yo F with a PMH of CLL on chemotherapy, hypogammaglobinemia, hypertension, GERD, gastroparesis, chronic anemia (baseline hemoglobin 10), chronic thrombocytopenia, recent hip fracture, covid and other medical problems listed below who presents from [facility] with pleuritic chest pain and EKG changes. During previous admission, patient underwent surgical repair of hip on 08/21. Covid PCR positive on 08/19/21. Received 4 days of dexamethasone. Was discharged to [facility] for rehab on 08/31/21. Per report, has been experiencing pleuritic chest pain and SOB. EKG was repeated and showed new T wave inversions in V1-V3 so she was sent to ED for further evaluation. TWI had resolved by time of repeat EKG here. Repeat chest CTA today without evidence of pulmonary embolism. Interval development of diffuse ground glass opacities in the lungs which may be seen in pneumonia. Components of aspiration and/or atelectasis may be present. Currently feeling fatigued with LLQ discomfort, nausea and cough. Not currently experiencing chest pain or SOB. No fever, chills, headache, vomiting, dysuria, diarrhea or constipation. Last bowel movement was this morning. Allergies Allergy/AdvReac Type Severity Reaction Status Date / Time Penicillins Allergy Unknown Verified 09/04/21 10:08 Home Medications Medication Instructions Recorded Confirmed Type fluticasone propionate 50 2 spray INTRANASAL DAILY 12/20/18 09/04/21 History mcg/actuation nasal spray,suspension peg 400-propylene glycol (PF) 0.4 1 drp OPB BID PRN 12/20/18 09/04/21 History %-0.3 % eye drops in a dropperette (Systane (PF)) allopurinol 100 mg tablet 100 mg PO DAILY PRN 08/20/21 09/04/21 History amlodipine 10 mg tablet 10 mg PO DAILY 08/20/21 09/04/21 History azelastine 137 mcg (0.1 %) nasal 2 spray INTRANASAL BID 08/20/21 09/04/21 History spray aerosol ferrous sulfate 325 mg (65 mg 325 mg PO Q OTHER DAY 08/20/21 09/04/21 History iron) tablet (FeroSul) ibrutinib 420 mg tablet (Imbruvica) 420 mg PO DAILY 08/20/21 09/04/21 History lisinopril 40 mg tablet 40 mg PO DAILY 08/20/21 09/04/21 History ondansetron HCl 4 mg tablet 4 mg PO Q6 PRN 08/20/21 09/04/21 History acetaminophen 325 mg tablet 650 mg PO Q6H PRN #30 tab 08/31/21 09/04/21 Rx docusate sodium 100 mg capsule 100 mg PO BID PRN #60 cap 08/31/21 09/04/21 Rx enoxaparin 30 mg/0.3 mL 30 mg SUBCUT Q24H 30 Days #9 ml 08/31/21 09/04/21 Rx subcutaneous syringe (Lovenox) nystatin 100,000 unit/mL oral 10 ml PO QID 5 Days #200 ml 08/31/21 09/04/21 Rx suspension oxycodone 5 mg tablet 5 mg PO Q8H PRN #10 tab 08/31/21 09/04/21 Rx phenol 1.4 % mucosal aerosol spray 2 spray MT Q6H PRN 5 Days #177 ml 08/31/21 09/04/21 Rx (Sore Throat (phenol)) nystatin 100,000 unit/mL oral 10 ml PO DAILY 09/04/21 09/04/21 History suspension pantoprazole 40 mg tablet,delayed 40 mg PO DAILY 09/04/21 09/04/21 History release Past Med/Surg History Medical History (Updated 09/04/21 @ 13:17 by Thalia Couch PA-C) Anemia CLL (chronic lymphocytic leukemia) Closed hip fracture GERD (gastroesophageal reflux disease) Hypertension Splenic laceration Thrombocytopenia UGIB (upper gastrointestinal bleed) Surgical History (Updated 09/04/21 @ 13:03 by Thalia Couch PA-C) H/O endoscopy Hip fracture requiring operative repair Family History Other Diabetes Heart disease Social History Smoking Status: Never smoker Hx Alcohol Use: No Hx Substance Use: No Preferred Language: Beninese Communication Ability: Effective 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 Physical Exam Physical Exam: Please see Dr. Batres's addendum for physical exam. Results & Data Results & Data ([facility]) Vital Signs (Past 12 Hours) Vital Signs Temp Pulse Pulse Resp BP Pulse Ox 09/04/21 12:18 120 H 22 97 09/04/21 09:17 36.6 C 69 24 112/60 97 09/04/21 09:15 100 Laboratory Results Short CBC 09/04/21 09/04/21 Range/Units 09:11 09:58 WBC 38.93 H* (4.8-10.8) K/uL Hgb 10.3 L (12.0-16.0) g/dL Hct 30.9 L (37-47) % Plt Count 271 (130-400) K/uL SARS-CoV-2 (PCR) POSITIVE A* (Negative) BMP 09/04/21 09:11 Sodium 130 L Potassium 3.3 L Chloride 96 L Carbon Dioxide 26 BUN 23 H Creatinine 0.69 Glucose 96 Calcium 9.0 Cardiac Enzymes 09/04/21 Range/Units 09:11 Troponin I < 0.015 (0-0.045) ng/ml Liver Function 09/04/21 Range/Units 09:11 Total Bilirubin 0.5 (0.2-1) mg/dl AST 31 (15-37) U/L ALT 26 (12-78) U/L Alkaline Phosphatase 60 (45-117) U/L Albumin 2.1 L (3.4-5.0) gm/dl Diagnostic Findings Chest X-Ray 09/04/21 09:15 XR chest 1V portable HISTORY: Atypical Chest Pain. Dyspnea. Cough. COMPARISON: Chest 09/04/2021. FINDINGS: Patchy multifocal bilateral airspace opacities consistent with a pneumonia again noted. No pneumothorax. No pleural effusions. The heart is normal in size. IMPRESSION: Multifocal patchy bilateral airspace opacities consistent with a viral pneumonia. This is similar to the same day chest CTA. ACT 112: Negative or not required by law. Electronically signed by: Mendez Bravo M.D. 09/04/2021 12:34 PM Chest CTA 09/04/21 10:20 CT angio chest PE protocol CLINICAL HISTORY: Dyspnea and cough TECHNIQUE: Multidetector row helical CT of the chest was performed. Coronal and sagittal reformations were obtained. Automated dose lowering techniques and/or adjustment according to patient size were utilized for this exam. Comparison: Comparison is made to CT abdomen and pelvis 08/24/2021 FINDINGS: Lungs and pleura: Diffuse groundglass opacities are seen, predominantly in the lower lungs, new from prior CT abdomen pelvis. Heart and pericardium: Heart size is normal. No pericardial effusion. Vessels: No evidence of pulmonary embolism. Mediastinum and kimi: Unremarkable. Chest wall and lower neck: Unremarkable. Abdomen: Unremarkable. Bones: Degenerative changes in the thoracic spine. IMPRESSION: 1. No evidence of pulmonary embolism. 2. Interval development of diffuse groundglass opacities in the lungs which may be seen in pneumonia. Components of aspiration and/or atelectasis may be present. ACT 112: Negative or not required by law. Electronically signed by: Helio Cordova M.D. 09/04/2021 11:31 AM ECG Additional Comments: NSR, TWI have resolved since earlier today Supervising Physician Co-Signing Physician Notes Pt is a 77 y/o F with hx of B cell CLL, hypogammaglobinemia, Anemia (baseline hgb: 10-11), CKD, HTN, thyroid nodule, recent hospital admission for L hip Fracture s/p Bipolar hemiarthroplasty (on 08/22) with stable splenic rupture and COVID infection (dx on 08/19) admitted for hypoxia with persistent cough. Pt denied any Cp or SOB. Complained of Nausea, decreased appetite, LLQ abd pain. -Last BM: today morning -Pt was dx with COVID on 08/19 and received 3 days of dexamethasone last hospital admission ---- pts oxygenation improved with dexamethasone -In the ER pt received cefepime and 1L NS Exam: -mildly cachetic -Lungs: b/l rales with good air entry b/l, no wheezing -Cards: normal S1/S1, no murmur -Abd: ND, soft, TTP of the b/l lower quadrant -L hip: sutures are in place, no skin erythema or hematoma ------ no TTP of the area -B/L LE: no edema -Psych: AAOx3 Plan: 1. Hypoxic respiratory failure: -likely 2/2 COVID pneumonia -CXR appeared worse than 08/19 ----- b/l opacities -CTA chest: neg for PE -Will get procal to r/o bacterial pneumonia -will start the pt on dexamethasone for COVID pneumonia ----- not a candidate for remdesivir: if pt becomes more symptomatic and hypoxic then will consult plum for possible baricitnib ----- per prior hospital note: Oncology was okay with prednisone -no chest pain at bedside: trop is neg 2.Nausea and LLQ abd pain: -will do Zofran prn -not suspecting bowel obstruction and LLQ pain might be due to the L hip pain ---- will get abd xray 3. HypoNa+ and HypoK+: -could be due to decreased PO intake -s/p K+ repletion - will get am BMP after fluids 4. L hip Fracture s/p Bipolar hemiarthroplasty (on 08/22) -surgical site looks good -will discharge back to SNF
--- NOTE | 2021-09-04 12:35 | XRay Report ---
XR chest 1V portable HISTORY: Atypical Chest Pain. Dyspnea. Cough. COMPARISON: Chest 09/04/2021. FINDINGS: Patchy multifocal bilateral airspace opacities consistent with a pneumonia again noted. No pneumothorax. No pleural effusions. The heart is normal in size. IMPRESSION: Multifocal patchy bilateral airspace opacities consistent with a viral pneumonia. This is similar to the same day chest CTA. ACT 112: Negative or not required by law. Electronically signed by: Mendez Bravo M.D. 09/04/2021 12:34 PM
[2021-09-04] MEDS ORDERED: POTASSIUM CHLORIDE CRTAB 20 MEQ TABCR PO STA (13:20)
[2021-09-04] MEDS ORDERED: POLYETHYLENE (MIRALAX) 17 GM PACK PO PRN (14:10)
[2021-09-04] MEDS: dexAMETHasone 6 MG in SYRINGE 0 ML IV SCH (14:57)
--- NOTE | 2021-09-04 15:03 | XRay Report ---
ABDOMEN 2 VIEWS HISTORY: Generalized abdominal pain. COMPARISON: Abdomen and pelvis CT 08/24/2021. FINDINGS: There is no pneumoperitoneum or pneumatosis. The bowel gas pattern is unremarkable. No evid ence for bowel obstruction. No renal or ureteral calculi. Residual contrast within the bilateral salima l collecting systems and bladder from the recent CT examination. There is a left hip hemiarthroplasty . Multifocal patchy airspace opacities are again noted within the lungs. Nondilated gas-filled large and small bowel. IMPRESSION: 1. No evidence for bowel obstruction. 2. Multifocal airspace opacities within the lungs again noted. ACT 112: Negative or not required by law. Electronically signed by: Mendez Bravo M.D. 09/04/2021 3:01 PM
[2021-09-04] MEDS ORDERED: CHLORASEPTIC 1.4% SOLN 180 ML BTL MT PRN (15:09)
[2021-09-04] MEDS ORDERED: allopurinoL 100 MG TAB PO PRN (15:09)
[2021-09-04] MEDS ORDERED: ARTIFICIAL TEARS OP PRN (15:19)
[2021-09-04] MEDS: NYSTATIN SUSP 500,000 U/5 ML UDC PO SCH ×2 (16:37→20:36)
[2021-09-04] MEDS: ONDANSETRON INJ 2 MG/ML 2 ML VIAL IV PRN (18:28)
--- NOTE | 2021-09-05 05:15 | Electrocardiogram Report ---
Test Reason : Blood Pressure : / mmHG Vent. Rate : 074 BPM Atrial Rate : 074 BPM P-R Int : 148 ms QRS Dur : 086 ms QT Int : 398 ms P-R-T Axes : 044 007 012 degrees QTc Int : 441 ms Poor data quality, interpretation may be adversely affected Normal sinus rhythm Normal ECG When compared with ECG of 20-AUG-2021 06:33, T wave amplitude has decreased in Anterior leads Confirmed by Paulie Miller ([id number]) on 09/05/2021 5:14:51 AM Referred By: [facility] Confirmed By:Paulie Miller
--- NOTE | 2021-09-05 07:41 | XRay Report ---
XR chest 1V portable HISTORY: 71 years-old Female monitor treatment response follow-up study in a patient with chest pain and bilateral airspace opacities COMPARISON: Chest radiograph 09/04/2021 TECHNIQUE: Portable AP view of the chest FINDINGS: Cardiac silhouette is normal in size. Asymmetric right hilar prominence redemonstrated. No pneumothor ax or large pleural effusion. Multifocal bilateral airspace opacities redemonstrated and are slightly improved. No acute fracture. IMPRESSION: Slight improvement of the bilateral multifocal airspace opacities compatible with pneumon ia. ACT 112: Negative or not required by law. The above report was generated using voice recognition software. It may contain grammatical, syntax o r spelling errors. Electronically signed by: Bruce Saini M.D. 09/05/2021 7:39 AM
[2021-09-05 08:10] LABS: Hematocrit (blood only) 26.5 % (37-47); Hemoglobin 8.7 g/dL (12.0-16.0); Mean Corpuscular Hemoglobin 26.6 pg (25-34); Mean Corpuscular Hgb Conc 32.8 g/dL (32-36); Platelet Count 229 K/uL (130-400); RDW Coefficient of Variation 16.1 % (11.5-14.5); RDW Standard Deviation 47.8 fL (36.4-46.3); Red Blood Count 3.27 M/uL (4.2-5.4); White Blood Count 30.84 K/uL (4.8-10.8)
[2021-09-05 08:41] LABS: Albumin Globulin Ratio 0.5 (0.9-2); Albumin Level 1.8 gm/dl (3.4-5.0); BUN Creatinine Ratio 40.1 (10-20); Bilirubin,Total 0.4 mg/dl (0.2-1); C Reactive Protein 6.45 mg/dl (0-0.29); Calcium 8.8 mg/dl (8.5-10.1); Creatinine Clr Calc Pharmacy 73.5 ml/min; Est GFR (African American) 106.9 ml/min; Est GFR (Non-African American) 92.2 ml/min; Globulin 3.7 gm/dl (2.5-4.0); Total Protein 5.5 gm/dl (6.4-8.2)
[2021-09-05 08:52] LABS: Basophils # (auto) 0.01 K/uL (0-0.2); Echinocytes 1+; Immature Granulocytes # (auto) 0.03 K/uL (0.00-0.02); Immature Granulocytes % (auto) 0.1 %; Lymphocytes # (auto) 27.22 K/uL (1.2-3.4); Lymphocytes % (auto) 88.3 %; Microcytosis Present; Monocytes # (auto) 0.21 K/uL (0.11-0.59); Monocytes % (auto) 0.7 %; Neutrophils # (auto) 3.37 K/uL (1.4-6.5); Neutrophils % (auto) 10.9 %; Ovalocytes 1+; Smudge Cells Present
[2021-09-05] MEDS ORDERED: NYSTATIN SUSP 500,000 U/5 ML UDC PO SCH (09:00)
[2021-09-05] MEDS: ENOXAPARIN INJ 40 MG/0.4 ML SYR SQ SCH (09:26)
[2021-09-05] MEDS: NYSTATIN SUSP 500,000 U/5 ML UDC PO SCH ×4 (09:26→21:25)
[2021-09-05] MEDS: lisinopril 40 MG TAB PO SCH (09:27)
[2021-09-05] MEDS: FLUTICASONE PROPIONATE NA SPR 16 GM BTL NAE SCH (09:27)
[2021-09-05] MEDS: amLODIPine BESYLATE 5 MG TAB PO SCH (09:27)
[2021-09-05] MEDS: PANTOprazole 40 MG TAB PO SCH (09:27)
[2021-09-05] MEDS: FERROUS SULFATE 325 MG TAB PO SCH (09:27)
[2021-09-05 10:52] LABS: Potassium 4.1 mmol/L (3.5-5.1)
[2021-09-05] MEDS: dexAMETHasone 6 MG in SYRINGE 0 ML IV SCH (13:14)
[2021-09-05] MEDS: oxyCODONE HCL IR 5 MG TAB (IMMEDIATE RELEASE) PO PRN (13:14)
--- NOTE | 2021-09-05 13:18 | Hospitalist Progress Note ---
Date of Service September 05, 2021 Assessment & Plan (1) Hypoxia: (2) Pneumonia due to COVID-19 virus: Plan: 71yo F with a PMH of CLL on chemotherapy, hypogammaglobinemia, hypertension, GERD, gastroparesis, chronic anemia (baseline hemoglobin 10), chronic thrombocytopenia, recent hip fracture, covid and other medical problems listed below who presents from [facility] with pleuritic chest pain and EKG changes. Covid PCR positive on previous admission (08/19/21). Covid PCR today positive Has been experiencing pleuritic chest pain and SOB while at [facility], EKG today showed new TWI in V1-V3 that have since resolved Chest CTA on admission without evidence of pulmonary embolism. Interval development of diffuse ground glass opacities in the lungs which may be seen in pneumonia Continue dexamethasone Procal is 0.17 Considering history and risk factors, there is risk of bacterial superinfection Will cover with antibiotics. Ceftriaxone (confirmed pt has tolerated cephalosporins in the past) and azithromycin Counselled on incentive spirometry/flutter/self proning Wean oxygen as tolerated (3) Chest pain: Plan: Pleuritic chest pain, EKG changes at [facility] with TWI V1-V3 that have since resolved Reports last chest pain was yesterday with coughing Initial troponin negative Monitor on telemetry (4) Hypokalemia: Plan: Initial K 3.3 in setting of poor intake. Replaced Monitor with daily BMP (5) Hyponatremia: Plan: Na 130 (baseline ~ 133) in setting of poor PO intake Given fluids in ED Na is 132 today Monitor with daily BMP (6) LLQ pain: Plan: Reports this is chronic intermittent Had a recent CT abd/p from 08/24/21. Reviewed this and it reported no changed in ?splenic laceration v infarct as seen in CT 08/20/21. This may explain abd tenderness XR abd this admission no acute findings (7) CLL (chronic lymphocytic leukemia): Plan: Ongoing therapy with ibrutinib Follows with Dr. Ariel Ortiz for oncology Leukocytosis at baseline in mid-high 30s (8) Hypertension: Plan: Continue lisinopril, amlodipine (9) Anemia: Plan: Hgb is 8.7 today. Was 10 yesterday No signs of bleeding Based on review, has been fluctuating 8-10 in the past month Monitor with daily CBC DVT Ppx: SQ Lovenox Code status: FULL PCP: Job Haider Admission and Anticipated Discharge Date Admission Date: September 04, 2021 Subjective 71-year-old woman with history of CLL on chemotherapy, hypogammaglobinemia, hypertension, GERD, gastroparesis, chronic anemia, chronic thrombocytopenia, recent hip fracture, Covid (08/19/21, got some days of dexa) who presents from [facility] with pleuritic chest pain and EKG changes Patient seen and examined this morning Reports headache, cough associated with pleuritic chest pain, anorexia. Also reports chronic intermittent generalized abdominal pain Review of Systems Constitutional: + fatigue and + anorexia Respiratory: + cough and + dyspnea Cardiovascular: + chest pain; no palpitations and no lightheadedness Gastrointestinal: + abdominal pain; no nausea, no vomiting and no diarrhe a/loose stools Genitourinary: no dysuria, no urinary frequency and no urinary urgency Neurologic: + generalized weakness and + headache(s); no confusion Psychiatric: + depression and + anxiety Physical Exam Constitutional: + well hydrated; no acute distress Elderly woman, thin Eyes: PERRL, conjunctivae normal, anicteric sclerae ENMT: external ear and nose normal, oropharynx normal Respiratory: On 6l/min, no respiratory distress, scattered rales Cardiovascular: RRR, S1 S2 Gastrointestinal (Abdomen): Abd is soft, not distended, tenderness in lower quadrants, normal bowel sounds Musculoskeletal: No pedal edema Neurologic: PERRL, EOMI, accommodation nl, no face palsy, no dysarthria Psychiatric: A+Ox3, euthymic affect Results & Data Results & Data ([facility]) Vital Signs (Past 12 Hours) Vital Signs Temp Pulse Pulse Resp BP Pulse Ox 09/05/21 11:12 36.4 C L 76 20 113/67 96 09/05/21 08:00 70 09/05/21 07:35 36.5 C 71 19 116/66 97 09/05/21 05:00 70 09/05/21 03:18 36.9 C 72 22 120/67 97 Laboratory Results Abnormal lab results 09/05/21 09/05/21 Range/Units 07:26 07:26 WBC 30.84 H* (4.8-10.8) K/uL RBC 3.27 L (4.2-5.4) M/uL Hgb 8.7 L (12.0-16.0) g/dL Hct 26.5 L (37-47) % RDW Std Deviation 47.8 H (36.4-46.3) fL RDW Coeff of Ashanti 16.1 H (11.5-14.5) % MPV 11.0 H (7.4-10.4) fL Lymph # (Auto) 27.22 H (1.2-3.4) K/uL Immature Gran # (Auto) 0.03 H (0.00-0.02) K/uL Sodium 132 L (136-145) mmol/L BUN 24 H (7-18) mg/dl Creatinine 0.59 L (0.6-1.2) mg/dl BUN/Creatinine Ratio 40.1 H (10-20) Glucose 109 H (70-99) mg/dl C-Reactive Protein 6.45 H (0-0.29) mg/dl Total Protein 5.5 L (6.4-8.2) gm/dl Albumin 1.8 L (3.4-5.0) gm/dl Albumin/Globulin Ratio 0.5 L (0.9-2)
[2021-09-05] MEDS: AZITHROMYCIN 250 MG TAB PO SCH (15:57)
[2021-09-05] MEDS: cefTRIAXone SODIUM 1,000 MG in DEXTROSE 5% 50 ML IV SCH (15:57)
[2021-09-06] MEDS ORDERED: methylPREDNISolone 40 MG in SYRINGE 0 ML IV STA (00:04)
[2021-09-06] MEDS: oxyCODONE HCL IR 5 MG TAB (IMMEDIATE RELEASE) PO PRN (03:09)
--- NOTE | 2021-09-06 05:45 | Electrocardiogram Report ---
Test Reason : Blood Pressure : / mmHG Vent. Rate : 067 BPM Atrial Rate : 067 BPM P-R Int : 150 ms QRS Dur : 092 ms QT Int : 406 ms P-R-T Axes : 024 010 016 degrees QTc Int : 429 ms Poor data quality, interpretation may be adversely affected Normal sinus rhythm Normal ECG When compared with ECG of 04-SEP-2021 08:54, No significant change was found Confirmed by Paulie Miller ([id number]) on 09/06/2021 5:45:30 AM Referred By: [facility] Confirmed By:Paulie Miller
[2021-09-06] MEDS: NYSTATIN SUSP 500,000 U/5 ML UDC PO SCH ×4 (09:04→21:57)
[2021-09-06] MEDS: FLUTICASONE PROPIONATE NA SPR 16 GM BTL NAE SCH (09:08)
[2021-09-06] MEDS: AZITHROMYCIN 250 MG TAB PO SCH (09:08)
[2021-09-06] MEDS: PANTOprazole 40 MG TAB PO SCH (09:09)
[2021-09-06] MEDS: lisinopril 40 MG TAB PO SCH (09:09)
[2021-09-06] MEDS: amLODIPine BESYLATE 5 MG TAB PO SCH (09:09)
[2021-09-06] MEDS: ENOXAPARIN INJ 40 MG/0.4 ML SYR SQ SCH (09:09)
--- NOTE | 2021-09-06 11:16 | Hospitalist Progress Note ---
Date of Service September 06, 2021 Assessment & Plan (1) Hypoxia: (2) Pneumonia due to COVID-19 virus: Plan: 71yo F with a PMH of CLL on chemotherapy, hypogammaglobinemia, hypertension, GERD, gastroparesis, chronic anemia (baseline hemoglobin 10), chronic thrombocytopenia, recent hip fracture, covid and other medical problems listed below who presents from [facility] with pleuritic chest pain and EKG changes. Covid PCR positive on previous admission (08/19/21). Covid PCR today positive Had been experiencing pleuritic chest pain and SOB while at [facility], EKG was reported to have shown new TWI in V1-V3 that have since resolved Chest CTA on admission without evidence of pulmonary embolism. Interval development of diffuse ground glass opacities in the lungs which may be seen in pneumonia Continue dexamethasone Procal is 0.17 Continue ceft and azithromycin Counselled on incentive spirometry/flutter/self proning Wean oxygen as tolerated (3) Chest pain: Plan: Pleuritic chest pain, EKG changes at [facility] with TWI V1-V3 that have since resolved Chest pain resolved Initial troponin negative Monitor on telemetry (4) Hypokalemia: Plan: Initial K on admission 3.3 in setting of poor intake. Replaced Monitor with daily BMP K is 4.4 (5) Hyponatremia: Plan: Na 130 (baseline ~ 133) in setting of poor PO intake Given fluids in ED Monitor with daily BMP Na is 132 (6) LLQ pain: Plan: Reports this is chronic intermittent Had a recent CT abd/p from 08/24/21. Reviewed this and it reported no changed in ?splenic laceration v infarct as seen in CT 08/20/21. This may explain abd tenderness XR abd this admission no acute findings No pain today (7) CLL (chronic lymphocytic leukemia): Plan: Ongoing therapy with ibrutinib Follows with Dr. Ariel Ortiz for oncology Leukocytosis at baseline in mid-high 30s (8) Hypertension: Plan: Continue lisinopril, amlodipine (9) Anemia: Plan: No signs of bleeding Based on review, has been fluctuating 8-10 in the past month Monitor with daily CBC Hb is 9.5 today DVT Ppx: SQ Lovenox Code status: FULL PCP: Job Haider Changed diet to pureed per patient's request. Stated she has trouble chewing food Admission and Anticipated Discharge Date Admission Date: September 04, 2021 Subjective 71-year-old woman with history of CLL on chemotherapy, hypogammaglobinemia, hypertension, GERD, gastroparesis, chronic anemia, chronic thrombocytopenia, recent hip fracture, Covid (08/19/21, got some days of dexa) who presents from [facility] with pleuritic chest pain and EKG changes Patient seen and examined this morning Reports headache, cough, shortness of breath and anorexia. Denied any chest pain or abd pain today Review of Systems Constitutional: + fatigue and + anorexia Respiratory: + cough and + dyspnea Cardiovascular: no chest pain, no palpitations and no lightheadedness Gastrointestinal: no abdominal pain, no nausea, no vomiting and no diarrhea/loose stools Genitourinary: no dysuria, no urinary frequency and no urinary urgency Neurologic: + generalized weakness and + headache(s); no confusion Psychiatric: no depression and no anxiety Physical Exam Constitutional: + well hydrated; no acute distress Eyes: PERRL, conjunctivae normal, anicteric sclerae ENMT: external ear and nose normal, oropharynx normal Respiratory: normal respiratory effort; no respiratory distress On 5l/min nasal cannula. Diminished breath sounds Cardiovascular: RRR S1 S2 Gastrointestinal (Abdomen): normal bowel sounds, soft, nontender, no hepatosplenomegaly Musculoskeletal: No pedal edema Neurologic: PERRL, EOMI, accommodation nl, no face palsy, no dysarthria Psychiatric: A+Ox3, euthymic affect Results & Data Results & Data ([facility]) Vital Signs (Past 12 Hours) Vital Signs Temp Pulse Resp BP Pulse Ox 09/06/21 07:25 36.8 C 65 18 113/61 94 09/06/21 03:02 36.6 C 68 18 105/64 90
[2021-09-06] MEDS: dexAMETHasone 6 MG in SYRINGE 0 ML IV SCH (12:44)
[2021-09-06 14:21] LABS: Hematocrit (blood only) 28.5 % (37-47); Hemoglobin 9.5 g/dL (12.0-16.0); Mean Corpuscular Hemoglobin 26.7 pg (25-34); Mean Corpuscular Volume 80.1 fL (80-100); Mean Platelet Volume 10.8 fL (7.4-10.4); Platelet Count 234 K/uL (130-400); RDW Coefficient of Variation 16.1 % (11.5-14.5); RDW Standard Deviation 47.9 fL (36.4-46.3); Red Blood Count 3.56 M/uL (4.2-5.4); White Blood Count 25.27 K/uL (4.8-10.8)
[2021-09-06 14:34] LABS: BUN Creatinine Ratio 43.6 (10-20); Calcium 8.9 mg/dl (8.5-10.1); Creatinine Clr Calc Pharmacy 87.1 ml/min; Est GFR (African American) 113.6 ml/min; Potassium 4.4 mmol/L (3.5-5.1)
[2021-09-06 14:53] LABS: Mean Corpuscular Hgb Conc 33.3 g/dL (32-36)
[2021-09-06] MEDS: ONDANSETRON INJ 2 MG/ML 2 ML VIAL IV PRN (16:20)
[2021-09-06] MEDS: cefTRIAXone SODIUM 1,000 MG in DEXTROSE 5% 50 ML IV SCH (16:24)
[2021-09-06] MEDS ORDERED: NYSTATIN POWDER 15GM BTL EXT PRN (18:41)
[2021-09-06] MEDS ORDERED: ALBUTEROL HFA 8 GM INHALER INH ONE (23:35)
[2021-09-06] MEDS ORDERED: ALBUTEROL HFA 8 GM INHALER INH PRN (23:35)
[2021-09-06] MEDS ORDERED: MAGNESIUM SULFATE / D5W 1 GM/100 ML BAG IV ONE (23:39)
[2021-09-07] MEDS ORDERED: methylPREDNISolone 40 MG in SYRINGE 0 ML IV STA (00:08)
[2021-09-07 00:38] LABS: Base Excess ABG 1.2 mEq/L (-9-1.8); HCO3 ABG 24 mmol/L (19-24); Oxygen Saturation ABG 93.9 % (90-95); PCO2 ABG 33 mmHg (35-46); PO2 ABG 80 mmHg (80-95); pH ABG 7.49 (7.35-7.45)
[2021-09-07 00:41] LABS: Allen Test POS (Pos)
[2021-09-07] MEDS ORDERED: MAGNESIUM SULFATE / D5W 1 GM/100 ML BAG IV ONE (01:06)
[2021-09-07 07:23] LABS: Hematocrit (blood only) 23.9 % (37-47); Hemoglobin 8.1 g/dL (12.0-16.0); Mean Corpuscular Hemoglobin 27.6 pg (25-34); Mean Corpuscular Hgb Conc 33.9 g/dL (32-36); Mean Corpuscular Volume 81.6 fL (80-100); Platelet Count 171 K/uL (130-400); RDW Coefficient of Variation 15.9 % (11.5-14.5); Red Blood Count 2.93 M/uL (4.2-5.4); White Blood Count 14.12 K/uL (4.8-10.8)
[2021-09-07] MEDS: oxyCODONE HCL IR 5 MG TAB (IMMEDIATE RELEASE) PO PRN ×2 (07:32→18:41)
[2021-09-07 07:36] LABS: Albumin Level 1.7 gm/dl (3.4-5.0); BUN Creatinine Ratio 38.8 (10-20); Calcium 8.1 mg/dl (8.5-10.1); Creatinine Clr Calc Pharmacy 88.4 ml/min; Est GFR (African American) 115.2 ml/min; Est GFR (Non-African American) 99.4 ml/min; Magnesium 2.2 mg/dl (1.8-2.4); Potassium 3.9 mmol/L (3.5-5.1)
[2021-09-07 07:39] LABS: Albumin Globulin Ratio 0.5 (0.9-2); Bilirubin,Total 0.5 mg/dl (0.2-1); C Reactive Protein 2.12 mg/dl (0-0.29); Globulin 3.4 gm/dl (2.5-4.0); Phosphorus 3.3 mg/dl (2.5-4.9); Total Protein 5.1 gm/dl (6.4-8.2)
[2021-09-07] MEDS: AZITHROMYCIN 250 MG TAB PO SCH (09:01)
[2021-09-07] MEDS: FLUTICASONE PROPIONATE NA SPR 16 GM BTL NAE SCH (09:01)
[2021-09-07] MEDS: PANTOprazole 40 MG TAB PO SCH (09:01)
[2021-09-07] MEDS: lisinopril 10 MG TAB PO SCH (09:01)
[2021-09-07] MEDS: NYSTATIN SUSP 500,000 U/5 ML UDC PO SCH ×4 (09:01→19:55)
[2021-09-07] MEDS: amLODIPine BESYLATE 5 MG TAB PO SCH (09:01)
[2021-09-07] MEDS: FERROUS SULFATE 325 MG TAB PO SCH (09:01)
[2021-09-07] MEDS: ENOXAPARIN INJ 40 MG/0.4 ML SYR SQ SCH (09:02)
[2021-09-07 09:15] LABS: D Dimer 1140 ug/L FEU (0-500)
[2021-09-07] MEDS: [UNRECOGNIZED DRUG - REMARK] PO SCH (09:53)
--- NOTE | 2021-09-07 11:49 | XRay Report ---
XR chest 1V portable HISTORY: 71 years-old Female Assess. Increased o2 requirement. COVID acute hypoxia with pneumonia COMPARISON: Chest radiograph 09/05/2021 TECHNIQUE: Portable AP view of the chest FINDINGS: The cardiomediastinal and hilar silhouettes are unchanged. Asymmetric right hilar prominence redemons trated. No pneumothorax or large pleural effusion. Multifocal bilateral airspace opacities appears st able to slightly improved. No acute fracture. IMPRESSION: Stable to slightly improved bilateral airspace opacities compatible with pneumonia. ACT 112: Negative or not required by law. The above report was generated using voice recognition software. It may contain grammatical, syntax o r spelling errors. Electronically signed by: Bruce Saini M.D. 09/07/2021 11:48 AM
--- NOTE | 2021-09-07 12:27 | Internal Med Progress Note ---
Date of Service September 07, 2021 Assessment & Plan (1) Hypoxia: (2) Pneumonia due to COVID-19 virus: Plan: 71yo F with a PMH of CLL on chemotherapy, hypogammaglobinemia, hypertension, GERD, gastroparesis, chronic anemia (baseline hemoglobin 10), chronic thrombocytopenia, recent hip fracture, covid and other medical problems listed below who presents from [facility] with pleuritic chest pain and EKG changes. Covid PCR positive on previous admission (08/19/21). Covid PCR today positive Had been experiencing pleuritic chest pain and SOB while at [facility], EKG was reported to have shown new TWI in V1-V3 that have since resolved Chest CTA on admission without evidence of pulmonary embolism. Interval development of diffuse ground glass opacities in the lungs which may be seen in pneumonia Continue dexamethasone Continue ceft and azithromycin Continue incentive spirometry/flutter/self proning Increased oxygen requirement. X-ray showed stable to slightly improved bilateral airspace opacities. Leukocytosis improving We will give 1 dose of Lasix 20 mg IV and monitor (3) Chest pain: Plan: Pleuritic chest pain, EKG changes at [facility] with TWI V1-V3 that have since resolved Chest pain resolved Initial troponin negative Monitor on telemetry (4) Hypokalemia: Plan: Initial K on admission 3.3 in setting of poor intake. Replaced Monitor with daily BMP K is 3.9 (5) Hyponatremia: Plan: Na 130 (baseline ~ 133) in setting of poor PO intake Given fluids in ED Monitor with daily BMP Na is 131 (6) LLQ pain: Plan: Reports this is chronic intermittent Had a recent CT abd/p from 08/24/21. Reviewed this and it reported no changed in ?splenic laceration v infarct as seen in CT 08/20/21. This may explain abd tenderness XR abd this admission no acute findings Pain resolved (7) CLL (chronic lymphocytic leukemia): Plan: Ongoing therapy with ibrutinib Follows with Dr. Ariel Ortiz for oncology Leukocytosis improving (8) Hypertension: Plan: Continue lisinopril, amlodipine (9) Anemia: Plan: No signs of bleeding Based on review, has been fluctuating 8-10 in the past month Monitor with daily CBC Hb is 9.5 today DVT Ppx: SQ Lovenox Code status: FULL PCP: Job Haider Admission and Anticipated Discharge Date Admission Date: September 04, 2021 Subjective 71-year-old woman with history of CLL on chemotherapy, hypogammaglobinemia, hypertension, GERD, gastroparesis, chronic anemia, chronic thrombocytopenia, recent hip fracture, Covid (08/19/21, got some days of dexa) who presents from [facility] with pleuritic chest pain and EKG changes Patient seen and examined this morning Reports cough, shortness of breath and fatigue. Denied any chest pain or abd pain today Review of Systems Constitutional: + fatigue and + anorexia Respiratory: + cough and + dyspnea Cardiovascular: no chest pain, no palpitations and no lightheadedness Gastrointestinal: no abdominal pain, no nausea, no vomiting and no diarrhea/loose stools Genitourinary: no dysuria, no urinary frequency and no urinary urgency Neurologic: + generalized weakness; no headache(s) and no confusion Psychiatric: no depression and no anxiety Physical Exam Constitutional: + well hydrated; no acute distress Eyes: PERRL, conjunctivae normal, anicteric sclerae ENMT: external ear and nose normal, oropharynx normal Respiratory: normal respiratory effort; no respiratory distress on nasal cannula, diminshed breath sounds Cardiovascular: RRR S1 S2 Gastrointestinal (Abdomen): normal bowel sounds, soft, nontender, no hepato splenomegaly Musculoskeletal: Clean dressing over left hip recent surgical site Neurologic: PERRL, EOMI, accommodation nl, no face palsy, no dysarthria Psychiatric: A+Ox3, euthymic affect Results & Data ([facility]) Vital Signs (Past 12 Hours) Vital Signs Temp Pulse Pulse Resp BP BP Pulse Ox 09/07/21 11:51 36.4 C L 60 19 107/58 L 96 09/07/21 07:41 36.4 C L 66 24 116/62 89 L 09/07/21 07:12 55 L 09/07/21 04:41 62 09/07/21 03:11 36.3 C L 69 22 122/64 91 09/07/21 01:04 84 20 96 Laboratory Results Abnormal lab results 09/06/21 09/07/21 09/07/21 Range/Units 14:08 00:13 06:56 WBC 14.12 H D (4.8-10.8) K/uL RBC 2.93 L (4.2-5.4) M/uL Hgb 8.1 L (12.0-16.0) g/dL Hct 23.9 L (37-47) % RDW Std Deviation 47.0 H (36.4-46.3) fL RDW Coeff of Ashanti 15.9 H (11.5-14.5) % MPV 11.0 H (7.4-10.4) fL D-Dimer (0-500) ug/L FEU ABG pH 7.49 H (7.35-7.45) ABG pCO2 33 L (35-46) mmHg Sodium (136-145) mmol/L Creatinine (0.6-1.2) mg/dl BUN/Creatinine Ratio (10-20) Glucose (70-99) mg/dl Calcium (8.5-10.1) mg/dl Magnesium 1.6 L (1.8-2.4) mg/dl C-Reactive Protein (0-0.29) mg/dl Total Protein (6.4-8.2) gm/dl Albumin (3.4-5.0) gm/dl Albumin/Globulin Ratio (0.9-2) 09/07/21 09/07/21 09/07/21 Range/Units 06:56 06:56 14:12 WBC 11.68 H (4.8-10.8) K/uL RBC 2.99 L (4.2-5.4) M/uL Hgb 8.1 L (12.0-16.0) g/dL Hct 24.4 L (37-47) % RDW Std Deviation 47.8 H (36.4-46.3) fL RDW Coeff of Ashanti 15.9 H (11.5-14.5) % MPV 11.5 H (7.4-10.4) fL D-Dimer 1140 H* (0-500) ug/L FEU ABG pH (7.35-7.45) ABG pCO2 (35-46) mmHg Sodium 131 L (136-145) mmol/L Creatinine 0.47 L (0.6-1.2) mg/dl BUN/Creatinine Ratio 38.8 H (10-20) Glucose 148 H (70-99) mg/dl Calcium 8.1 L (8.5-10.1) mg/dl Magnesium (1.8-2.4) mg/dl C-Reactive Protein 2.12 H (0-0.29) mg/dl Total Protein 5.1 L (6.4-8.2) gm/dl Albumin 1.7 L (3.4-5.0) gm/dl Albumin/Globulin Ratio 0.5 L (0.9-2)
[2021-09-07] MEDS: dexAMETHasone 6 MG in SYRINGE 0 ML IV SCH (12:38)
[2021-09-07 14:30] LABS: Hematocrit (blood only) 24.4 % (37-47); Hemoglobin 8.1 g/dL (12.0-16.0); Mean Corpuscular Hemoglobin 27.1 pg (25-34); Mean Corpuscular Hgb Conc 33.2 g/dL (32-36); Mean Corpuscular Volume 81.6 fL (80-100); Mean Platelet Volume 11.5 fL (7.4-10.4); Platelet Count 166 K/uL (130-400); RDW Coefficient of Variation 15.9 % (11.5-14.5); RDW Standard Deviation 47.8 fL (36.4-46.3); Red Blood Count 2.99 M/uL (4.2-5.4); White Blood Count 11.68 K/uL (4.8-10.8)
[2021-09-07] MEDS: cefTRIAXone SODIUM 1,000 MG in DEXTROSE 5% 50 ML IV SCH (15:18)
[2021-09-07] MEDS ORDERED: FUROSEMIDE INJ 20 MG/2 ML VIAL IV ONE (16:21)
[2021-09-07] MEDS: ONDANSETRON INJ 2 MG/ML 2 ML VIAL IV PRN (17:49)
[2021-09-08] MEDS: oxyCODONE HCL IR 5 MG TAB (IMMEDIATE RELEASE) PO PRN (03:49)
[2021-09-08 06:54] LABS: Hemoglobin 9.1 g/dL (12.0-16.0); Mean Corpuscular Hemoglobin 26.7 pg (25-34); Mean Corpuscular Hgb Conc 32.5 g/dL (32-36); Mean Corpuscular Volume 82.1 fL (80-100); Platelet Count 185 K/uL (130-400); RDW Coefficient of Variation 15.9 % (11.5-14.5); RDW Standard Deviation 48.3 fL (36.4-46.3); Red Blood Count 3.41 M/uL (4.2-5.4); White Blood Count 14.27 K/uL (4.8-10.8)
[2021-09-08 07:38] LABS: BUN Creatinine Ratio 32.1 (10-20); C Reactive Protein 1.01 mg/dl (0-0.29); Calcium 8.6 mg/dl (8.5-10.1); Creatinine Clr Calc Pharmacy 69.9 ml/min; Est GFR (African American) 106.3 ml/min; Est GFR (Non-African American) 91.7 ml/min; Phosphorus 3.3 mg/dl (2.5-4.9)
[2021-09-08 07:39] LABS: D Dimer 1080 ug/L FEU (0-500)
[2021-09-08 08:25] LABS: Magnesium 1.9 mg/dl (1.8-2.4); Potassium 4.1 mmol/L (3.5-5.1)
[2021-09-08] MEDS: FLUTICASONE PROPIONATE NA SPR 16 GM BTL NAE SCH (08:52)
[2021-09-08] MEDS: amLODIPine BESYLATE 5 MG TAB PO SCH (08:52)
[2021-09-08] MEDS: PANTOprazole 40 MG TAB PO SCH (08:53)
[2021-09-08] MEDS: lisinopril 10 MG TAB PO SCH (08:53)
[2021-09-08] MEDS: NYSTATIN SUSP 500,000 U/5 ML UDC PO SCH ×4 (08:53→21:14)
[2021-09-08] MEDS: ENOXAPARIN INJ 40 MG/0.4 ML SYR SQ SCH (08:54)
[2021-09-08] MEDS: [UNRECOGNIZED DRUG - REMARK] PO SCH (08:56)
--- NOTE | 2021-09-08 11:46 | Hospitalist Progress Note ---
Date of Service September 08, 2021 Assessment & Plan (1) Hypoxia: (2) Pneumonia due to COVID-19 virus: Plan: 71yo F with a PMH of CLL on chemotherapy, hypogammaglobinemia, hypertension, GERD, gastroparesis, chronic anemia (baseline hemoglobin 10), chronic thrombocytopenia, recent hip fracture, covid and other medical problems listed below who presents from [facility] with pleuritic chest pain and EKG changes. Covid PCR positive on previous admission (08/19/21). Covid PCR today positive Had been experiencing pleuritic chest pain and SOB while at [facility], EKG was reported to have shown new TWI in V1-V3 that have since resolved Chest CTA on admission without evidence of pulmonary embolism. Interval development of diffuse ground glass opacities in the lungs which may be seen in pneumonia Continue dexamethasone Completed azithromycin. Continue ceft to complete treatment Continue incentive spirometry/flutter/self proning. Counselled patient on need for this and increasing activity Still requiring 5-6l/min nasal oxygen X-ray yesterday showed stable to slightly improved bilateral airspace opacities. Leukocytosis improving (3) Chest pain: Plan: Pleuritic chest pain, EKG changes at [facility] with TWI V1-V3 that have since resolved Chest pain resolved Initial troponin negative Monitor on telemetry (4) Hypokalemia: Plan: Initial K on admission 3.3 in setting of poor intake. Replaced Monitor with daily BMP K is 4.1 (5) Hyponatremia: Plan: Na 130 (baseline ~ 133) in setting of poor PO intake Given fluids in ED Monitor with daily BMP Na is 128 Dropped more likely due to lasix yesterday Fluid restrict and monitor PO intake encouraged (6) LLQ pain: Plan: Reports this is chronic intermittent Had a recent CT abd/p from 08/24/21. Reviewed this and it reported no changed in ?splenic laceration v infarct as seen in CT 08/20/21. This may explain abd tenderness XR abd this admission no acute findings Pain resolved (7) CLL (chronic lymphocytic leukemia): Plan: Ongoing therapy with ibrutinib Follows with Dr. Ariel Ortiz for oncology Leukocytosis improving (8) Hypertension: Plan: Continue lisinopril, amlodipine (9) Anemia: Plan: No signs of bleeding Based on review, has been fluctuating 8-10 in the past month Monitor with daily CBC Hb is 9.1 today DVT Ppx: SQ Lovenox Code status: FULL PCP: Job Haider Admission and Anticipated Discharge Date Admission Date: September 04, 2021 Subjective 71-year-old woman with history of CLL on chemotherapy, hypogammaglobinemia, hypertension, GERD, gastroparesis, chronic anemia, chronic thrombocytopenia, r ecent hip fracture, Covid (08/19/21, got some days of dexa) who presents from [facility] with pleuritic chest pain and EKG changes Patient seen and examined this morning Still continues to reports cough, shortness of breath and fatigue. Review of Systems Review of Systems: At least ten systems reviewed and negative except as noted in the HPI. Constitutional: + fatigue and + anorexia Respiratory: + cough and + dyspnea Cardiovascular: no chest pain, no palpitations and no lightheadedness Gastrointestinal: no abdominal pain, no nausea, no vomiting and no diarrhea/loose stools Genitourinary: no dysuria, no urinary frequency and no urinary urgency Neurologic: + generalized weakness; no headache(s) and no confusion Psychiatric: no depression and no anxiety Physical Exam Constitutional: + well hydrated; no acute distress Eyes: PERRL, conjunctivae normal, anicteric sclerae ENMT: external ear and nose normal, oropharynx normal Respiratory: normal respiratory effort; no respiratory distress On nasal cannula. Diminished breath sounds. No crackles Gastrointestinal (Abdomen): normal bowel sounds, soft, nontender, no hepatosplenomegaly Musculoskeletal: Clean dressing over left hip recent surgical site Neurologic: PERRL, EOMI, accommodation nl, no face palsy, no dysarthria Psychiatric: A+Ox3, euthymic affect Results & Data Results & Data ([facility]) Vital Signs (Past 12 Hours) Vital Signs Temp Pulse Pulse Resp BP Pulse Ox 09/08/21 07:33 36.4 C L 67 20 123/68 93 09/08/21 04:58 48 L 09/08/21 03:48 55 L 20 126/66 90 Laboratory Results Abnormal lab results 09/07/21 09/08/21 09/08/21 Range/Units 14:12 06:10 06:10 WBC 11.68 H 14.27 H (4.8-10.8) K/uL RBC 2.99 L 3.41 L (4.2-5.4) M/uL Hgb 8.1 L 9.1 L (12.0-16.0) g/dL Hct 24.4 L 28.0 L (37-47) % RDW Std Deviation 47.8 H 48.3 H (36.4-46.3) fL RDW Coeff of Ashanti 15.9 H 15.9 H (11.5-14.5) % MPV 11.5 H 11.0 H (7.4-10.4) fL D-Dimer 1080 H* (0-500) ug/L FEU Sodium (136-145) mmol/L Chloride (98-107) mmol/L BUN (7-18) mg/dl BUN/Creatinine Ratio (10-20) Glucose (70-99) mg/dl Osmolality (280-300) mOsm/kg C-Reactive Protein (0-0.29) mg/dl 09/08/21 09/08/21 Range/Units 06:10 06:10 WBC (4.8-10.8) K/uL RBC (4.2-5.4) M/uL Hgb (12.0-16.0) g/dL Hct (37-47) % RDW Std Deviation (36.4-46.3) fL RDW Coeff of Ashanti (11.5-14.5) % MPV (7.4-10.4) fL D-Dimer (0-500) ug/L FEU Sodium 128 L (136-145) mmol/L Chloride 96 L (98-107) mmol/L BUN 19 H (7-18) mg/dl BUN/Creatinine Ratio 32.1 H (10-20) Glucose 108 H (70-99) mg/dl Osmolality 277 L (280-300) mOsm/kg C-Reactive Protein 1.01 H (0-0.29) mg/dl
[2021-09-08] MEDS: dexAMETHasone 6 MG in SYRINGE 0 ML IV SCH (13:05)
[2021-09-08] MEDS: ONDANSETRON INJ 2 MG/ML 2 ML VIAL IV PRN (14:27)
[2021-09-08] MEDS: cefTRIAXone SODIUM 1,000 MG in DEXTROSE 5% 50 ML IV SCH (16:14)
[2021-09-09] MEDS: oxyCODONE HCL IR 5 MG TAB (IMMEDIATE RELEASE) PO PRN ×3 (00:17→21:25)
[2021-09-09 07:28] LABS: BUN Creatinine Ratio 32.6 (10-20); Calcium 8.9 mg/dl (8.5-10.1); Creatinine Clr Calc Pharmacy 87.9 ml/min; Est GFR (African American) 115.2 ml/min; Est GFR (Non-African American) 99.4 ml/min; Magnesium 1.7 mg/dl (1.8-2.4)
[2021-09-09 07:29] LABS: C Reactive Protein 6.62 mg/dl (0-0.29); Phosphorus 2.8 mg/dl (2.5-4.9)
[2021-09-09] MEDS: NYSTATIN SUSP 500,000 U/5 ML UDC PO SCH (07:54)
[2021-09-09] MEDS: ENOXAPARIN INJ 40 MG/0.4 ML SYR SQ SCH (07:54)
[2021-09-09] MEDS: lisinopril 10 MG TAB PO SCH (07:55)
[2021-09-09] MEDS: FLUTICASONE PROPIONATE NA SPR 16 GM BTL NAE SCH (07:55)
[2021-09-09] MEDS: FERROUS SULFATE 325 MG TAB PO SCH (07:55)
[2021-09-09] MEDS: amLODIPine BESYLATE 5 MG TAB PO SCH (07:55)
[2021-09-09] MEDS: PANTOprazole 40 MG TAB PO SCH (07:55)
[2021-09-09] MEDS: [UNRECOGNIZED DRUG - REMARK] PO SCH (07:56)
[2021-09-09] MEDS: ACETAMINOPHEN 325 MG TAB PO PRN ×2 (08:02→19:23)
--- NOTE | 2021-09-09 11:47 | Hospitalist Progress Note ---
Date of Service September 09, 2021 Assessment & Plan (1) Hypoxia: (2) Pneumonia due to COVID-19 virus: Plan: 71yo F with a PMH of CLL on chemotherapy, hypogammaglobinemia, hypertension, GERD, gastroparesis, chronic anemia (baseline hemoglobin 10), chronic thrombocytopenia, recent hip fracture, covid and other medical problems listed below who presents from [facility] with pleuritic chest pain and EKG changes. Covid PCR positive on previous admission (08/19/21). Covid PCR today positive Had been experiencing pleuritic chest pain and SOB while at [facility], EKG was reported to have shown new TWI in V1-V3 that have since resolved Chest CTA on admission without evidence of pulmonary embolism. Interval development of diffuse ground glass opacities in the lungs which may be seen in pneumonia Continue dexamethasone Completed azithromycin. Continue ceft to complete treatment Continue incentive spirometry/flutter/self proning. Counselled patient on need for this and increasing activity Still requiring 5-6l/min nasal oxygen Spent sometime counselling and encouraging patient We discussed that her recovery may be prolonged considering comorbidities, recent hip fracture and surgery. She states she will try to be more motivated (3) Chest pain: Plan: Pleuritic chest pain, EKG changes at [facility] with TWI V1-V3 that have since resolved Chest pain resolved Initial troponin negative Monitor on telemetry (4) Hypokalemia: Plan: Initial K on admission 3.3 in setting of poor intake. Replaced Monitor with daily BMP K is 4 (5) Hyponatremia: Plan: Na 130 (baseline ~ 133) in setting of poor PO intake Given fluids in ED Monitor with daily BMP Na is 131 (6) LLQ pain: Plan: Reports this is chronic intermittent Had a recent CT abd/p from 08/24/21. Reviewed this and it reported no changed in ?splenic laceration v infarct as seen in CT 08/20/21. This may explain abd tenderness XR abd this admission no acute findings Pain resolved (7) CLL (chronic lymphocytic leukemia): Plan: Ongoing therapy with ibrutinib Follows with Dr. Ariel Ortiz for oncology (8) Hypertension: Plan: Continue lisinopril, amlodipine (9) Anemia: Plan: No signs of bleeding Based on review, has been fluctuating 8-10 in the past month Monitor with daily CBC DVT Ppx: SQ Lovenox Code status: FULL PCP: Job Haider Admission and Anticipated Discharge Date Admission Date: September 04, 2021 Subjective 71-year-old woman with history of CLL on chemotherapy, hypogammaglobinemia, hypertension, GERD, gastroparesis, chronic anemia, chronic thrombocytopenia, recent hip fracture, Covid (08/19/21, got some days of dexa) who presents from [facility] with pleuritic chest pain and EKG changes Patient seen and examined this morning Still continues to reports cough, shortness of breath and fatigue. She is currently sitting on chair. She states that she is frustrated with her progress especially needing a lot of help with activity which she is not used to until her recent hospitalization and surgery Review of Systems Constitutional: + fatigue and + anorexia Respiratory: + cough and + dyspnea Cardiovascular: no chest pain, no palpitations and no lightheadedness Gastrointestinal: no abdominal pain, no nausea, no vomiting and no diarrhea/loose stools Genitourinary: no dysuria, no urinary frequency and no urinary urgency Neurologic: + generalized weakness; no headache(s) and no confusion Psychiatric: no depression and no anxiety Physical Exam Constitutional: + well hydrated; no acute distress Eyes: PERRL, conjunctivae normal, anicteric sclerae ENMT: external ear and nose normal, oropharynx normal Respiratory: normal respiratory effort; no respiratory distress Diminished breath sounds, on 5l/min nasal oxygen Cardiovascular: RRR S1 S2 Gastrointestinal (Abdomen): normal bowel sounds, soft, nontender, no hepatosplenomegaly Neurologic: PERRL, EOMI, accommodation nl, no face palsy, no dysarthria Psychiatric: A+Ox3, euthymic affect Results & Data Results & Data ([facility]) Vital Signs (Past 12 Hours) Vital Signs Temp Pulse Pulse Resp BP BP Pulse Ox 09/09/21 11:43 36.6 C 69 16 99/59 L 96 09/09/21 08:00 91 H 09/09/21 07:31 36.5 C 71 22 117/68 93 09/09/21 03:40 36.9 C 60 20 122/63 97 Laboratory Results Abnormal lab results 09/09/21 Range/Units 06:18 Sodium 131 L (136-145) mmol/L Chloride 96 L (98-107) mmol/L Creatinine 0.47 L (0.6-1.2) mg/dl BUN/Creatinine Ratio 32.6 H (10-20) Magnesium 1.7 L (1.8-2.4) mg/dl C-Reactive Protein 6.62 H (0-0.29) mg/dl
[2021-09-09] MEDS: dexAMETHasone 6 MG in SYRINGE 0 ML IV SCH (13:06)
[2021-09-09] MEDS ORDERED: MAGNESIUM OXIDE 400 MG TAB PO ONE (15:13)
[2021-09-09] MEDS: cefTRIAXone SODIUM 1,000 MG in DEXTROSE 5% 50 ML IV SCH (16:02)
[2021-09-10] MEDS: oxyCODONE HCL IR 5 MG TAB (IMMEDIATE RELEASE) PO PRN ×2 (07:32→22:52)
[2021-09-10 08:09] LABS: Hematocrit (blood only) 28.5 % (37-47); Hemoglobin 9.4 g/dL (12.0-16.0); Mean Corpuscular Volume 81.9 fL (80-100); Mean Platelet Volume 11.2 fL (7.4-10.4); Platelet Count 173 K/uL (130-400); RDW Coefficient of Variation 15.7 % (11.5-14.5); RDW Standard Deviation 46.4 fL (36.4-46.3); Red Blood Count 3.48 M/uL (4.2-5.4); White Blood Count 10.01 K/uL (4.8-10.8)
[2021-09-10 08:41] LABS: BUN Creatinine Ratio 33.4 (10-20); Calcium 9.1 mg/dl (8.5-10.1); Creatinine Clr Calc Pharmacy 87.4 ml/min; Est GFR (African American) 115.2 ml/min; Est GFR (Non-African American) 99.4 ml/min; Magnesium 1.8 mg/dl (1.8-2.4); Phosphorus 2.3 mg/dl (2.5-4.9); Potassium 4.1 mmol/L (3.5-5.1)
[2021-09-10] MEDS: [UNRECOGNIZED DRUG - REMARK] PO SCH (09:37)
[2021-09-10] MEDS: PANTOprazole 40 MG TAB PO SCH (09:38)
[2021-09-10] MEDS: FLUTICASONE PROPIONATE NA SPR 16 GM BTL NAE SCH (09:38)
[2021-09-10] MEDS: amLODIPine BESYLATE 5 MG TAB PO SCH (09:38)
[2021-09-10] MEDS: lisinopril 10 MG TAB PO SCH (09:38)
[2021-09-10] MEDS: ENOXAPARIN INJ 40 MG/0.4 ML SYR SQ SCH (09:39)
--- NOTE | 2021-09-10 11:26 | Hospitalist Progress Note ---
Date of Service September 10, 2021 Assessment & Plan (1) Hypoxia: (2) Pneumonia due to COVID-19 virus: Plan: 71yo F with a PMH of CLL on chemotherapy, hypogammaglobinemia, hypertension, GERD, gastroparesis, chronic anemia (baseline hemoglobin 10), chronic thrombocytopenia, recent hip fracture, covid and other medical problems listed below who presents from [facility] with pleuritic chest pain and EKG changes. Covid PCR positive on previous admission (08/19/21). Covid PCR today positive Had been experiencing pleuritic chest pain and SOB while at [facility], EKG was reported to have shown new TWI in V1-V3 that have since resolved Chest CTA on admission without evidence of pulmonary embolism. Interval development of diffuse ground glass opacities in the lungs which may be seen in pneumonia Continue dexamethasone to complete treatment. Patient was treated with steroid for about 3 days during recent hospitalization Completed antibiotics Still requiring 5-6l/min nasal oxygen (3) Chest pain: Plan: Pleuritic chest pain, EKG changes at [facility] with TWI V1-V3 that have since resolved Chest pain resolved Initial troponin negative Monitor on telemetry (4) Hypokalemia: Plan: Initial K on admission 3.3 in setting of poor intake. Replaced Monitor with daily BMP K is 4 Phosp is 2.3 Mag is 1.8 Had 6 beat NSVT on tele overnight. Replete electrolytes and monitor (5) Hyponatremia: Plan: Na 130 (baseline ~ 133) in setting of poor PO intake Given fluids in ED Monitor with daily BMP Na is 132 (6) LLQ pain: Plan: Reports this is chronic intermittent Had a recent CT abd/p from 08/24/21. Reviewed this and it reported no changed in ?splenic laceration v infarct as seen in CT 08/20/21. This may explain abd tenderness XR abd this admission no acute findings Pain resolved (7) CLL (chronic lymphocytic leukemia): Plan: Ongoing therapy with ibrutinib Follows with Dr. Ariel Ortiz for oncology (8) Hypertension: Plan: Continue lisinopril, amlodipine (9) Anemia: Plan: No signs of bleeding Based on review, has been fluctuating 8-10 in the past month Monitor with daily CBC Possible Adjustment disorder/Depression Get psych consult Provided counselling May need pharmacological management Surgery consult to reeval recent left hip surgical site DVT Ppx: SQ Lovenox Code status: FULL PCP: Job Haider Admission and Anticipated Discharge Date Admission Date: September 04, 2021 Subjective 71-year-old woman with history of CLL on chemotherapy, hypogammaglobinemia, hypertension, GERD, gastroparesis, chronic anemia, chronic thrombocytopenia, recent hip fracture, Covid (08/19/21, got some days of dexa) who presents from [facility] with pleuritic chest pain and EKG changes Patient seen and examined this morning Reports fatigue Reports cough is better Still has shortness of breath She acknowledges depression today Has poor appetite Poorly motivated Review of Systems Constitutional: + fatigue and + anorexia Respiratory: + cough and + dyspnea Cardiovascular: no chest pain, no palpitations and no lightheadedness Gastrointestinal: no abdominal pain, no nausea, no vomiting and no diarrhea/loose stools Genitourinary: no dysuria, no urinary frequency and no urinary urgency Neurologic: + generalized weakness; no headache(s) and no confusion Psychiatric: + depression; no suicidal ideation, no homicidal ideation and no anxiety Physical Exam Constitutional: + well hydrated; no acute distress Eyes: PERRL, conjunctivae normal, anicteric sclerae ENMT: external ear and nose normal, oropharynx normal Respiratory: normal respiratory effort; no respiratory distress Gastrointestinal (Abdomen): normal bowel sounds, soft, nontender, no hepatosplenomegaly Neurologic: PERRL, EOMI, accommodation nl, no face palsy, no dysarthria Psychiatric: Orientation: alert and oriented x 3 Flat affect Results & Data Results & Data ([facility]) Vital Signs (Past 12 Hours) Vital Signs Temp Pulse Resp BP BP Pulse Ox 09/10/21 11:23 37.0 C 101 H 18 154/71 H 90 09/10/21 07:19 37.0 C 85 18 144/79 H 96 09/10/21 03:37 36.8 C 67 15 122/61 95 Laboratory Results Abnormal lab results 09/10/21 09/10/21 Range/Units 07:23 07:23 RBC 3.48 L (4.2-5.4) M/uL Hgb 9.4 L (12.0-16.0) g/dL Hct 28.5 L (37-47) % RDW Std Deviation 46.4 H (36.4-46.3) fL RDW Coeff of Ashanti 15.7 H (11.5-14.5) % MPV 11.2 H (7.4-10.4) fL Sodium 132 L (136-145) mmol/L Chloride 97 L (98-107) mmol/L Creatinine 0.47 L (0.6-1.2) mg/dl BUN/Creatinine Ratio 33.4 H (10-20) Phosphorus 2.3 L (2.5-4.9) mg/dl
[2021-09-10] MEDS: dexAMETHasone 6 MG in SYRINGE 0 ML IV SCH (13:35)
[2021-09-10] MEDS ORDERED: POT PHOSPHATE MONOBASIC W/ SOD TAB PO ONE (14:15)
[2021-09-10] MEDS ORDERED: MAGNESIUM SULFATE / D5W 1 GM/100 ML BAG IV SCH (14:15)
[2021-09-11 07:27] LABS: Hematocrit (blood only) 25.3 % (37-47); Hemoglobin 8.6 g/dL (12.0-16.0); Mean Corpuscular Volume 79.3 fL (80-100); Mean Platelet Volume 10.9 fL (7.4-10.4); Platelet Count 172 K/uL (130-400); RDW Coefficient of Variation 16.1 % (11.5-14.5); RDW Standard Deviation 46.9 fL (36.4-46.3); Red Blood Count 3.19 M/uL (4.2-5.4); White Blood Count 9.38 K/uL (4.8-10.8)
[2021-09-11 08:02] LABS: D Dimer 1390 ug/L FEU (0-500)
[2021-09-11 08:29] LABS: BUN Creatinine Ratio 43.8 (10-20); C Reactive Protein 6.25 mg/dl (0-0.29); Calcium 8.7 mg/dl (8.5-10.1); Creatinine Clr Calc Pharmacy 104.2 ml/min; Est GFR (African American) 122.5 ml/min; Est GFR (Non-African American) 105.7 ml/min; Potassium 3.8 mmol/L (3.5-5.1)
[2021-09-11] MEDS: oxyCODONE HCL IR 5 MG TAB (IMMEDIATE RELEASE) PO PRN (08:40)
[2021-09-11] MEDS: [UNRECOGNIZED DRUG - REMARK] PO SCH (08:41)
[2021-09-11] MEDS: amLODIPine BESYLATE 5 MG TAB PO SCH (08:43)
[2021-09-11] MEDS: ENOXAPARIN INJ 40 MG/0.4 ML SYR SQ SCH (08:43)
[2021-09-11 08:44] LABS: Phosphorus 3.2 mg/dl (2.5-4.9)
[2021-09-11] MEDS: lisinopril 10 MG TAB PO SCH (08:44)
[2021-09-11] MEDS: FLUTICASONE PROPIONATE NA SPR 16 GM BTL NAE SCH (08:44)
[2021-09-11] MEDS: PANTOprazole 40 MG TAB PO SCH (08:44)
[2021-09-11] MEDS: FERROUS SULFATE 325 MG TAB PO SCH (08:44)
--- NOTE | 2021-09-11 09:25 | Psychiatric Consultation ---
Date of Consultation September 11, 2021 Impression / Recommendations Impression 71 yo woman with multiple medical conditions including CLL on chemotherapy, HTN, chronic anemia and thrombocytopenia, recent hip fracture, and COVID infection admitted for chest pain and SOB. Psychiatry was consulted for depression. Diagnostically consistent with depression due to medical decompensation, if symptoms persist would meet criteria for MDD. In terms of acute risk of self- harm she is deemed to be low risk because although she is having mood symptoms, physical pain, chronic medical conditions and passive SI, she has no intent or plan, no hx of past attempts, no psychiatric hx, has many strong reasons to live, can safety plan,has many strong supports, remains hopeful and future- oriented and continues to have multiple interests/things that bring her nixon. Chronic risk is moderate given potential for worsening depression if it is untreated or should physical pain symptoms not improve or worsen. Most significant modifiable factor is treating her ongoing medical conditions as well as providing additional therapeutic resources and option for medication. Given her hyponatremia and history of anemia with GI bleed antidepressant medication must be used cautiously with close monitoring of CBC and electrolytes. Once hyponatremia resolves could consider starting mirtazapine as this is one of the antidepressants least likely to cause hyponatremia and should help with her sleep and improve appetite. (1) Depression due to physical illness: -consider starting mirtazapine 15 mg qhs for depression once hyponatremia resolves, Na+ and CBC should continue to be monitored closely while on mirtazapine -she is interested in resources for therapy so we'll provide this -We'll reach out to her to discuss removing or securing guns in the home -reviewed crisis resources and safety plan should SI worsen or should she begin to feel unsafe -psych liason will continue to follow to provide support Risk Factors Assessment Do You Have Access To A Gun?: Yes (at home) Telehealth Telehealth Options: Telephone only For the duration of the visit, provider was performing the assessment from: The same facility as the patient After establishing a telemedicine visit, patient was: Patient was verified with two unique identifiers, Patient/authorized rep acknowledged consent and understanding and Gave permission to continue telehealth session Total Time Spent (minutes): 25 Psych History Identifying Data 71 yo woman with multiple medical conditions including CLL on chemotherapy, HTN, chronic anemia and thrombocytopenia, recent hip fracture, and COVID infection admitted for chest pain and SOB. Psychiatry was consulted for depression. Chief Complaint "It's been tough". History of Present Illness Tina endorses worsening depression over the last few days which she attributes to physical pain and medical decompensation as a result of recent hip fracture, COVID and breathing difficulty. She has been having trouble sleeping, decreased appetite, low energy, low motivation and depressed mood. She does continue to enjoy certain activities like watching TV while in the hospital and looks forward to resuming activities of crafts including embroidery and crocheting once she returns home. She isn't sure how much longer she'll be in the hospital but knows that after that she'll go to acute rehab and then home where she lives with her . Reviewed information she shared with psych liason last night in note 09/10: "Talked to Tina on the phone in order to complete initial assessment. Pt was pleasant and cooperative throughout assessment. She states that she has been feeling a little depressed since getting Covid, stating "I am just down in the dumps and don't know if I can get better." Pt denies having depressive feelings/thoughts like this ever before. Assessment and PHQ-9 completed. Pt scored an 11 on the PHQ-9 reporting that she has trouble falling asleep, has very little energy, feels bad about self, feels she is letting people down, and is feeling down/depressed. She reports that she has had thoughts that she would be better off , or of hurting self several days out of the last two weeks. She reports no known family psychiatric history, drug/alcohol abuse, or suicide. She states that her biggest support is her family and specifically her brother Jose Juan whom she lives with. She reported no legal trouble or trauma. Pt has not seen a psychiatrist or a therapist before. She stated that she is possibly interested in seeing a therapist. She has had no prior psychiatric inpatient treatment, no prior SIB or attempts, no history of violence or impu lsivity. She does have access to guns in her home. Pt stated that she did not need anything currently but was told that if anything came up, or she needed someone to talk to she could ask to talk to [facility] liaison." Today she reports slightly depressed mood. She has been experiencing intermittent passive SI, on average once daily that lasts about one hour. Denies active SI, no intent, no plan. No history of any prior suicide attempts. No psychiatric history. She's interested in therapy resources and appreciates support while here in the hospital. States many reasons to live including her two adult children and two granddaughters. Feels she has good support from her family. Feels safe in the hospital, feels she can continue to remain safe. Doesn't feel that she needs more support or resources to be safe. Denies any need for psychiatric hospitalization. Feels that if her SI were to worsen that she would talk to staff here in the hospital or once at home would talk to her or children. Reviewed that she could always call 911 or come to the ED if she felt unable to remain safe which she agreed to do should it ever occur. She would be interested in starting a medication to help with the depression. Discussed that her has guns in the home and she's agreeable to having us contact her to see if he will remove or secure these before she gets home. No hx psychotic symptoms, no hx tian. No hx self-care. No substance use hx. No significant family psych history. Past Psychiatric History Previous Psych History: see HPI Do You Have Access To A Gun?: Yes (at home) History of Previous Suicide Attempt: No Past Medication Trials: none Allergies Allergy/AdvReac Type Severity Reaction Status Date / Time Penicillins Allergy Unknown Verified 09/04/21 10:08 Home Medications Medication Instructions Recorded Confirmed Type fluticasone propionate 50 2 spray INTRANASAL DAILY 12/20/18 09/04/21 History mcg/actuation nasal spray,suspension peg 400-propylene glycol (PF) 0.4 1 drp OPB BID PRN 12/20/18 09/04/21 History %-0.3 % eye drops in a dropperette (Systane (PF)) allopurinol 100 mg tablet 100 mg PO DAILY PRN 08/20/21 09/04/21 History amlodipine 10 mg tablet 10 mg PO DAILY 08/20/21 09/04/21 History azelastine 137 mcg (0.1 %) nasal 2 spray INTRANASAL BID 08/20/21 09/04/21 History spray aerosol ferrous sulfate 325 mg (65 mg 325 mg PO Q OTHER DAY 08/20/21 09/04/21 History iron) tablet (FeroSul) ibrutinib 420 mg tablet (Imbruvica) 420 mg PO DAILY 08/20/21 09/04/21 History lisinopril 40 mg tablet 40 mg PO DAILY 08/20/21 09/04/21 History ondansetron HCl 4 mg tablet 4 mg PO Q6 PRN 08/20/21 09/04/21 History acetaminophen 325 mg tablet 650 mg PO Q6H PRN #30 tab 08/31/21 09/04/21 Rx docusate sodium 100 mg capsule 100 mg PO BID PRN #60 cap 08/31/21 09/04/21 Rx enoxaparin 30 mg/0.3 mL 30 mg SUBCUT Q24H 30 Days #9 ml 08/31/21 09/04/21 Rx subcutaneous syringe (Lovenox) nystatin 100,000 unit/mL oral 10 ml PO QID 5 Days #200 ml 08/31/21 09/04/21 Rx suspension oxycodone 5 mg tablet 5 mg PO Q8H PRN #10 tab 08/31/21 09/04/21 Rx phenol 1.4 % mucosal aerosol spray 2 spray MT Q6H PRN 5 Days #177 ml 08/31/21 09/04/21 Rx (Sore Throat (phenol)) nystatin 100,000 unit/mL oral 10 ml PO DAILY 09/04/21 09/04/21 History suspension pantoprazole 40 mg tablet,delayed 40 mg PO DAILY 09/04/21 09/04/21 History release Personal History Living Arrangements: Home Marital Status: Number Of Children: 2 Beliefs That Will Affect Care: None Patient History Medical History Anemia CLL (chronic lymphocytic leukemia) Closed hip fracture GERD (gastroesophageal reflux disease) Hypertension Splenic laceration Thrombocytopenia UGIB (upper gastrointestinal bleed) Surgical History H/O endoscopy Hip fracture requiring operative repair Family History Other Diabetes Heart disease Social History Smoking Status: Never smoker Hx Alcohol Use: No Hx Substance Use: No Preferred Language: Occitan Communication Ability: Effective Photo Manager Required: No Beliefs That Will Affect Care: None Current Living Situation: Rehab Feels Safe at Home: Yes Safety Concerns: Feels Safe At This Time Assistive Devices: Oxygen - Continuous Physical Exam Psychiatric: Orientation: alert and oriented x 3 Speech: normal rate/rhythm/volume of speech Mood: + depressed mood Thought Process: l inear/logical thought process Thought Content: reality based without delusions Suicidal Thoughts: denies suicidal plan and denies suicidal intent; + reports suicidal thoughts Homicidal Thoughts: denies homicidal thoughts Hallucinations: no auditory hallucinations and no visual hallucinations Cognition: recent memory grossly intact, remote memory grossly intact, attention grossly intact and language grossly intact Estimated Intelligence: consistent with education level Insight: good insight Judgement: good judgement Vital Signs (Past 24 Hours): Last Vital Signs Temp 36.6 C 09/11/21 06:22 Pulse 71 09/11/21 06:22 Resp 25 H 09/11/21 06:22 BP 120/69 09/11/21 06:22 Pulse Ox 97 09/11/21 06:22 Review of Systems All systems reviewed & are unremarkable except as noted in HPI & below (describes body pain "all over", see HPI for other positives) Results & Data (PSY) Laboratory Results Na+ 129 on 09/11 WBC nml Plt count nml Medications Administered Acetaminophen (Acetaminophen 325 Mg Tab) 650 mg PO Q4H PRN PRN Reason: Pain or Fever Stop: 10/04/21 14:09 Last Admin: 09/09/21 19:23 Dose: 650 mg Documented by: [id number] Admin: 09/09/21 08:02 Dose: 650 mg Documented by: [id number] Amlodipine Besylate (Amlodipine Besylate 5 Mg Tab) 2.5 mg PO DAILY [facility] Stop: 10/07/21 08:59 Last Admin: 09/11/21 08:43 Dose: 2.5 mg Documented by: [id number] Admin: 09/10/21 09:38 Dose: 2.5 mg Documented by: [id number] Admin: 09/09/21 07:55 Dose: 2.5 mg Documented by: [id number] Admin: 09/08/21 08:52 Dose: 2.5 mg Documented by: [id number] Admin: 09/07/21 09:01 Dose: 2.5 mg Documented by: [id number] Enoxaparin Sodium (Enoxaparin Inj 40 Mg/0.4 Ml Syr) 40 mg SQ QAM [facility] Stop: 10/05/21 08:59 Last Admin: 09/11/21 08:43 Dose: 40 mg Documented by: [id number] Admin: 09/10/21 09:39 Dose: 40 mg Documented by: [id number] Admin: 09/09/21 07:54 Dose: 40 mg Documented by: [id number] Admin: 09/08/21 08:54 Dose: 40 mg Documented by: [id number] Admin: 09/07/21 09:02 Dose: 40 mg Documented by: [id number] Admin: 09/06/21 09:09 Dose: 40 mg Documented by: [id number] Admin: 09/05/21 09:26 Dose: 40 mg Documented by: [id number] Ferrous Sulfate (Ferrous Sulfate 325 Mg Tab) 325 mg PO Q2D@0900 [facility] Stop: 10/05/21 08:59 Last Admin: 09/11/21 08:44 Dose: 325 mg Documented by: [id number] Admin: 09/09/21 07:55 Dose: 325 mg Documented by: [id number] Admin: 09/07/21 09:01 Dose: 325 mg Documented by: [id number] Admin: 09/05/21 09:27 Dose: 325 mg Documented by: [id number] Fluticasone Propionate (Fluticasone Propionate Na Spr 16 Gm Btl) 2 sprays JELENA DAILY [facility] Stop: 10/05/21 08:59 Last Admin: 09/11/21 08:44 Dose: 2 sprays Documented by: [id number] Admin: 09/10/21 09:38 Dose: 2 sprays Documented by: [id number] Admin: 09/09/21 07:55 Dose: 2 sprays Documented by: [id number] Admin: 09/08/21 08:52 Dose: 2 sprays Documented by: [id number] Admin: 09/07/21 09:01 Dose: 2 sprays Documented by: [id number] Admin: 09/06/21 09:08 Dose: 2 sprays Documented by: [id number] Admin: 09/05/21 09:27 Dose: 2 sprays Documented by: [id number] Dexamethasone 6 mg/ Syringe 1.5 mls @ 1 mls/min IV Q24H [facility] Stop: 09/14/21 13:29 Last Admin: 09/10/21 13:35 Dose: 1 mls/min Documented by: [id number] Admin: 09/09/21 13:06 Dose: 1 mls/min Documented by: [id number] Admin: 09/08/21 13:05 Dose: 1 mls/min Documented by: [id number] Admin: 09/07/21 12:38 Dose: 1 mls/min Documented by: [id number] Admin: 09/06/21 12:44 Dose: 1 mls/min Documented by: [id number] Admin: 09/05/21 13:14 Dose: 1 mls/min Documented by: [id number] Admin: 09/04/21 14:57 Dose: 1 mls/min Documented by: [id number] Lisinopril (Lisinopril 10 Mg Tab) 10 mg PO DAILY [facility] Stop: 10/07/21 08:59 Last Admin: 09/11/21 08:44 Dose: 10 mg Documented by: [id number] Admin: 09/10/21 09:38 Dose: 10 mg Documented by: [id number] Admin: 09/09/21 07:55 Dose: 10 mg Documented by: [id number] Admin: 09/08/21 08:53 Dose: 10 mg Documented by: [id number] Admin: 09/07/21 09:01 Dose: 10 mg Documented by: [id number] *Ibrutinib [ Imbruvica]*Non-Form Patient's Own Med 1 ea PO DAILY [facility] Stop: 10/07/21 08:59 Last Admin: 09/11/21 08:41 Dose: 1 tab Documented by: [id number] Admin: 09/10/21 09:37 Dose: 1 tab Documented by: [id number] Admin: 09/09/21 07:56 Dose: 1 tab Documented by: [id number] Admin: 09/08/21 08:56 Dose: 1 tab Documented by: [id number] Admin: 09/07/21 09:53 Dose: 1 tab Documented by: [id number] Nystatin (Nystatin Powder 15gm Btl) 1 appln EXT BID PRN PRN Reason: Rash Stop: 10/06/21 18:40 Last Admin: 09/06/21 21:55 Dose: 1 appln Documented by: [id number] Ondansetron HCl (Ondansetron Inj 2 Mg/Ml 2 Ml Vial) 4 mg IV Q6H PRN PRN Reason: Nausea Stop: 10/04/21 14:09 Last Admin: 09/08/21 14:27 Dose: 4 mg Documented by: [id number] Admin: 09/07/21 17:49 Dose: 4 mg Documented by: [id number] Admin: 09/06/21 16:20 Dose: 4 mg Documented by: [id number] Admin: 09/04/21 18:28 Dose: 4 mg Documented by: [id number] Oxycodone HCl (Oxycodone Hcl Ir 5 Mg Tab (Immediate Release)) 5 mg PO Q8H PRN PRN Reason: moderate to severe pain Stop: 09/18/21 15:08 Last Admin: 09/11/21 08:40 Dose: 5 mg Documented by: [id number] Admin: 09/10/21 22:52 Dose: 5 mg Documented by: [id number] Admin: 09/10/21 07:32 Dose: 5 mg Documented by: [id number] Admin: 09/09/21 21:25 Dose: 5 mg Documented by: [id number] Admin: 09/09/21 13:10 Dose: 5 mg Documented by: [id number] Admin: 09/09/21 00:17 Dose: 5 mg Documented by: [id number] Admin: 09/08/21 03:49 Dose: 5 mg Documented by: [id number] Admin: 09/07/21 18:41 Dose: 5 mg Documented by: [id number] Admin: 09/07/21 07:32 Dose: 5 mg Documented by: [id number] Admin: 09/06/21 03:09 Dose: 5 mg Documented by: [id number] Admin: 09/05/21 13:14 Dose: 5 mg Documented by: [id number] Pantoprazole Sodium (Pantoprazole 40 Mg Tab) 40 mg PO DAILY [facility] Stop: 10/05/21 08:59 Last Admin: 09/11/21 08:44 Dose: 40 mg Documented by: [id number] Admin: 09/10/21 09:38 Dose: 40 mg Documented by: [id number] Admin: 09/09/21 07:55 Dose: 40 mg Documented by: [id number] Admin: 09/08/21 08:53 Dose: 40 mg Documented by: [id number] Admin: 09/07/21 09:01 Dose: 40 mg Documented by: [id number] Admin: 09/06/21 09:09 Dose: 40 mg Documented by: [id number] Admin: 09/05/21 09:27 Dose: 40 mg Documented by: [id number] Phenol (Chloraseptic 1.4% Soln 180 Ml Btl) 2 sprays MT Q6H PRN PRN Reason: sore mouth Stop: 10/04/21 15:08 Last Admin: 09/05/21 09:25 Dose: 2 sprays Documented by: [id number] Coding Level of Care Code 67806 Inpt Consult Level 2 Diagnoses Depression due to physical illness F06.31 Time Spent (min) 40
[2021-09-11] MEDS: ONDANSETRON INJ 2 MG/ML 2 ML VIAL IV PRN (13:17)
[2021-09-11] MEDS: dexAMETHasone 6 MG in SYRINGE 0 ML IV SCH (13:21)
--- NOTE | 2021-09-11 16:15 | Hospitalist Progress Note ---
Date of Service September 11, 2021 Assessment & Plan (1) Hypoxia: (2) Pneumonia due to COVID-19 virus: Plan: 71yo F with a PMH of CLL on chemotherapy, hypogammaglobinemia, hypertension, GERD, gastroparesis, chronic anemia (baseline hemoglobin 10), chronic thrombocytopenia, recent hip fracture, covid and other medical problems listed below who presents from [facility] with pleuritic chest pain and EKG changes. Covid PCR positive on previous admission (08/19/21). Covid PCR today positive Had been experiencing pleuritic chest pain and SOB while at [facility], EKG was reported to have shown new TWI in V1-V3 that have since resolved Chest CTA on admission without evidence of pulmonary embolism. Interval development of diffuse ground glass opacities in the lungs which may be seen in pneumonia Continue dexamethasone to complete treatment. Patient was treated with steroid for about 3 days during recent hospitalization Completed antibiotics Oxygen requirement reduced to 4l/min today (3) Chest pain: Plan: Pleuritic chest pain, EKG changes at [facility] with TWI V1-V3 that have since resolved Chest pain resolved Initial troponin negative Monitor on telemetry (4) Hypokalemia: Plan: Initial K on admission 3.3 in setting of poor intake. Replaced Monitor with daily BMP K is 3.8 Phosp is 3.2 Mag is 2 (5) Hyponatremia: Plan: Na 130 (baseline ~ 133) in setting of poor PO intake Given fluids in ED Monitor with daily BMP Na is 129 Nephrology consult to help with hyponatremia management (6) LLQ pain: Plan: Reports this is chronic intermittent Had a recent CT abd/p from 08/24/21. Reviewed this and it reported no changed in ?splenic laceration v infarct as seen in CT 08/20/21. This may explain abd tenderness XR abd this admission no acute findings Pain resolved (7) CLL (chronic lymphocytic leukemia): Plan: Ongoing therapy with ibrutinib Follows with Dr. Ariel Ortiz for oncology (8) Hypertension: Plan: Continue lisinopril, amlodipine (9) Anemia: Plan: No signs of bleeding Based on review, has been fluctuating 8-10 in the past month Monitor with daily CBC Major Depression Psych consult appreciated Psych recommend starting mirtazapine once hyponatremia is controlled Nephrology consulted Surgery consult to reeval recent left hip surgical site DVT Ppx: SQ Lovenox Code status: FULL PCP: Job Haider Admission and Anticipated Discharge Date Admission Date: September 04, 2021 Subjective 71-year-old woman with history of CLL on chemotherapy, hypogammaglobinemia, hypertension, GERD, gastroparesis, chronic anemia, chronic thrombocytopenia, recent hip fracture, Covid (08/19/21, got some days of dexa) who presents from [facility] with pleuritic chest pain and EKG changes Patient seen and examined this morning Reports fatigue,some cough, shortness of breath Reports poor appetite Acknowledges depression. Denied SI or HI to me Review of Systems Constitutional: + fatigue and + anorexia Respiratory: + cough and + dyspnea Cardiovascular: no chest pain, no palpitations and no lightheadedness Gastrointestinal: no abdominal pain, no nausea, no vomiting and no diarrhea/loose stools Genitourinary: no dysuria, no urinary frequency and no urinary urgency Neurologic: + generalized weakness; no headache(s) and no confusion Psychiatric: + depression; no suicidal ideation, no homicidal ideation and no anxiety Physical Exam Constitutional: + well hydrated; no acute distress Eyes: PERRL, conjunctivae normal, anicteric sclerae ENMT: external ear and nose normal, oropharynx normal Respiratory: normal respiratory effort; no respiratory distress Diminished breath sounds On nasal cannula Cardiovascular: RRR S1 S2 Gastrointestinal (Abdomen): normal bowel sounds, soft, nontender, no hepatosplenomegaly Musculoskeletal: No pedal edema Neurologic: PERRL, EOMI, accommodation nl, no face palsy, no dysarthria Psychiatric: A+Ox3, euthymic affect Orientation: alert and oriented x 3 Results & Data Results & Data ([facility]) Vital Signs (Past 12 Hours) Vital Signs Temp Pulse Pulse Resp BP BP Pulse Ox 09/11/21 15:00 36.6 C 91 H 18 115/64 90 09/11/21 11:09 36.3 C L 88 19 116/66 95 09/11/21 08:00 73 09/11/21 06:22 36.6 C 71 25 H 120/69 97 Laboratory Results Abnormal lab results 09/11/21 09/11/21 09/11/21 Range/Units 06:51 06:51 06:51 RBC 3.19 L (4.2-5.4) M/uL Hgb 8.6 L (12.0-16.0) g/dL Hct 25.3 L (37-47) % MCV 79.3 L (80-100) fL RDW Std Deviation 46.9 H (36.4-46.3) fL RDW Coeff of Ashanti 16.1 H (11.5-14.5) % MPV 10.9 H (7.4-10.4) fL D-Dimer 1390 H* (0-500) ug/L FEU Sodium 129 L (136-145) mmol/L Chloride 94 L (98-107) mmol/L Creatinine 0.39 L (0.6-1.2) mg/dl BUN/Creatinine Ratio 43.8 H (10-20) C-Reactive Protein 6.25 H (0-0.29) mg/dl
[2021-09-11] MEDS: UREA (UREA-NA) 15 GM PACK PO SCH ×2 (17:08→19:51)
--- NOTE | 2021-09-11 21:27 | Consultation Report ---
NEPHROLOGY CONSULTATION NOTE DATE OF CONSULTATION: 09/11/2021. REASON FOR CONSULTATION: Hyponatremia. HISTORY OF PRESENT ILLNESS: The patient is a 71-year-old female who was admitted to the hospital 5 days ago. She was sent over from [facility] because of pleuritic chest pain and EKG changes. The patient was noted to have significant electrolyte imbalance including low potassium, low sodium and low phosphorus. It is worth noting the patient does have some mild chronic hyponatremia also. Since admission, she has received some IV fluid, but not currently. She is COVID-19 positive and also has COVID- 19 pneumonia requiring oxygen. Her oral intake of food is extremely low and it appears she is basically eating applesauce at this time. She is unable to eat solid food because she has some nausea and very poor appetite. Kidney function is normal with a low BUN. Serum sodium has been in the fairly tight range between 128 and 132 since admission. This morning it was 129, urine osmolality was inappropriately high at 555 and urine sodium was 77. PAST MEDICAL AND SURGICAL HISTORY: Includes chronic lymphocytic leukemia on chemotherapy ibrutinib, hypogammaglobulinemia, hypertension, GERD, gastroparesis, chronic anemia, baseline hemoglobin 10, chronic thrombocytopenia, recent hip fracture, COVID-19 infection, recent hip fracture surgery, history of upper GI bleed, history of splenic laceration. FAMILY HISTORY: Negative for renal disease or dialysis. ALLERGIES: PENICILLIN. MEDICATIONS: Home medication list was reviewed in detail. She was not on any diuretics and was not on any medication known to cause hyponatremia. SOCIAL HISTORY: No smoking, no alcohol. She is and lives with her spouse. She uses oxygen continuous and a walker. REVIEW OF SYSTEMS: Besides what is listed in HPI. Twelve systems reviewed and negative. Positive review of systems includes chest pain, poor appetite, nausea, some vomiting. PHYSICAL EXAMINATION: GENERAL: Elderly white female who appears chronically malnourished and ill. VITAL SIGNS: Blood pressure is 116/66, pulse rate 88, temperature 36.3, 95% on 4 liters nasal cannula. Mucous membrane is dry. NECK: Supple. No jugular venous distention. CHEST: Bilateral decreased breath sounds, poor inspiratory effort limited quality exam. HEART: S1 and S2, regular. ABDOMEN: Soft, nontender. EXTREMITIES: Show no edema. LABORATORY TEST: Reviewed in detail. Urine osmolality 555. Urine sodium 77. Serum sodium 129, potassium 3.8, BUN 17, creatinine 0.39. Phosphorus 3.2, magnesium 2.0, hemoglobin 8.6, WBC count 9.38, platelet count 172. ASSESSMENT AND PLAN: A 71-year-old female admitted with COVID-19 pneumonia. I have been consulted for hyponatremia. Hyponatremia: This is a combination of underlying syndrome of inappropriate antidiuretic hormone secretion given very high and inappropriate urine osmolality of 555 with a urine sodium of 77, but she also has a significant component of tea and toast syndrome given that her current diet is very, very low in protein. She says she can only eat applesauce at this time, which obviously does not provide enough protein and can in itself can cause a low serum sodium. Fortunately, the hyponatremia problem is fairly mild at this time and is not at a level to cause significant problem. RECOMMENDATION: 1. Urea 15 g b.i.d. 2. Fluid restriction. Continue at 1500 mL per day. 3. If the serum sodium gets worse tomorrow, I will do IV Lasix with normal saline tomorrow. 4. At this point, we can do labs once daily. 5. I will continue to follow. 6. It is quite possible that she will have chronic mild hyponatremia for the foreseeable future given her very poor oral solid food intake and prior mild hyponatremia. Job ID: [id number] [facility]
--- NOTE | 2021-09-12 06:36 | Orthopedic Consultation ---
Date of Consultation September 12, 2021 Assessment & Plan (1) Hip fracture, left: Patient is 3 weeks status post left hip bipolar hemiarthroplasty. Incision appears benign. She has no erythema or drainage. Sarmad can be removed and Steri-Strips applied. She can be weightbearing as tolerated. DVT prophylaxis is Lovenox. Patient can follow-up with Dr. Sánchez's office in 4 weeks for reevaluation and new x-rays. She can call [phone] for an appointment. History of Present Illness Reason for Consultation: Left hip reeval surgical site Requesting Physician: Poonam Bill MD Attending Physician: Poonam Bonilla MD History of Present Illness Patient is 71-year-old female with past medical history significant for CLL, anemia, hypertension, thrombocytopenia recent left hip fracture, Covid pneumonia. She previously was admitted with COVID-19 last month after suffering a fall and sustaining a left hip fracture. She underwent left bipolar hemiarthroplasty. Postoperative course was uneventful. She is discharged home [facility]. Last week patient reported increasing pleuritic type chest pain and respiratory distress. She is readmitted for Covid pneumonia. We have been asked to reevaluate patient in regards to her left hip. Patient states her hip is sore and is having pain in her hip. Otherwise no complaints. No fever/chills, chest pain, nausea/vomiting. Allergies Allergy/AdvReac Type Severity Reaction Status Date / Time Penicillins Allergy Unknown Verified 09/04/21 10:08 Home Medications Medication Instructions Recorded Confirmed Type fluticasone propionate 50 2 spray INTRANASAL DAILY 12/20/18 09/04/21 History mcg/actuation nasal spray,suspension peg 400-propylene glycol (PF) 0.4 1 drp OPB BID PRN 12/20/18 09/04/21 History %-0.3 % eye drops in a dropperette (Systane (PF)) allopurinol 100 mg tablet 100 mg PO DAILY PRN 08/20/21 09/04/21 History amlodipine 10 mg tablet 10 mg PO DAILY 08/20/21 09/04/21 History azelastine 137 mcg (0.1 %) nasal 2 spray INTRANASAL BID 08/20/21 09/04/21 History spray aerosol ferrous sulfate 325 mg (65 mg 325 mg PO Q OTHER DAY 08/20/21 09/04/21 History iron) tablet (FeroSul) ibrutinib 420 mg tablet (Imbruvica) 420 mg PO DAILY 08/20/21 09/04/21 History lisinopril 40 mg tablet 40 mg PO DAILY 08/20/21 09/04/21 History ondansetron HCl 4 mg tablet 4 mg PO Q6 PRN 08/20/21 09/04/21 History acetaminophen 325 mg tablet 650 mg PO Q6H PRN #30 tab 08/31/21 09/04/21 Rx docusate sodium 100 mg capsule 100 mg PO BID PRN #60 cap 08/31/21 09/04/21 Rx enoxaparin 30 mg/0.3 mL 30 mg SUBCUT Q24H 30 Days #9 ml 08/31/21 09/04/21 Rx subcutaneous syringe (Lovenox) nystatin 100,000 unit/mL oral 10 ml PO QID 5 Days #200 ml 08/31/21 09/04/21 Rx suspension oxycodone 5 mg tablet 5 mg PO Q8H PRN #10 tab 08/31/21 09/04/21 Rx phenol 1.4 % mucosal aerosol spray 2 spray MT Q6H PRN 5 Days #177 ml 08/31/21 09/04/21 Rx (Sore Throat (phenol)) nystatin 100,000 unit/mL oral 10 ml PO DAILY 09/04/21 09/04/21 History suspension pantoprazole 40 mg tablet,delayed 40 mg PO DAILY 09/04/21 09/04/21 History release Patient History Medical History Anemia CLL (chronic lymphocytic leukemia) Closed hip fracture GERD (gastroesophageal reflux disease) Hypertension Splenic laceration Thrombocytopenia UGIB (upper gastrointestinal bleed) Surgical History H/O endoscopy Hip fracture requiring operative repair Family History Other Diabetes Heart disease Social History Smoking Status: Never smoker Hx Alcohol Use: No Hx Substance Use: No Preferred Language: Ecuadorean Communication Ability: Effective Geothermal Hvac Technician Required: No Beliefs That Will Affect Care: None Current Living Situation: Rehab Feels Safe at Home: Yes Safety Concerns: Feels Safe At This Time Assistive Devices: Glasses and Oxygen - Continuous Review of Systems Review of Systems: All systems reviewed & are unremarkable except as noted in HPI & below Physical Exam Constitutional: + ill appearing; no acute distress ENMT: external ear and nose normal, oropharynx normal Respiratory: normal respiratory effort; no respiratory distress Cardiovascular: Rate/Rhythm: regular rate and regular rhythm Musculoskeletal: Left hip: Incision is healing well. No erythema or drainage. Sarmad are intact. Mild tenderness to left hip. No significant swelling or ecchymosis. She has no calf tenderness. Toes are mobile. No pain with gentle logroll or gentle passive hip flexion and internal/external rotation. Distally neurovascular status and sensation are intact. Results & Data ([facility]) Vital Signs (Past 12 Hours) Vital Signs Temp Pulse Resp BP Pulse Ox 09/12/21 03:15 36.5 C 79 19 151/79 H 88 L 09/11/21 22:44 36.4 C L 62 20 124/64 94 09/11/21 20:57 36.8 C 75 18 110/64 93 Laboratory Results Lab Results 09/04/21 09/04/21 09/04/21 Range/Units 09:11 09:11 09:11 WBC 38.93 H* (4.8-10.8) K/uL RBC 3.82 L (4.2-5.4) M/uL Hgb 10.3 L (12.0-16.0) g/dL Hct 30.9 L (37-47) % MCV 80.9 (80-100) fL MCH 27.0 (25-34) pg MCHC 33.3 (32-36) g/dL RDW Std Deviation 47.7 H (36.4-46.3) fL RDW Coeff of Ashanti 16.2 H (11.5-14.5) % Plt Count 271 (130-400) K/uL MPV 11.2 H (7.4-10.4) fL Immature Gran % (Auto) 0.1 % Neut % (Auto) 13.5 % Lymph % (Auto) 86.0 % [place] % (Auto) 0.1 % Eos % (Auto) 0.2 % Baso % (Auto) 0.1 % Neut # (Auto) 5.29 (1.4-6.5) K/uL Lymph # (Auto) 33.49 H (1.2-3.4) K/uL [place] # (Auto) 0.02 L (0.11-0.59) K/uL Eos # (Auto) 0.06 (0-0.5) K/uL Baso # (Auto) 0.03 (0-0.2) K/uL Immature Gran # (Auto) 0.04 H (0.00-0.02) K/uL Smudge Cells Present Microcytosis Ovalocytes Echinocytes D-Dimer (0-500) ug/L FEU ABG pH (7.35-7.45) ABG pCO2 (35-46) mmHg ABG pO2 (80-95) mmHg ABG HCO3 (19-24) mmol/L ABG O2 Saturation (90-95) % ABG Base Excess (-9-1.8) mEq/L Collin Test (Pos) Barometric Pressure mm/Hg Oxygen Given Sodium 130 L (136-145) mmol/L Potassium 3.3 L (3.5-5.1) mmol/L Chloride 96 L (98-107) mmol/L Carbon Dioxide 26 (21-32) mmol/L Anion Gap 8.0 (3-11) BUN 23 H (7-18) mg/dl Creatinine 0.69 (0.6-1.2) mg/dl Est Cr Clr Drug Dosing 61.0 ml/min Est GFR ( Amer) 101.5 ml/min Est GFR (Non-Af Amer) 87.6 ml/min BUN/Creatinine Ratio 33.1 H (10-20) Glucose 96 (70-99) mg/dl Osmolality (280-300) mOsm/kg Calcium 9.0 (8.5-10.1) mg/dl Phosphorus (2.5-4.9) mg/dl Magnesium (1.8-2.4) mg/dl Total Bilirubin 0.5 (0.2-1) mg/dl AST 31 (15-37) U/L ALT 26 (12-78) U/L Alkaline Phosphatase 60 (45-117) U/L Troponin I < 0.015 (0-0.045) ng/ml C-Reactive Protein 5.78 H (0-0.29) mg/dl Total Protein 6.3 L (6.4-8.2) gm/dl Albumin 2.1 L (3.4-5.0) gm/dl Globulin 4.2 H (2.5-4.0) gm/dl Albumin/Globulin Ratio 0.5 L (0.9-2) Lipase 193 (73-393) U/L Procalcitonin (0-0.5) ng/ml Urine Osmolality (500-800) mOsm/kg Ur Random Sodium mmol/L Nasal Screen MRSA (PCR) (Negative) COVID-19 Eval Order SARS-CoV-2 (PCR) (Negative) 09/04/21 09/04/21 09/04/21 Range/Units 09:58 09:58 12:31 WBC (4.8-10.8) K/uL RBC (4.2-5.4) M/uL Hgb (12.0-16.0) g/dL Hct (37-47) % MCV (80-100) fL MCH (25-34) pg MCHC (32-36) g/dL RDW Std Deviation (36.4-46.3) fL RDW Coeff of Ashanti (11.5-14.5) % Plt Count (130-400) K/uL MPV (7.4-10.4) fL Immature Gran % (Auto) % Neut % (Auto) % Lymph % (Auto) % [place] % (Auto) % Eos % (Auto) % Baso % (Auto) % Neut # (Auto) (1.4-6.5) K/uL Lymph # (Auto) (1.2-3.4) K/uL [place] # (Auto) (0.11-0.59) K/uL Eos # (Auto) (0-0.5) K/uL Baso # (Auto) (0-0.2) K/uL Immature Gran # (Auto) (0.00-0.02) K/uL Smudge Cells Microcytosis Ovalocytes Echinocytes D-Dimer (0-500) ug/L FEU ABG pH (7.35-7.45) ABG pCO2 (35-46) mmHg ABG pO2 (80-95) mmHg ABG HCO3 (19-24) mmol/L ABG O2 Saturation (90-95) % ABG Base Excess (-9-1.8) mEq/L Collin Test (Pos) Barometric Pressure mm/Hg Oxygen Given Sodium (136-145) mmol/L Potassium (3.5-5.1) mmol/L Chloride (98-107) mmol/L Carbon Dioxide (21-32) mmol/L Anion Gap (3-11) BUN (7-18) mg/dl Creatinine (0.6-1.2) mg/dl Est Cr Clr Drug Dosing ml/min Est GFR ( Amer) ml/min Est GFR (Non-Af Amer) ml/min BUN/Creatinine Ratio (10-20) Glucose (70-99) mg/dl Osmolality (280-300) mOsm/kg Calcium (8.5-10.1) mg/dl Phosphorus (2.5-4.9) mg/dl Magnesium (1.8-2.4) mg/dl Total Bilirubin (0.2-1) mg/dl AST (15-37) U/L ALT (12-78) U/L Alkaline Phosphatase (45-117) U/L Troponin I (0-0.045) ng/ml C-Reactive Protein (0-0.29) mg/dl Total Protein (6.4-8.2) gm/dl Albumin (3.4-5.0) gm/dl Globulin (2.5-4.0) gm/dl Albumin/Globulin Ratio (0.9-2) Lipase (73-393) U/L Procalcitonin 0.17 (0-0.5) ng/ml Urine Osmolality (500-800) mOsm/kg Ur Random Sodium mmol/L Nasal Screen MRSA (PCR) (Negative) COVID-19 Eval Order Covid19 at [facility] SARS-CoV-2 (PCR) POSITIVE A* (Negative) 09/05/21 09/05/21 09/05/21 Range/Units 07:26 07:26 12:15 WBC 30.84 H* (4.8-10.8) K/uL RBC 3.27 L (4.2-5.4) M/uL Hgb 8.7 L (12.0-16.0) g/dL Hct 26.5 L (37-47) % MCV 81.0 (80-100) fL MCH 26.6 (25-34) pg MCHC 32.8 (32-36) g/dL RDW Std Deviation 47.8 H (36.4-46.3) fL RDW Coeff of Ashanti 16.1 H (11.5-14.5) % Plt Count 229 (130-400) K/uL MPV 11.0 H (7.4-10.4) fL Immature Gran % (Auto) 0.1 % Neut % (Auto) 10.9 % Lymph % (Auto) 88.3 % [place] % (Auto) 0.7 % Eos % (Auto) 0.0 % Baso % (Auto) 0.0 % Neut # (Auto) 3.37 (1.4-6.5) K/uL Lymph # (Auto) 27.22 H (1.2-3.4) K/uL [place] # (Auto) 0.21 (0.11-0.59) K/uL Eos # (Auto) 0.00 (0-0.5) K/uL Baso # (Auto) 0.01 (0-0.2) K/uL Immature Gran # (Auto) 0.03 H (0.00-0.02) K/uL Smudge Cells Present Microcytosis Present Ovalocytes 1+ Echinocytes 1+ D-Dimer (0-500) ug/L FEU ABG pH (7.35-7.45) ABG pCO2 (35-46) mmHg ABG pO2 (80-95) mmHg ABG HCO3 (19-24) mmol/L ABG O2 Saturation (90-95) % ABG Base Excess (-9-1.8) mEq/L Collin Test (Pos) Barometric Pressure mm/Hg Oxygen Given Sodium 132 L (136-145) mmol/L Potassium 4.1 D (3.5-5.1) mmol/L Chloride 101 (98-107) mmol/L Carbon Dioxide 22 (21-32) mmol/L Anion Gap 9.0 (3-11) BUN 24 H (7-18) mg/dl Creatinine 0.59 L (0.6-1.2) mg/dl Est Cr Clr Drug Dosing 73.5 ml/min Est GFR ( Amer) 106.9 ml/min Est GFR (Non-Af Amer) 92.2 ml/min BUN/Creatinine Ratio 40.1 H (10-20) Glucose 109 H (70-99) mg/dl Osmolality (280-300) mOsm/kg Calcium 8.8 (8.5-10.1) mg/dl Phosphorus (2.5-4.9) mg/dl Magnesium (1.8-2.4) mg/dl Total Bilirubin 0.4 (0.2-1) mg/dl AST 25 (15-37) U/L ALT 20 (12-78) U/L Alkaline Phosphatase 49 (45-117) U/L Troponin I (0-0.045) ng/ml C-Reactive Protein 6.45 H (0-0.29) mg/dl Total Protein 5.5 L (6.4-8.2) gm/dl Albumin 1.8 L (3.4-5.0) gm/dl Globulin 3.7 (2.5-4.0) gm/dl Albumin/Globulin Ratio 0.5 L (0.9-2) Lipase (73-393) U/L Procalcitonin (0-0.5) ng/ml Urine Osmolality (500-800) mOsm/kg Ur Random Sodium mmol/L Nasal Screen MRSA (PCR) Negative (Negative) COVID-19 Eval Order SARS-CoV-2 (PCR) (Negative) 09/06/21 09/06/21 09/06/21 Range/Units 14:08 14:08 14:08 WBC 25.27 H (4.8-10.8) K/uL RBC 3.56 L (4.2-5.4) M/uL Hgb 9.5 L (12.0-16.0) g/dL Hct 28.5 L (37-47) % MCV 80.1 (80-100) fL MCH 26.7 (25-34) pg MCHC 33.3 (32-36) g/dL RDW Std Deviation 47.9 H (36.4-46.3) fL RDW Coeff of Ashanti 16.1 H (11.5-14.5) % Plt Count 234 (130-400) K/uL MPV 10.8 H (7.4-10.4) fL Immature Gran % (Auto) % Neut % (Auto) % Lymph % (Auto) % [place] % (Auto) % Eos % (Auto) % Baso % (Auto) % Neut # (Auto) (1.4-6.5) K/uL Lymph # (Auto) (1.2-3.4) K/uL [place] # (Auto) (0.11-0.59) K/uL Eos # (Auto) (0-0.5) K/uL Baso # (Auto) (0-0.2) K/uL Immature Gran # (Auto) (0.00-0.02) K/uL Smudge Cells Microcytosis Ovalocytes Echinocytes D-Dimer (0-500) ug/L FEU ABG pH (7.35-7.45) ABG pCO2 (35-46) mmHg ABG pO2 (80-95) mmHg ABG HCO3 (19-24) mmol/L ABG O2 Saturation (90-95) % ABG Base Excess (-9-1.8) mEq/L Collin Test (Pos) Barometric Pressure mm/Hg Oxygen Given Sodium 132 L (136-145) mmol/L Potassium 4.4 (3.5-5.1) mmol/L Chloride 99 (98-107) mmol/L Carbon Dioxide 24 (21-32) mmol/L Anion Gap 9.0 (3-11) BUN 22 H (7-18) mg/dl Creatinine 0.49 L (0.6-1.2) mg/dl Est Cr Clr Drug Dosing 87.1 ml/min Est GFR ( Amer) 113.6 ml/min Est GFR (Non-Af Amer) 98.0 ml/min BUN/Creatinine Ratio 43.6 H (10-20) Glucose 108 H (70-99) mg/dl Osmolality (280-300) mOsm/kg Calcium 8.9 (8.5-10.1) mg/dl Phosphorus (2.5-4.9) mg/dl Magnesium 1.6 L (1.8-2.4) mg/dl Total Bilirubin (0.2-1) mg/dl AST (15-37) U/L ALT (12-78) U/L Alkaline Phosphatase (45-117) U/L Troponin I (0-0.045) ng/ml C-Reactive Protein (0-0.29) mg/dl Total Protein (6.4-8.2) gm/dl Albumin (3.4-5.0) gm/dl Globulin (2.5-4.0) gm/dl Albumin/Globulin Ratio (0.9-2) Lipase (73-393) U/L Procalcitonin (0-0.5) ng/ml Urine Osmolality (500-800) mOsm/kg Ur Random Sodium mmol/L Nasal Screen MRSA (PCR) (Negative) COVID-19 Eval Order SARS-CoV-2 (PCR) (Negative) 09/07/21 09/07/21 09/07/21 Range/Units 00:13 06:56 06:56 WBC 14.12 H D (4.8-10.8) K/uL RBC 2.93 L (4.2-5.4) M/uL Hgb 8.1 L (12.0-16.0) g/dL Hct 23.9 L (37-47) % MCV 81.6 (80-100) fL MCH 27.6 (25-34) pg MCHC 33.9 (32-36) g/dL RDW Std Deviation 47.0 H (36.4-46.3) fL RDW Coeff of Ashanti 15.9 H (11.5-14.5) % Plt Count 171 (130-400) K/uL MPV 11.0 H (7.4-10.4) fL Immature Gran % (Auto) % Neut % (Auto) % Lymph % (Auto) % [place] % (Auto) % Eos % (Auto) % Baso % (Auto) % Neut # (Auto) (1.4-6.5) K/uL Lymph # (Auto) (1.2-3.4) K/uL [place] # (Auto) (0.11-0.59) K/uL Eos # (Auto) (0-0.5) K/uL Baso # (Auto) (0-0.2) K/uL Immature Gran # (Auto) (0.00-0.02) K/uL Smudge Cells Microcytosis Ovalocytes Echinocytes D-Dimer 1140 H* (0-500) ug/L FEU ABG pH 7.49 H (7.35-7.45) ABG pCO2 33 L (35-46) mmHg ABG pO2 80 (80-95) mmHg ABG HCO3 24 (19-24) mmol/L ABG O2 Saturation 93.9 (90-95) % ABG Base Excess 1.2 (-9-1.8) mEq/L Collin Test POS (Pos) Barometric Pressure 727.3 mm/Hg Oxygen Given 6.0 Sodium (136-145) mmol/L Potassium (3.5-5.1) mmol/L Chloride (98-107) mmol/L Carbon Dioxide (21-32) mmol/L Anion Gap (3-11) BUN (7-18) mg/dl Creatinine (0.6-1.2) mg/dl Est Cr Clr Drug Dosing ml/min Est GFR ( Amer) ml/min Est GFR (Non-Af Amer) ml/min BUN/Creatinine Ratio (10-20) Glucose (70-99) mg/dl Osmolality (280-300) mOsm/kg Calcium (8.5-10.1) mg/dl Phosphorus (2.5-4.9) mg/dl Magnesium (1.8-2.4) mg/dl Total Bilirubin (0.2-1) mg/dl AST (15-37) U/L ALT (12-78) U/L Alkaline Phosphatase (45-117) U/L Troponin I (0-0.045) ng/ml C-Reactive Protein (0-0.29) mg/dl Total Protein (6.4-8.2) gm/dl Albumin (3.4-5.0) gm/dl Globulin (2.5-4.0) gm/dl Albumin/Globulin Ratio (0.9-2) Lipase (73-393) U/L Procalcitonin (0-0.5) ng/ml Urine Osmolality (500-800) mOsm/kg Ur Random Sodium mmol/L Nasal Screen MRSA (PCR) (Negative) COVID-19 Eval Order SARS-CoV-2 (PCR) (Negative) 09/07/21 09/07/21 09/08/21 Range/Units 06:56 14:12 06:10 WBC 11.68 H 14.27 H (4.8-10.8) K/uL RBC 2.99 L 3.41 L (4.2-5.4) M/uL Hgb 8.1 L 9.1 L (12.0-16.0) g/dL Hct 24.4 L 28.0 L (37-47) % MCV 81.6 82.1 (80-100) fL MCH 27.1 26.7 (25-34) pg MCHC 33.2 32.5 (32-36) g/dL RDW Std Deviation 47.8 H 48.3 H (36.4-46.3) fL RDW Coeff of Ashanti 15.9 H 15.9 H (11.5-14.5) % Plt Count 166 185 (130-400) K/uL MPV 11.5 H 11.0 H (7.4-10.4) fL Immature Gran % (Auto) % Neut % (Auto) % Lymph % (Auto) % [place] % (Auto) % Eos % (Auto) % Baso % (Auto) % Neut # (Auto) (1.4-6.5) K/uL Lymph # (Auto) (1.2-3.4) K/uL [place] # (Auto) (0.11-0.59) K/uL Eos # (Auto) (0-0.5) K/uL Baso # (Auto) (0-0.2) K/uL Immature Gran # (Auto) (0.00-0.02) K/uL Smudge Cells Microcytosis Ovalocytes Echinocytes D-Dimer (0-500) ug/L FEU ABG pH (7.35-7.45) ABG pCO2 (35-46) mmHg ABG pO2 (80-95) mmHg ABG HCO3 (19-24) mmol/L ABG O2 Saturation (90-95) % ABG Base Excess (-9-1.8) mEq/L Collin Test (Pos) Barometric Pressure mm/Hg Oxygen Given Sodium 131 L (136-145) mmol/L Potassium 3.9 (3.5-5.1) mmol/L Chloride 98 (98-107) mmol/L Carbon Dioxide 28 (21-32) mmol/L Anion Gap 5.0 (3-11) BUN 18 (7-18) mg/dl Creatinine 0.47 L (0.6-1.2) mg/dl Est Cr Clr Drug Dosing 88.4 ml/min Est GFR ( Amer) 115.2 ml/min Est GFR (Non-Af Amer) 99.4 ml/min BUN/Creatinine Ratio 38.8 H (10-20) Glucose 148 H (70-99) mg/dl Osmolality (280-300) mOsm/kg Calcium 8.1 L (8.5-10.1) mg/dl Phosphorus 3.3 (2.5-4.9) mg/dl Magnesium 2.2 (1.8-2.4) mg/dl Total Bilirubin 0.5 (0.2-1) mg/dl AST 20 (15-37) U/L ALT 15 (12-78) U/L Alkaline Phosphatase 45 (45-117) U/L Troponin I (0-0.045) ng/ml C-Reactive Protein 2.12 H (0-0.29) mg/dl Total Protein 5.1 L (6.4-8.2) gm/dl Albumin 1.7 L (3.4-5.0) gm/dl Globulin 3.4 (2.5-4.0) gm/dl Albumin/Globulin Ratio 0.5 L (0.9-2) Lipase (73-393) U/L Procalcitonin (0-0.5) ng/ml Urine Osmolality (500-800) mOsm/kg Ur Random Sodium mmol/L Nasal Screen MRSA (PCR) (Negative) COVID-19 Eval Order SARS-CoV-2 (PCR) (Negative) 09/08/21 09/08/21 09/08/21 Range/Units 06:10 06:10 06:10 WBC (4.8-10.8) K/uL RBC (4.2-5.4) M/uL Hgb (12.0-16.0) g/dL Hct (37-47) % MCV (80-100) fL MCH (25-34) pg MCHC (32-36) g/dL RDW Std Deviation (36.4-46.3) fL RDW Coeff of Ashanti (11.5-14.5) % Plt Count (130-400) K/uL MPV (7.4-10.4) fL Immature Gran % (Auto) % Neut % (Auto) % Lymph % (Auto) % [place] % (Auto) % Eos % (Auto) % Baso % (Auto) % Neut # (Auto) (1.4-6.5) K/uL Lymph # (Auto) (1.2-3.4) K/uL [place] # (Auto) (0.11-0.59) K/uL Eos # (Auto) (0-0.5) K/uL Baso # (Auto) (0-0.2) K/uL Immature Gran # (Auto) (0.00-0.02) K/uL Smudge Cells Microcytosis Ovalocytes Echinocytes D-Dimer 1080 H* (0-500) ug/L FEU ABG pH (7.35-7.45) ABG pCO2 (35-46) mmHg ABG pO2 (80-95) mmHg ABG HCO3 (19-24) mmol/L ABG O2 Saturation (90-95) % ABG Base Excess (-9-1.8) mEq/L Collin Test (Pos) Barometric Pressure mm/Hg Oxygen Given Sodium 128 L (136-145) mmol/L Potassium (3.5-5.1) mmol/L Chloride 96 L (98-107) mmol/L Carbon Dioxide 28 (21-32) mmol/L Anion Gap 4.0 (3-11) BUN 19 H (7-18) mg/dl Creatinine 0.60 (0.6-1.2) mg/dl Est Cr Clr Drug Dosing 69.9 ml/min Est GFR ( Amer) 106.3 ml/min Est GFR (Non-Af Amer) 91.7 ml/min BUN/Creatinine Ratio 32.1 H (10-20) Glucose 108 H (70-99) mg/dl Osmolality (280-300) mOsm/kg Calcium 8.6 (8.5-10.1) mg/dl Phosphorus 3.3 (2.5-4.9) mg/dl Magnesium (1.8-2.4) mg/dl Total Bilirubin (0.2-1) mg/dl AST (15-37) U/L ALT (12-78) U/L Alkaline Phosphatase (45-117) U/L Troponin I (0-0.045) ng/ml C-Reactive Protein 1.01 H (0-0.29) mg/dl Total Protein (6.4-8.2) gm/dl Albumin (3.4-5.0) gm/dl Globulin (2.5-4.0) gm/dl Albumin/Globulin Ratio (0.9-2) Lipase (73-393) U/L Procalcitonin < 0.05 (0-0.5) ng/ml Urine Osmolality (500-800) mOsm/kg Ur Random Sodium mmol/L Nasal Screen MRSA (PCR) (Negative) COVID-19 Eval Order SARS-CoV-2 (PCR) (Negative) 09/08/21 09/08/21 09/08/21 Range/Units 06:10 06:10 09:05 WBC (4.8-10.8) K/uL RBC (4.2-5.4) M/uL Hgb (12.0-16.0) g/dL Hct (37-47) % MCV (80-100) fL MCH (25-34) pg MCHC (32-36) g/dL RDW Std Deviation (36.4-46.3) fL RDW Coeff of Ashanti (11.5-14.5) % Plt Count (130-400) K/uL MPV (7.4-10.4) fL Immature Gran % (Auto) % Neut % (Auto) % Lymph % (Auto) % [place] % (Auto) % Eos % (Auto) % Baso % (Auto) % Neut # (Auto) (1.4-6.5) K/uL Lymph # (Auto) (1.2-3.4) K/uL [place] # (Auto) (0.11-0.59) K/uL Eos # (Auto) (0-0.5) K/uL Baso # (Auto) (0-0.2) K/uL Immature Gran # (Auto) (0.00-0.02) K/uL Smudge Cells Microcytosis Ovalocytes Echinocytes D-Dimer (0-500) ug/L FEU ABG pH (7.35-7.45) ABG pCO2 (35-46) mmHg ABG pO2 (80-95) mmHg ABG HCO3 (19-24) mmol/L ABG O2 Saturation (90-95) % ABG Base Excess (-9-1.8) mEq/L Collin Test (Pos) Barometric Pressure mm/Hg Oxygen Given Sodium (136-145) mmol/L Potassium 4.1 (3.5-5.1) mmol/L Chloride (98-107) mmol/L Carbon Dioxide (21-32) mmol/L Anion Gap (3-11) BUN (7-18) mg/dl Creatinine (0.6-1.2) mg/dl Est Cr Clr Drug Dosing ml/min Est GFR ( Amer) ml/min Est GFR (Non-Af Amer) ml/min BUN/Creatinine Ratio (10-20) Glucose (70-99) mg/dl Osmolality 277 L (280-300) mOsm/kg Calcium (8.5-10.1) mg/dl Phosphorus (2.5-4.9) mg/dl Magnesium 1.9 (1.8-2.4) mg/dl Total Bilirubin (0.2-1) mg/dl AST (15-37) U/L ALT (12-78) U/L Alkaline Phosphatase (45-117) U/L Troponin I (0-0.045) ng/ml C-Reactive Protein (0-0.29) mg/dl Total Protein (6.4-8.2) gm/dl Albumin (3.4-5.0) gm/dl Globulin (2.5-4.0) gm/dl Albumin/Globulin Ratio (0.9-2) Lipase (73-393) U/L Procalcitonin (0-0.5) ng/ml Urine Osmolality 555 (500-800) mOsm/kg Ur Random Sodium mmol/L Nasal Screen MRSA (PCR) (Negative) COVID-19 Eval Order SARS-CoV-2 (PCR) (Negative) 09/08/21 09/09/21 09/10/21 Range/Units 09:05 06:18 07:23 WBC 10.01 (4.8-10.8) K/uL RBC 3.48 L (4.2-5.4) M/uL Hgb 9.4 L (12.0-16.0) g/dL Hct 28.5 L (37-47) % MCV 81.9 (80-100) fL MCH 27.0 (25-34) pg MCHC 33.0 (32-36) g/dL RDW Std Deviation 46.4 H (36.4-46.3) fL RDW Coeff of Ashanti 15.7 H (11.5-14.5) % Plt Count 173 (130-400) K/uL MPV 11.2 H (7.4-10.4) fL Immature Gran % (Auto) % Neut % (Auto) % Lymph % (Auto) % [place] % (Auto) % Eos % (Auto) % Baso % (Auto) % Neut # (Auto) (1.4-6.5) K/uL Lymph # (Auto) (1.2-3.4) K/uL [place] # (Auto) (0.11-0.59) K/uL Eos # (Auto) (0-0.5) K/uL Baso # (Auto) (0-0.2) K/uL Immature Gran # (Auto) (0.00-0.02) K/uL Smudge Cells Microcytosis Ovalocytes Echinocytes D-Dimer (0-500) ug/L FEU ABG pH (7.35-7.45) ABG pCO2 (35-46) mmHg ABG pO2 (80-95) mmHg ABG HCO3 (19-24) mmol/L ABG O2 Saturation (90-95) % ABG Base Excess (-9-1.8) mEq/L Collin Test (Pos) Barometric Pressure mm/Hg Oxygen Given Sodium 131 L (136-145) mmol/L Potassium 4.0 (3.5-5.1) mmol/L Chloride 96 L (98-107) mmol/L Carbon Dioxide 27 (21-32) mmol/L Anion Gap 8.0 (3-11) BUN 15 (7-18) mg/dl Creatinine 0.47 L (0.6-1.2) mg/dl Est Cr Clr Drug Dosing 87.9 ml/min Est GFR ( Amer) 115.2 ml/min Est GFR (Non-Af Amer) 99.4 ml/min BUN/Creatinine Ratio 32.6 H (10-20) Glucose 94 (70-99) mg/dl Osmolality (280-300) mOsm/kg Calcium 8.9 (8.5-10.1) mg/dl Phosphorus 2.8 (2.5-4.9) mg/dl Magnesium 1.7 L (1.8-2.4) mg/dl Total Bilirubin (0.2-1) mg/dl AST (15-37) U/L ALT (12-78) U/L Alkaline Phosphatase (45-117) U/L Troponin I (0-0.045) ng/ml C-Reactive Protein 6.62 H (0-0.29) mg/dl Total Protein (6.4-8.2) gm/dl Albumin (3.4-5.0) gm/dl Globulin (2.5-4.0) gm/dl Albumin/Globulin Ratio (0.9-2) Lipase (73-393) U/L Procalcitonin (0-0.5) ng/ml Urine Osmolality (500-800) mOsm/kg Ur Random Sodium 77 mmol/L Nasal Screen MRSA (PCR) (Negative) COVID-19 Eval Order SARS-CoV-2 (PCR) (Negative) 09/10/21 09/11/21 09/11/21 Range/Units 07:23 06:51 06:51 WBC 9.38 (4.8-10.8) K/uL RBC 3.19 L (4.2-5.4) M/uL Hgb 8.6 L (12.0-16.0) g/dL Hct 25.3 L (37-47) % MCV 79.3 L (80-100) fL MCH 27.0 (25-34) pg MCHC 34.0 (32-36) g/dL RDW Std Deviation 46.9 H (36.4-46.3) fL RDW Coeff of Ashanti 16.1 H (11.5-14.5) % Plt Count 172 (130-400) K/uL MPV 10.9 H (7.4-10.4) fL Immature Gran % (Auto) % Neut % (Auto) % Lymph % (Auto) % [place] % (Auto) % Eos % (Auto) % Baso % (Auto) % Neut # (Auto) (1.4-6.5) K/uL Lymph # (Auto) (1.2-3.4) K/uL [place] # (Auto) (0.11-0.59) K/uL Eos # (Auto) (0-0.5) K/uL Baso # (Auto) (0-0.2) K/uL Immature Gran # (Auto) (0.00-0.02) K/uL Smudge Cells Microcytosis Ovalocytes Echinocytes D-Dimer 1390 H* (0-500) ug/L FEU ABG pH (7.35-7.45) ABG pCO2 (35-46) mmHg ABG pO2 (80-95) mmHg ABG HCO3 (19-24) mmol/L ABG O2 Saturation (90-95) % ABG Base Excess (-9-1.8) mEq/L Collin Test (Pos) Barometric Pressure mm/Hg Oxygen Given Sodium 132 L (136-145) mmol/L Potassium 4.1 (3.5-5.1) mmol/L Chloride 97 L (98-107) mmol/L Carbon Dioxide 28 (21-32) mmol/L Anion Gap 7.0 (3-11) BUN 16 (7-18) mg/dl Creatinine 0.47 L (0.6-1.2) mg/dl Est Cr Clr Drug Dosing 87.4 ml/min Est GFR ( Amer) 115.2 ml/min Est GFR (Non-Af Amer) 99.4 ml/min BUN/Creatinine Ratio 33.4 H (10-20) Glucose 90 (70-99) mg/dl Osmolality (280-300) mOsm/kg Calcium 9.1 (8.5-10.1) mg/dl Phosphorus 2.3 L (2.5-4.9) mg/dl Magnesium 1.8 (1.8-2.4) mg/dl Total Bilirubin (0.2-1) mg/dl AST (15-37) U/L ALT (12-78) U/L Alkaline Phosphatase (45-117) U/L Troponin I (0-0.045) ng/ml C-Reactive Protein (0-0.29) mg/dl Total Protein (6.4-8.2) gm/dl Albumin (3.4-5.0) gm/dl Globulin (2.5-4.0) gm/dl Albumin/Globulin Ratio (0.9-2) Lipase (73-393) U/L Procalcitonin (0-0.5) ng/ml Urine Osmolality (500-800) mOsm/kg Ur Random Sodium mmol/L Nasal Screen MRSA (PCR) (Negative) COVID-19 Eval Order SARS-CoV-2 (PCR) (Negative) 09/11/21 Range/Units 06:51 WBC (4.8-10.8) K/uL RBC (4.2-5.4) M/uL Hgb (12.0-16.0) g/dL Hct (37-47) % MCV (80-100) fL MCH (25-34) pg MCHC (32-36) g/dL RDW Std Deviation (36.4-46.3) fL RDW Coeff of [place] (11.5-14.5) % Plt Count (130-400) K/uL MPV (7.4-10.4) fL Immature Gran % (Auto) % Neut % (Auto) % Lymph % (Auto) % [place] % (Auto) % Eos % (Auto) % Baso % (Auto) % Neut # (Auto) (1.4-6.5) K/uL Lymph # (Auto) (1.2-3.4) K/uL [place] # (Auto) (0.11-0.59) K/uL Eos # (Auto) (0-0.5) K/uL Baso # (Auto) (0-0.2) K/uL Immature Gran # (Auto) (0.00-0.02) K/uL Smudge Cells Microcytosis Ovalocytes Echinocytes D-Dimer (0-500) ug/L FEU ABG pH (7.35-7.45) ABG pCO2 (35-46) mmHg ABG pO2 (80-95) mmHg ABG HCO3 (19-24) mmol/L ABG O2 Saturation (90-95) % ABG Base Excess (-9-1.8) mEq/L Collin Test (Pos) Barometric Pressure mm/Hg Oxygen Given Sodium 129 L (136-145) mmol/L Potassium 3.8 (3.5-5.1) mmol/L Chloride 94 L (98-107) mmol/L Carbon Dioxide 26 (21-32) mmol/L Anion Gap 8.0 (3-11) BUN 17 (7-18) mg/dl Creatinine 0.39 L (0.6-1.2) mg/dl Est Cr Clr Drug Dosing 104.2 ml/min Est GFR ( Amer) 122.5 ml/min Est GFR (Non-Af Amer) 105.7 ml/min BUN/Creatinine Ratio 43.8 H (10-20) Glucose 94 (70-99) mg/dl Osmolality (280-300) mOsm/kg Calcium 8.7 (8.5-10.1) mg/dl Phosphorus 3.2 (2.5-4.9) mg/dl Magnesium 2.0 (1.8-2.4) mg/dl Total Bilirubin (0.2-1) mg/dl AST (15-37) U/L ALT (12-78) U/L Alkaline Phosphatase (45-117) U/L Troponin I (0-0.045) ng/ml C-Reactive Protein 6.25 H (0-0.29) mg/dl Total Protein (6.4-8.2) gm/dl Albumin (3.4-5.0) gm/dl Globulin (2.5-4.0) gm/dl Albumin/Globulin Ratio (0.9-2) Lipase (73-393) U/L Procalcitonin (0-0.5) ng/ml Urine Osmolality (500-800) mOsm/kg Ur Random Sodium mmol/L Nasal Screen MRSA (PCR) (Negative) COVID-19 Eval Order SARS-CoV-2 (PCR) (Negative)
[2021-09-12 08:08] LABS: Hematocrit (blood only) 28.3 % (37-47); Hemoglobin 9.4 g/dL (12.0-16.0); Mean Corpuscular Hemoglobin 26.7 pg (25-34); Mean Corpuscular Hgb Conc 33.2 g/dL (32-36); Mean Corpuscular Volume 80.4 fL (80-100); Platelet Count 197 K/uL (130-400); Red Blood Count 3.52 M/uL (4.2-5.4); White Blood Count 10.36 K/uL (4.8-10.8)
[2021-09-12 08:27] LABS: BUN Creatinine Ratio 53.1 (10-20); Calcium 9.2 mg/dl (8.5-10.1); Creatinine Clr Calc Pharmacy 92.4 ml/min; Est GFR (African American) 117.7 ml/min; Est GFR (Non-African American) 101.6 ml/min; Magnesium 1.8 mg/dl (1.8-2.4); Phosphorus 2.8 mg/dl (2.5-4.9); Potassium 4.3 mmol/L (3.5-5.1)
[2021-09-12] MEDS: ENOXAPARIN INJ 40 MG/0.4 ML SYR SQ SCH (09:31)
[2021-09-12] MEDS: UREA (UREA-NA) 15 GM PACK PO SCH ×2 (09:31→20:58)
[2021-09-12] MEDS: amLODIPine BESYLATE 5 MG TAB PO SCH (09:31)
[2021-09-12] MEDS: PANTOprazole 40 MG TAB PO SCH (09:31)
[2021-09-12] MEDS: CHOLECALCIFEROL 1,000 UNITS 25 MCG TAB PO SCH (09:31)
[2021-09-12] MEDS: FLUTICASONE PROPIONATE NA SPR 16 GM BTL NAE SCH (09:32)
[2021-09-12] MEDS: [UNRECOGNIZED DRUG - REMARK] PO SCH (09:33)
--- NOTE | 2021-09-12 09:46 | Nephrology Progress Note ---
Date of Service September 12, 2021 Assessment & Plan Admission and Anticipated Discharge Date Admission Date: September 04, 2021 Subjective PHYSICAL EXAMINATION: GENERAL: Elderly white female who appears chronically malnourished and ill. VITAL SIGNS: Blood pressure is 116/66, pulse rate 88, temperature 36.3, 95% on 4 liters nasal cannula. Mucous membrane is dry. NECK: Supple. No jugular venous distention. CHEST: Bilateral decreased breath sounds, poor inspiratory effort limited quality exam. HEART: S1 and S2, regular. ABDOMEN: Soft, nontender. EXTREMITIES: Show no edema. LABORATORY TEST: Reviewed in detail. Zaira 130 now ASSESSMENT AND PLAN: A 71-year-old female admitted with COVID-19 pneumonia. I have been consulted for hyponatremia. Hyponatremia: This is a combination of underlying syndrome of inappropriate antidiuretic hormone secretion given very high and inappropriate urine osmolality of 555 with a urine sodium of 77, but she also has a significant component of tea and toast syndrome given that her current diet is very, very low in protein. She says she can only eat applesauce at this time, which obviously does not provide enough protein and can in itself can cause a low se rum sodium. Fortunately, the hyponatremia problem is fairly mild at this time and is not at a level to cause significant problem. RECOMMENDATION: 1. Conitnue Urea 15 g b.i.d. 2. Fluid restriction. Continue at 1200 mL per day. 3. At this point, we can do labs once daily. 5. I will continue to follow. 6. It is quite possible that she will have chronic mild hyponatremia for the foreseeable future given her very poor oral solid food intake and prior mild hyponatremia. Results & Data ([facility]) Vital Signs (Past 12 Hours) Vital Signs Temp Pulse Resp BP BP Pulse Ox 09/12/21 08:27 37.8 C H 85 18 133/69 93 09/12/21 03:15 36.5 C 79 19 151/79 H 88 L 09/11/21 22:44 36.4 C L 62 20 124/64 94
[2021-09-12] MEDS: ONDANSETRON INJ 2 MG/ML 2 ML VIAL IV PRN (10:02)
[2021-09-12] MEDS: dexAMETHasone 6 MG in SYRINGE 0 ML IV SCH (12:24)
--- NOTE | 2021-09-12 18:03 | Hospitalist Progress Note ---
Date of Service September 12, 2021 Assessment & Plan (1) Hypoxia: (2) Pneumonia due to COVID-19 virus: Plan: Patient is a 71 yr female with H/O CLL on chemotherapy, hypogammaglobinemia, hypertension, GERD, gastroparesis, chronic anemia (baseline hemoglobin 10), chronic thrombocytopenia, recent hip fracture, covid and other medical problems listed below who presents from [facility] with pleuritic chest pain and EKG changes. COVID-19 pneumonia Covid PCR positive on previous admission (08/19/21) Covid PCR remains positive Chest CTA on admission without evidence of pulmonary embolism. Interval development of diffuse ground glass opacities in the lungs which may be seen in pneumonia CRP: 6.25 Normal Procalcitonin Blood cultures negative to date Continue dexamethasone as per protocol Completed antibiotic course Saturating well on 4 L supplemental oxygen Wean oxygen as able (3) Chest pain: Plan: Pleuritic chest pain, EKG changes at [facility] with TWI V1-V3 that have since resolved Chest pain resolved Troponin negative (4) Hypokalemia: Plan: Replace electrolytes as needed (5) Hyponatremia: Plan: Likely due to SIADH and Poor oral Intake Continue urea 15 mg twice daily Continue fluid restriction Appreciate nephrology input Monitor sodium level: 130 (6) LLQ pain: Plan: Reports this is chronic intermittent Had a recent CT abd/p from 08/24/21. Reviewed this and it reported no changed in ?splenic laceration v infarct as seen in CT 08/20/21. XR abd this admission no acute findings Monitor (7) CLL (chronic lymphocytic leukemia): Plan: Ongoing therapy with ibrutinib Follows with Dr. Ariel Ortiz for oncology (8) Hypertension: Plan: Continue lisinopril, amlodipine (9) Anemia: Plan: Likely anemia of Chronic disease Hb at baseline Monitor CBC Major Depression Appreciate Psychiatry Input Consider starting mirtazapine once hyponatremia is controlled H/O left hip fracture S/P hemiarthroplasty Sarmad removed Appreciate orthopedics input On Lovenox for DVT prophylaxis Weightbearing as tolerated Needs follow-up with Dr. Sánchez in 4 weeks with repeat x-rays DVT Px: SQ Lovenox Code status: FULL CODE Admission and Anticipated Discharge Date Admission Date: September 04, 2021 Subjective Patient is seen and examined at bedside States having nausea and has poor oral intake Also states having abdominal discomfort earlier today Reports mild cough Denies any chest pain, shortness of breath, dizziness Saturating well on 4 L supplemental oxygen Review of Systems Review of Systems: All systems reviewed & are unremarkable except as noted in Subjective Physical Exam Physical Exam: Physical Exam: Vitals signs as noted above General Appearance:Thin, Frail, no apparent distress Head: normocephalic, Atraumatic Eyes: normal inspection, EOMI Neck: supple, Trachea midline Respiratory/Chest: Decreased breath sounds, CTA, No accessory muscle use Cardiovascular: S1, S2, No murmur Abdomen/GI:Soft, Non tender, Bowel sounds present Extremities/Musculoskeletal:normal inspection, no edema, Left hip +Surgical scar healing Neurologic/Psych:AAOX3, grossly no focal neurological deficits Skin: normal color, warm Results & Data Results & Data ([facility]) Vital Signs (Past 12 Hours) Vital Signs Temp Pulse Pulse Resp BP Pulse Ox 09/12/21 15:59 54 L 09/12/21 15:24 36.8 C 82 18 101/60 92 09/12/21 11:24 37.8 C H 84 18 125/68 96 09/12/21 11:10 81 09/12/21 08:27 37.8 C H 85 18 133/69 93 Laboratory Results Short CBC 09/12/21 Range/Units 07:12 WBC 10.36 (4.8-10.8) K/uL Hgb 9.4 L (12.0-16.0) g/dL Hct 28.3 L (37-47) % Plt Count 197 (130-400) K/uL BMP 09/12/21 07:12 Sodium 130 L Potassium 4.3 Chloride 95 L Carbon Dioxide 27 BUN 23 H Creatinine 0.44 L Glucose 88 Calcium 9.2
[2021-09-13] MEDS: PROMETHAZINE HCL 6.25 MG in SODIUM CHLORIDE 0.9% 50 ML IV PRN ×2 (00:36→08:16)
[2021-09-13 08:00] LABS: BUN Creatinine Ratio 60.3 (10-20); Calcium 8.7 mg/dl (8.5-10.1); Creatinine Clr Calc Pharmacy 106.1 ml/min; Est GFR (African American) 123.5 ml/min; Est GFR (Non-African American) 106.6 ml/min; Magnesium 1.7 mg/dl (1.8-2.4); Potassium 4.1 mmol/L (3.5-5.1)
[2021-09-13] MEDS: ENOXAPARIN INJ 40 MG/0.4 ML SYR SQ SCH (08:20)
[2021-09-13] MEDS: amLODIPine BESYLATE 5 MG TAB PO SCH (08:20)
[2021-09-13] MEDS: CHOLECALCIFEROL 1,000 UNITS 25 MCG TAB PO SCH (08:21)
[2021-09-13] MEDS: UREA (UREA-NA) 15 GM PACK PO SCH ×2 (08:21→20:03)
[2021-09-13] MEDS: FERROUS SULFATE 325 MG TAB PO SCH (08:21)
[2021-09-13] MEDS: PANTOprazole 40 MG TAB PO SCH (08:21)
[2021-09-13] MEDS: FLUTICASONE PROPIONATE NA SPR 16 GM BTL NAE SCH (08:21)
[2021-09-13] MEDS: [UNRECOGNIZED DRUG - REMARK] PO SCH (08:22)
[2021-09-13] MEDS ORDERED: COUGH DROP (SUGAR FREE) LOZ 24 LOZ/1 BOX BUCCAL PRN (08:29)
[2021-09-13] MEDS: DOCUSATE SODIUM 100 MG CAP PO PRN (08:37)
--- NOTE | 2021-09-13 10:07 | XRay Report ---
XR chest 1V portable CLINICAL HISTORY: Aspiration COMPARISON STUDY: Chest radiograph September 07, 2021. FINDINGS: Lung volumes are normal. There is no pneumothorax or pleural effusion. Cardiac size is norm al. Mediastinal contours are normal. There is no evidence for pulmonary edema. There has been slight progression of multifocal bilateral airspace opacities. IMPRESSION: Slight progression of multifocal bilateral airspace opacities which favor pneumonia. ACT 112: Negative or not required by law. Electronically signed by: Héctor Apodaca M.D. 09/13/2021 10:06 AM
[2021-09-13] MEDS ORDERED: MAGNESIUM SULFATE / D5W 1 GM/100 ML BAG IV ONE (10:45)
--- NOTE | 2021-09-13 14:21 | Nephrology Progress Note ---
Date of Service September 13, 2021 Assessment & Plan Admission and Anticipated Discharge Date Admission Date: September 04, 2021 Subjective Subjective No new issues. Appetite still low. PHYSICAL EXAMINATION: GENERAL: Elderly white female who appears chronically malnourished and ill. VITAL SIGNS: Blood pressure is 116/66, pulse rate 88, temperature 36.3, 95% on 4 liters nasal cannula. Mucous membrane is dry. NECK: Supple. No jugular venous distention. CHEST: Bilateral decreased breath sounds, poor inspiratory effort limited quality exam. HEART: S1 and S2, regular. ABDOMEN: Soft, nontender. EXTREMITIES: Show no edema. LABORATORY TEST: Reviewed in detail. na 128 now ASSESSMENT AND PLAN: A 71-year-old female admitted with COVID-19 pneumonia. I have been consulted for hyponatremia. Hyponatremia: This is a combination of underlying syndrome of inappropriate antidiuretic hormone secretion given very high and inappropriate urine osmolality of 555 with a urine sodium of 77, but she also has a significant component of tea and toast syndrome given that her current diet is very, very low in protein. She says she can only eat applesauce at this time, which obviously does not provide enough protein and can in itself can cause a low serum sodium. Fortunately, the hyponatremia problem is fairly mild at this time and is not at a level to cause significant problem. na really has not changed for many days now RECOMMENDATION: 1. raise Urea 15 g ti.d. 2. Fluid restriction to Continue at 1200 mL per day. NS at 80/hr for 1000 ml and do lasix 20 iv tid 3. At this point, we can do labs once daily. 5. I will continue to follow. 6. It is quite possible that she will have chronic mild hyponatremia for the foreseeable future given her very poor oral solid food intake and prior mild hyponatremia. Results & Data ([facility]) Vital Signs (Past 12 Hours) Vital Signs Temp Pulse Pulse Resp BP BP Pulse Ox 09/13/21 11:17 36.7 C 109 H 19 133/73 90 09/13/21 09:12 37.4 C 113 H 40 H 154/65 H 87 L 09/13/21 08:00 70 09/13/21 07:17 36.7 C 68 18 124/64 93 09/13/21 03:56 36.8 C 58 L 17 116/67 98
[2021-09-13] MEDS: SODIUM CHLORIDE 0.9% 1000ML 1,000 ML IV SCH (15:17)
[2021-09-13] MEDS: dexAMETHasone 6 MG in SYRINGE 0 ML IV SCH (15:17)
--- NOTE | 2021-09-13 16:20 | Hospitalist Progress Note ---
Date of Service September 13, 2021 Assessment & Plan (1) Hypoxia: (2) Pneumonia due to COVID-19 virus: Plan: Patient is a 71 yr female with H/O CLL on chemotherapy, hypogammaglobinemia, hypertension, GERD, gastroparesis, chronic anemia (baseline hemoglobin 10), chronic thrombocytopenia, recent hip fracture, covid and other medical problems listed below who presents from [facility] with pleuritic chest pain and EKG changes. COVID-19 pneumonia Covid PCR positive on previous admission (08/19/21) Covid PCR remains positive Chest CTA on admission without evidence of pulmonary embolism. Interval development of diffuse ground glass opacities in the lungs which may be seen in pneumonia CRP: 6.25 Normal Procalcitonin Blood cultures negative to date Continue dexamethasone as per protocol Completed antibiotic course Saturating Low 90s on 4 L supplemental oxygen CXR today showed Slight progression of multifocal bilateral airspace opacities which favor pneumonia. Appreciate speech therapy evaluation Continue aspiration precautions (3) Chest pain: Plan: Pleuritic chest pain, EKG changes at [facility] with TWI V1-V3 that have since resolved Chest pain resolved Troponin negative (4) Hypokalemia: Plan: Replace electrolytes as needed (5) Hyponatremia: Plan: Likely due to SIADH and Poor oral Intake Continue fluid restriction Appreciate nephrology input Monitor sodium level: 128 today Increased urea to 15 mg daily Continue IV fluids along with Lasix daily as per nephrology Continue to monitor sodium levels (6) LLQ pain: Plan: Reports this is chronic intermittent Had a recent CT abd/p from 08/24/21. Reviewed this and it reported no changed in ?splenic laceration v infarct as seen in CT 08/20/21. XR abd this admission no acute findings Monitor (7) CLL (chronic lymphocytic leukemia): Plan: Ongoing therapy with ibrutinib Follows with Dr. Ariel Ortiz for oncology (8) Hypertension: Plan: Continue lisinopril, amlodipine (9) Anemia: Plan: Likely anemia of Chronic disease Hb at baseline Monitor CBC Major Depression Appreciate Psychiatry Input Consider starting mirtazapine once hyponatremia is controlled H/O left hip fracture S/P hemiarthroplasty Sarmad removed Appreciate orthopedics input On Lovenox for DVT prophylaxis Weightbearing as tolerated Needs follow-up with Dr. Sánchez in 4 weeks with repeat x-rays DVT Px: SQ Lovenox Code status: FULL CODE Admission and Anticipated Discharge Date Admission Date: September 04, 2021 Subjective Patient is seen and examined at bedside Patient had a coughing spell this morning while having breakfast Chest x-ray showed mild worsening of pneumonia Continues to have chronic nausea, mild abdominal discomfort Sitting in chair during my encounter Persistent cough Denies any chest pain, shortness of breath, dizziness Sodium levels 128 today Speech therapy reevaluated patient today Review of Systems Review of Systems: All systems reviewed & are unremarkable except as noted in Subjective Physical Exam Physical Exam: Physical Exam: Vitals signs as noted above General Appearance:Thin, Frail, no apparent distress Head: normocephalic, Atraumatic Eyes: normal inspection, EOMI Neck: supple, Trachea midline Respiratory/Chest: Decreased breath sounds, +Basal Crackles Cardiovascular: S1, S2, No murmur Abdomen/GI:Soft, Non tender, Bowel sounds present Extremities/Musculoskeletal:normal inspection, no edema, Left hip +Surgical scar healing Neurologic/Psych:AAOX3, grossly no focal neurological deficits Skin: normal color, warm Results & Data Results & Data ([facility]) Vital Signs (Past 12 Hours) Vital Signs Temp Pulse Pulse Resp BP BP Pulse Ox 09/13/21 15:32 36.9 C 99 H 18 131/74 91 09/13/21 11:17 36.7 C 109 H 19 133/73 90 09/13/21 09:12 37.4 C 113 H 40 H 154/65 H 87 L 09/13/21 08:00 70 09/13/21 07:17 36.7 C 68 18 124/64 93 Laboratory Results [facility] 09/13/21 06:48 Sodium 128 L Potassium 4.1 Chloride 94 L Carbon Dioxide 30 BUN 23 H Creatinine 0.38 L Glucose 81 Calcium 8.7
[2021-09-13] MEDS: FUROSEMIDE INJ 20 MG/2 ML VIAL IV SCH (20:03)
[2021-09-14] MEDS: SODIUM CHLORIDE 0.9% 1000ML 1,000 ML IV SCH ×4 (04:01→22:13)
[2021-09-14 07:11] LABS: Hemoglobin 8.3 g/dL (12.0-16.0); Mean Corpuscular Hemoglobin 26.9 pg (25-34); Mean Corpuscular Hgb Conc 33.2 g/dL (32-36); Mean Corpuscular Volume 81.2 fL (80-100); Mean Platelet Volume 11.8 fL (7.4-10.4); Platelet Count 167 K/uL (130-400); RDW Coefficient of Variation 16.5 % (11.5-14.5); RDW Standard Deviation 48.8 fL (36.4-46.3); Red Blood Count 3.08 M/uL (4.2-5.4); White Blood Count 8.24 K/uL (4.8-10.8)
[2021-09-14 07:42] LABS: BUN Creatinine Ratio 78.1 (10-20); Calcium 8.9 mg/dl (8.5-10.1); Creatinine Clr Calc Pharmacy 91.5 ml/min; Est GFR (African American) 117.7 ml/min; Est GFR (Non-African American) 101.6 ml/min; Magnesium 1.8 mg/dl (1.8-2.4); Potassium 3.7 mmol/L (3.5-5.1)
[2021-09-14] MEDS: amLODIPine BESYLATE 5 MG TAB PO SCH (09:25)
[2021-09-14] MEDS: CHOLECALCIFEROL 1,000 UNITS 25 MCG TAB PO SCH (09:26)
[2021-09-14] MEDS: ENOXAPARIN INJ 40 MG/0.4 ML SYR SQ SCH (09:26)
[2021-09-14] MEDS: PANTOprazole 40 MG TAB PO SCH (09:27)
[2021-09-14] MEDS: FUROSEMIDE INJ 20 MG/2 ML VIAL IV SCH ×3 (09:27→21:46)
[2021-09-14] MEDS: FLUTICASONE PROPIONATE NA SPR 16 GM BTL NAE SCH (09:27)
[2021-09-14] MEDS: UREA (UREA-NA) 15 GM PACK PO SCH ×3 (09:28→21:46)
[2021-09-14] MEDS: [UNRECOGNIZED DRUG - REMARK] PO SCH (09:31)
--- NOTE | 2021-09-14 10:48 | Nephrology Progress Note ---
Date of Service September 14, 2021 Assessment & Plan Admission and Anticipated Discharge Date Admission Date: September 04, 2021 Subjective Subjective No new issues. Appetite low.. PHYSICAL EXAMINATION: GENERAL: Elderly white female who appears chronically malnourished and ill. NECK: Supple. No jugular venous distention. CHEST: Bilateral decreased breath sounds, poor inspiratory effort limited quality exam. HEART: S1 and S2, regular. ABDOMEN: Soft, nontender. EXTREMITIES: Show no edema. LABORATORY TEST: Reviewed in detail. na 131 now ASSESSMENT AND PLAN: A 71-year-old female admitted with COVID-19 pneumonia. I have been consulted for hyponatremia. Hyponatremia: This is a combination of underlying syndrome of inappropriate antidiuretic hormone secretion given very high and inappropriate urine osmolality of 555 with a urine sodium of 77, but she also has a significant component of tea and toast syndrome given that her current diet is very, very low in protein. She says she can only eat applesauce at this time, which obviously does not provide enough protein and can in itself can cause a low serum sodium. Fortunately, the hyponatremia problem is fairly mild at this time and is not at a level to cause significant problem. na really has not changed for many days now RECOMMENDATION: 1. Conitnue Urea 15 g ti.d. 2. Fluid restriction to Continue at 1200 mL per day. NS at 80/hr for 1000 ml and continue lasix 20 iv tid 3. At this point, we can do labs once daily. 5. I will continue to follow. 6. It is quite possible that she will have chronic mild hyponatremia for the foreseeable future given her very poor oral solid food intake and prior mild hyponatremia. Results & Data ([facility]) Vital Signs (Past 12 Hours) Vital Signs Temp Pulse Resp BP Pulse Ox 09/14/21 07:14 36.7 C 67 20 162/67 H 97 09/14/21 04:00 36.5 C 56 L 20 110/63 97
--- NOTE | 2021-09-14 16:57 | Hospitalist Progress Note ---
Date of Service September 14, 2021 Assessment & Plan (1) Hypoxia: (2) Pneumonia due to COVID-19 virus: Plan: Patient is a 71 yr female with H/O CLL on chemotherapy, hypogammaglobinemia, hypertension, GERD, gastroparesis, chronic anemia (baseline hemoglobin 10), chronic thrombocytopenia, recent hip fracture, covid and other medical problems listed below who presents from [facility] with pleuritic chest pain and EKG changes. COVID-19 pneumonia Covid PCR positive on previous admission (08/19/21) Covid PCR remains positive Chest CTA on admission without evidence of pulmonary embolism. Interval development of diffuse ground glass opacities in the lungs which may be seen in pneumonia CRP: 6.25 Normal Procalcitonin Blood cultures negative Continue dexamethasone course Completed antibiotic course Saturating Low 90s on supplemental oxygen Repeat CXR on 09/13 showed Slight progression of multifocal bilateral airspace opacities which favor pneumonia. Appreciate speech therapy evaluation Continue aspiration precautions Wean off of supplemental oxygen as able (3) Chest pain: Plan: Pleuritic chest pain, EKG changes at [facility] with TWI V1-V3 that have since resolved Chest pain resolved Troponin negative (4) Hypokalemia: Plan: Replace electrolytes as needed (5) Hyponatremia: Plan: Likely due to SIADH and Poor oral Intake Continue fluid restriction Appreciate nephrology input Monitor sodium level: 131 today Continue urea to 15 mg TID Continue IV fluids along with Lasix daily as per nephrology Continue to monitor sodium levels (6) LLQ pain: Plan: Reports this is chronic intermittent Had a recent CT abd/p from 08/24/21. Reviewed this and it reported no changed in ?splenic laceration v infarct as seen in CT 08/20/21. XR abd this admission no acute findings Monitor (7) CLL (chronic lymphocytic leukemia): Plan: Ongoing therapy with ibrutinib Follows with Dr. Ariel Ortiz for oncology (8) Hypertension: Plan: Continue lisinopril, amlodipine (9) Anemia: Plan: Likely anemia of Chronic disease Hb at baseline Monitor CBC Major Depression Appreciate Psychiatry Input Consider starting mirtazapine once hyponatremia is controlled H/O left hip fracture S/P hemiarthroplasty [place] removed Appreciate orthopedics input On Lovenox for DVT prophylaxis Weightbearing as tolerated Needs follow-up with Dr. Sánchez in 4 weeks with repeat x-rays DVT Px: SQ Lovenox Code status: FULL CODE Disposition Plan to discharge to rehab facility as able Admission and Anticipated Discharge Date Admission Date: September 04, 2021 Subjective Patient is seen and examined at bedside No distress on exam Denies any cough Still requiring 7 L of oxygen to maintain saturation Very poor oral intake Sodium levels improved to 131 Persistent chronic nausea No issues with swallowing today No significant abdominal pain Review of Systems Review of Systems: All systems reviewed & are unremarkable except as noted in Subjective Physical Exam Physical Exam: Physical Exam: Vitals signs as noted above General Appearance:Thin, Frail, no apparent distress Head: normocephalic, Atraumatic Eyes: normal inspection, EOMI Neck: supple, Trachea midline Respiratory/Chest: Decreased breath sounds, +Basal Crackles Cardiovascular: S1, S2, No murmur Abdomen/GI:Soft, Non tender, Bowel sounds present Extremities/Musculoskeletal:normal inspection, no edema, Left hip +Surgical scar healing Neurologic/Psych:AAOX3, grossly no focal neurological deficits Skin: normal color, warm Results & Data Results & Data ([facility]) Vital Signs (Past 12 Hours) Vital Signs Temp Pulse Pulse Resp BP BP Pulse Ox 09/14/21 11:41 36.6 C 80 18 138/57 L 91 09/14/21 08:00 67 09/14/21 07:14 36.7 C 67 20 162/67 H 97 Laboratory Results Short CBC 09/14/21 Range/Units 06:03 WBC 8.24 (4.8-10.8) K/uL Hgb 8.3 L (12.0-16.0) g/dL Hct 25.0 L (37-47) % Plt Count 167 (130-400) K/uL BMP 09/14/21 06:03 Sodium 131 L Potassium 3.7 Chloride 95 L Carbon Dioxide 27 BUN 35 H D Creatinine 0.44 L Glucose 91 Calcium 8.9
[2021-09-14] MEDS: ONDANSETRON INJ 2 MG/ML 2 ML VIAL IV PRN (22:35)
[2021-09-15 08:16] LABS: BUN Creatinine Ratio 71.2 (10-20); Creatinine Clr Calc Pharmacy 85.4 ml/min; Est GFR (African American) 115.2 ml/min; Est GFR (Non-African American) 99.4 ml/min; Magnesium 1.5 mg/dl (1.8-2.4); Potassium 3.5 mmol/L (3.5-5.1)
[2021-09-15] MEDS: ENOXAPARIN INJ 40 MG/0.4 ML SYR SQ SCH (08:37)
[2021-09-15] MEDS: UREA (UREA-NA) 15 GM PACK PO SCH ×3 (08:37→20:27)
[2021-09-15] MEDS: amLODIPine BESYLATE 5 MG TAB PO SCH (08:38)
[2021-09-15] MEDS: FUROSEMIDE INJ 20 MG/2 ML VIAL IV SCH ×3 (08:38→20:35)
[2021-09-15] MEDS: FLUTICASONE PROPIONATE NA SPR 16 GM BTL NAE SCH (08:39)
[2021-09-15] MEDS: FERROUS SULFATE 325 MG TAB PO SCH (08:39)
[2021-09-15] MEDS: PANTOprazole 40 MG TAB PO SCH (08:40)
[2021-09-15] MEDS: [UNRECOGNIZED DRUG - REMARK] PO SCH (08:41)
[2021-09-15] MEDS: CHOLECALCIFEROL 1,000 UNITS 25 MCG TAB PO SCH ×2 (08:42→13:04)
[2021-09-15] MEDS ORDERED: MAGNESIUM SULFATE / D5W 1 GM/100 ML BAG IV ONE (11:00)
--- NOTE | 2021-09-15 11:20 | Nephrology Progress Note ---
Date of Service September 15, 2021 Assessment & Plan (1) Hyponatremia: Plan: Patient with hyponatremia due to syndrome of inappropriate ADH. Sodium uptrending to 132. Continue urea 15 g 3 times daily. Her potassium 3.5. Will give 40 mEq of potassium chloride. -Stop normal saline (2) Pneumonia due to COVID-19 virus: Plan: She continues to require 7 L of oxygen. We will stop IV fluids. Admission and Anticipated Discharge Date Admission Date: September 04, 2021 Subjective Seen in follow-up for hyponatremia. Still poor appetite. She reports improvement in breathing. Sodium up to 132. Review of Systems Review of Systems: All other systems were reviewed and negative except as noted in HPI Physical Exam Physical Exam: General exam: Appears comfortable, no acute distress HEENT: Pupils are equal and reactive to light Neck: No JVD, neck is supple trachea is midline Respiratory system: Clear breath sounds bilaterally. Gastrointestinal: Abdomen is soft, non distended, non tender, bowel sounds are present CVS: Regular rate and rhythm. No murmurs, rubs or gallops Musculoskeletal: No joint or muscle tenderness Extremities: Non tender, no edema, peripheral pulses are present Neuro: Oriented, no tremors, no focal neurological deficits Skin: No rashes Results & Data ([facility]) Vital Signs (Past 12 Hours) Vital Signs Temp Pulse Resp BP Pulse Ox 09/15/21 06:54 36.6 C 80 22 137/65 95 09/15/21 03:00 36.5 C 86 20 130/66 95 Laboratory Results 09/15/21 06:36
[2021-09-15] MEDS: MAGNESIUM CHLORIDE 64MG DELAYED REL TAB PO SCH ×2 (13:04→20:26)
[2021-09-15] MEDS: POTASSIUM CHLORIDE CRTAB 20 MEQ TABCR PO SCH (13:05)
[2021-09-15] MEDS: ONDANSETRON INJ 2 MG/ML 2 ML VIAL IV PRN (15:45)
--- NOTE | 2021-09-15 16:51 | Hospitalist Progress Note ---
Date of Service September 15, 2021 Assessment & Plan (1) Hypoxia: (2) Pneumonia due to COVID-19 virus: Plan: Patient is a 71 yr female with H/O CLL on chemotherapy, hypogammaglobinemia, hypertension, GERD, gastroparesis, chronic anemia (baseline hemoglobin 10), chronic thrombocytopenia, recent hip fracture, covid and other medical problems listed below who presents from [facility] with pleuritic chest pain and EKG changes. COVID-19 pneumonia Covid PCR positive on previous admission (08/19/21) Covid PCR remains positive Chest CTA on admission without evidence of pulmonary embolism. Interval development of diffuse ground glass opacities in the lungs which may be seen in pneumonia CRP: 6.25 Normal Procalcitonin Blood cultures negative Completed dexamethasone, antibiotic course Repeat CXR on 09/13 showed Slight progression of multifocal bilateral airspace opacities which favor pneumonia. Appreciate speech therapy evaluation Continue aspiration precautions Saturating low 90s on 4 L supplemental oxygen (3) Chest pain: Plan: Pleuritic chest pain, EKG changes at [facility] with TWI V1-V3 that have since resolved Chest pain resolved Troponin negative (4) Hypokalemia: Plan: Replace electrolytes as needed (5) Hyponatremia: Plan: Likely due to SIADH and Poor oral Intake Continue fluid restriction Appreciate nephrology input Monitor sodium level: 132 today Continue urea to 15 mg TID IV fluids DCed Also on IV Lasix Monitor sodium levels (6) LLQ pain: Plan: Reports this is chronic intermittent Had a recent CT abd/p from 08/24/21. Reviewed this and it reported no changed in ?splenic laceration v infarct as seen in CT 08/20/21. XR abd this admission no acute findings Monitor (7) CLL (chronic lymphocytic leukemia): Plan: Ongoing therapy with ibrutinib Follows with Dr. Ariel Ortiz for oncology (8) Hypertension: Plan: Continue Amlodipine Lisinopril on hold (9) Anemia: Plan: Likely anemia of Chronic disease Hb at baseline Monitor CBC Major Depression Appreciate Psychiatry Input Consider starting mirtazapine once hyponatremia is controlled H/O left hip fracture S/P hemiarthroplasty Sarmad removed Appreciate orthopedics input On Lovenox for DVT prophylaxis Weightbearing as tolerated Needs follow-up with Dr. Sánchez in 4 weeks with repeat x-rays DVT Px: SQ Lovenox Code status: FULL CODE Disposition Plan to discharge to rehab facility as able Admission and Anticipated Discharge Date Admission Date: September 04, 2021 Subjective Patient is seen and examined at bedside Sitting in chair during my encounter Sodium levels improved to 132 Appetite remains poor Denies any cough, dyspnea Supplemental oxygen requirement trending down Minimal chronic abdominal discomfort Review of Systems Review of Systems: All systems reviewed & are unremarkable except as noted in Subjective Physical Exam Physical Exam: Physical Exam: Vitals signs as noted above General Appearance:Thin, Frail, no apparent distress Head: normocephalic, Atraumatic Eyes: normal inspection, EOMI Neck: supple, Trachea midline Respiratory/Chest: Decreased breath sounds, +Basal Crackles Cardiovascular: S1, S2, No murmur Abdomen/GI:Soft, Non tender, Bowel sounds present Extremities/Musculoskeletal:normal inspection, no edema, Left hip +Surgical scar healing Neurologic/Psych:AAOX3, grossly no focal neurological deficits Skin: normal color, warm Results & Data Results & Data ([facility]) Vital Signs (Past 12 Hours) Vital Signs Temp Pulse Pulse Resp BP BP Pulse Ox 09/15/21 15:54 36.7 C 87 20 145/76 H 90 09/15/21 15:31 95 09/15/21 13:15 97 09/15/21 13:09 36.4 C L 76 18 129/76 90 09/15/21 08:00 87 09/15/21 06:54 36.6 C 80 22 137/65 95 Laboratory Results [facility] 09/15/21 06:36 Sodium 132 L Potassium 3.5 Chloride 95 L Carbon Dioxide 28 BUN 33 H Creatinine 0.47 L Glucose 97 Calcium 9.0
--- NOTE | 2021-09-16 07:10 | XRay Report ---
KUB CLINICAL HISTORY: nausea COMPARISON STUDY: CT of the abdomen and pelvis August 24, 2021. Abdominal series September 04, 2021. FINDINGS: Left hip arthroplasty is incidentally noted. Bowel gas pattern is unremarkable. There is no evidence for obstruction. IMPRESSION: No evidence for a bowel obstruction. ACT 112: Negative or not required by law. Electronically signed by: Héctor Apodaca M.D. 09/16/2021 7:08 AM
[2021-09-16 07:48] LABS: BUN Creatinine Ratio 78.8 (10-20); Calcium 9.1 mg/dl (8.5-10.1); Creatinine Clr Calc Pharmacy 86.7 ml/min; Est GFR (African American) 115.2 ml/min; Est GFR (Non-African American) 99.4 ml/min; Magnesium 1.8 mg/dl (1.8-2.4); Potassium 3.6 mmol/L (3.5-5.1)
[2021-09-16] MEDS: amLODIPine BESYLATE 5 MG TAB PO SCH ×2 (09:30→10:55)
[2021-09-16] MEDS: PANTOprazole 40 MG TAB PO SCH ×2 (09:30→10:56)
[2021-09-16] MEDS: UREA (UREA-NA) 15 GM PACK PO SCH ×3 (09:30→20:50)
[2021-09-16] MEDS: MAGNESIUM CHLORIDE 64MG DELAYED REL TAB PO SCH ×4 (09:30→21:53)
[2021-09-16] MEDS: POTASSIUM CHLORIDE CRTAB 20 MEQ TABCR PO SCH ×2 (09:30→10:56)
[2021-09-16] MEDS: CHOLECALCIFEROL 1,000 UNITS 25 MCG TAB PO SCH ×2 (09:31→10:55)
[2021-09-16] MEDS: FLUTICASONE PROPIONATE NA SPR 16 GM BTL NAE SCH (09:31)
[2021-09-16] MEDS: FUROSEMIDE INJ 20 MG/2 ML VIAL IV SCH ×3 (09:31→20:50)
[2021-09-16] MEDS: ENOXAPARIN INJ 40 MG/0.4 ML SYR SQ SCH (09:31)
--- NOTE | 2021-09-16 10:02 | Nephrology Progress Note ---
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 Sodium uptrending to 133. Continue urea 15 g 3 times daily. Her potassium 3.6. Will Continue 40 mEq of potassium chloride. -Encourage nutrition (2) Pneumonia due to COVID-19 virus: Plan: She continues to require 4 L of oxygen. Admission and Anticipated Discharge Date Admission Date: September 04, 2021 Subjective Seen in follow-up for hyponatremia. Sodium improving to 133. Patient is not eating much Review of Systems Review of Systems: All other systems were reviewed and negative except as noted in HPI Physical Exam Physical Exam: General exam: Appears comfortable, no acute distress HEENT: Pupils are equal and reactive to light Neck: No JVD, neck is supple trachea is midline Respiratory system: Clear breath sounds bilaterally. Gastrointestinal: Abdomen is soft, non distended, non tender, bowel sounds are present CVS: Regular rate and rhythm. No murmurs, rubs or gallops Musculoskeletal: No joint or muscle tenderness Extremities: Non tender, no edema, peripheral pulses are present Neuro: Oriented, no tremors, no focal neurological deficits Skin: No rashes Results & Data ([facility]) Vital Signs (Past 12 Hours) Vital Signs Temp Pulse Resp BP Pulse Ox 09/16/21 07:34 36.7 C 87 18 154/73 H 89 L 09/16/21 04:23 36.7 C 88 20 149/73 H 90 09/16/21 00:02 36.3 C L 84 20 143/76 H 95 Laboratory Results 09/16/21 06:02
[2021-09-16] MEDS: [UNRECOGNIZED DRUG - REMARK] PO SCH (10:55)
--- NOTE | 2021-09-16 16:43 | Hospitalist Progress Note ---
Date of Service September 16, 2021 Assessment & Plan (1) Hypoxia: (2) Pneumonia due to COVID-19 virus: Plan: Patient is a 71 yr female with H/O CLL on chemotherapy, hypogammaglobinemia, hypertension, GERD, gastroparesis, chronic anemia (baseline hemoglobin 10), chronic thrombocytopenia, recent hip fracture, covid and other medical problems listed below who presents from [facility] with pleuritic chest pain and EKG changes. COVID-19 pneumonia Covid PCR positive on previous admission (08/19/21) Covid PCR remains positive Chest CTA on admission without evidence of pulmonary embolism. Interval development of diffuse ground glass opacities in the lungs which may be seen in pneumonia CRP: 6.25 Normal Procalcitonin Blood cultures negative Completed dexamethasone, antibiotic course Repeat CXR on 09/13 showed Slight progression of multifocal bilateral airspace opacities which favor pneumonia. Appreciate speech therapy evaluation Continue aspiration precautions Saturating low 90s on 4 L supplemental oxygen Stable Dysphagia Minced and moist, nectar thick liquid Speech therapy evaluated Aspiration precautions (3) Chest pain: Plan: Pleuritic chest pain, EKG changes at [facility] with TWI V1-V3 that have since resolved Chest pain resolved Troponin negative (4) Hypokalemia: Plan: Replace electrolytes as needed (5) Hyponatremia: Plan: Likely due to SIADH and Poor oral Intake Continue fluid restriction Appreciate nephrology input Monitor sodium level: 133 today Continue urea to 15 mg TID IV fluids DCed Also on IV Lasix Monitor sodium levels (6) LLQ pain: Plan: Reports this is chronic intermittent Had a recent CT abd/p from 08/24/21. Reviewed this and it reported no changed in ?splenic laceration v infarct as seen in CT 08/20/21. XR abd this admission no acute findings Monitor (7) CLL (chronic lymphocytic leukemia): Plan: Ongoing therapy with ibrutinib Follows with Dr. Ariel Ortiz for oncology (8) Hypertension: Plan: Continue Amlodipine Lisinopril on hold (9) Anemia: Plan: Likely anemia of Chronic disease Hb at baseline Monitor CBC Major Depression Appreciate Psychiatry Input Consider starting mirtazapine once hyponatremia is controlled H/O left hip fracture S/P hemiarthroplasty [place] removed Appreciate orthopedics input On Lovenox for DVT prophylaxis Weightbearing as tolerated Needs follow-up with Dr. Sánchez in 4 weeks with repeat x-rays DVT Px: SQ Lovenox Code status: FULL CODE Disposition Plan to discharge to rehab facility as able Admission and Anticipated Discharge Date Admission Date: September 04, 2021 Subjective Patient is seen and examined at bedside Patient had swallowing problem with medications today Speech therapy recommended nectar thick liquids Sodium levels improved to 133 Poor oral intake Denies any cough, dyspnea No other complaints Review of Systems Review of Systems: All systems reviewed & are unremarkable except as noted in Subjective Physical Exam Physical Exam: Physical Exam: Vitals signs as noted above General Appearance:Thin, Frail, no apparent distress Head: normocephalic, Atraumatic Eyes: normal inspection, EOMI Neck: supple, Trachea midline Respiratory/Chest: Decreased breath sounds, +Basal Crackles Cardiovascular: S1, S2, No murmur Abdomen/GI:Soft, Non tender, Bowel sounds present Extremities/Musculoskeletal:normal inspection, no edema, Left hip +Surgical scar healing Neurologic/Psych:AAOX3, grossly no focal neurological deficits Skin: normal color, warm Results & Data Results & Data ([facility]) Vital Signs (Past 12 Hours) Vital Signs Temp Pulse Resp BP BP Pulse Ox 09/16/21 15:38 36.7 C 94 H 18 142/78 H 92 09/16/21 11:57 36.6 C 89 16 143/76 H 96 09/16/21 07:34 36.7 C 87 18 154/73 H 89 L Laboratory Results [facility] 09/16/21 06:02 Sodium 133 L Potassium 3.6 Chloride 95 L Carbon Dioxide 28 BUN 37 H Creatinine 0.47 L Glucose 102 H Calcium 9.1
[2021-09-16] MEDS ORDERED: MAGNESIUM SULFATE / D5W 1 GM/100 ML BAG IV ONE (22:15)
[2021-09-17 06:24] LABS: Hematocrit (blood only) 29.6 % (37-47); Hemoglobin 9.6 g/dL (12.0-16.0); Mean Corpuscular Hemoglobin 26.4 pg (25-34); Mean Corpuscular Hgb Conc 32.4 g/dL (32-36); Mean Corpuscular Volume 81.5 fL (80-100); Mean Platelet Volume 10.4 fL (7.4-10.4); Platelet Count 158 K/uL (130-400); RDW Coefficient of Variation 16.4 % (11.5-14.5); RDW Standard Deviation 49.6 fL (36.4-46.3); Red Blood Count 3.63 M/uL (4.2-5.4); White Blood Count 14.46 K/uL (4.8-10.8)
[2021-09-17 06:55] LABS: BUN Creatinine Ratio 71.1 (10-20); Calcium 9.2 mg/dl (8.5-10.1); Creatinine Clr Calc Pharmacy 68.7 ml/min; Est GFR (African American) 110.7 ml/min; Est GFR (Non-African American) 95.5 ml/min; Magnesium 2.2 mg/dl (1.8-2.4); Potassium 3.4 mmol/L (3.5-5.1)
[2021-09-17] MEDS: MAGNESIUM CHLORIDE 64MG DELAYED REL TAB PO SCH ×2 (08:32→20:20)
[2021-09-17] MEDS: POTASSIUM CHLORIDE CRTAB 20 MEQ TABCR PO SCH (08:32)
[2021-09-17] MEDS: amLODIPine BESYLATE 5 MG TAB PO SCH (08:32)
[2021-09-17] MEDS: PANTOprazole 40 MG TAB PO SCH (08:32)
[2021-09-17] MEDS: FLUTICASONE PROPIONATE NA SPR 16 GM BTL NAE SCH (08:32)
[2021-09-17] MEDS: ENOXAPARIN INJ 40 MG/0.4 ML SYR SQ SCH (08:32)
[2021-09-17] MEDS: FERROUS SULFATE 325 MG TAB PO SCH (08:32)
[2021-09-17] MEDS: CHOLECALCIFEROL 1,000 UNITS 25 MCG TAB PO SCH (08:32)
[2021-09-17] MEDS: UREA (UREA-NA) 15 GM PACK PO SCH ×3 (08:33→20:20)
[2021-09-17] MEDS: FUROSEMIDE INJ 20 MG/2 ML VIAL IV SCH ×3 (08:33→20:20)
[2021-09-17] MEDS: [UNRECOGNIZED DRUG - REMARK] PO SCH (08:33)
--- NOTE | 2021-09-17 10:56 | XRay Report ---
SINGLE VIEW CHEST CLINICAL HISTORY: Covid pneumonia. FINDINGS: An AP, portable, upright chest radiograph is compared to study dated 09/13/2021 and correlat ed with chest CT dated 09/04/2021. The examination is degraded by portable technique and patient rota tion. The cardiomediastinal silhouette is unremarkable. Multifocal airspace consolidation is again seen throughout both lungs. This has partially cleared as compared to 09/13/2021. No large pleural eff usion or pneumothorax is identified. The skeletal structures are osteopenic. The bony thorax is gross ly intact. IMPRESSION: Multifocal airspace consolidation is consistent with the reported history of a viral pneu monia. This has modestly cleared as compared to 09/13/2021. Continued follow-up to complete resolution is recommended. ACT 112: Negative or not required by law. Electronically signed by: Quang Ibarra M.D. 09/17/2021 10:55 AM
[2021-09-17] MEDS: POTASSIUM CHLORIDE / WTR 10 MEQ/100 ML PLCT IV SCH ×2 (11:44→12:44)
--- NOTE | 2021-09-17 15:43 | Fluoroscopy Report ---
MODIFIED BARIUM SWALLOW CLINICAL HISTORY: assess for aspiration COMPARISON STUDY: None. FLUOROSCOPY TIME: 3.2 minutes. TECHNIQUE: A modified barium swallow was performed in conjunction with Speech Pathology. The patient ingested varying consistencies of barium containing material. Video fluoroscopy was performed. FINDINGS: Note is made of multiple episodes of silent tracheal aspiration with thin liquids. There wa s penetration but no aspiration with nectar thick liquids. No aspiration was noted with pudding consi stencies. Residuals within the pyriform sinuses and vallecula were noted with pudding consistency. IMPRESSION: 1. Several episodes of silent tracheal aspiration with thin liquids. No aspiration with remainder of the consistencies. 2. Residuals within the piriform sinuses and vallecula with pudding consistencies. 2. Full recommendations by speech pathology to follow. ACT 112: Negative or not required by law. Electronically signed by: Héctor Apodaca M.D. 09/17/2021 3:42 PM
--- NOTE | 2021-09-17 17:24 | Hospitalist Progress Note ---
Date of Service September 17, 2021 Assessment & Plan (1) Hypoxia: (2) Pneumonia due to COVID-19 virus: Plan: Patient is a 71 yr female with H/O CLL on chemotherapy, hypogammaglobinemia, hypertension, GERD, gastroparesis, chronic anemia (baseline hemoglobin 10), chronic thrombocytopenia, recent hip fracture, covid and other medical problems listed below who presents from [facility] with pleuritic chest pain and EKG changes. COVID-19 pneumonia Covid PCR positive on previous admission (08/19/21) Covid PCR remains positive Chest CTA on admission without evidence of pulmonary embolism. Interval development of diffuse ground glass opacities in the lungs which may be seen in pneumonia CRP: 6.25 Normal Procalcitonin Blood cultures negative Completed dexamethasone, antibiotic course Repeat CXR on 09/13 showed Slight progression of multifocal bilateral airspace opacities which favor pneumonia. Appreciate speech therapy evaluation Continue aspiration precautions Saturating low 90s on 4 L supplemental oxygen Diet changed to pured, nectar thick given aspiration issues Plan to discharge back to rehab facility as able Dysphagia Video Swallow:Several episodes of silent tracheal aspiration with thin liquids. No aspiration with remainder of the consistencies. Residuals within the piriform sinuses and vallecula with pudding consistencies. Pureed , nectar thick liquid Speech therapy evaluated Continue Aspiration precautions (3) Chest pain: Plan: Pleuritic chest pain, EKG changes at [facility] with TWI V1-V3 that have since resolved Chest pain resolved Troponin negative (4) Hypokalemia: Plan: Replace electrolytes as needed (5) Hyponatremia: Plan: Likely due to SIADH and Poor oral Intake Continue fluid restriction Appreciate nephrology input Monitor sodium level: 132 today Continue urea to 15 mg TID IV fluids DCed Also on IV Lasix Monitor sodium levels (6) LLQ pain: Plan: Reports this is chronic intermittent Had a recent CT abd/p from 08/24/21. Reviewed this and it reported no changed in ?splenic laceration v infarct as seen in CT 08/20/21. XR abd this admission no acute findings Monitor (7) CLL (chronic lymphocytic leukemia): Plan: Ongoing therapy with ibrutinib Follows with Dr. Ariel Ortiz for oncology (8) Hypertension: Plan: Continue Amlodipine Lisinopril on hold (9) Anemia: Plan: Likely anemia of Chronic disease Hb at baseline Monitor CBC Major Depression Appreciate Psychiatry Input Consider starting mirtazapine once hyponatremia is controlled H/O left hip fracture S/P hemiarthroplasty [place] removed Appreciate orthopedics input On Lovenox for DVT prophylaxis Weightbearing as tolerated Needs follow-up with Dr. Sánchez in 4 weeks with repeat x-rays DVT Px: SQ Lovenox Code status: FULL CODE Disposition Plan to discharge to rehab facility as able Admission and Anticipated Discharge Date Admission Date: September 04, 2021 Subjective Patient is seen and examined at bedside No new complaints Leukocytosis noted on labs Diet changed to pured, nectar thick Saturating well on 4 L supplemental oxygen Denies any cough, shortness of breath, chest pain Sodium levels 132 today Review of Systems Review of Systems: All systems reviewed & are unremarkable except as noted in Subjective Physical Exam Physical Exam: Physical Exam: Vitals signs as noted above General Appearance:Thin, Frail, no apparent distress Head: normocephalic, Atraumatic Eyes: normal inspection, EOMI Neck: supple, Trachea midline Respiratory/Chest: Decreased breath sounds, +Basal Crackles Cardiovascular: S1, S2, No murmur Abdomen/GI:Soft, Non tender, Bowel sounds present Extremities/Musculoskeletal:normal inspection, no edema, Left hip +Surgical scar healing Neurologic/Psych:AAOX3, grossly no focal neurological deficits Skin: normal color, warm Results & Data Results & Data ([facility]) Vital Signs (Past 12 Hours) Vital Signs Temp Pulse Pulse Resp BP BP Pulse Ox 09/17/21 16:32 100 H 09/17/21 16:31 36.4 C L 83 16 134/86 09/17/21 14:49 36.7 C 100 H 17 143/90 H 94 09/17/21 11:29 36.6 C 109 H 20 128/87 96 09/17/21 07:32 86 09/17/21 07:30 36.4 C L 96 H 18 147/80 H 96 Laboratory Results Short CBC 09/17/21 Range/Units 05:17 WBC 14.46 H (4.8-10.8) K/uL Hgb 9.6 L (12.0-16.0) g/dL Hct 29.6 L (37-47) % Plt Count 158 (130-400) K/uL BMP 09/17/21 05:17 Sodium 132 L Potassium 3.4 L Chloride 94 L Carbon Dioxide 31 BUN 38 H Creatinine 0.53 L Glucose 111 H Calcium 9.2
--- NOTE | 2021-09-17 18:21 | Nephrology Progress Note ---
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 Sodium stable 132-133. Continue urea 15 g 3 times daily, lasix 20 IV tid. Her potassium 3.4. Will Continue 40 mEq of potassium chloride. -Encourage nutrition -cont current meds and FR 1.5L daily (2) Pneumonia due to COVID-19 virus: Plan: She continues to require 4 L of oxygen. Admission and Anticipated Discharge Date Admission Date: September 04, 2021 Subjective seen on rounds at 1230 today. tells me she's feeling "no good," c/o ongoing abdominal pain unchanged from prior days and limiting po; ROS limited by dyspnea and fitz fatigue w/ speech Review of Systems Review of Systems: All systems reviewed & are unremarkable except as noted in Subjective Physical Exam Constitutional: well developed, + cachectic and + frail appearing; no acute distress Eyes: EOM intact bilaterally ENMT: Ears: no external ear abnormality Nose: no external nose abnormality Mouth: + dry oral mucous membranes Neck: no nuchal rigidity Respiratory: normal respiratory effort Auscultation: + breath sounds absent (R lung chaidez posteriorly), + diminished lung sounds and + rhonchi (popping ) Cardiovascular: RRR, no murmur, no edema Gastrointestinal (Abdomen): Inspection/Auscultation: normal bowel sounds Percussion/Palpation: abdomen soft; abdomen nontender Musculoskeletal: Extremities: strength 5/5 throughout Skin: no rashes, warm and dry Neurologic: deras, fluent speech, no tremor Genitourinary: onofre w/ ample urine Results & Data ([facility]) Vital Signs (Past 12 Hours) Vital Signs Temp Pulse Pulse Resp BP BP Pulse Ox 09/17/21 16:32 100 H 09/17/21 16:31 36.4 C L 83 16 134/86 09/17/21 14:49 36.7 C 100 H 17 143/90 H 94 09/17/21 11:29 36.6 C 109 H 20 128/87 96 09/17/21 07:32 86 09/17/21 07:30 36.4 C L 96 H 18 147/80 H 96 Laboratory Results 09/17/21 05:17 09/17/21 05:17
[2021-09-17] MEDS: DOCUSATE SODIUM 100 MG CAP PO PRN (20:23)
[2021-09-18 08:18] LABS: Hematocrit (blood only) 34.8 % (37-47); Hemoglobin 11.3 g/dL (12.0-16.0); Mean Corpuscular Hemoglobin 26.6 pg (25-34); Mean Corpuscular Hgb Conc 32.5 g/dL (32-36); Mean Corpuscular Volume 81.9 fL (80-100); Mean Platelet Volume 12.1 fL (7.4-10.4); Platelet Count 209 K/uL (130-400); RDW Coefficient of Variation 16.5 % (11.5-14.5); RDW Standard Deviation 49.6 fL (36.4-46.3); Red Blood Count 4.25 M/uL (4.2-5.4); White Blood Count 29.16 K/uL (4.8-10.8)
[2021-09-18] MEDS: FLUTICASONE PROPIONATE NA SPR 16 GM BTL NAE SCH (08:36)
[2021-09-18] MEDS: ENOXAPARIN INJ 40 MG/0.4 ML SYR SQ SCH (08:36)
[2021-09-18] MEDS: UREA (UREA-NA) 15 GM PACK PO SCH ×2 (08:36→21:29)
[2021-09-18 08:37] LABS: Calcium 10.1 mg/dl (8.5-10.1); Creatinine Clr Calc Pharmacy 53.5 ml/min
[2021-09-18] MEDS: POTASSIUM CHLORIDE CRTAB 20 MEQ TABCR PO SCH (08:37)
[2021-09-18] MEDS: FUROSEMIDE INJ 20 MG/2 ML VIAL IV SCH ×3 (08:37→21:28)
[2021-09-18] MEDS: CHOLECALCIFEROL 1,000 UNITS 25 MCG TAB PO SCH (08:37)
[2021-09-18] MEDS: PANTOprazole 40 MG TAB PO SCH (08:37)
[2021-09-18] MEDS: amLODIPine BESYLATE 5 MG TAB PO SCH (08:38)
[2021-09-18] MEDS: MAGNESIUM CHLORIDE 64MG DELAYED REL TAB PO SCH ×2 (08:38→21:28)
[2021-09-18] MEDS: [UNRECOGNIZED DRUG - REMARK] PO SCH (08:41)
[2021-09-18] MEDS: cefTRIAXone SODIUM 1,000 MG in DEXTROSE 5% 50 ML IV SCH (10:04)
[2021-09-18] MEDS: metroNIDAZOLE 500 MG TAB PO SCH ×3 (10:04→21:29)
--- NOTE | 2021-09-18 11:22 | Nephrology Progress Note ---
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 Sodium normalized now. -reduced urea dose to 15 g bid from 3 times daily -cont lasix 20 IV tid. -K normalized now > Continue 40 mEq of potassium chloride po daily -daily bmp -Encourage nutrition -cont current meds and FR 1.5L daily (2) Pneumonia due to COVID-19 virus: Plan: She continues to require 4 L of oxygen. Admission and Anticipated Discharge Date Admission Date: September 04, 2021 Subjective Swallow study yesterday shows moderate oropharyngeal dysphagia complicated by esophageal dysfunction and requiring aspiration precautions as well as pured diet with nectar thick liquids patient remains extremely fatigued. Denies chest pain, worsening shortness of breath, pain with p.o.. Review of systems limited by her fatigue Review of Systems Review of Systems: All systems reviewed & are unremarkable except as noted in Subjective Physical Exam Constitutional: well developed, + cachectic and + frail appearing; no acute distress Eyes: EOM intact bilaterally ENMT: Ears: no external ear abnormality Nose: no external nose abnormality Mouth: + dry oral mucous membranes Neck: no nuchal rigidity Respiratory: normal respiratory effort Auscultation: + diminished lung sounds (bibasilar), + crackles (bibasilar) and + rhonchi (popping ) Cardiovascular: RRR, no murmur, no edema Gastrointestinal (Abdomen): Inspection/Auscultation: normal bowel sounds Percussion/Palpation: abdomen soft; abdomen nontender Musculoskeletal: Extremities: strength 5/5 throughout Skin: no rashes, warm and dry Neurologic: deras, marked generalized weakness Results & Data ([facility]) Vital Signs (Past 12 Hours) Vital Signs Temp Pulse Resp BP Pulse Ox 09/18/21 08:34 36.7 C 123 H 19 150/92 H 92 09/18/21 06:30 36.6 C 112 H 18 134/84 94 09/18/21 03:37 36.6 C 116 H 19 145/91 H 94 Laboratory Results 09/18/21 07:15 09/18/21 07:15
--- NOTE | 2021-09-18 13:48 | Electrocardiogram Report ---
Test Reason : Blood Pressure : / mmHG Vent. Rate : 118 BPM Atrial Rate : 118 BPM P-R Int : 120 ms QRS Dur : 076 ms QT Int : 300 ms P-R-T Axes : 045 011 141 degrees QTc Int : 420 ms Poor data quality, interpretation may be adversely affected Sinus tachycardia T wave abnormality, consider lateral ischemia Abnormal ECG When compared with ECG of 05-SEP-2021 04:52, Vent. rate has increased BY 51 BPM Nonspecific T wave abnormality no longer evident in Anterior leads T wave inversion more evident in Lateral leads Confirmed by Xavier Woods ([id number]) on 09/18/2021 1:48:11 PM Referred By: [facility] Confirmed By:Xavier Woods
[2021-09-18] MEDS: ONDANSETRON INJ 2 MG/ML 2 ML VIAL IV PRN ×2 (14:59→21:53)
--- NOTE | 2021-09-18 16:55 | Hospitalist Progress Note ---
Date of Service September 18, 2021 Assessment & Plan (1) Hypoxia: (2) Pneumonia due to COVID-19 virus: Plan: Patient is a 71 yr female with H/O CLL on chemotherapy, hypogammaglobinemia, hypertension, GERD, gastroparesis, chronic anemia (baseline hemoglobin 10), chronic thrombocytopenia, recent hip fracture, covid and other medical problems listed below who presents from [facility] with pleuritic chest pain and EKG changes. COVID-19 pneumonia Covid PCR positive on previous admission (08/19/21) Covid PCR remains positive Chest CTA on admission without evidence of pulmonary embolism. Interval development of diffuse ground glass opacities in the lungs which may be seen in pneumonia CRP: 6.25 Normal Procalcitonin Blood cultures negative Completed dexamethasone, antibiotic course Repeat CXR on 09/13 showed Slight progression of multifocal bilateral airspace opacities which favor pneumonia. Appreciate speech therapy evaluation Continue aspiration precautions Saturating low 90s on 4 L supplemental oxygen Diet changed to pured, nectar thick given aspiration issues Plan to discharge back to rehab facility as able Dysphagia Video Swallow:Several episodes of silent tracheal aspiration with thin liquids. No aspiration with remainder of the consistencies. Residuals within the piriform sinuses and vallecula with pudding consistencies. Pureed , nectar thick liquid Speech therapy evaluated Continue Aspiration precautions (3) Chest pain: Plan: Pleuritic chest pain, EKG changes at [facility] with TWI V1-V3 that have since resolved Chest pain resolved Troponin negative (4) Hypokalemia: Plan: Replace electrolytes as needed (5) Hyponatremia: Plan: Likely due to SIADH and Poor oral Intake Continue fluid restriction Appreciate nephrology input Monitor sodium level: 137 today Decreased urea to 15 mg BID IV fluids DCed Continue IV Lasix as per Nephrology Monitor sodium levels (6) LLQ pain: Plan: Reports this is chronic intermittent Had a recent CT abd/p from 08/24/21. Reviewed this and it reported no changed in ?splenic laceration v infarct as seen in CT 08/20/21. XR abd this admission no acute findings Monitor (7) CLL (chronic lymphocytic leukemia): Plan: Ongoing therapy with ibrutinib Follows with Dr. Ariel Ortiz for oncology (8) Hypertension: Plan: Continue Amlodipine Lisinopril on hold (9) Anemia: Plan: Likely anemia of Chronic disease Hb at baseline Monitor CBC Major Depression Appreciate Psychiatry Input Consider starting mirtazapine once hyponatremia is controlled H/O left hip fracture S/P hemiarthroplasty [place] removed Appreciate orthopedics input On Lovenox for DVT prophylaxis Weightbearing as tolerated Needs follow-up with Dr. Sánchez in 4 weeks with repeat x-rays DVT Px: SQ Lovenox Code status: FULL CODE Disposition Plan to discharge to rehab facility as able Admission and Anticipated Discharge Date Admission Date: September 04, 2021 Subjective Patient is seen and examined at bedside Tolerating current diet Sodium levels improved to 137 Discussed with nephrology today Oral intake remains poor Persistent leukocytosis Saturating well on 4 L supplemental oxygen Denies any cough, shortness of breath, chest pain Updated patient's family over the phone Review of Systems Review of Systems: All systems reviewed & are unremarkable except as noted in Subjective Physical Exam Physical Exam: Physical Exam: Vitals signs as noted above General Appearance:Thin, Frail, no apparent distress Head: normocephalic, Atraumatic Eyes: normal inspection, EOMI Neck: supple, Trachea midline Respiratory/Chest: Decreased breath sounds, +Basal Crackles Cardiovascular: S1, S2, No murmur Abdomen/GI:Soft, Non tender, Bowel sounds present Extremities/Musculoskeletal:normal inspection, no edema, Left hip +Surgical scar healing Neurologic/Psych:AAOX3, grossly no focal neurological deficits Skin: normal color, warm Results & Data Results & Data ([facility]) Vital Signs (Past 12 Hours) Vital Signs Temp Pulse Pulse Resp BP Pulse Ox 09/18/21 16:09 128 H 09/18/21 11:59 106 H 09/18/21 11:16 36.4 C L 123 H 20 138/99 92 09/18/21 08:34 36.7 C 123 H 19 150/92 H 92 09/18/21 06:30 36.6 C 112 H 18 134/84 94 Laboratory Results Short CBC 09/18/21 Range/Units 07:15 WBC 29.16 H (4.8-10.8) K/uL Hgb 11.3 L (12.0-16.0) g/dL Hct 34.8 L (37-47) % Plt Count 209 (130-400) K/uL BMP 09/18/21 07:15 Sodium 137 Potassium 4.0 D Chloride 97 L Carbon Dioxide 30 BUN 65 H D Creatinine 0.68 Glucose 135 H Calcium 10.1
[2021-09-19] MEDS: metroNIDAZOLE 500 MG TAB PO SCH ×2 (05:17→14:25)
[2021-09-19 08:12] LABS: Hematocrit (blood only) 36.1 % (37-47); Hemoglobin 11.6 g/dL (12.0-16.0); Mean Corpuscular Hemoglobin 26.7 pg (25-34); Mean Corpuscular Hgb Conc 32.1 g/dL (32-36); Mean Platelet Volume 12.5 fL (7.4-10.4); Platelet Count 196 K/uL (130-400); RDW Coefficient of Variation 16.6 % (11.5-14.5); RDW Standard Deviation 50.1 fL (36.4-46.3); Red Blood Count 4.35 M/uL (4.2-5.4); White Blood Count 29.76 K/uL (4.8-10.8)
[2021-09-19 08:50] LABS: BUN Creatinine Ratio 85.1 (10-20); Calcium 9.7 mg/dl (8.5-10.1); Creatinine Clr Calc Pharmacy 36.3 ml/min; Est GFR (African American) 67.3 ml/min; Magnesium 2.4 mg/dl (1.8-2.4); Potassium 4.1 mmol/L (3.5-5.1)
--- NOTE | 2021-09-19 08:51 | Nephrology Progress Note ---
Date of Service September 19, 2021 Assessment & Plan (1) Hyponatremia: Plan: Patient with hyponatremia due to syndrome of inappropriate ADH. Sodium normalized as of 09/18 > today's bmp pending -reduced urea dose to 15 g bid from 3 times daily on 09/18; also wrote that protein shakes do not count toward FR >> today will stop urea and monitor sodium Labs worse today >> big bump in creatinine ; other chemistries ok -changed lasix 20 IV tid to hold dose this evening -K normalized now > Continue 40 mEq of potassium chloride po daily -daily bmp -Encourage nutrition -cont current meds and FR 1.5L daily (2) Pneumonia due to COVID-19 virus: Plan: She continues to require 4 L of oxygen. Admission and Anticipated Discharge Date Admission Date: September 04, 2021 Subjective moved out of isolation for covid; still exhausted adn w/ minimal po Review of Systems Review of Systems: Other (limited by pt fatigue) Physical Exam Constitutional: well developed, + cachectic and + frail appearing; no acute distress Eyes: EOM intact bilaterally ENMT: Ears: no external ear abnormality Nose: no external nose abnormality Mouth: + dry oral mucous membranes Neck: no nuchal rigidity Respiratory: normal respiratory effort Auscultation: + diminished lung sounds (bibasilar), + crackles (bibasilar) and + rhonchi (popping ) Cardiovascular: RRR, no murmur, no edema Gastrointestinal (Abdomen): Inspection/Auscultation: normal bowel sounds Percussion/Palpation: abdomen soft; abdomen nontender Musculoskeletal: Extremities: strength 5/5 throughout Skin: no rashes, warm and dry Results & Data ([facility]) Vital Signs (Past 12 Hours) Vital Signs Temp Pulse Pulse Resp BP Pulse Ox 09/19/21 07:43 36.5 C 102 H 18 130/89 95 09/19/21 03:44 36.4 C L 105 H 20 134/87 96 09/19/21 00:06 36.5 C 108 H 20 130/88 95 09/18/21 22:19 111 H Laboratory Results 09/19/21 16:01
[2021-09-19] MEDS: UREA (UREA-NA) 15 GM PACK PO SCH (08:52)
[2021-09-19] MEDS: cefTRIAXone SODIUM 1,000 MG in DEXTROSE 5% 50 ML IV SCH (08:52)
[2021-09-19] MEDS: ENOXAPARIN INJ 40 MG/0.4 ML SYR SQ SCH (08:52)
[2021-09-19] MEDS: amLODIPine BESYLATE 5 MG TAB PO SCH (08:53)
[2021-09-19] MEDS: PANTOprazole 40 MG TAB PO SCH (08:55)
[2021-09-19] MEDS: FERROUS SULFATE 325 MG TAB PO SCH (08:56)
[2021-09-19] MEDS: FLUTICASONE PROPIONATE NA SPR 16 GM BTL NAE SCH (08:56)
[2021-09-19] MEDS: CHOLECALCIFEROL 1,000 UNITS 25 MCG TAB PO SCH (08:56)
[2021-09-19] MEDS: MAGNESIUM CHLORIDE 64MG DELAYED REL TAB PO SCH (08:57)
[2021-09-19] MEDS: POTASSIUM CHLORIDE CRTAB 20 MEQ TABCR PO SCH (09:04)
[2021-09-19] MEDS: FUROSEMIDE INJ 20 MG/2 ML VIAL IV SCH ×2 (09:04→14:25)
[2021-09-19] MEDS: [UNRECOGNIZED DRUG - REMARK] PO SCH (13:20)
--- NOTE | 2021-09-19 15:34 | Hospitalist Progress Note ---
Date of Service September 19, 2021 Assessment & Plan (1) Acute hypoxemic respiratory failure: Plan: 2/2 sepsis with pulmonary source. Cont plan per ICU. (2) Severe sepsis: Plan: Increased heart rate throughout the morning and contacted by nurse in the early afternoon for HR 130. At bedside patient is exhibiting rapid shallow breaths with a respiratory rate around 30 breaths per minute. She is diaphoretic and lethargic but able to awaken and follow commands, speak in short sentences. Son is at bedside and states she looks worse. Primary nurse from yesterday confirms the patient appears clinically worse than yesterday. Repeat labwork was drawn, CTA chest ordered. WBC increased to 54K from 30K yesterday, H/H and platelets were within normal limits. Blood gas reveals respiratory alkalosis and hypoxia consistent with rapid shallow breathing observed clinically. Electrolytes are within normal limits aside from calcium which was 10.6. A lactic acidosis was present with lactate 2.6. Procalcitonin was 0.38. Urine and blood cultures were ordered and are pending. CT chest with contrast reveals no evidence of PE, and shows progressed infiltrates and a 1.7cm cavitary focus within the lingula that appears infectious. She was bolused with 1L NSS. I contacted the sales center associate and we discussed the case, including her high mortality rate. I discussed this with the patient and her separately by phone who verbalized understanding and expressed the desire to proceed wtih mechanical ventilation. She was transferred to the ICU for additional critical care support and therapies. I contacted her again by phone and explained to him that she was now in the ICU and was intubated and sedated. He asked me to contact his son by phone, which I did and left a message. Cont ICU care. (3) Acute renal failure: Plan: Secondary to sepsis. Repeat BMP after IVF resuscitation. (4) CLL (chronic lymphocytic leukemia): Plan: Ongoing therapy with ibrutinib Follows with Dr. Ariel Ortiz for oncology Discussed this with him today and we are holding therapy until she improves. (5) Pneumonia due to COVID-19 virus: Plan: Readmitted with COVID-19 pneumonia Covid PCR positive on previous admission (08/19/21) Covid PCR remains positive. Chest CTA on admission without evidence of pulmonary embolism. Interval development of diffuse ground glass opacities in the lungs which may be seen in pneumonia Blood cultures negative Completed dexamethasone, antibiotic course Repeat CXR on 09/13 showed Slight progression of multifocal bilateral airspace opacities which favor pneumonia. There was initially concern for aspiration at this time. Continued to require oxygen supplementation which was improved to 4LPM from admission. Leukocytosis developed Rocephin/Flagyl started 09/18 Acute respiratory distress developed today with HR 130, consistent with sepsis picture. Worsening sepsis and cavitary infectious lung lesion seen on CT scan, no PE. Transferred to ICU for mechanical ventilation and continued sepsis support. (6) Hyponatremia: Plan: Likely due to SIADH and Poor oral Intake, she has been on several days of intravenous lasix and urea with normalization of sodium today. Unfortunately, she appears to be septic. Will hold Lasix now, currently running 20mg IV TID, and will resuscitate with volume. (7) Hypertension: Plan: antihypertensives are on hold in setting of sepsis (8) Anemia: Plan: Likely anemia of Chronic disease Hb at baseline Monitor CBC (9) Post-operative state: Plan: H/O left hip fracture S/P hemiarthroplasty on 08/[address] Sánchez Weightbearing as tolerated Follow-up with Dr. Sánchez as outpatient for repeat xrays. (10) Dysphagia: Plan: Recent video swallow study revealing several episodes of silent tracheal aspiration with thin liquids. No aspiration with remainder of the consistencies. Residuals within the piriform sinuses and vallecula with pudding consistencies. Currently on Pureed , nectar thick liquid Made NPO in setting of acute respiratory distress. (11) DVT prophylaxis: Plan: Lovenox-readdressing per ICU in setting of acute renal failure Full Code per my conversation with both the patient and her . I explained the risk of mortality in this situation is very high and they both verbalized understanding. Patient clarified that she is ok wtih CPR if needed despite the very real possibility that she would suffer traumatic fractures of her thorax if compressions were required. Dispo-transferred to the ICU DO Steffanie Paniagua Hospitalist Admission and Anticipated Discharge Date Admission Date: September 04, 2021 Subjective 71 yo F presented to the hospital with covid-19 pneumonia. She has a h/o CLL on Imbruvica chemotherapy. Initial covid PCR positive on 08/19/21. She received 10 days of dexamethasone. She came in from rehab because she was requiring 7- 8LPM oxygen supplementation. She also had a recent hip surgery after a fall. She also had a spleen laceration last admission, also, and was seen by surgery. Very poor oral intake overall and there was a concern of dysphagia recently prompting swallow study. She was placed on a modified diet. Mirtazapine was considered but not started 2/2 hyponatremia which nephrology corrected with Lasix and urea. Out of concern for possible aspiration, she was on ceftriaxone and flagyl started 24 hours ago. The patient is somnolent, however, she is oriented and answering questions appropriately and states she is not in pain, and denies feeling short of breath. She tells me that she wants to be intubated and is ok with CPR if needed. I spoke with by phone who reiterated this view. Review of Systems Review of Systems: ROS could not be fully completed as patient is somnolent and hypophonic. She is very weak and sick. Physical Exam Physical Exam: CONSTITUTIONAL: thin, cachectic, tachycardic and tachypneic, diaphoretic EYES: pupils are equal and round bilaterally, normal conjunctivae, no scleral icterus ENT: external ear and nose normal, MMM, poor dentition. RESPIRATORY: diminished breath sounds, crackles at bases bilaterally, rapid shallow breaths. CARDIOVASCULAR: tachy rate, regular rhythm, S1 and 2 heard without murmurs, gallops or rubs, no JVD, no peripheral edema GASTROINTESTINAL: normal bowel sounds, soft, nontender, no guarding. MUSCULOSKELETAL: head is normocephalic and atraumatic, cachectic, frail, severity of illness precludes strength testing. SKIN: warm and diaphoretic. NEUROLOGIC: CN 2-12 grossly intact, fatigued with eyes closed but able to open eyes and answer questions appropriately, hypophonic. PSYCHIATRIC: Oriented to person, place and time. Results & Data Results & Data ([facility]) Vital Signs (Past 12 Hours) Vital Signs Temp Pulse Resp BP Pulse Ox 09/19/21 11:58 37.0 C 132 H 20 113/78 95 09/19/21 07:43 36.5 C 102 H 18 130/89 95 09/19/21 03:44 36.4 C L 105 H 20 134/87 96 Laboratory Results Short CBC 09/19/21 09/19/21 Range/Units 07:36 16:01 WBC 29.76 H 54.44 H* D (4.8-10.8) K/uL Hgb 11.6 L 12.0 (12.0-16.0) g/dL Hct 36.1 L 36.9 L (37-47) % Plt Count 196 269 (130-400) K/uL BMP 09/19/21 09/19/21 07:37 16:01 Sodium 139 139 Potassium 4.1 4.9 D Chloride 101 103 Carbon Dioxide 30 26 BUN 84 H 101 H Creatinine 0.98 D 1.68 H D Glucose 134 H 166 H Calcium 9.7 10.6 H Cardiac Enzymes 09/19/21 Range/Units 16:01 Troponin I < 0.015 (0-0.045) ng/ml Liver Function 09/19/21 Range/Units 16:01 Total Bilirubin 0.6 (0.2-1) mg/dl AST 11 L (15-37) U/L ALT 16 (12-78) U/L Alkaline Phosphatase 62 (45-117) U/L Albumin 2.5 L (3.4-5.0) gm/dl Diagnostic Findings Chest CTA 09/19/21 15:28 CT ANGIOGRAPHY OF THE CHEST, PULMONARY EMBOLUS PROTOCOL CLINICAL HISTORY: Shortness of breath. Respiratory distress. COMPARISON STUDY: Chest CT September 04, 2021. Chest radiograph September 17, 2021. TECHNIQUE: Following IV administration of 120 mL of Optiray, helical axial images of the chest were obtained utilizing the pulmonary embolus protocol. Maximal intensity projections and sagittal and coronal reformats were viewed on an independent 3D workstation. IV contrast was administered without complication. Automated exposure control was utilized for the study. A dose lowering technique was utilized adhering to the principles of ALARA. CT DOSE: 227.90 mGy.cm FINDINGS: No pulmonary emboli are identified although the segmental and subsegmental pulmonary arteries are suboptimally assessed due to respiratory motion. Size of the heart is normal. There is no pericardial effusion. No enlarged thoracic lymph nodes are present. Moderate right and extensive left lower lobe consolidation has progressed since CT of September 04, 2011. There are additional ground glass opacities within the upper lobes. There has been interval development of a 1.7 cm cavitary focus within the lingula on image 116 of 263. There is no pneumothorax. There is no pleural effusion. Visualized portions of the upper abdomen are unremarkable. IMPRESSION: 1. No pulmonary emboli identified although segmental and subsegmental pulmonary arteries suboptimally assessed due to respiratory motion. 2. Multifocal consolidation and groundglass opacities which have progressed since CT of September 04, 2021. This suggests viral pneumonia. 3. Interval development of a 1.7 cm cavitary focus within the lingula. This is infectious. ACT 112: Negative or not required by law. Electronically signed by: Héctor Apodaca M.D. 09/19/2021 5:00 PM Chest X-Ray 09/19/21 18:45 XR chest 1V portable CLINICAL HISTORY: bronch, line placement, and intubation COMPARISON STUDY: Chest CT performed earlier today. Chest radiograph September 17, 2021. FINDINGS: Tip of endotracheal tube is 3.5 cm above the kristopher. Tip of nasogastric tube is below the lower aspect of this image but at least within the body of the stomach. There is no pneumothorax. Bilateral airspace opacities are similar to prior chest CT. Left subclavian central line is in place. Tip projects over the cavoatrial junction. IMPRESSION: 1. Satisfactory positioning of lines and tubes. 2. No pneumothorax. 3. No change in extensive bilateral airspace opacities. ACT 112: Negative or not required by law. Electronically signed by: Héctor Apodaca M.D. 09/19/2021 7:00 PM Medications Administered Current Inpatient Medications Acetaminophen (Acetaminophen 325 Mg Tab) 650 mg PO Q4H PRN PRN Reason: Pain or Fever Stop: 10/04/21 14:09 Last Admin: 09/09/21 19:23 Dose: 650 mg Documented by: Albuterol (Albuterol Hfa 8 Gm Inhaler) 2 puffs INH Q2H PRN PRN Reason: sob/wheeze Stop: 10/06/21 23:34 Allopurinol (Allopurinol 100 Mg Tab) 100 mg PO DAILY PRN PRN Reason: GOUT Stop: 10/04/21 15:08 Amlodipine Besylate (Amlodipine Besylate 5 Mg Tab) 2.5 mg PO DAILY REBEKA Stop: 10/07/21 08:59 Last Admin: 09/19/21 08:53 Dose: 2.5 mg Documented by: Artificial Tears (Artificial Tears) 1 drops OP BID PRN PRN Reason: Dry Eyes Stop: 10/04/21 15:18 Docusate Sodium (Docusate Sodium 100 Mg Cap) 100 mg PO BID PRN PRN Reason: constipation Stop: 10/04/21 15:08 Last Admin: 09/17/21 20:23 Dose: 100 mg Documented by: Enoxaparin Sodium (Enoxaparin Inj 40 Mg/0.4 Ml Syr) 40 mg SQ QAM REBEKA Stop: 10/05/21 08:59 Last Admin: 09/19/21 08:52 Dose: 40 mg Documented by: Ferrous Sulfate (Ferrous Sulfate 325 Mg Tab) 325 mg PO Q2D@0900 [facility] Stop: 10/05/21 08:59 Last Admin: 09/19/21 08:56 Dose: 325 mg Documented by: Fluticasone Propionate (Fluticasone Propionate Na Spr 16 Gm Btl) 2 sprays JELENA DAILY [facility] Stop: 10/05/21 08:59 Last Admin: 09/19/21 08:56 Dose: 2 sprays Documented by: Furosemide (Furosemide Inj 20 Mg/2 Ml Vial) 20 mg IV TID [facility] Stop: 10/13/21 20:59 Last Admin: 09/19/21 14:25 Dose: 20 mg Documented by: Ceftriaxone Sodium 1,000 mg/ (Dextrose) 50 mls @ 100 mls/hr IV Q24H [facility]; Protocol Stop: 09/25/21 08:59 Last Infusion: 09/19/21 10:31 Dose: Infused Documented by: Lisinopril (Lisinopril 10 Mg Tab) 10 mg PO DAILY [facility] Stop: 10/07/21 08:59 Last Admin: 09/11/21 08:44 Dose: 10 mg Documented by: Magnesium Chloride (Magnesium Chloride 64mg Delayed Rel Tab) 64 mg PO BID [facility] Stop: 10/15/21 09:44 Last Admin: 09/19/21 08:57 Dose: 64 mg Documented by: Menthol (Cough Drop (Sugar Free) Beltran 24 Beltran/1 Box) 1 beltran BUCCAL PRN PRN PRN Reason: Cough Stop: 10/13/21 08:28 Last Admin: 09/13/21 08:41 Dose: 1 beltran Documented by: Metronidazole (Metronidazole 500 Mg Tab) 500 mg PO Q8 [facility]; Protocol Stop: 09/25/21 08:44 Last Admin: 09/19/21 14:25 Dose: 500 mg Documented by: *Ibrutinib [ Imbruvica]*Non-Form Patient's Own Med 1 ea PO DAILY REBEKA Stop: 10/07/21 08:59 Last Admin: 09/19/21 13:20 Dose: Not Given Documented by: Nystatin (Nystatin Powder 15gm Btl) 1 appln EXT BID PRN PRN Reason: Rash Stop: 10/06/21 18:40 Last Admin: 09/06/21 21:55 Dose: 1 appln Documented by: Ondansetron HCl (Ondansetron Inj 2 Mg/Ml 2 Ml Vial) 4 mg IV Q6H PRN PRN Reason: Nausea Stop: 10/04/21 14:09 Last Admin: 09/18/21 21:53 Dose: 4 mg Documented by: Pantoprazole Sodium (Pantoprazole 40 Mg Tab) 40 mg PO DAILY REBEKA Stop: 10/05/21 08:59 Last Admin: 09/19/21 08:55 Dose: 40 mg Documented by: Phenol (Chloraseptic 1.4% Soln 180 Ml Btl) 2 sprays MT Q6H PRN PRN Reason: sore mouth Stop: 10/04/21 15:08 Last Admin: 09/05/21 09:25 Dose: 2 sprays Documented by: Polyethylene Glycol (Polyethylene (Miralax) 17 Gm Pack) 17 gm PO DAILY PRN PRN Reason: Constipation Stop: 10/04/21 14:09 Potassium Chloride (Potassium Chloride Crtab 20 Meq Tabcr) 40 meq PO QAM REBEKA Stop: 10/15/21 08:59 Last Admin: 09/19/21 09:04 Dose: 40 meq Documented by: Urea (Urea (Urea-Na) 15 Gm Pack) 15 gm PO BID REBEKA Stop: 10/18/21 20:59 Last Admin: 09/19/21 08:52 Dose: 15 gm Documented by: Vitamin D (Cholecalciferol 1,000 Units 25 Mcg Tab) 1,000 units PO QAM [facility] Stop: 10/12/21 08:59 Last Admin: 09/19/21 08:56 Dose: 1,000 units Documented by: Critical Care Time 60 minutes
[2021-09-19 16:16] LABS: Base Excess ABG 6.9 mEq/L (-9-1.8); HCO3 ABG 30 mmol/L (19-24); PCO2 ABG 36 mmHg (35-46); PO2 ABG 54 mmHg (80-95)
[2021-09-19 16:17] LABS: Allen Test Pos (Pos)
[2021-09-19 16:18] LABS: pH ABG 7.54 (7.35-7.45)
[2021-09-19 16:25] LABS: Hematocrit (blood only) 36.9 % (37-47); Mean Corpuscular Hemoglobin 26.5 pg (25-34); Mean Corpuscular Hgb Conc 32.5 g/dL (32-36); Mean Corpuscular Volume 81.5 fL (80-100); Mean Platelet Volume 11.5 fL (7.4-10.4); Platelet Count 269 K/uL (130-400); RDW Coefficient of Variation 16.8 % (11.5-14.5); RDW Standard Deviation 49.8 fL (36.4-46.3); Red Blood Count 4.53 M/uL (4.2-5.4); White Blood Count 54.44 K/uL (4.8-10.8)
[2021-09-19 16:42] LABS: ALC (manual) 22.05 K/uL (1.2-3.4); Hypochromasia Present; Lymphocytes # (manual) 22.05 K/uL (1.2-3.4); Lymphocytes % (manual) 40.5 %; Metamyelocytes # (manual) 0.44 K/uL (0-0); Metamyelocytes % (manual) 0.8 %; Microcytosis Present; Monocytes # (manual) 1.36 K/uL (0.11-0.59); Monocytes % (manual) 2.5 %; Neutrophils % (manual) 56.2 %; Ovalocytes 1+
[2021-09-19] MEDS ORDERED: ACETAMINOPHEN 1,000 MG/100 ML VIAL IV PRN (16:43)
[2021-09-19] MEDS ORDERED: SODIUM CHLORIDE 0.9% 1000ML 1,000 ML IV ONE (16:46)
[2021-09-19] MEDS ORDERED: OPTIRAY 320 125ml IV ONE (16:48)
--- NOTE | 2021-09-19 17:01 | CT Scan Report ---
CT ANGIOGRAPHY OF THE CHEST, PULMONARY EMBOLUS PROTOCOL CLINICAL HISTORY: Shortness of breath. Respiratory distress. COMPARISON STUDY: Chest CT September 04, 2021. Chest radiograph September 17, 2021. TECHNIQUE: Following IV administration of 120 mL of Optiray, helical axial images of the chest were o btained utilizing the pulmonary embolus protocol. Maximal intensity projections and sagittal and cor onal reformats were viewed on an independent 3D workstation. IV contrast was administered without co mplication. Automated exposure control was utilized for the study. A dose lowering technique was ut ilized adhering to the principles of ALARA. CT DOSE: 227.90 mGy.cm FINDINGS: No pulmonary emboli are identified although the segmental and subsegmental pulmonary arter ies are suboptimally assessed due to respiratory motion. Size of the heart is normal. There is no per icardial effusion. No enlarged thoracic lymph nodes are present. Moderate right and extensive left lo wer lobe consolidation has progressed since CT of September 04, 2011. There are additional ground glass opacities within the upper lobes. There has been interval development of a 1.7 cm cavitary focus wit hin the lingula on image 116 of 263. There is no pneumothorax. There is no pleural effusion. Visualiz ed portions of the upper abdomen are unremarkable. IMPRESSION: 1. No pulmonary emboli identified although segmental and subsegmental pulmonary arteries suboptimally assessed due to respiratory motion. 2. Multifocal consolidation and groundglass opacities which have progressed since CT of September 04 021. This suggests viral pneumonia. 3. Interval development of a 1.7 cm cavitary focus within the lingula. This is infectious. ACT 112: Negative or not required by law. Electronically signed by: Héctor Apodaca M.D. 09/19/2021 5:00 PM
[2021-09-19 17:02] LABS: Alanine Aminotransferase 16 U/L (12-78); Albumin Globulin Ratio 0.6 (0.9-2); Albumin Level 2.5 gm/dl (3.4-5.0); Alkaline Phosphatase 62 U/L (45-117); Aspartate Aminotransferase 11 U/L (15-37); BUN Creatinine Ratio 60.2 (10-20); Bilirubin,Total 0.6 mg/dl (0.2-1); Blood Urea Nitrogen 101 mg/dl (7-18); Calcium 10.6 mg/dl (8.5-10.1); Carbon Dioxide 26 mmol/L (21-32); Chloride 103 mmol/L (98-107); Creatinine Clr Calc Pharmacy 21.2 ml/min; Est GFR (African American) 35.1 ml/min; Est GFR (Non-African American) 30.2 ml/min; Glucose 166 mg/dl (70-99); Magnesium 2.4 mg/dl (1.8-2.4); Phosphorus 3.5 mg/dl (2.5-4.9); Potassium 4.9 mmol/L (3.5-5.1); Sodium 139 mmol/L (136-145); Total Protein 6.5 gm/dl (6.4-8.2); Troponin I < 0.015 ng/ml (0-0.045)
[2021-09-19] MEDS ORDERED: ACETAMINOPHEN 65 ML IV PRN (17:30)
[2021-09-19] MEDS ORDERED: RAPID SEQUENCE INDUCTION BAG ONE (18:00)
[2021-09-19] MEDS ORDERED: PROPOFOL IV EMULSION 10 MG/ML 100 ML VIAL IV ONE (18:08)
[2021-09-19] MEDS ORDERED: NOREPINEPHRINE/D5W 8 MG/508 ML IV ONE (18:28)
--- NOTE | 2021-09-19 18:52 | Procedure Note ---
Procedure Note Date of Service September 19, 2021 Note INTUBATION PROCEDURE NOTE: Provider: Keaton Spivey MD A time-out was completed verifying correct patient, procedure, site, positioning. Patient was evaluated and required intubation for hypoxemic respiratory failure and probable septic shock Sedative agent used: 4 mg Versed, 40 mg etomidate Paralysis agent used: None Procedure was emergent. The patient was unable to provide consent. No family immediately available The patient was prepared in the appropriate fashion. She was already on noninvasive positive pressure ventilation. She was turned 100% to preoxygenated. Neck roll was placed under the shoulders to allow for extension. Etomidate and Versed were administered. Once adequate anesthesia was in place, the full facemask BiPAP was removed. Video laryngoscopy was performed. There were black thick secretions noted in the posterior oropharynx and above the glottis. A previously tested 7.5 endotracheal tube was passed through the cords under direct visualization. The stylette was removed. Balloon was inflated. The tube was secured at 23 cm. Bilateral breath sounds were heard. Tube misting was identified. Capnography was positive. Patient was attached to the ventilator. She tolerated the procedure well without significant oxygen desaturations. Post procedure chest x-ray pending Coding CPT Codes Resuscitation - Resuscitation: 35671 Endotracheal Intubation, emergency ([id number]) [facility]odes (Charges) Resuscitation Resuscitation: 32946 Endotracheal Intubation, emergency
--- NOTE | 2021-09-19 18:54 | Procedure Note ---
Procedure Note Date of Service September 19, 2021 Note CENTRAL LINE PROCEDURE NOTE: Procedure: Central Line Placement Provider: Keaton Spivey MD Indication: Central Drug Administration, Poor Venous Access, Multiple Lab Draws Necessary, etc. Anesthesia: 4 mL lidocaine 1% Site: Left subclavian Procedure was emergent. The patient just been intubated and was unable to provide consent. No family immediately available A time-out was completed verifying correct patient, procedure, site, positioning, and implants(s) or special equipment if applicable. Patients left shoulderwas cleansed and draped in the typical sterile fashion using Chloraprep. Landmarks were easily identified. The superficial tissue was anesthetized using 4mL of 1% lidocaine without epinephrine under direct visualization with the ultrasound. After adequate anesthetization was achieved, the left subclavian vein was cannulated using an introducer needle on a syringe. Good venous blood return was maintained prior to removal of syringe from introducer needle. Using Seldinger Technique, a guide wire was advanced through the introducer needle without resistance. The introducer needle was removed. A small incision was made in penetrating fashion at the guide wire insertion site utilizing an 11 blade scalpel. The dilator was advanced to the vessel without resistance. The dilator was exchanged for the triple lumen catheter which was advanced into the vessel without resistance. The guide wire was removed intact from the catheter without issue. Claves were placed on each catheter tip with confirmation of good blood flow from each lumen. Each port was easily flushed with sterile saline. The catheter was placed at the hub and sutured in place. BioPatch was applied to the catheter and a sterile Tegaderm dressing was applied over the catheter with careful attention to sterility. Patient tolerated procedure well. No immediate complications were met. Post procedure x-ray pending Estimated blood loss, less than 5 mL Coding CPT Codes Tubes, Drains, and Vasc Access - Tubes, Drains, and Vasc Access: [id number] Place catheter in vein superior or inferior vena cava ([id number]) [facility] [place] Procedure Codes (Charges) Tubes, Drains, and Vasc Access Procedure 1: Tubes, Drains, and Vasc Access: [id number] Place catheter in vein superior or inferior vena cava
--- NOTE | 2021-09-19 18:57 | Procedure Note ---
Procedure Note Date of Service September 19, 2021 Note ARTERIAL LINE PROCEDURE NOTE: Procedure: Arterial Line Placement Provider: Keaton Spivey MD Indication: Monitoring on Pressors Anesthesia: None Procedure was emergent. Patient unable to provide consent. No family immediately available A time-out was completed verifying correct patient, procedure, site, positioning, and implant(s) or special equipment if applicable. Allens test was performed to ensure adequate perfusion. Patients leftwrist was prepped and draped in the usual sterile fashion. Using anatomic landmarks and direct palpation, a 20g Arrow arterial line was introduced into the left radialartery. Catheter was threaded, and the needle was removed with appropriate blood return. Good waveform was observed. The patient tolerated the procedure well. Blood Loss: Minimal Complications: None Coding CPT Codes Tubes, Drains, and Vasc Access - Tubes, Drains, and Vasc Access: [id number] Insertion Catheter, Artery ([id number]) [facility] [place] (Charges) Tubes, Drains, and Vasc Access Procedure 1: Tubes, Drains, and Vasc Access: [id number] Insertion Catheter, Artery
[2021-09-19] MEDS ORDERED: CLINDAMYCIN 600 MG in DEXTROSE 5% 50 ML IV SCH (19:00)
--- NOTE | 2021-09-19 19:00 | Procedure Note ---
Procedure Note Date of Service September 19, 2021 Note Procedure: Fiberoptic bronchoscopy Bronchial washings Provider: Keaton Spivey MD Consent: Signed by patient and timeout verified prior to procedure Procedure: Patient was in the ICU having recently been intubated. Consent was not able to be obtained as the patient is critically ill. No family was immediately available. Please see separate intubation note. Fiberoptic scope was advanced through the newly placed endotracheal tube via the adapter. The patient was attached to the ventilator and on 100% FiO2. The tube was sounded and found to be approximately 5 mm off the kristopher. The scope was withdrawn, the tube was then withdrawn 2 cm by respiratory therapy and resecured. At that point the scope was then readvanced through the endotracheal tube via the adapter. The tube was now about 3 cm off the kristopher in good position. At the kristopher extending into the bilateral mainstem bronchi, there were adherent pale lesions with what appeared to be mucosal ulcerations. These were lavaged extensively and I was able to aspirate some of the material for microbiologic and cytologic analysis. There were thick white/yellow secretions emanating from the lower lobes as well. These were also collected in the [facility] wash and will be sent for microbiologic and cytologic analysis. The mucosa of the airways was diffusely erythematous and bled with manipulation. No overt endobronchial lesions were identified however some of the mucoid plaques in the airway were slightly polypoid. Hemostasis was confirmed and the scope was withdrawn. The patient tolerated the procedure well without obvious complication. Impression: 1. Endotracheal tube at the level of the kristopher, withdrawn and repositioned under bronchoscopic guidance. 2. Mucoid ulcerative plaques identified in the bilateral mainstem bronchi with copious thick mucoid secretions emanating from both lower lobes. Concerning for potential fungal or viral etiologies. Await cytology and culture Coding CPT Codes Pulmonary/Thoracic - Pulmonary and Thoracic: 11185 Dx bronchoscopy/wash ([id number]) [facility] [place] Procedure Codes (Charges) Pulmonary/Thoracic Procedure 1: Pulmonary and Thoracic: 82514 Dx bronchoscopy/wash
--- NOTE | 2021-09-19 19:02 | XRay Report ---
XR chest 1V portable CLINICAL HISTORY: bronch, line placement, and intubation COMPARISON STUDY: Chest CT performed earlier today. Chest radiograph September 17, 2021. FINDINGS: Tip of endotracheal tube is 3.5 cm above the kristopher. Tip of nasogastric tube is below the l ower aspect of this image but at least within the body of the stomach. There is no pneumothorax. Bila teral airspace opacities are similar to prior chest CT. Left subclavian central line is in place. Tip projects over the cavoatrial junction. IMPRESSION: 1. Satisfactory positioning of lines and tubes. 2. No pneumothorax. 3. No change in extensive bilateral airspace opacities. ACT 112: Negative or not required by law. Electronically signed by: Héctor Apodaca M.D. 09/19/2021 7:00 PM
[2021-09-19] MEDS ORDERED: PROPOFOL BOLUS FROM BAG IV PRN (19:03)
[2021-09-19] MEDS ORDERED: STAT IV Infusion **Titration per Protocol STA ×3 (19:03→20:03)
[2021-09-19] MEDS: NOREPINEPHRINE/D5W 8 MG/508 ML BAG IV SCH (19:15)
[2021-09-19] MEDS: propofoL 1,000 MG/100 ML VIAL IV SCH (19:15)
[2021-09-19] MEDS ORDERED: ICU PROTOCOL FOR HYPERGLYCEMIA PRN (19:26)
[2021-09-19] MEDS ORDERED: NORMOSOL-R 1,000 ML IV SCH (19:30)
--- NOTE | 2021-09-19 19:32 | Critical Care Consultation ---
Date of Consultation September 19, 2021 Assessment & Plan (1) Septic shock: (2) Lactic acidosis: (3) Acute hypoxemic respiratory failure: (4) Cachexia: (5) Acute renal failure: Impression: 71-year-old female with CLL undergoing chemotherapy with prolonged hospitalization transferred to the ICU for respiratory distress, lactic acidosis, and acute renal failure. The findings on the CT scan in the setting of immunosuppression, ongoing chemotherapy, and dexamethasone raise the specter of potential angioinvasive fungal infections. This would coincide with what was seen on her bronchoscopy as well. If so, this portends an extremely unfavorable prognosis given the patient's frail state and medical comorbidities. She also has acute renal failure and is now vasopressor dependent. Recommendations: 1. Neurologic: Continue sedation with propofol and fentanyl. We will try and avoid benzodiazepines given the potential risk of perpetuating delirium. Hold antidepressant medications currently. 2. Pulmonary: Findings are highly concerning for Aspergillus. See ID below. She is post bronchoscopy. We will continue intubation mechanical ventilation. Ventilator settings will be adjusted based on blood gas analysis. Given the concern for potential fungal infection, I do not think additional steroids should be administered currently. We will hold on any additional dexamethasone pending bronchoscopy results and clinical response. 3. Cardiovascular: Lactic acidosis with probable septic shock: Unclear if there is a prerenal component. Urinalysis, urine sodium, urine creatinine, and urine pneumocephalus will be checked for fractional excretion of sodium if the patient has not received recent Lasix. If so, may need to check fractional excretion of urea. Will administer additional IV fluids at this point time to try and restore effective circulating volume. Trend lactate. May be reasonable to check echocardiogram dips pending on clinical response. Continue Levophed at this point time. Check random cortisol as the patient is at risk for relative adrenal insufficiency 4. GI: N.p.o. for now. Stress ulcer prophylaxis. She is profoundly malnourished which complicates her ability to recover from an acute illness. 5. Renal: Acute renal insufficiency. The patient is being followed by nephrology. I do not think her renal ultrasound is warranted at this point time. We will see how she responds to maintaining an appropriate renal perfusion pressure and tenriism of effective circulating volume. If kidney function deteriorates, I think the patient is a very poor candidate for renal replacement therapy and consideration for palliative care may be appropriate. Please see comments below. 6. ID: Patient was initiated on Rocephin. Will ask pharmacy to dose voriconazole. Await BAL cultures. We will send Fungitell. ID consultation may be beneficial although if this is angioinvasive aspergillus, I am not sure that this would be survivable. She was positive for Covid and has been on extended course of dexamethasone. No additional steroids are appropriate. She is not a candidate for any additional immunosuppressive currently. Her white count elevation of 50,000 is highly concerning. Will ask pathology to review peripheral smear tomorrow if it remains elevated to look for immature forms. If the patient is transforming, again she is not a candidate for aggressive therapies. 7. Heme-onc: Marked leukocytosis. Again no comment on immature blasts other than some myelocytes. The differential is not particularly neutrophilic. See comments and ID. May need to review peripheral smear with pathology tomorrow and potentially ask for oncology input although again if these are immature forms, her overall prognosis is quite poor. Check LDH and uric acid 8. Endocrine: Glycemic control per protocol. Patient overall is severely critically ill with an unclear outcome. Her Valdez 2 score indicates a greater than 75% mortality. According to the hospitalist, the patient's would like "everything done". I think it would be very reasonable to pursue palliative care consultation in this patient in the next 12 hours if she should not respond favorably. Total of 90 minutes critical care time was spent evaluation management and stabilization of this patient exclusive of procedures History of Present Illness Attending Physician: Leanna Dillon, DO History of Present Illness Asked by hospitalist to assist in critical care management of this patient. History is obtained from discussion with the hospitalist as well as review the electronic medical record. The patient is somewhat obtunded and in extremis and unable to provide any history. Patient is a 71-year-old female with a history of CLL currently treated with Imbruvica as well as chronic thrombocytopenia. The patient was admitted to the facility 09/04/2021 from [facility] with pleuritic chest pain. Patient suffered a hip fracture which was repaired August 21 and she was convalescing at [facility]. Her PCR for Covid was + 08/19/2021. She received 4 days of dexamethasone. On presentation she had a CT angiogram showing diffuse groundglass opacities and was continued on dexamethasone as well as cefepime. She was seen by orthopedics. [place] were removed from her hip incision. It was felt that she was healing well. She was seen by psychiatry as well as by nephrology. Nephrology was following her for hyponatremia. Psychiatry saw her for depression due to her physical illness and recommended mirtazapine. She did develop dysphagia and there was concern about aspiration. Video swallow did demonstrate tracheal aspiration with thin liquids. They recommended pured nectar thick liquid diet. This afternoon the patient was noted to be tachypneic and somnolent. Blood gas showed alkalosis with an elevated lactate. Repeat CT scan was performed which showed no evidence of PE however there were new multifo ivon infiltrates some of which demonstrated cavitation with possible halo sign. The patient was transferred to the ICU where I evaluated her. She was immediately intubated line and pressors were initiated antibiotics were broadened and bronchoscopy was performed. Please refer to separate notes. Allergies Allergy/AdvReac Type Severity Reaction Status Date / Time Penicillins Allergy Unknown Verified 09/04/21 10:08 Home Medications Medication Instructions Recorded Confirmed Type fluticasone propionate 50 2 spray INTRANASAL DAILY 12/20/18 09/04/21 History mcg/actuation nasal spray,suspension peg 400-propylene glycol (PF) 0.4 1 drp OPB BID PRN 12/20/18 09/04/21 History %-0.3 % eye drops in a dropperette (Systane (PF)) allopurinol 100 mg tablet 100 mg PO DAILY PRN 08/20/21 09/04/21 History amlodipine 10 mg tablet 10 mg PO DAILY 08/20/21 09/04/21 History azelastine 137 mcg (0.1 %) nasal 2 spray INTRANASAL BID 08/20/21 09/04/21 History spray aerosol ferrous sulfate 325 mg (65 mg 325 mg PO Q OTHER DAY 08/20/21 09/04/21 History iron) tablet (FeroSul) ibrutinib 420 mg tablet (Imbruvica) 420 mg PO DAILY 08/20/21 09/04/21 History lisinopril 40 mg tablet 40 mg PO DAILY 08/20/21 09/04/21 History ondansetron HCl 4 mg tablet 4 mg PO Q6 PRN 08/20/21 09/04/21 History acetaminophen 325 mg tablet 650 mg PO Q6H PRN #30 tab 08/31/21 09/04/21 Rx docusate sodium 100 mg capsule 100 mg PO BID PRN #60 cap 08/31/21 09/04/21 Rx enoxaparin 30 mg/0.3 mL 30 mg SUBCUT Q24H 30 Days #9 ml 08/31/21 09/04/21 Rx subcutaneous syringe (Lovenox) nystatin 100,000 unit/mL oral 10 ml PO QID 5 Days #200 ml 08/31/21 09/04/21 Rx suspension oxycodone 5 mg tablet 5 mg PO Q8H PRN #10 tab 08/31/21 09/04/21 Rx phenol 1.4 % mucosal aerosol spray 2 spray MT Q6H PRN 5 Days #177 ml 08/31/21 09/04/21 Rx (Sore Throat (phenol)) nystatin 100,000 unit/mL oral 10 ml PO DAILY 09/04/21 09/04/21 History suspension pantoprazole 40 mg tablet,delayed 40 mg PO DAILY 09/04/21 09/04/21 History release Patient History Medical History Anemia CLL (chronic lymphocytic leukemia) Closed hip fracture GERD (gastroesophageal reflux disease) Hypertension Splenic laceration Thrombocytopenia UGIB (upper gastrointestinal bleed) Surgical History H/O endoscopy Hip fracture requiring operative repair Family History Other Diabetes Heart disease Social History Smoking Status: Never smoker Hx Alcohol Use: No Hx Substance Use: No Preferred Language: [place] Communication Ability: Effective Director Family Required: No Beliefs That Will Affect Care: None Current Living Situation: Rehab Feels Safe at Home: Yes Assistive Devices: None Review of Systems Review of Systems: Unobtainable due to reduced consciousness Physical Exam Constitutional: + acute distress, + ill appearing, + cachectic and + malnourished Neck: trachea midline, no thyromegaly Respiratory: Coarse rhonchi bilaterally. No wheezing. Patient is tachypneic Cardiovascular: RRR, no murmur, no edema Gastrointestinal (Abdomen): normal bowel sounds, soft, nontender, no hepatosplenomegaly Musculoskeletal: Extremities: extremities normal to inspection Skin: Multiple petechiae noted on the arms and trunk with ecchymoses on the arms as well Neurologic: Nonfocal exam Lymphatic: no cervical lymphadenopathy Results & Data Results & Data ([facility]) Vital Signs (Past 12 Hours) Vital Signs Temp Pulse Pulse Resp BP Pulse Ox 09/19/21 18:40 117 H 20 100 09/19/21 17:49 37.1 C 122 H 18 151/92 H 93 09/19/21 17:32 117 H 48 H 96 09/19/21 17:07 37.2 C 114 H 40 H 131/83 86 L 09/19/21 15:59 37.1 C 129 H 16 103/72 90 09/19/21 11:58 37.0 C 132 H 20 113/78 95 09/19/21 07:43 36.5 C 102 H 18 130/89 95 Critical Care Results & Data Vital Signs (Past 12 Hours) Vital Signs Temp Pulse Pulse Resp BP Pulse Ox 09/19/21 18:40 117 H 20 100 09/19/21 17:49 37.1 C 122 H 18 151/92 H 93 09/19/21 17:32 117 H 48 H 96 09/19/21 17:07 37.2 C 114 H 40 H 131/83 86 L 09/19/21 15:59 37.1 C 129 H 16 103/72 90 09/19/21 11:58 37.0 C 132 H 20 113/78 95 09/19/21 07:43 36.5 C 102 H 18 130/89 95 Lab & Micro Results (Past 24 Hours) RBC 4.53 M/uL (4.2-5.4) 09/19/21 WBC 54.44 K/uL (4.8-10.8) H* 09/19/21 Hgb 12.0 g/dL (12.0-16.0) 09/19/21 Hct 36.9 % (37-47) L 09/19/21 MCV 81.5 fL (80-100) 09/19/21 MCH 26.5 pg (25-34) 09/19/21 MCHC 32.5 g/dL (32-36) 09/19/21 RDW Standard Deviation 49.8 fL (36.4-46.3) H 09/19/21 RDW Coefficient of Variation 16.8 % (11.5-14.5) H 09/19/21 Plt Count 269 K/uL (130-400) 09/19/21 MPV 11.5 fL (7.4-10.4) H 09/19/21 ANC 30.60 K/uL (1.4-6.5) H 09/19/21 ALC 22.05 K/uL (1.2-3.4) H 09/19/21 Neutrophils % (Manual) 56.2 % 09/19/21 Lymphocytes % (Manual) 40.5 % 09/19/21 Monocytes % (Manual) 2.5 % 09/19/21 Metamyelocytes % (manual) 0.8 % 09/19/21 Neutrophils # (Manual) 30.60 K/uL (1.4-6.5) H 09/19/21 Lymphocytes # (Manual) 22.05 K/uL (1.2-3.4) H 09/19/21 Monocytes # (Manual) 1.36 K/uL (0.11-0.59) H 09/19/21 Metamyelocytes # (Manual) 0.44 K/uL (0-0) H 09/19/21 Hypochromasia Present 09/19/21 Microcytosis Present 09/19/21 Ovalocytes 1+ 09/19/21 Na 139 mmol/L (136-145) 09/19/21 K 4.9 mmol/L (3.5-5.1) 09/19/21 Cl 103 mmol/L (98-107) 09/19/21 CO2 26 mmol/L (21-32) 09/19/21 Anion Gap 10.0 (3-11) 09/19/21 BUN 101 mg/dl (7-18) H 09/19/21 Creatinine 1.68 mg/dl (0.6-1.2) H 09/19/21 Estimated GFR ( Amer) 35.1 ml/min 09/19/21 Estimated GFR (Non-Af Amer) 30.2 ml/min 09/19/21 BUN/Creatinine Ratio 60.2 (10-20) H 09/19/21 Glu 166 mg/dl (70-99) H 09/19/21 Ca 10.6 mg/dl (8.5-10.1) H 09/19/21 Phosphorus Level 3.5 mg/dl (2.5-4.9) 09/19/21 Total Bilirubin 0.6 mg/dl (0.2-1) 09/19/21 AST 11 U/L (15-37) L 09/19/21 ALT 16 U/L (12-78) 09/19/21 Alkaline Phosphatase 62 U/L (45-117) 09/19/21 TP 6.5 gm/dl (6.4-8.2) 09/19/21 Albumin 2.5 gm/dl (3.4-5.0) L 09/19/21 Globulin 4.0 gm/dl (2.5-4.0) 09/19/21 Albumin/Globulin Ratio 0.6 (0.9-2) L 09/19/21 Mg 2.4 mg/dl (1.8-2.4) 09/19/21 16:09/19/21 Calcium Level 10.6 mg/dl (8.5-10.1) H 09/19/21 16:09/19/21 Blood Gas Barometric Pressure 733.9 mm/Hg 09/19/21 16:01 09/19/21 Arterial Blood pH 7.54 (7.35-7.45) H* 09/19/21 16:01 09/19/21 Arterial Blood Partial Pressure CO2 36 mmHg (35-46) 09/19/21 16:01 09/19/21 Arterial Blood Partial Pressure O2 54 mmHg (80-95) L 09/19/21 16:01 09/19/21 Arterial Blood HCO3 30 mmol/L (19-24) H 09/19/21 16:01 09/19/21 Arterial Blood Base Excess 6.9 mEq/L (-9-1.8) H 09/19/21 16:01 09/19/21 Arterial Blood Oxygen Saturation 89.0 % (90-95) L 09/19/21 16:01 09/19/21 Blood Gas Oxygen Given 4 09/19/21 16:01 09/19/21 Collin Test Pos (Pos) 09/19/21 16:01 09/19/21 Blood Gas Barometric Pressure 733.9 mm/Hg 09/19/21 16:01 09/19/21 Diagnostic Findings (Past 24 Hours) Chest CTA 09/19/21 15:28 CT ANGIOGRAPHY OF THE CHEST, PULMONARY EMBOLUS PROTOCOL CLINICAL HISTORY: Shortness of breath. Respiratory distress. COMPARISON STUDY: Chest CT September 04, 2021. Chest radiograph September 17, 2021. TECHNIQUE: Following IV administration of 120 mL of Optiray, helical axial images of the chest were obtained utilizing the pulmonary embolus protocol. Maximal intensity projections and sagittal and coronal reformats were viewed on an independent 3D workstation. IV contrast was administered without complication. Automated exposure control was utilized for the study. A dose lowering technique was utilized adhering to the principles of ALARA. CT DOSE: 227.90 mGy.cm FINDINGS: No pulmonary emboli are identified although the segmental and subsegmental pulmonary arteries are suboptimally assessed due to respiratory motion. Size of the heart is normal. There is no pericardial effusion. No enlarged thoracic lymph nodes are present. Moderate right and extensive left lower lobe consolidation has progressed since CT of September 04, 2011. There are additional ground glass opacities within the upper lobes. There has been interval development of a 1.7 cm cavitary focus within the lingula on image 116 of 263. There is no pneumothorax. There is no pleural effusion. Visualized portions of the upper abdomen are unremarkable. IMPRESSION: 1. No pulmonary emboli identified although segmental and subsegmental pulmonary arteries suboptimally assessed due to respiratory motion. 2. Multifocal consolidation and groundglass opacities which have progressed since CT of September 04, 2021. This suggests viral pneumonia. 3. Interval development of a 1.7 cm cavitary focus within the lingula. This is infectious. ACT 112: Negative or not required by law. Electronically signed by: Héctor Apodaca M.D. 09/19/2021 5:00 PM Chest X-Ray 09/19/21 18:45 XR chest 1V portable CLINICAL HISTORY: bronch, line placement, and intubation COMPARISON STUDY: Chest CT performed earlier today. Chest radiograph September 17, 2021. FINDINGS: Tip of endotracheal tube is 3.5 cm above the kristopher. Tip of nasogastric tube is below the lower aspect of this image but at least within the body of the stomach. There is no pneumothorax. Bilateral airspace opacities are similar to prior chest CT. Left subclavian central line is in place. Tip projects over the cavoatrial junction. IMPRESSION: 1. Satisfactory positioning of lines and tubes. 2. No pneumothorax. 3. No change in extensive bilateral airspace opacities. ACT 112: Negative or not required by law. Electronically signed by: Héctor Apodaca M.D. 09/19/2021 7:00 PM I & O Totals 24 Hours 09/18/21 09/19/21 09/20/21 06:59 06:59 06:59 Intake Total 300 / 300 170 / 170 50 / 50 Output Total 1625 / 1625 1225 / 1225 325 / 325 Balance -1325 / -1325 -1055 / -1055 -275 / -275 Cumulative 09/04/21 08:28 thru 09/19/21 16:49 Intake Total 79645.167 Output Total 07083 Balance -1080.833 RT Ventilator Mngmt (Last Documented) Ventilator Ordered Settings Ventilator Support Mode Assist Control 09/19/21 18:40 Respiratory Rate 20 09/19/21 18:40 Ventilator Tidal Volume 380 09/19/21 18:40 Setting Minute Ventilation 7.5 09/19/21 18:40 Positive End Expiratory 10 09/19/21 18:40 Pressure Fraction of Inspired Oxygen 100 09/19/21 18:40 Peak Inspiratory Flow 23 09/19/21 18:40 Ventilator - PT Measurements Respiratory Rate 20 Exhaled Tidal Volume 396 Minute Ventilation 7.5 Peak Inspiratory Airway 30 Pressure Plateau Pressure 38 Respiratory Cycle Inspiratory: 1:2.0 Expiratory Ratio Inspiratory Phase Time 1.0 Static Lung Compliance 14.14 Dynamic Lung Compliance 19.80 Normal Static Lung Compliance 45.00 Coding Level of Care Code Critical Care 1st 30-74 mins Diagnoses Septic shock A41.9; R65.21 Lactic acidosis E87.2 Acute hypoxemic respiratory failure J96.01 Cachexia R64 Acute renal failure N17.9 Time Spent (min) 90 Comment 90 minutes critical care time
[2021-09-19] MEDS: fentaNYL DRIP 1,250 MCG/250 ML BAG IV SCH (19:59)
[2021-09-19] MEDS: SODIUM CHLORIDE 0.9% IV SCH (20:03)
[2021-09-19] MEDS: VORICONAZOLE IV SCH (20:03)
[2021-09-19] MEDS: FAMOTIDINE 20 MG in SYRINGE 3 ML IV SCH (20:26)
[2021-09-19 20:28] LABS: iSTAT Art Bld Gas pCO2 Correct 43 mmHg (35-46); iSTAT Art Bld Gas pH Corrected 7.455 (7.35-7.45); iSTAT Arterial Blood Gas HCO3 30 meg/L (19-24); iSTAT Arterial Blood Gas pCO2 40 mmHg (35-46); iSTAT Arterial Blood Gas pH 7.47 (7.35-7.45); iSTAT Arterial Blood Gas pO2 173 mmHg (80-95); iSTAT Arterial Blood Gas pO2 C 181; iSTAT Carbon Dioxide 31 mmol/L (24-31); iSTAT FiO2 60 %; iSTAT Hematocrit 28 % (37-47); iSTAT Hemoglobin 9.5 g/dl (12.0-16.0); iSTAT Potassium 4.4 mmol/L (3.3-5.0); iSTAT Site Art Line; iSTAT Sodium 142 mmol/L (135-144)
[2021-09-19] MEDS ORDERED: 0.2 MICRON FILTER SET 1 EA IV ONE (20:28)
[2021-09-19] MEDS ORDERED: AMIODARONE / D5W 360 MG/200 ML BAG IV ONE (20:28)
[2021-09-19] MEDS ORDERED: AMIODARONE / D5W 150 MG/100 ML BAG IV STA (20:28)
[2021-09-19] MEDS: VASOPRESSIN 20 UNITS in 0.9 % SODIUM CHLORIDE 100 ML IV SCH (20:29)
[2021-09-19] MEDS ORDERED: ETOMIDATE 2 MG/ML 20 ML VIAL IV ONE (22:29)
[2021-09-19] MEDS ORDERED: MIDAZOLAM HCL 5 MG/ML VIAL IV ONE (22:29)
[2021-09-20 00:44] LABS: Appearance Urine Clear (Clear); Bacteria Urine Automated Negative (Negative); Bilirubin Urine Negative (Negative); Blood Urine Negative (Negative); Color Urine Dark Yellow; Glucose Urine UA Negative (Negative); Ketones Urine Negative (Negative); Leukocyte Esterase Urine Negative (Negative); Nitrite Urine Negative (Negative); Protein Urine 1+ (Negative); RBC Urine Automated 0-4 /hpf (0-4); Specific Gravity Urine > 1.045 (1.000-1.030); Urobilinogen Urine Negative (Negative)
[2021-09-20 01:04] LABS: Sodium Random Urine < 5 mmol/L
[2021-09-20] MEDS: AMIODARONE / D5W 360 MG/200 ML BAG IV SCH ×2 (02:42→11:48)
[2021-09-20] MEDS: VASOPRESSIN 20 UNITS in 0.9 % SODIUM CHLORIDE 100 ML IV SCH ×3 (02:42→20:00)
[2021-09-20 04:15] LABS: iSTAT Arterial Blood Gas HCO3 28 meg/L (19-24); iSTAT Arterial Blood Gas pCO2 37 mmHg (35-46); iSTAT Arterial Blood Gas pO2 59 mmHg (80-95); iSTAT Carbon Dioxide 29 mmol/L (24-31); iSTAT FiO2 30 %; iSTAT Site Art Line
[2021-09-20 05:40] LABS: Hematocrit (blood only) 33.8 % (37-47); Hemoglobin 10.6 g/dL (12.0-16.0); Mean Corpuscular Hemoglobin 26.6 pg (25-34); Mean Corpuscular Hgb Conc 31.4 g/dL (32-36); Mean Corpuscular Volume 84.7 fL (80-100); Mean Platelet Volume 12.1 fL (7.4-10.4); Platelet Count 204 K/uL (130-400); RDW Standard Deviation 52.3 fL (36.4-46.3); Red Blood Count 3.99 M/uL (4.2-5.4); White Blood Count 42.31 K/uL (4.8-10.8)
[2021-09-20 06:15] LABS: Basophils # (auto) 0.05 K/uL (0-0.2); Basophils % (auto) 0.1 %; Eosinophils # (auto) 0.01 K/uL (0-0.5); Immature Granulocytes # (auto) 0.19 K/uL (0.00-0.02); Immature Granulocytes % (auto) 0.4 %; Lymphocytes # (auto) 19.04 K/uL (1.2-3.4); Monocytes # (auto) 1.04 K/uL (0.11-0.59); Monocytes % (auto) 2.5 %; Neutrophils # (auto) 21.98 K/uL (1.4-6.5); Ovalocytes 1+
[2021-09-20 06:19] LABS: BUN Creatinine Ratio 60.7 (10-20); Creatinine Clr Calc Pharmacy 25.6 ml/min; Est GFR (African American) 44.1 ml/min; Magnesium 2.1 mg/dl (1.8-2.4); Potassium 4.1 mmol/L (3.5-5.1)
[2021-09-20] MEDS: propofoL 1,000 MG/100 ML VIAL IV SCH (06:28)
[2021-09-20 06:44] LABS: Spherocytes Occasional
--- NOTE | 2021-09-20 08:59 | XRay Report ---
XR chest 1V portable CLINICAL HISTORY: Resp failure TECHNIQUE: Single frontal radiograph of the chest was obtained. Comparison: Comparison is made to chest one view 09/19/2021 FINDINGS: Lines and tubes are stable. The cardiomediastinal silhouette is normal. Multifocal airspace opacities are seen. No evidence of pleural effusion or pneumothorax. IMPRESSION: Stable multifocal airspace opacities. ACT 112: Negative or not required by law. Electronically signed by: Helio Cordova M.D. 09/20/2021 8:57 AM
[2021-09-20] MEDS: VORICONAZOLE IV SCH ×2 (09:58→20:00)
[2021-09-20] MEDS: SODIUM CHLORIDE 0.9% IV SCH ×2 (09:58→20:00)
[2021-09-20] MEDS: FAMOTIDINE 20 MG in SYRINGE 3 ML IV SCH ×2 (09:59→19:58)
[2021-09-20] MEDS: cefTRIAXone SODIUM 1,000 MG in DEXTROSE 5% 50 ML IV SCH (09:59)
--- NOTE | 2021-09-20 11:49 | Nephrology Progress Note ---
Date of Service September 20, 2021 Assessment & Plan (1) Acute renal failure: Plan: nonoliguric stage 3 MARLEY improving, after obligate IV contrast exposure in the setting of intense vasoconstriction w/ diuretics (held immediately before contrast administration) and septic eloise; ATN, may worsen again given pressor dependence, arrhythmia. baseline creatinine 0.5. urine as expected extremely concentrated, likely w/ element of volume depletion as well but would not give IVF just yet -daily bmp -cont strict I/0 -lasix as needed only to improve respiratory status -continue hemodynamic support -no indication at this time to discuss/consider HD (2) Hyponatremia: Plan: Patient with recent hyponatremia due to syndrome of inappropriate ADH. Sodium normalized as of 09/18 > off therapy now; monitor (3) Pneumonia due to COVID-19 virus: Plan: w/ abrupt decompensation 09/19 ; off of steroids now (4) Septic shock: Plan: in ICU, pressor dependent, being treated empirically for aspergillus (cxs pending) Admission and Anticipated Discharge Date Admission Date: September 04, 2021 Subjective seen on rounds at 0800; interval events noted > remains on 2 pressors and amio gtt; remains full code; UOP 25-30 ml/hr ON; multiple cultures pending Review of Systems Review of Systems: Unobtainable due to endotracheal tube Physical Exam Constitutional: well developed, + cachectic and + frail appearing Eyes: EOM intact bilaterally ENMT: Ears: no external ear abnormality Nose: no external nose abnormality Mouth: + dry oral mucous membranes Neck: no nuchal rigidity Respiratory: normal respiratory effort Auscultation: + crackles (anterior) Cardiovascular: RRR, no murmur, no edema Gastrointestinal (Abdomen): Inspection/Auscultation: normal bowel sounds Percussion/Palpation: abdomen soft; abdomen nontender Musculoskeletal: Extremities: strength 5/5 throughout Skin: no rashes, warm and dry Genitourinary: onofre Results & Data ([facility]) Vital Signs (Past 12 Hours) Vital Signs Temp Pulse Pulse Resp BP BP BP 09/20/21 11:00 122 H 24 09/20/21 10:58 121 H 25 H 09/20/21 10:45 123 H 23 110/71 09/20/21 10:30 124 H 24 09/20/21 10:15 126 H 25 H 09/20/21 10:00 37.3 C 123 H 24 103/69 09/20/21 09:45 123 H 26 H 09/20/21 09:30 126 H 28 H 124/82 09/20/21 09:15 120 H 23 101/65 09/20/21 09:00 125 H 25 H 09/20/21 08:45 120 H 25 H 09/20/21 08:30 120 H 20 09/20/21 08:15 120 H 28 H 103/68 09/20/21 08:00 37.9 C H 118 H 22 09/20/21 07:45 117 H 24 100/71 09/20/21 07:30 116 H 25 H 09/20/21 07:15 114 H 28 H 126/82 09/20/21 07:05 112 H 26 H 09/20/21 07:00 112 H 24 105/66 09/20/21 06:45 111 H 24 09/20/21 06:00 38.1 C H 110 H 20 104/69 102/49 L 09/20/21 05:30 108 H 20 110/68 09/20/21 05:15 105 H 20 09/20/21 05:00 106 H 23 09/20/21 04:45 104 H 24 09/20/21 04:30 106 H 19 09/20/21 04:15 104 H 24 09/20/21 04:00 103 H 18 103/73 09/20/21 03:45 91 H 18 09/20/21 03:30 94 H 22 09/20/21 03:15 93 H 27 H 113/82 09/20/21 03:00 94 H 25 H 09/20/21 02:45 91 H 30 H 09/20/21 02:43 92 H 22 09/20/21 02:30 90 22 09/20/21 02:15 90 22 09/20/21 02:00 91 H 22 09/20/21 01:45 94 H 21 09/20/21 01:30 91 H 20 110/72 09/20/21 01:15 90 23 09/20/21 01:00 89 26 H 106/68 09/20/21 00:45 94 H 23 09/20/21 00:30 91 H 25 H 09/20/21 00:15 91 H 23 09/20/21 00:00 37.1 C 96 H 90 18 109/72 102/54 L Pulse Ox 09/20/21 11:00 90 09/20/21 10:58 90 09/20/21 10:45 90 09/20/21 10:30 90 09/20/21 10:15 90 09/20/21 10:00 90 09/20/21 09:45 91 09/20/21 09:30 91 09/20/21 09:15 90 09/20/21 09:00 90 09/20/21 08:45 90 09/20/21 08:30 90 09/20/21 08:15 90 09/20/21 08:00 90 09/20/21 07:45 90 09/20/21 07:30 90 09/20/21 07:15 93 09/20/21 07:05 91 09/20/21 07:00 92 09/20/21 06:45 91 09/20/21 06:00 92 09/20/21 05:30 93 09/20/21 05:15 92 09/20/21 05:00 93 09/20/21 04:45 93 09/20/21 04:30 92 09/20/21 04:15 92 09/20/21 04:00 93 09/20/21 03:45 93 09/20/21 03:30 93 09/20/21 03:15 93 09/20/21 03:00 92 09/20/21 02:45 94 09/20/21 02:43 94 09/20/21 02:30 96 09/20/21 02:15 95 09/20/21 02:00 95 09/20/21 01:45 94 09/20/21 01:30 87 L 09/20/21 01:15 89 L 09/20/21 01:00 91 09/20/21 00:45 92 09/20/21 00:30 91 09/20/21 00:15 89 L 09/20/21 00:00 93 Laboratory Results 09/20/21 05:17 09/20/21 05:17
--- NOTE | 2021-09-20 11:58 | Critical Care Progress Note ---
Date of Service September 20, 2021 Assessment & Plan (1) Septic shock: (2) Lactic acidosis: (3) Acute hypoxemic respiratory failure: (4) Cachexia: (5) Acute renal failure: Plan: Impression: 71-year-old female with CLL undergoing chemotherapy with prolonged hospitalization transferred to the ICU for respiratory distress, lactic acidosis, and acute renal failure. The findings on the CT scan in the setting of immunosuppression, ongoing chemotherapy, and dexamethasone raise the specter of potential angioinvasive fungal infections. Reviewed cytology with pathology and there does appear to be fungal elements likely consistent with Aspergillus on the specimen. This would coincide with what was seen on her bronchoscopy as well. If so, this portends an extremely unfavorable prognosis given the patient's frail state and medical comorbidities. She also has acute renal failure and is now vasopressor dependent. 24 hour events: Pt transferred to ICU, intubated and CVC and scott placed. Initiated on levophed and had to start vasopressin to maintain MAP. UOP stable with some improvement in SCr. Started antifungal agents given appearance on bronchoscopy. Recommendations: 1. Neurologic: Continue sedation with propofol and fentanyl. We will try and avoid benzodiazepines given the potential risk of perpetuating delirium. Hold antidepressant medications currently. 2. Pulmonary: Findings are highly concerning for Aspergillus. See ID below. She is post bronchoscopy. We will continue mechanical ventilation. Ventilator settings will be adjusted based on blood gas analysis. Given the concern for potential fungal infection, I do not think additional steroids should be administered currently. We will hold on any additional dexamethasone pending bronchoscopy results and clinical response. 3. Cardiovascular: Lactic acidosis with probable septic shock -lactic appears clear today. Now on 2 vasopressor agents.. Will administer additional IV fluids at this point time to try and restore effective circulating volume. Hold on echocardiogram for now. Continue Levophed and vasopressin at this point time. Random cortisol was high. No indication for relative adrenal insufficiency 4. GI: N.p.o. for now. Stress ulcer prophylaxis. She is profoundly malnourished which complicates her ability to recover from an acute illness. Given her significant pressor requirement, not sure we can initiate tube feeds currently 5. Renal: Acute renal insufficiency. Slightly better today. Continue to follow. If kidney function deteriorates, I think the patient is a very poor candidate for renal replacement therapy and consideration for palliative care may be appropriate. Please see comments below. 6. ID: Patient was initiated on Rocephin. Continue voriconazole although this is problematic given her renal function. We will continue for a few days and then potentially transition to oral based on bioavailability. Await BAL cultures. Pending Fungitell. ID consultation may be beneficial although if this is angioinvasive aspergillus, I am not sure that this would be survivable. She was positive for Covid and has been on extended course of dexamethasone. No additional steroids are appropriate. She is not a candidate for any additional immunosuppressive currently. 7. Heme-onc: Marked leukocytosis slightly decreased today not much in the way of immature forms. The differential is not particularly neutrophilic. See comments and ID. Uric acid high. LDH low. Subcu heparin for DVT prophylaxis 8. Endocrine: Glycemic control per protocol. Patient overall is severely critically ill with an unclear outcome. We will meet with today. Given the findings of Aspergillus in her comorbidities, would certainly be reasonable to address CODE STATUS and favor DNR/DNI. Would also recommend not escalating therapy beyond what we are doing right now although there is little to be gained as she is already on 2 pressors. Consideration for transition to palliative care measures would be highly appropriate. Discussed with critical care nurse at bedside and with pharmacist. Total of 50 minutes critical care time was spent evaluation management and stabilization of this patient exclusive of procedures Admission and Anticipated Discharge Date Admission Date: September 04, 2021 Subjective intubated and sedated Review of Systems Review of Systems: Unobtainable due to endotracheal tube Physical Exam Constitutional: + cachectic and + malnourished intubated and sedated Neck: trachea midline, no thyromegaly Respiratory: coarse breath sounds bilaterally Cardiovascular: RRR, no murmur, no edema Gastrointestinal (Abdomen): normal bowel sounds, soft, nontender, no hepatosplenomegaly Musculoskeletal: Extremities: extremities normal to inspection Skin: multiple ecchymoses and petechiae Lymphatic: no cervical lymphadenopathy Results & Data Results & Data ([facility]) Vital Signs (Past 12 Hours) Vital Signs Temp Pulse Pulse Resp BP BP BP 09/20/21 11:45 40.1 C H 117 H 24 121/68 09/20/21 11:30 40.2 C H 121 H 21 09/20/21 11:15 127 H 31 H 09/20/21 11:00 122 H 24 09/20/21 10:58 121 H 25 H 09/20/21 10:45 123 H 23 110/71 09/20/21 10:30 124 H 24 09/20/21 10:15 126 H 25 H 09/20/21 10:00 37.3 C 123 H 24 103/69 09/20/21 09:45 123 H 26 H 09/20/21 09:30 126 H 28 H 124/82 09/20/21 09:15 120 H 23 101/65 09/20/21 09:00 125 H 25 H 09/20/21 08:45 120 H 25 H 09/20/21 08:30 120 H 20 09/20/21 08:15 120 H 28 H 103/68 09/20/21 08:00 37.9 C H 118 H 22 09/20/21 07:45 117 H 24 100/71 09/20/21 07:30 116 H 25 H 09/20/21 07:15 114 H 28 H 126/82 09/20/21 07:05 112 H 26 H 09/20/21 07:00 112 H 24 105/66 09/20/21 06:45 111 H 24 09/20/21 06:00 38.1 C H 110 H 20 104/69 102/49 L 09/20/21 05:30 108 H 20 110/68 09/20/21 05:15 105 H 20 09/20/21 05:00 106 H 23 09/20/21 04:45 104 H 24 09/20/21 04:30 106 H 19 09/20/21 04:15 104 H 24 09/20/21 04:00 103 H 18 103/73 09/20/21 03:45 91 H 18 09/20/21 03:30 94 H 22 09/20/21 03:15 93 H 27 H 113/82 09/20/21 03:00 94 H 25 H 09/20/21 02:45 91 H 30 H 09/20/21 02:43 92 H 22 09/20/21 02:30 90 22 09/20/21 02:15 90 22 09/20/21 02:00 91 H 22 09/20/21 01:45 94 H 21 09/20/21 01:30 91 H 20 110/72 09/20/21 01:15 90 23 09/20/21 01:00 89 26 H 106/68 09/20/21 00:45 94 H 23 09/20/21 00:30 91 H 25 H 09/20/21 00:15 91 H 23 09/20/21 00:00 37.1 C 96 H 90 18 109/72 102/54 L Pulse Ox 09/20/21 11:45 93 09/20/21 11:30 91 09/20/21 11:15 89 L 09/20/21 11:00 90 09/20/21 10:58 90 09/20/21 10:45 90 09/20/21 10:30 90 09/20/21 10:15 90 09/20/21 10:00 90 09/20/21 09:45 91 09/20/21 09:30 91 09/20/21 09:15 90 09/20/21 09:00 90 09/20/21 08:45 90 09/20/21 08:30 90 09/20/21 08:15 90 09/20/21 08:00 90 09/20/21 07:45 90 09/20/21 07:30 90 09/20/21 07:15 93 09/20/21 07:05 91 09/20/21 07:00 92 09/20/21 06:45 91 09/20/21 06:00 92 09/20/21 05:30 93 09/20/21 05:15 92 09/20/21 05:00 93 09/20/21 04:45 93 09/20/21 04:30 92 09/20/21 04:15 92 09/20/21 04:00 93 09/20/21 03:45 93 09/20/21 03:30 93 09/20/21 03:15 93 09/20/21 03:00 92 09/20/21 02:45 94 09/20/21 02:43 94 09/20/21 02:30 96 09/20/21 02:15 95 09/20/21 02:00 95 09/20/21 01:45 94 09/20/21 01:30 87 L 09/20/21 01:15 89 L 09/20/21 01:00 91 09/20/21 00:45 92 09/20/21 00:30 91 09/20/21 00:15 89 L 09/20/21 00:00 93 Critical Care Results & Data Vital Signs (Past 12 Hours) Vital Signs Temp Pulse Pulse Resp BP BP BP 09/20/21 11:45 40.1 C H 117 H 24 121/68 09/20/21 11:30 40.2 C H 121 H 21 09/20/21 11:15 127 H 31 H 09/20/21 11:00 122 H 24 09/20/21 10:58 121 H 25 H 09/20/21 10:45 123 H 23 110/71 09/20/21 10:30 124 H 24 09/20/21 10:15 126 H 25 H 09/20/21 10:00 37.3 C 123 H 24 103/69 09/20/21 09:45 123 H 26 H 09/20/21 09:30 126 H 28 H 124/82 09/20/21 09:15 120 H 23 101/65 09/20/21 09:00 125 H 25 H 09/20/21 08:45 120 H 25 H 09/20/21 08:30 120 H 20 09/20/21 08:15 120 H 28 H 103/68 09/20/21 08:00 37.9 C H 118 H 22 09/20/21 07:45 117 H 24 100/71 09/20/21 07:30 116 H 25 H 09/20/21 07:15 114 H 28 H 126/82 09/20/21 07:05 112 H 26 H 09/20/21 07:00 112 H 24 105/66 09/20/21 06:45 111 H 24 09/20/21 06:00 38.1 C H 110 H 20 104/69 102/49 L 09/20/21 05:30 108 H 20 110/68 09/20/21 05:15 105 H 20 09/20/21 05:00 106 H 23 09/20/21 04:45 104 H 24 09/20/21 04:30 106 H 19 09/20/21 04:15 104 H 24 09/20/21 04:00 103 H 18 103/73 09/20/21 03:45 91 H 18 09/20/21 03:30 94 H 22 09/20/21 03:15 93 H 27 H 113/82 09/20/21 03:00 94 H 25 H 09/20/21 02:45 91 H 30 H 09/20/21 02:43 92 H 22 09/20/21 02:30 90 22 09/20/21 02:15 90 22 09/20/21 02:00 91 H 22 09/20/21 01:45 94 H 21 09/20/21 01:30 91 H 20 110/72 09/20/21 01:15 90 23 09/20/21 01:00 89 26 H 106/68 09/20/21 00:45 94 H 23 09/20/21 00:30 91 H 25 H 09/20/21 00:15 91 H 23 09/20/21 00:00 37.1 C 96 H 90 18 109/72 102/54 L Pulse Ox 09/20/21 11:45 93 09/20/21 11:30 91 09/20/21 11:15 89 L 09/20/21 11:00 90 09/20/21 10:58 90 09/20/21 10:45 90 09/20/21 10:30 90 09/20/21 10:15 90 09/20/21 10:00 90 09/20/21 09:45 91 09/20/21 09:30 91 09/20/21 09:15 90 09/20/21 09:00 90 09/20/21 08:45 90 09/20/21 08:30 90 09/20/21 08:15 90 09/20/21 08:00 90 09/20/21 07:45 90 09/20/21 07:30 90 09/20/21 07:15 93 09/20/21 07:05 91 09/20/21 07:00 92 09/20/21 06:45 91 09/20/21 06:00 92 09/20/21 05:30 93 09/20/21 05:15 92 09/20/21 05:00 93 09/20/21 04:45 93 09/20/21 04:30 92 09/20/21 04:15 92 09/20/21 04:00 93 09/20/21 03:45 93 09/20/21 03:30 93 09/20/21 03:15 93 09/20/21 03:00 92 09/20/21 02:45 94 09/20/21 02:43 94 09/20/21 02:30 96 09/20/21 02:15 95 09/20/21 02:00 95 09/20/21 01:45 94 09/20/21 01:30 87 L 09/20/21 01:15 89 L 09/20/21 01:00 91 09/20/21 00:45 92 09/20/21 00:30 91 09/20/21 00:15 89 L 09/20/21 00:00 93 Lab & Micro Results (Past 24 Hours) RBC 3.99 M/uL (4.2-5.4) L 09/20/21 WBC 42.31 K/uL (4.8-10.8) H* 09/20/21 Hgb 10.6 g/dL (12.0-16.0) L 09/20/21 Hct 33.8 % (37-47) L 09/20/21 MCV 84.7 fL (80-100) 09/20/21 MCH 26.6 pg (25-34) 09/20/21 MCHC 31.4 g/dL (32-36) L 09/20/21 RDW Standard Deviation 52.3 fL (36.4-46.3) H 09/20/21 RDW Coefficient of Variation 17.0 % (11.5-14.5) H 09/20/21 Plt Count 204 K/uL (130-400) 09/20/21 MPV 12.1 fL (7.4-10.4) H 09/20/21 Neutrophils (%) (Auto) 52.0 % 09/20/21 Lymphocytes (%) (Auto) 45.0 % 09/20/21 Monocytes # (Auto) 1.04 K/uL (0.11-0.59) H 09/20/21 Eosinophils # (Auto) 0.01 K/uL (0-0.5) 09/20/21 Immature Granulocyte % (Auto) 0.4 % 09/20/21 Neutrophils # (Auto) 21.98 K/uL (1.4-6.5) H 09/20/21 Lymphocytes # (Auto) 19.04 K/uL (1.2-3.4) H 09/20/21 Monocytes # (Auto) 1.04 K/uL (0.11-0.59) H 09/20/21 Eosinophils # (Auto) 0.01 K/uL (0-0.5) 09/20/21 Basophils # (Auto) 0.05 K/uL (0-0.2) 09/20/21 Immature Granulocyte # (Auto) 0.19 K/uL (0.00-0.02) H 09/20/21 ANC 30.60 K/uL (1.4-6.5) H 09/19/21 ALC 22.05 K/uL (1.2-3.4) H 09/19/21 Neutrophils % (Manual) 56.2 % 09/19/21 Lymphocytes % (Manual) 40.5 % 09/19/21 Monocytes % (Manual) 2.5 % 09/19/21 Metamyelocytes % (manual) 0.8 % 09/19/21 Neutrophils # (Manual) 30.60 K/uL (1.4-6.5) H 09/19/21 Lymphocytes # (Manual) 22.05 K/uL (1.2-3.4) H 09/19/21 Monocytes # (Manual) 1.36 K/uL (0.11-0.59) H 09/19/21 Metamyelocytes # (Manual) 0.44 K/uL (0-0) H 09/19/21 Hypochromasia Present 09/19/21 Microcytosis Present 09/19/21 Spherocytes Occasional 09/20/21 Ovalocytes 1+ 09/20/21 Na 141 mmol/L (136-145) 09/20/21 K 4.1 mmol/L (3.5-5.1) 09/20/21 Cl 108 mmol/L (98-107) H 09/20/21 CO2 28 mmol/L (21-32) 09/20/21 Anion Gap 5.0 (3-11) 09/20/21 BUN 84 mg/dl (7-18) H 09/20/21 Creatinine 1.39 mg/dl (0.6-1.2) H 09/20/21 Estimated GFR ( Amer) 44.1 ml/min 09/20/21 Estimated GFR (Non-Af Amer) 38.0 ml/min 09/20/21 BUN/Creatinine Ratio 60.7 (10-20) H 09/20/21 Glu 167 mg/dl (70-99) H 09/20/21 Ca 9.0 mg/dl (8.5-10.1) 09/20/21 Phosphorus Level 3.0 mg/dl (2.5-4.9) 09/20/21 Total Bilirubin 0.6 mg/dl (0.2-1) 09/19/21 AST 11 U/L (15-37) L 09/19/21 ALT 16 U/L (12-78) 09/19/21 Alkaline Phosphatase 62 U/L (45-117) 09/19/21 TP 6.5 gm/dl (6.4-8.2) 09/19/21 Albumin 2.5 gm/dl (3.4-5.0) L 09/19/21 Globulin 4.0 gm/dl (2.5-4.0) 09/19/21 Albumin/Globulin Ratio 0.6 (0.9-2) L 09/19/21 Lactate Dehydrogenase 206 U/L (84-246) 09/19/21 Mg 2.1 mg/dl (1.8-2.4) 09/20/21 05:17 09/20/21 Calcium Level 9.0 mg/dl (8.5-10.1) 09/20/21 05:17 09/20/21 Blood Gas Barometric Pressure 733.9 mm/Hg 09/19/21 16:01 09/19/21 Arterial Blood pH 7.54 (7.35-7.45) H* 09/19/21 16:01 09/19/21 Arterial Blood Partial Pressure CO2 36 mmHg (35-46) 09/19/21 16:01 09/19/21 Arterial Blood Partial Pressure O2 54 mmHg (80-95) L 09/19/21 16:01 09/19/21 Arterial Blood HCO3 30 mmol/L (19-24) H 09/19/21 16:01 09/19/21 Arterial Blood Base Excess 6.9 mEq/L (-9-1.8) H 09/19/21 16:01 09/19/21 Arterial Blood Oxygen Saturation 89.0 % (90-95) L 09/19/21 16:01 09/19/21 Blood Gas Oxygen Given 4 09/19/21 16:01 09/19/21 Collin Test NA 09/20/21 04:02 09/20/21 Blood Gas Barometric Pressure 733.9 mm/Hg 09/19/21 16:01 09/19/21 Microbiology 09/19/21 18:45 Fungal Smear - Final Bronch Wash, Right Main Stem 09/19/21 18:45 Gram Stain - Final Bronch Wash, Right Main Stem Diagnostic Findings (Past 24 Hours) Chest CTA 09/19/21 15:28 CT ANGIOGRAPHY OF THE CHEST, PULMONARY EMBOLUS PROTOCOL CLINICAL HISTORY: Shortness of breath. Respiratory distress. COMPARISON STUDY: Chest CT September 04, 2021. Chest radiograph September 17, 2021. TECHNIQUE: Following IV administration of 120 mL of Optiray, helical axial images of the chest were obtained utilizing the pulmonary embolus protocol. Maximal intensity projections and sagittal and coronal reformats were viewed on an independent 3D workstation. IV contrast was administered without complication. Automated exposure control was utilized for the study. A dose lowering technique was utilized adhering to the principles of ALARA. CT DOSE: 227.90 mGy.cm FINDINGS: No pulmonary emboli are identified although the segmental and subsegmental pulmonary arteries are suboptimally assessed due to respiratory motion. Size of the heart is normal. There is no pericardial effusion. No enlarged thoracic lymph nodes are present. Moderate right and extensive left lower lobe consolidation has progressed since CT of September 04, 2011. There are additional ground glass opacities within the upper lobes. There has been interval development of a 1.7 cm cavitary focus within the lingula on image 116 of 263. There is no pneumothorax. There is no pleural effusion. Visualized portions of the upper abdomen are unremarkable. IMPRESSION: 1. No pulmonary emboli identified although segmental and subsegmental pulmonary arteries suboptimally assessed due to respiratory motion. 2. Multifocal consolidation and groundglass opacities which have progressed since CT of September 04, 2021. This suggests viral pneumonia. 3. Interval development of a 1.7 cm cavitary focus within the lingula. This is infectious. ACT 112: Negative or not required by law. Electronically signed by: Héctor Apodaca M.D. 09/19/2021 5:00 PM Chest X-Ray 09/19/21 18:45 XR chest 1V portable CLINICAL HISTORY: bronch, line placement, and intubation COMPARISON STUDY: Chest CT performed earlier today. Chest radiograph September 17, 2021. FINDINGS: Tip of endotracheal tube is 3.5 cm above the kristopher. Tip of nasogastric tube is below the lower aspect of this image but at least within the body of the stomach. There is no pneumothorax. Bilateral airspace opacities are similar to prior chest CT. Left subclavian central line is in place. Tip projects over the cavoatrial junction. IMPRESSION: 1. Satisfactory positioning of lines and tubes. 2. No pneumothorax. 3. No change in extensive bilateral airspace opacities. ACT 112: Negative or not required by law. Electronically signed by: Héctor Apodaca M.D. 09/19/2021 7:00 PM Chest X-Ray 09/20/21 07:00 XR chest 1V portable CLINICAL HISTORY: Resp failure TECHNIQUE: Single frontal radiograph of the chest was obtained. Comparison: Comparison is made to chest one view 09/19/2021 FINDINGS: Lines and tubes are stable. The cardiomediastinal silhouette is normal. Multifocal airspace opacities are seen. No evidence of pleural effusion or pneumothorax. IMPRESSION: Stable multifocal airspace opacities. ACT 112: Negative or not required by law. Electronically signed by: Helio Cordova M.D. 09/20/2021 8:57 AM I & O Totals 24 Hours 09/19/21 09/20/21 09/21/21 06:59 06:59 06:59 Intake Total 170 / 170 1971.006 / 1971.006 186.750 / 186.750 Output Total 1225 / 1225 905 / 905 125 / 125 Balance -1055 / -1055 1066.006 / 1066.006 61.750 / 61.750 Cumulative 09/04/21 08:28 thru 09/20/21 11:46 Intake Total 58644.923 Output Total 87948 Balance 321.923 RT Ventilator Mngmt (Last Documented) Ventilator Ordered Settings Ventilator Support Mode Assist Control 09/20/21 10:58 Respiratory Rate 24 09/20/21 11:45 Ventilator Tidal Volume 380 09/20/21 10:58 Setting Minute Ventilation 9.3 09/20/21 10:58 Positive End Expiratory 8 09/20/21 10:58 Pressure Fraction of Inspired Oxygen 30 09/20/21 10:58 Peak Inspiratory Flow 30 09/20/21 10:58 Machine Comment PEEP decreased to 8 post ABG per 09/20/21 04:05 PATHOLOGY [employer] Ventilator - PT Measurements Respiratory Rate 24 Exhaled Tidal Volume 382 Minute Ventilation 9.3 Peak Inspiratory Airway 28 Pressure Plateau Pressure 25.5 Respiratory Cycle Inspiratory: 1:1.9 Expiratory Ratio Inspiratory Phase Time 1.0 End-Tidal CO2 33 Static Lung Compliance 21.83 Dynamic Lung Compliance 19.10 Normal Static Lung Compliance 45.00 Coding Level of Care Code Critical Care 1st 30-74 mins Diagnoses Septic shock A41.9; R65.21 Lactic acidosis E87.2 Acute hypoxemic respiratory failure J96.01 Cachexia R64 Acute renal failure N17.9 Time Spent (min) 50
--- NOTE | 2021-09-20 12:27 | Hospitalist Progress Note ---
Date of Service September 20, 2021 Assessment & Plan (1) Acute hypoxemic respiratory failure: Plan: 2/2 sepsis with pulmonary source, possibly aspergillus. Cont voriconazole. (2) Severe sepsis: Plan: resuscitated and on pressor support in the ICU. Continues on ceftriaxone and voriconazole. (3) Acute renal failure: Plan: Secondary to sepsis. Creatinine improved after IVF. Cont to monitor. Noted poor PO intake recently. Trend BMP daily. (4) CLL (chronic lymphocytic leukemia): Plan: Ongoing therapy with ibrutinib, which has been held. Follows with Dr. Ariel Ortiz for oncology (5) Pneumonia due to COVID-19 virus: Plan: Readmitted with COVID-19 pneumonia Covid PCR positive on previous admission (08/19/21) Covid PCR remains positive. Chest CTA on admission without evidence of pulm onary embolism. Interval development of diffuse ground glass opacities in the lungs which may be seen in pneumonia Blood cultures negative Completed dexamethasone, antibiotic course Repeat CXR on 09/13 showed Slight progression of multifocal bilateral airspace opacities which favor pneumonia. There was initially concern for aspiration at this time. Continued to require oxygen supplementation which was improved to 4LPM from admission. Leukocytosis developed Rocephin/Flagyl started 09/18 Acute respiratory distress developed today with HR 130, consistent with sepsis picture. Worsening sepsis and cavitary infectious lung lesion seen on CT scan, no PE. Transferred to ICU for mechanical ventilation and continued sepsis support. Cont plan as stated above. (6) Hypertension: Plan: antihypertensives are on hold in setting of sepsis (7) Anemia: Plan: Likely anemia of Chronic disease Hb at baseline Monitor CBC (8) Post-operative state: Plan: H/O left hip fracture S/P hemiarthroplasty on 08/[address] Sánchez Weightbearing as tolerated Follow-up with Dr. Sánchez as outpatient for repeat xrays. (9) Dysphagia: Plan: Recent video swallow study revealing several episodes of silent tracheal aspiration with thin liquids. No aspiration with remainder of the consistencies. Residuals within the piriform sinuses and vallecula with pudding consistencies. Currently on Pureed , nectar thick liquid Made NPO in setting of acute respiratory distress. (10) DVT prophylaxis: Plan: Lovenox-readdressing per ICU in setting of acute renal failure Code status adjusted to DNR Dispo-cont ICU support. [facility] Admission and Anticipated Discharge Date Admission Date: September 04, 2021 Subjective 71 yo F presented to the hospital with covid-19 pneumonia. 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 Remains intubated and sedated, cannot obtain ROS Review of Systems Review of Systems: intubated, sedated. Physical Exam Physical Exam: CONSTITUTIONAL: thin, cachectic, intubated, sedated. EYES: pupils are equal and round bilaterally, normal conjunctivae, no scleral icterus ENT: external ear and nose normal, MMM, poor dentition. RESPIRATORY: diminished breath sounds, no adventitial sounds. intubated. CARDIOVASCULAR: reg rate, regular rhythm, S1 and 2 heard without murmurs, gallops or rubs, no JVD, no peripheral edema GASTROINTESTINAL: soft, nondistended MUSCULOSKELETAL: cachectic, sedated, cannot perform. SKIN: warm and diaphoretic. NEUROLOGIC: sedated. Results & Data Results & Data ([facility]) Vital Signs (Past 12 Hours) Vital Signs Temp Pulse Pulse Resp BP BP BP 09/20/21 11:45 40.1 C H 117 H 24 121/68 09/20/21 11:30 40.2 C H 121 H 21 09/20/21 11:15 127 H 31 H 09/20/21 11:00 122 H 24 09/20/21 10:58 121 H 25 H 09/20/21 10:45 123 H 23 110/71 09/20/21 10:30 124 H 24 09/20/21 10:15 126 H 25 H 09/20/21 10:00 37.3 C 123 H 24 103/69 09/20/21 09:45 123 H 26 H 09/20/21 09:30 126 H 28 H 124/82 09/20/21 09:15 120 H 23 101/65 09/20/21 09:00 125 H 25 H 09/20/21 08:45 120 H 25 H 09/20/21 08:30 120 H 20 09/20/21 08:15 120 H 28 H 103/68 09/20/21 08:00 37.9 C H 118 H 22 09/20/21 07:45 117 H 24 100/71 09/20/21 07:30 116 H 25 H 09/20/21 07:15 114 H 28 H 126/82 09/20/21 07:05 112 H 26 H 09/20/21 07:00 112 H 24 105/66 09/20/21 06:45 111 H 24 09/20/21 06:00 38.1 C H 110 H 20 104/69 102/49 L 09/20/21 05:30 108 H 20 110/68 09/20/21 05:15 105 H 20 09/20/21 05:00 106 H 23 09/20/21 04:45 104 H 24 09/20/21 04:30 106 H 19 09/20/21 04:15 104 H 24 09/20/21 04:00 103 H 18 103/73 09/20/21 03:45 91 H 18 09/20/21 03:30 94 H 22 09/20/21 03:15 93 H 27 H 113/82 09/20/21 03:00 94 H 25 H 09/20/21 02:45 91 H 30 H 09/20/21 02:43 92 H 22 09/20/21 02:30 90 22 09/20/21 02:15 90 22 09/20/21 02:00 91 H 22 09/20/21 01:45 94 H 21 09/20/21 01:30 91 H 20 110/72 09/20/21 01:15 90 23 09/20/21 01:00 89 26 H 106/68 09/20/21 00:45 94 H 23 09/20/21 00:30 91 H 25 H Pulse Ox 09/20/21 11:45 93 09/20/21 11:30 91 09/20/21 11:15 89 L 09/20/21 11:00 90 09/20/21 10:58 90 09/20/21 10:45 90 09/20/21 10:30 90 09/20/21 10:15 90 09/20/21 10:00 90 09/20/21 09:45 91 09/20/21 09:30 91 09/20/21 09:15 90 09/20/21 09:00 90 09/20/21 08:45 90 09/20/21 08:30 90 09/20/21 08:15 90 09/20/21 08:00 90 09/20/21 07:45 90 09/20/21 07:30 90 09/20/21 07:15 93 09/20/21 07:05 91 09/20/21 07:00 92 09/20/21 06:45 91 09/20/21 06:00 92 09/20/21 05:30 93 09/20/21 05:15 92 09/20/21 05:00 93 09/20/21 04:45 93 09/20/21 04:30 92 09/20/21 04:15 92 09/20/21 04:00 93 09/20/21 03:45 93 09/20/21 03:30 93 09/20/21 03:15 93 09/20/21 03:00 92 09/20/21 02:45 94 09/20/21 02:43 94 09/20/21 02:30 96 09/20/21 02:15 95 09/20/21 02:00 95 09/20/21 01:45 94 09/20/21 01:30 87 L 09/20/21 01:15 89 L 09/20/21 01:00 91 09/20/21 00:45 92 09/20/21 00:30 91 Laboratory Results Short CBC 09/19/21 09/20/21 Range/Units 16:01 05:17 WBC 54.44 H* D 42.31 H* D (4.8-10.8) K/uL Hgb 12.0 10.6 L (12.0-16.0) g/dL Hct 36.9 L 33.8 L (37-47) % Plt Count 269 204 (130-400) K/uL [facility] 09/19/21 09/20/21 16:01 05:17 Sodium 139 141 Potassium 4.9 D 4.1 D Chloride 103 108 H Carbon Dioxide 26 28 BUN 101 H 84 H Creatinine 1.68 H D 1.39 H Glucose 166 H 167 H Calcium 10.6 H 9.0 D Cardiac Enzymes 09/19/21 Range/Units 16:01 Troponin I < 0.015 (0-0.045) ng/ml Liver Function 09/19/21 Range/Units 16:01 Total Bilirubin 0.6 (0.2-1) mg/dl AST 11 L (15-37) U/L ALT 16 (12-78) U/L Alkaline Phosphatase 62 (45-117) U/L Albumin 2.5 L (3.4-5.0) gm/dl Urine 09/20/21 Range/Units 00:10 Urine Color Dark Yellow Urine Appearance Clear (Clear) Urine pH 5.0 (4.5-7.5) Ur Specific Biddle > 1.045 H (1.000-1.030) Urine Protein 1+ H (Negative) Urine Glucose (UA) Negative (Negative) Diagnostic Findings Chest X-Ray 09/20/21 07:00 XR chest 1V portable CLINICAL HISTORY: Resp failure TECHNIQUE: Single frontal radiograph of the chest was obtained. Comparison: Comparison is made to chest one view 09/19/2021 FINDINGS: Lines and tubes are stable. The cardiomediastinal silhouette is normal. Multifocal airspace opacities are seen. No evidence of pleural effusion or pneumothorax. IMPRESSION: Stable multifocal airspace opacities. ACT 112: Negative or not required by law. Electronically signed by: Helio Cordova M.D. 09/20/2021 8:57 AM Medications Administered Current Inpatient Medications Albuterol (Albuterol Hfa 8 Gm Inhaler) 2 puffs INH Q2H PRN PRN Reason: sob/wheeze Stop: 10/06/21 23:34 Artificial Tears (Artificial Tears) 1 drops OP BID PRN PRN Reason: Dry Eyes Stop: 10/04/21 15:18 Fentanyl Citrate (Fentanyl Bolus From Bag) 50 mcg IV Q60M PRN PRN Reason: Pain or Agitation Stop: 10/03/21 19:02 Heparin Sodium (Porcine) (Heparin Sod 5,000 Unit/0.5 Ml Vial) 5,000 units SQ Q12 REBEKA Stop: 10/20/21 11:44 Ceftriaxone Sodium 1,000 mg/ (Dextrose) 50 mls @ 100 mls/hr IV Q24H REBEKA; Protocol Stop: 09/25/21 08:59 Last Infusion: 09/20/21 10:57 Dose: Infused Documented by: Acetaminophen (Ofirmev) 65 mls @ 260 mls/hr IV Q6H PRN PRN Reason: Pain/FEVER Stop: 09/22/21 17:29 Propofol (Diprivan) 1,000 mg in 100 mls @ 3.933 mls/hr IV .Q24H REBEKA; Protocol Stop: 09/22/21 19:14 Last Titration: 09/20/21 06:54 Dose: 15 mcg/kg/min, 3.9 mls/hr Documented by: Fentanyl Citrate (Fentanyl Drip) 1,250 mcg in 250 mls @ 5 mls/hr IV .Q50H REBEKA; Protocol Stop: 10/03/21 19:14 Last Titration: 09/20/21 06:54 Dose: 25 mcg/hr, 5 mls/hr Documented by: Famotidine 20 mg/ Syringe 5 mls @ 2.5 mls/min IV BID REBEKA Stop: 10/19/21 20:59 Last Admin: 09/20/21 09:59 Dose: 2.5 mls/min Documented by: Vasopressin 20 units/ Sodium (Chloride) 101 mls @ 12.12 mls/hr IV .Q8H20M REBEKA Stop: 10/19/21 20:14 Last Admin: 09/20/21 12:10 Dose: 0.04 unit/min, 12 mls/hr Documented by: Norepinephrine Bitartrate (Levophed/D5w) 8 mg in 508 mls @ 33.299 mls/hr IV .[id number] REBEKA; Protocol Stop: 10/19/21 20:14 Last Titration: 09/20/21 09:14 Dose: 0.2 mcg/kg/min, 33.3 mls/hr Documented by: Miscellaneous (Icu Protocol For Hyperglycemia) 1 ea N/A PRN PRN; Protocol PRN Reason: Hyperglycemia Protocol Stop: 09/21/21 19:25 *Ibrutinib [ Imbruvica]*Non-Form Patient's Own Med 1 ea PO DAILY REBEKA Stop: 10/07/21 08:59 Last Admin: 09/19/21 13:20 Dose: Not Given Documented by: Nystatin (Nystatin Powder 15gm Btl) 1 appln EXT BID PRN PRN Reason: Rash Stop: 10/06/21 18:40 Last Admin: 09/06/21 21:55 Dose: 1 appln Documented by: Ondansetron HCl (Ondansetron Inj 2 Mg/Ml 2 Ml Vial) 4 mg IV Q6H PRN PRN Reason: Nausea Stop: 10/04/21 14:09 Last Admin: 09/18/21 21:53 Dose: 4 mg Documented by: Phenol (Chloraseptic 1.4% Soln 180 Ml Btl) 2 sprays MT Q6H PRN PRN Reason: sore mouth Stop: 10/04/21 15:08 Last Admin: 09/05/21 09:25 Dose: 2 sprays Documented by: Polyethylene Glycol (Polyethylene (Miralax) 17 Gm Pack) 17 gm PO DAILY PRN PRN Reason: Constipation Stop: 10/04/21 14:09 Propofol (Propofol Bolus From Bag) 20 mg IV Q5M PRN PRN Reason: Sedation Stop: 09/22/21 19:02
[2021-09-20] MEDS: HEPARIN SOD 5,000 UNIT/0.5 ML VIAL SQ SCH ×2 (12:35→20:02)
[2021-09-20] MEDS: ACETAMINOPHEN 500 MG TAB PO PRN (15:56)
--- NOTE | 2021-09-20 16:49 | Communication Note ---
Date of Service: September 20, 2021 Met with at bedside. Advised him of current findings including review of pathology slides showing Aspergillus. 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 Unclear how systemic it is. She continues to require 2 vasopressor agents and is very hemodynamically unstable. is aware of her chronic frail issues. He understands the severity of her illness. I advised him that we are doing everything we can to try and support her at this point time. If she fails, I do not think there are additional escalation of care options which would improve her overall outcome. As such, he is agreeable to DNR specifically with no CPR or compressions or escalation of vasopressor medications. We will reassess in the next 12 to 24 hours to see if she is making any progress. If not, may consider transition to full comfort measures at that time. CODE STATUS updated. Additional 25 minutes critical care time Coding Level of Care Code Critical Care soni addt'l 30 min
--- NOTE | 2021-09-20 19:31 | Electrocardiogram Report ---
Test Reason : Blood Pressure : / mmHG Vent. Rate : 129 BPM Atrial Rate : 129 BPM P-R Int : 112 ms QRS Dur : 074 ms QT Int : 274 ms P-R-T Axes : 000 180 076 degrees QTc Int : 401 ms Sinus tachycardia Right axis deviation Suspect limb lead reversal Abnormal ECG When compared with ECG of 18-SEP-2021 10:59, Limb lead reversal is now present Confirmed by Paulie Miller ([id number]) on 09/20/2021 7:31:18 PM Referred By: [facility] Confirmed By:Paulie Miller
[2021-09-20] MEDS: NOREPINEPHRINE/D5W 8 MG/508 ML BAG IV SCH (20:01)
[2021-09-21] MEDS: fentaNYL DRIP 1,250 MCG/250 ML BAG IV SCH ×2 (04:40→12:13)
[2021-09-21] MEDS: VASOPRESSIN 20 UNITS in 0.9 % SODIUM CHLORIDE 100 ML IV SCH (04:41)
[2021-09-21 05:59] LABS: iSTAT Art Bld Gas pCO2 Correct 39 mmHg (35-46); iSTAT Art Bld Gas pH Corrected 7.439 (7.35-7.45); iSTAT Arterial Blood Gas HCO3 27 meg/L (19-24); iSTAT Arterial Blood Gas pCO2 39 mmHg (35-46); iSTAT Arterial Blood Gas pH 7.44 (7.35-7.45); iSTAT Arterial Blood Gas pO2 81 mmHg (80-95); iSTAT Arterial Blood Gas pO2 C 81; iSTAT Carbon Dioxide 28 mmol/L (24-31); iSTAT FiO2 40 %; iSTAT Hematocrit 24 % (37-47); iSTAT Hemoglobin 8.2 g/dl (12.0-16.0); iSTAT Potassium 3.6 mmol/L (3.3-5.0); iSTAT Site Art Line; iSTAT Sodium 143 mmol/L (135-144)
[2021-09-21 06:46] LABS: Hematocrit (blood only) 28.3 % (37-47); Mean Corpuscular Hgb Conc 31.8 g/dL (32-36); Platelet Count 113 K/uL (130-400); RDW Coefficient of Variation 17.6 % (11.5-14.5); RDW Standard Deviation 54.5 fL (36.4-46.3); Red Blood Count 3.33 M/uL (4.2-5.4)
[2021-09-21 06:47] LABS: Basophils # (auto) 0.01 K/uL (0-0.2); Eosinophils # (auto) 0.02 K/uL (0-0.5); Eosinophils % (auto) 0.1 %; Immature Granulocytes # (auto) 0.11 K/uL (0.00-0.02); Immature Granulocytes % (auto) 0.4 %; Lymphocytes # (auto) 12.07 K/uL (1.2-3.4); Lymphocytes % (auto) 39.7 %; Monocytes # (auto) 0.53 K/uL (0.11-0.59); Monocytes % (auto) 1.7 %; Neutrophils # (auto) 17.66 K/uL (1.4-6.5); Neutrophils % (auto) 58.1 %; Platelet Estimate Decreased (Normal)
[2021-09-21] MEDS: propofoL 1,000 MG/100 ML VIAL IV SCH ×3 (07:02→20:14)
--- NOTE | 2021-09-21 07:11 | XRay Report ---
XR chest 1V portable HISTORY: 71 years-old Female f/u up acute respiratory failure COMPARISON: Chest radiograph 09/20/2021 at 6:25 AM TECHNIQUE: Portable AP view of the chest FINDINGS: Endotracheal tube overlies the midline, 3.0 cm superior to the kristopher. Enteric tube courses below the diaphragm with distal tip outside the [id number]. The side-port is within the proximal stomach. L eft subclavian central venous catheter distal tip terminates in the expected location of the inferior SVC. No pneumothorax. Interstitial coarsening with bilateral airspace opacities, slightly progressed . Hyperinflation. No pneumothorax or large pleural effusion. Degenerative changes of the shoulders an d spine. IMPRESSION: 1. Lines and tubes as above. No pneumothorax. 2. Mild progression of the mixed interstitial and alveolar opacities suggestive of multifocal pneumon ia. ACT 112: Negative or not required by law. The above report was generated using voice recognition software. It may contain grammatical, syntax o r spelling errors. Electronically signed by: Bruce Saini M.D. 09/21/2021 7:10 AM
[2021-09-21 07:45] LABS: BUN Creatinine Ratio 77.9 (10-20); Calcium 9.3 mg/dl (8.5-10.1); Creatinine Clr Calc Pharmacy 40.8 ml/min; Est GFR (African American) 91.5 ml/min; Est GFR (Non-African American) 78.9 ml/min; Magnesium 2.2 mg/dl (1.8-2.4); Phosphorus 2.9 mg/dl (2.5-4.9); Potassium 3.7 mmol/L (3.5-5.1)
[2021-09-21] MEDS: VORICONAZOLE IV SCH ×2 (08:02→20:47)
[2021-09-21] MEDS: cefTRIAXone SODIUM 1,000 MG in DEXTROSE 5% 50 ML IV SCH (08:02)
[2021-09-21] MEDS: SODIUM CHLORIDE 0.9% IV SCH ×2 (08:02→20:47)
[2021-09-21] MEDS: FAMOTIDINE 20 MG in SYRINGE 3 ML IV SCH ×2 (08:02→20:12)
--- NOTE | 2021-09-21 09:47 | Communication Note ---
Date of Service: September 21, 2021 Bronchial washing path results and today's labs, clinical status reviewed. Renal function improved further; sodium and other chemistries appropriate. Remains gravely ill, though no issues needing direct nephro management at this time. Will sign off; pls call if ? Dr Dillon aware.
[2021-09-21] MEDS: HEPARIN SOD 5,000 UNIT/0.5 ML VIAL SQ SCH (09:57)
[2021-09-21 11:33] LABS: Appearance Urine Cloudy (Clear); Bilirubin Urine Negative (Negative); Blood Urine Negative (Negative); Color Urine Dark Yellow; Glucose Urine UA Negative (Negative); Ketones Urine Negative (Negative); Leukocyte Esterase Urine Negative (Negative); Nitrite Urine Negative (Negative); Protein Urine 1+ (Negative); RBC Urine Automated 0-4 /hpf (0-4); Specific Gravity Urine 1.035 (1.000-1.030); Urobilinogen Urine Negative (Negative)
--- NOTE | 2021-09-21 12:00 | Critical Care Progress Note ---
Date of Service September 21, 2021 Assessment & Plan (1) Septic shock: (2) Lactic acidosis: (3) Acute hypoxemic respiratory failure: (4) Cachexia: (5) Acute renal failure: Plan: Impression: 71-year-old female with CLL undergoing chemotherapy with prolonged hospitalization transferred to the ICU for respiratory distress, lactic acidosis, and acute renal failure. The findings on the CT scan in the setting of immunosuppression, ongoing chemotherapy, and dexamethasone raise the specter of potential angioinvasive fungal infections. Reviewed cytology with pathology and there does appear to be fungal elements likely consistent with Aspergillus on the specimen. This would coincide with what was seen on her bronchoscopy as well. If so, this portends an extremely unfavorable prognosis given the patient's frail state and medical comorbidities. She also has acute renal failure and is now vasopressor dependent. 24 hour events: Patient was weaned off of pressors. She appears neurologically intact but still profoundly weak. She was placed on spontaneous breathing trials several times this morning but they were all terminated due to apneic episodes. Recommendations: 1. Neurologic: Weaning sedation as tolerated. Appears neurologically intact. Holding antidepressants but may need to restart these within the next 24 hours. 2. Pulmonary: Attempted several weaning trials today but the patient becomes apneic alternating with tachypnea. Continue mechanical ventilation and sedation today. 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 Continue voriconazole. Will likely need therapy for at least 12 weeks and potentially up to 6 months. May consider ID consultation in the future. 3. Cardiovascular: Pressors have been weaned off. Random cortisol was high. No indication for relative adrenal insufficiency 4. GI: Unable to extubate today. Will consult dietary for initiation of tube feeding. Stress ulcer prophylaxis. She is profoundly malnourished which complicates her ability to recover from an acute illness. 5. Renal: Acute renal insufficiency now resolved. Replacing electrolytes as needed. Initiate ICU replacement protocol. Acid-base status appropriate. 6. 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 Pending Fungitell as well as fungal blood isolators. Would complete 5 days of Rocephin.ID consultation may be considered in the future. She was positive for Covid and has been on extended course of dexamethasone. No additional steroids are appropriate. She is not a candidate for any additional immunosuppressive currently. 7. Heme-onc: White blood cell continues to slowly decrease.. The differential is not particularly neutrophilic. Uric acid high. LDH low. Mild anemia but no evidence of acute blood loss. Her platelets are down. Holding additional heparin. Will check heparin-induced thrombocytopenia antibody. Holding chemotherapy for CLL 8. Endocrine: Glycemic control per protocol. Patient overall is severely critically ill with an unclear outcome. Discussed extensively with yesterday. Elected to not pursue escalation of care. She is somewhat clinically improved but remains significantly chronically ill. I think is reasonable to continue supportive care to see if she can get off of the ventilator. Will discuss with family today. Total of 48 minutes critical care time was spent evaluation management and stabilization of this patient exclusive of procedures Admission and Anticipated Discharge Date Admission Date: September 04, 2021 Subjective Intubated and sedated. When sedation is weaned, the patient is able to follow some simple commands Review of Systems Review of Systems: Unobtainable due to endotracheal tube Physical Exam Constitutional: + cachectic, + mechanically ventilated and + malnourished Neck: trachea midline, no thyromegaly Cardiovascular: RRR, no murmur, no edema Gastrointestinal (Abdomen): normal bowel sounds, soft, nontender, no hepatosplenomegaly Musculoskeletal: Extremities: extremities normal to inspection Lymphatic: no cervical lymphadenopathy Results & Data Results & Data ([facility]) Vital Signs (Past 12 Hours) Vital Signs Temp Pulse Resp BP Pulse Ox 09/21/21 11:23 96 H 18 94 09/21/21 11:15 100 H 28 H 93 09/21/21 11:00 37.6 C H 103 H 26 H 115/69 92 09/21/21 10:00 37.7 C H 98 H 18 111/64 92 09/21/21 09:00 37.7 C H 91 H 20 101/68 95 09/21/21 08:22 88 09/21/21 08:00 37.7 C H 87 18 95 09/21/21 07:16 19 09/21/21 07:00 37.7 C H 86 18 106/64 96 09/21/21 06:00 37.8 C H 83 18 111/63 98 09/21/21 05:00 37.7 C H 84 18 118/60 94 09/21/21 04:00 37.6 C H 85 19 110/73 92 09/21/21 03:10 83 18 92 09/21/21 03:00 37.4 C 83 16 104/64 92 09/21/21 02:00 37.4 C 82 16 94/60 L 90 09/21/21 01:00 37.3 C 83 16 99/63 L 92 09/21/21 00:00 37.3 C 79 16 96/66 L 95 09/20/21 23:55 80 18 91 Critical Care Results & Data Vital Signs (Past 12 Hours) Vital Signs Temp Pulse Resp BP Pulse Ox 09/21/21 11:23 96 H 18 94 09/21/21 11:15 100 H 28 H 93 09/21/21 11:00 37.6 C H 103 H 26 H 115/69 92 09/21/21 10:00 37.7 C H 98 H 18 111/64 92 09/21/21 09:00 37.7 C H 91 H 20 101/68 95 09/21/21 08:22 88 09/21/21 08:00 37.7 C H 87 18 95 09/21/21 07:16 19 09/21/21 07:00 37.7 C H 86 18 106/64 96 09/21/21 06:00 37.8 C H 83 18 111/63 98 09/21/21 05:00 37.7 C H 84 18 118/60 94 09/21/21 04:00 37.6 C H 85 19 110/73 92 09/21/21 03:10 83 18 92 09/21/21 03:00 37.4 C 83 16 104/64 92 09/21/21 02:00 37.4 C 82 16 94/60 L 90 09/21/21 01:00 37.3 C 83 16 99/63 L 92 09/21/21 00:00 37.3 C 79 16 96/66 L 95 09/20/21 23:55 80 18 91 Lab & Micro Results (Past 24 Hours) RBC 3.33 M/uL (4.2-5.4) L 09/21/21 WBC 30.40 K/uL (4.8-10.8) H* 09/21/21 Hgb 9.0 g/dL (12.0-16.0) L 09/21/21 Hct 28.3 % (37-47) L 09/21/21 MCV 85.0 fL (80-100) 09/21/21 MCH 27.0 pg (25-34) 09/21/21 MCHC 31.8 g/dL (32-36) L 09/21/21 RDW Standard Deviation 54.5 fL (36.4-46.3) H 09/21/21 RDW Coefficient of Variation 17.6 % (11.5-14.5) H 09/21/21 Plt Count 113 K/uL (130-400) L 09/21/21 MPV 12.0 fL (7.4-10.4) H 09/21/21 Neutrophils (%) (Auto) 58.1 % 09/21/21 Lymphocytes (%) (Auto) 39.7 % 09/21/21 Monocytes # (Auto) 0.53 K/uL (0.11-0.59) 09/21/21 Eosinophils # (Auto) 0.02 K/uL (0-0.5) 09/21/21 Immature Granulocyte % (Auto) 0.4 % 09/21/21 Neutrophils # (Auto) 17.66 K/uL (1.4-6.5) H 09/21/21 Lymphocytes # (Auto) 12.07 K/uL (1.2-3.4) H 09/21/21 Monocytes # (Auto) 0.53 K/uL (0.11-0.59) 09/21/21 Eosinophils # (Auto) 0.02 K/uL (0-0.5) 09/21/21 Basophils # (Auto) 0.01 K/uL (0-0.2) 09/21/21 Immature Granulocyte # (Auto) 0.11 K/uL (0.00-0.02) H 09/21/21 Na 144 mmol/L (136-145) 09/21/21 K 3.7 mmol/L (3.5-5.1) 09/21/21 Cl 111 mmol/L (98-107) H 09/21/21 CO2 25 mmol/L (21-32) 09/21/21 Anion Gap 8.0 (3-11) 09/21/21 BUN 60 mg/dl (7-18) H 09/21/21 Creatinine 0.76 mg/dl (0.6-1.2) 09/21/21 Estimated GFR ( Amer) 91.5 ml/min 09/21/21 Estimated GFR (Non-Af Amer) 78.9 ml/min 09/21/21 BUN/Creatinine Ratio 77.9 (10-20) H 09/21/21 Glu 127 mg/dl (70-99) H 09/21/21 Ca 9.3 mg/dl (8.5-10.1) 09/21/21 Phosphorus Level 2.9 mg/dl (2.5-4.9) 09/21/21 Mg 2.2 mg/dl (1.8-2.4) 09/21/21 05:39 09/21/21 Calcium Level 9.3 mg/dl (8.5-10.1) 09/21/21 05:39 09/21/21 Collin Test NA 09/21/21 05:00 09/21/21 Microbiology 09/19/21 18:45 Acid Fast Bacilli Smear - Final Bronch Wash, Right Main Stem 09/19/21 17:47 Aerobic Blood Culture - Preliminary Blood No growth in Aerobic bottle after 24 hours. Anaerobic Blood Culture - Final 09/19/21 17:47 Aerobic Blood Culture - Preliminary Blood No growth in Aerobic bottle after 24 hours. Anaerobic Blood Culture - Final 09/20/21 13:54 Fungal Smear - Final Blood 09/19/21 18:45 Gram Stain - Final Bronch Wash, Right Main Stem Bronchial Culture - Preliminary Pin-point growth present, reincubating. Diagnostic Findings (Past 24 Hours) Chest X-Ray 09/21/21 07:00 XR chest 1V portable HISTORY: 71 years-old Female f/u up acute respiratory failure COMPARISON: Chest radiograph 09/20/2021 at 6:25 AM TECHNIQUE: Portable AP view of the chest FINDINGS: Endotracheal tube overlies the midline, 3.0 cm superior to the kristopher. Enteric tube courses below the diaphragm with distal tip outside the [id number]. The side-port is within the proximal stomach. Left subclavian central venous catheter distal tip terminates in the expected location of the inferior SVC. No pneumothorax. Interstitial coarsening with bilateral airspace opacities, slightly progressed. Hyperinflation. No pneumothorax or large pleural effusion. Degenerative changes of the shoulders and spine. IMPRESSION: 1. Lines and tubes as above. No pneumothorax. 2. Mild progression of the mixed interstitial and alveolar opacities suggestive of multifocal pneumonia. ACT 112: Negative or not required by law. The above report was generated using voice recognition software. It may contain grammatical, syntax or spelling errors. Electronically signed by: Bruce Saini M.D. 09/21/2021 7:10 AM I & O Totals 24 Hours 09/20/21 09/21/21 09/22/21 06:59 06:59 06:59 Intake Total 1971.006 / 2091.216 5402.344 / 1320.344 220.512 / 220.512 Output Total 905 / 905 420 / 420 150 / 150 Balance 1066.006 / 1066.006 900.344 / 900.344 70.512 / 70.512 Cumulative 09/04/21 08:28 thru 09/21/21 10:26 Intake Total 22917.029 Output Total 79700 Balance 1231.029 RT Ventilator Mngmt (Last Documented) Ventilator Ordered Settings Ventilator Support Mode Assist Control 09/21/21 11:23 Respiratory Rate 18 09/21/21 11:23 Ventilator Tidal Volume 380 09/21/21 11:23 Setting Minute Ventilation 8.5 09/21/21 11:23 Ventilator Positive Pressure 8 09/21/21 11:15 Support Setting Positive End Expiratory 5 09/21/21 11:23 Pressure Fraction of Inspired Oxygen 35 09/21/21 11:23 Peak Inspiratory Flow 30 09/20/21 15:30 Machine Comment PEEP decreased to 8 post ABG per 09/20/21 04:05 ASSISTANT TEACHER PRIMARY Ventilator - PT Measurements Respiratory Rate 18 Exhaled Tidal Volume 381 Minute Ventilation 8.5 Peak Inspiratory Airway 24 Pressure Plateau Pressure 21.7 Respiratory Cycle Inspiratory: 1:2.3 Expiratory Ratio Inspiratory Phase Time 1.0 End-Tidal CO2 39 Static Lung Compliance 22.81 Dynamic Lung Compliance 20.05 Normal Static Lung Compliance 46.00 Coding Level of Care Code Critical Care 1st 30-74 mins Diagnoses Septic shock A41.9; R65.21 Lactic acidosis E87.2 Acute hypoxemic respiratory failure J96.01 Cachexia R64 Acute renal failure N17.9 Time Spent (min) 48
[2021-09-21 12:07] LABS: Bacteria Urine Automated 1+ (Negative); Uric Acid Crystals Urine Present (None Prsent)
[2021-09-21] MEDS: PEPTAMEN 1.5 CAL 1,000 ML BAG OG SCH (15:01)
[2021-09-21] MEDS: TUBE FEEDING WATER FLUSH OG SCH ×2 (15:01→19:47)
[2021-09-21] MEDS: ICU ELECTROLYTE REPLACEMENT PROTOCOL SCH (17:36)
--- NOTE | 2021-09-21 19:40 | Hospitalist Progress Note ---
Date of Service September 21, 2021 Assessment & Plan (1) Acute hypoxemic respiratory failure: Plan: 2/2 sepsis with pulmonary source, bhargaviley aspergillus. Cont voriconazole. Weaning trials per ICU. (2) Severe sepsis: Plan: resuscitated and on pressor support in the ICU. Continues on ceftriaxone and voriconazole. WBC decreasing and she appears to be improved. (3) Acute renal failure: Plan: Secondary to sepsis. Creatinine improved after IVF. Cont to monitor. Noted poor PO intake recently. Trend BMP daily. (4) CLL (chronic lymphocytic leukemia): Plan: Ongoing therapy with ibrutinib, which has been held. Follows with Dr. Ariel Ortiz for oncology (5) Pneumonia due to COVID-19 virus: Plan: Readmitted with COVID-19 pneumonia Covid PCR positive on previous admission (08/19/21) Covid PCR remains positive. Chest CTA on admission without evidence of pulmonary embolism. Interval development of diffuse ground glass opacities in the lungs which may be seen in pneumonia Blood cultures negative Completed dexamethasone, antibiotic course Repeat CXR on 09/13 showed Slight progression of multifocal bilateral airspace opacities which favor pneumonia. There was initially concern for aspiration at this time. Continued to require oxygen supplementation which was improved to 4LPM from admission. Leukocytosis developed Rocephin/Flagyl started 09/18 Acute respiratory distress developed today with HR 130, consistent with sepsis picture. Worsening sepsis and cavitary infectious lung lesion seen on CT scan, no PE. Transferred to ICU for mechanical ventilation and continued sepsis support. Cont plan as stated above. (6) Thrombocytopenia: Plan: acute drop in platelets today by 50% to 113. HIT panel pending. Heparin on hold. (7) Hypertension: Plan: antihypertensives are on hold, off pressors. (8) Anemia: Plan: Likely anemia of Chronic disease Hb at baseline Monitor CBC (9) Post-operative state: Plan: H/O left hip fracture S/P hemiarthroplasty on 08/[address] Sánchez Weightbearing as tolerated Follow-up with Dr. Sánchez as outpatient for repeat xrays. (10) Dysphagia: Plan: Recent video swallow study revealing several episodes of silent tracheal aspiration with thin liquids. No aspiration with remainder of the consistencies. Residuals within the piriform sinuses and vallecula with pudding consistencies. OG tube in place now with trickle feeds started. (11) DVT prophylaxis: Plan: heparin held with acute thrombocytopenia. DNR Dispo-cont ICU support with possible weaning trial in am. DO [facility] Admission and Anticipated Discharge Date Admission Date: September 04, 2021 Subjective 71 yo F presented to the hospital with covid-19 pneumonia. 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 Remains intubated and sedated, cannot obtain ROS pressors have been stopped and she is not breathing over the vent. Temp up slightly, being managed with cooling packs trickle tube feeds started Review of Systems Review of Systems: intubated, sedated. Physical Exam Physical Exam: CONSTITUTIONAL: thin, cachectic, intubated, sedated. EYES: pupils are equal and round bilaterally, normal conjunctivae, no scleral icterus ENT: external ear and nose normal, MMM, poor dentition. RESPIRATORY: diminished breath sounds, no adventitial sounds. intubated. CARDIOVASCULAR: reg rate, regular rhythm, S1 and 2 heard without murmurs, gallops or rubs, no JVD, no peripheral edema GASTROINTESTINAL: soft, nondistended MUSCULOSKELETAL: cachectic, sedated, cannot perform. SKIN: warm and dry NEUROLOGIC: sedated. Results & Data Results & Data ([facility]) Vital Signs (Past 12 Hours) Vital Signs Temp Pulse Resp BP Pulse Ox 09/21/21 19:00 37.6 C H 90 16 115/65 98 09/21/21 18:00 37.8 C H 91 H 18 91/60 L 96 09/21/21 17:45 38.0 C H 92 H 16 93 09/21/21 17:32 95 H 09/21/21 17:30 38.0 C H 94 H 18 95 09/21/21 17:15 38.0 C H 95 H 16 97 09/21/21 17:00 38.0 C H 96 H 22 127/61 93 09/21/21 16:00 38 C H 97 H 18 117/68 96 09/21/21 15:00 38.2 C H 93 H 18 114/64 97 09/21/21 14:00 38.2 C H 96 H 18 103/66 100 09/21/21 13:00 38.0 C H 98 H 16 110/65 94 09/21/21 12:00 37.7 C H 99 H 18 123/78 95 09/21/21 11:23 96 H 18 94 09/21/21 11:15 100 H 28 H 93 09/21/21 11:00 37.6 C H 103 H 26 H 115/69 92 09/21/21 10:00 37.7 C H 98 H 18 111/64 92 09/21/21 09:00 37.7 C H 91 H 20 101/68 95 09/21/21 08:22 88 09/21/21 08:00 37.7 C H 87 18 95 Laboratory Results Short CBC 09/21/21 Range/Units 05:39 WBC 30.40 H* (4.8-10.8) K/uL Hgb 9.0 L (12.0-16.0) g/dL Hct 28.3 L (37-47) % Plt Count 113 L (130-400) K/uL BMP 09/21/21 05:39 Sodium 144 Potassium 3.7 Chloride 111 H Carbon Dioxide 25 BUN 60 H Creatinine 0.76 D Glucose 127 H Calcium 9.3 Urine 09/21/21 Range/Units 10:10 Urine Color Dark Yellow Urine Appearance Cloudy A (Clear) Urine pH 5.0 (4.5-7.5) Ur Specific [place] 1.035 H (1.000-1.030) Urine Protein 1+ H (Negative) Urine Glucose (UA) Negative (Negative) Medications Administered Current Inpatient Medications Acetaminophen (Acetaminophen 500 Mg Tab) 500 mg PO Q4H PRN PRN Reason: Fever Stop: 10/20/21 13:27 Last Admin: 09/20/21 15:56 Dose: 500 mg Documented by: Albuterol (Albuterol Hfa 8 Gm Inhaler) 2 puffs INH Q2H PRN PRN Reason: sob/wheeze Stop: 10/06/21 23:34 Artificial Tears (Artificial Tears) 1 drops OP BID PRN PRN Reason: Dry Eyes Stop: 10/04/21 15:18 Enteral Nutritional Formula (Peptamen 1.5 Enmanuel 1,000 Ml Bag) 1,000 ml OG UD REBEKA; Protocol Stop: 10/21/21 14:29 Last Admin: 09/21/21 15:01 Dose: 1,000 ml Documented by: Fentanyl Citrate (Fentanyl Bolus From Bag) 50 mcg IV Q60M PRN PRN Reason: Pain or Agitation Stop: 10/03/21 19:02 Last Admin: 09/20/21 20:09 Dose: 50 mcg Documented by: Ceftriaxone Sodium 1,000 mg/ (Dextrose) 50 mls @ 100 mls/hr IV Q24H [facility]; Protocol Stop: 09/25/21 08:59 Last Infusion: 09/21/21 08:38 Dose: Infused Documented by: Propofol (Diprivan) 1,000 mg in 100 mls @ 5.244 mls/hr IV .Q19H5M [facility]; Protocol Stop: 09/22/21 19:14 Last Titration: 09/21/21 18:22 Dose: 20 mcg/kg/min, 5.2 mls/hr Documented by: Fentanyl Citrate (Fentanyl Drip) 1,250 mcg in 250 mls @ 10 mls/hr IV .Q25H RE[facility]KA; Protocol Stop: 10/03/21 19:14 Last Admin: 09/21/21 12:13 Dose: Not Given Documented by: Famotidine 20 mg/ Syringe 5 mls @ 2.5 mls/min IV BID [facility] Stop: 10/19/21 20:59 Last Admin: 09/21/21 08:02 Dose: 2.5 mls/min Documented by: Norepinephrine Bitartrate (Levophed/D5w) 8 mg in 508 mls @ 0 mls/hr IV .Q0M [facility]; Protocol Stop: 10/19/21 20:14 Last Titration: 09/21/21 06:38 Dose: 0 mcg/kg/min, 0 mls/hr Documented by: Voriconazole 185 mg/ Sodium (Chloride) 100 mls @ 50 mls/hr IV Q12H [facility] Stop: 09/27/21 19:59 Miscellaneous (Icu Electrolyte Replacement Protocol) 1 ea N/A BID@06,18 [facility]; Protocol Stop: 09/28/21 17:59 Last Admin: 09/21/21 17:36 Dose: Not Given Documented by: Multivitamins/Minerals (Multi Vit W/Minerals Liquid 15 Ml Udp) 15 ml NG QAM REBEKA Stop: 10/22/21 08:59 *Ibrutinib [ Imbruvica]*Non-Form Patient's Own Med 1 ea PO DAILY [facility] Stop: 10/07/21 08:59 Last Admin: 09/19/21 13:20 Dose: Not Given Documented by: Nystatin (Nystatin Powder 15gm Btl) 1 appln EXT BID PRN PRN Reason: Rash Stop: 10/06/21 18:40 Last Admin: 09/06/21 21:55 Dose: 1 appln Documented by: Ondansetron HCl (Ondansetron Inj 2 Mg/Ml 2 Ml Vial) 4 mg IV Q6H PRN PRN Reason: Nausea Stop: 10/04/21 14:09 Last Admin: 09/18/21 21:53 Dose: 4 mg Documented by: Phenol (Chloraseptic 1.4% Soln 180 Ml Btl) 2 sprays MT Q6H PRN PRN Reason: sore mouth Stop: 10/04/21 15:08 Last Admin: 09/05/21 09:25 Dose: 2 sprays Documented by: Polyethylene Glycol (Polyethylene (Miralax) 17 Gm Pack) 17 gm PO DAILY PRN PRN Reason: Constipation Stop: 10/04/21 14:09 Propofol (Propofol Bolus From Bag) 20 mg IV Q5M PRN PRN Reason: Sedation Stop: 09/22/21 19:02 Sterile Water (Tube Feeding Water Flush) 125 ml OG Q4 REBEKA Stop: 10/21/21 14:29 Last Admin: 09/21/21 15:01 Dose: 125 ml Documented by:
[2021-09-22] MEDS: TUBE FEEDING WATER FLUSH OG SCH ×7 (03:27→23:45)
[2021-09-22 03:50] LABS: iSTAT Art Bld Gas pCO2 Correct 43 mmHg (35-46); iSTAT Art Bld Gas pH Corrected 7.436 (7.35-7.45); iSTAT Arterial Blood Gas HCO3 29 meg/L (19-24); iSTAT Arterial Blood Gas pCO2 42 mmHg (35-46); iSTAT Arterial Blood Gas pH 7.44 (7.35-7.45); iSTAT Arterial Blood Gas pO2 75 mmHg (80-95); iSTAT Arterial Blood Gas pO2 C 78; iSTAT Carbon Dioxide 30 mmol/L (24-31); iSTAT FiO2 35 %; iSTAT Hematocrit 19 % (37-47); iSTAT Hemoglobin 6.5 g/dl (12.0-16.0); iSTAT Site Art Line; iSTAT Sodium 145 mmol/L (135-144)
[2021-09-22] MEDS: fentaNYL DRIP 1,250 MCG/250 ML BAG IV SCH ×3 (04:36→22:28)
[2021-09-22 05:50] LABS: Basophils # (auto) 0.01 K/uL (0-0.2); Basophils % (auto) 0.1 %; Eosinophils # (auto) 0.07 K/uL (0-0.5); Eosinophils % (auto) 0.4 %; Hematocrit (blood only) 25.7 % (37-47); Immature Granulocytes # (auto) 0.06 K/uL (0.00-0.02); Immature Granulocytes % (auto) 0.4 %; Lymphocytes # (auto) 6.18 K/uL (1.2-3.4); Lymphocytes % (auto) 36.1 %; Mean Corpuscular Hemoglobin 26.6 pg (25-34); Mean Corpuscular Hgb Conc 31.1 g/dL (32-36); Mean Corpuscular Volume 85.4 fL (80-100); Mean Platelet Volume 11.6 fL (7.4-10.4); Monocytes # (auto) 0.34 K/uL (0.11-0.59); Neutrophils # (auto) 10.48 K/uL (1.4-6.5); Ovalocytes 1+; Platelet Count 91 K/uL (130-400); RDW Coefficient of Variation 17.7 % (11.5-14.5); RDW Standard Deviation 54.5 fL (36.4-46.3); Red Blood Count 3.01 M/uL (4.2-5.4); White Blood Count 17.14 K/uL (4.8-10.8)
[2021-09-22 05:58] LABS: BUN Creatinine Ratio 67.6 (10-20); Creatinine Clr Calc Pharmacy 74.3 ml/min; Est GFR (African American) 112.1 ml/min; Est GFR (Non-African American) 96.7 ml/min; Phosphorus 1.7 mg/dl (2.5-4.9); Potassium 3.2 mmol/L (3.5-5.1)
[2021-09-22] MEDS ORDERED: SODIUM PHOSPHATE 3 MMOL/1 ML INFUSION IV STA (06:03)
[2021-09-22] MEDS: ICU ELECTROLYTE REPLACEMENT PROTOCOL SCH ×2 (06:05→21:28)
[2021-09-22] MEDS: MAGNESIUM OXIDE 400 MG TAB NG SCH ×2 (06:28→10:04)
[2021-09-22] MEDS: POTASSIUM CHLORIDE 20 MEQ/15 ML UDC NG SCH ×2 (06:28→10:04)
[2021-09-22] MEDS ORDERED: SODIUM PHOSPHATE 21 MMOL in SODIUM CHLORIDE 0.9% 500 ML IV ONE (06:30)
[2021-09-22] MEDS: propofoL 1,000 MG/100 ML VIAL IV SCH (06:54)
--- NOTE | 2021-09-22 08:45 | Critical Care Progress Note ---
Date of Service September 22, 2021 Assessment & Plan (1) Septic shock: (2) Lactic acidosis: (3) Acute hypoxemic respiratory failure: (4) Cachexia: (5) Acute renal failure: Plan: Impression: 71-year-old female with CLL undergoing chemotherapy with prolonged hospitalization transferred to the ICU for respiratory distress, lactic acidosis, and acute renal failure. 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 24 hour events: Patient failed multiple SBT trials yesterday due to periods of apnea transitioning with tachypnea. She has been hemodynamically stable overnight. Working on weaning sedation this morning ans repeat possible SBT. Tube feedings were initiated. Recommendations: 1. Neurologic: Weaning sedation as tolerated. Appears neurologically intact. Holding antidepressants but may need to restart these within the next 24 hours. 2. Pulmonary: Attempted several weaning trials today but the patient becomes apneic alternating with tachypnea. Continue mechanical ventilation and sedation today. 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 Continue voriconazole. Will likely need therapy for at least 12 weeks and potentially up to 6 months. May consider ID consultation in the future. 3. Cardiovascular: Pressors have been weaned off. Random cortisol was high. No indication for steroids for relative adrenal insufficiency. Try gentle diuresis 4. GI: Continue tube feeds. Appreciate dietitian assistance. She does appear to be chronically malnourished. check prealbumin 5. Renal: Acute renal insufficiency now resolved. Replacing electrolytes as needed. Initiate ICU replacement protocol. Acid-base status appropriate. 6. 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 Pending Fungitell as well as fungal blood isolators. Would an additional 48 hours of Rocephin. ID consul tation may be considered in the future. She was positive for Covid and has been on extended course of dexamethasone. No additional steroids are appropriate. She is not a candidate for any additional immunosuppressive currently. 7. Heme-onc: White blood cell continues to slowly decrease. Holding chemotherapy for CLL. She is more anemic and thrombocytopenic today. We held heparin yesterday and sent heparin-induced thrombocytopenia assay which is currently pending. No evidence of acute blood loss. No indication for transfusion currently although that certainly may be an issue within the next 24 hours. We will repeat her CBC later this afternoon. Unclear if this may represent marrow failure. Check haptoglobin and reticulocyte counts 8. Endocrine: Glycemic control per protocol. Patient will require aggressive therapy if she survives this portion of her illness. Unfortunately none of these acute issues will favorably impact her chronic medical conditions and CLL. Patient overall is severely critically ill with an unclear outcome. Patient is stable but remains critically ill with significant possibility of clinical deterioration and . Her frail status going into this makes her recovery problematic. Outcome remains unclear with guarded prognosis. Total of 38 minutes critical care time was spent evaluation management and stabilization of this patient exclusive of procedures Admission and Anticipated Discharge Date Admission Date: September 04, 2021 Subjective Intubated and sedated Review of Systems Review of Systems: Unobtainable due to endotracheal tube Physical Exam Constitutional: + cachectic, + mechanically ventilated and + malnourished Neck: trachea midline, no thyromegaly Cardiovascular: RRR, no murmur, no edema Gastrointestinal (Abdomen): normal bowel sounds, soft, nontender, no hepatosplenomegaly Musculoskeletal: Extremities: extremities normal to inspection Lymphatic: no cervical lymphadenopathy Results & Data Results & Data ([facility]) Vital Signs (Past 12 Hours) Vital Signs Temp Pulse Resp BP Pulse Ox 09/22/21 07:21 89 23 93 09/22/21 06:00 37.7 C H 85 19 112/56 L 95 09/22/21 05:00 37.5 C 81 22 104/58 L 94 09/22/21 04:30 37.4 C 80 18 94 09/22/21 04:00 37.4 C 82 20 90/62 L 89 L 09/22/21 03:34 80 18 96 09/22/21 03:30 37.5 C 81 23 94 09/22/21 03:00 37.4 C 77 18 108/57 L 94 09/22/21 02:30 37.4 C 82 22 93 09/22/21 02:00 37.5 C 83 20 106/53 L 93 09/22/21 01:30 37.5 C 76 19 93 09/22/21 01:00 37.5 C 78 19 115/55 L 95 09/22/21 00:30 37.5 C 83 16 94 09/22/21 00:00 37.4 C 79 16 110/56 L 94 09/21/21 23:30 37.4 C 85 19 92 09/21/21 23:00 37.4 C 83 18 108/55 L 95 09/21/21 22:52 83 09/21/21 22:30 37.3 C 78 18 99 09/21/21 22:00 37.4 C 78 16 108/56 L 97 09/21/21 21:30 37.4 C 83 19 94 09/21/21 21:00 37.4 C 86 17 102/56 L 94 Critical Care Results & Data Vital Signs (Past 12 Hours) Vital Signs Temp Pulse Resp BP Pulse Ox 09/22/21 07:21 89 23 93 09/22/21 06:00 37.7 C H 85 19 112/56 L 95 09/22/21 05:00 37.5 C 81 22 104/58 L 94 09/22/21 04:30 37.4 C 80 18 94 09/22/21 04:00 37.4 C 82 20 90/62 L 89 L 09/22/21 03:34 80 18 96 09/22/21 03:30 37.5 C 81 23 94 09/22/21 03:00 37.4 C 77 18 108/57 L 94 09/22/21 02:30 37.4 C 82 22 93 09/22/21 02:00 37.5 C 83 20 106/53 L 93 09/22/21 01:30 37.5 C 76 19 93 09/22/21 01:00 37.5 C 78 19 115/55 L 95 09/22/21 00:30 37.5 C 83 16 94 09/22/21 00:00 37.4 C 79 16 110/56 L 94 09/21/21 23:30 37.4 C 85 19 92 09/21/21 23:00 37.4 C 83 18 108/55 L 95 09/21/21 22:52 83 09/21/21 22:30 37.3 C 78 18 99 09/21/21 22:00 37.4 C 78 16 108/56 L 97 Lab & Micro Results (Past 24 Hours) RBC 3.01 M/uL (4.2-5.4) L 09/22/21 WBC 17.14 K/uL (4.8-10.8) H 09/22/21 Hgb 8.0 g/dL (12.0-16.0) L 09/22/21 Hct 25.7 % (37-47) L 09/22/21 MCV 85.4 fL (80-100) 09/22/21 MCH 26.6 pg (25-34) 09/22/21 MCHC 31.1 g/dL (32-36) L 09/22/21 RDW Standard Deviation 54.5 fL (36.4-46.3) H 09/22/21 RDW Coefficient of Variation 17.7 % (11.5-14.5) H 09/22/21 Plt Count 91 K/uL (130-400) L 09/22/21 MPV 11.6 fL (7.4-10.4) H 09/22/21 Neutrophils (%) (Auto) 61.0 % 09/22/21 Lymphocytes (%) (Auto) 36.1 % 09/22/21 Monocytes # (Auto) 0.34 K/uL (0.11-0.59) 09/22/21 Eosinophils # (Auto) 0.07 K/uL (0-0.5) 09/22/21 Immature Granulocyte % (Auto) 0.4 % 09/22/21 Neutrophils # (Auto) 10.48 K/uL (1.4-6.5) H 09/22/21 Lymphocytes # (Auto) 6.18 K/uL (1.2-3.4) H 09/22/21 Monocytes # (Auto) 0.34 K/uL (0.11-0.59) 09/22/21 Eosinophils # (Auto) 0.07 K/uL (0-0.5) 09/22/21 Basophils # (Auto) 0.01 K/uL (0-0.2) 09/22/21 Immature Granulocyte # (Auto) 0.06 K/uL (0.00-0.02) H 09/22/21 Ovalocytes 1+ 09/22/21 Na 144 mmol/L (136-145) 09/22/21 K 3.2 mmol/L (3.5-5.1) L 09/22/21 Cl 113 mmol/L (98-107) H 09/22/21 CO2 28 mmol/L (21-32) 09/22/21 Anion Gap 3.0 (3-11) 09/22/21 BUN 35 mg/dl (7-18) H 09/22/21 Creatinine 0.51 mg/dl (0.6-1.2) L 09/22/21 Estimated GFR ( Amer) 112.1 ml/min 09/22/21 Estimated GFR (Non-Af Amer) 96.7 ml/min 09/22/21 BUN/Creatinine Ratio 67.6 (10-20) H 09/22/21 Glu 121 mg/dl (70-99) H 09/22/21 Ca 9.0 mg/dl (8.5-10.1) 09/22/21 Phosphorus Level 1.7 mg/dl (2.5-4.9) L 09/22/21 Mg 2.0 mg/dl (1.8-2.4) 09/22/21 05:13 09/22/21 Calcium Level 9.0 mg/dl (8.5-10.1) 09/22/21 05:13 09/22/21 Collin Test NA 09/22/21 03:34 09/22/21 Microbiology 09/19/21 17:47 Aerobic Blood Culture - Preliminary Blood No growth in Aerobic bottle after 48 hours. Anaerobic Blood Culture - Final 09/19/21 17:47 Aerobic Blood Culture - Preliminary Blood No growth in Aerobic bottle after 48 hours. Anaerobic Blood Culture - Final 09/19/21 18:45 Gram Stain - Final Bronch Wash, Right Main Stem Bronchial Culture - Preliminary Aspergillus species 09/19/21 18:45 Acid Fast Bacilli Smear - Final Bronch Wash, Right Main Stem I & O Totals 24 Hours 09/21/21 09/22/21 09/23/21 06:59 06:59 06:59 Intake Total 1320.344 / 8770.406 5915.418 / 1328.418 Output Total 420 / 420 810 / 810 Balance 900.344 / 900.344 518.418 / 518.418 Cumulative 09/04/21 08:28 thru 09/22/21 06:54 Intake Total 83151.935 Output Total 24716 Balance 1678.935 RT Ventilator Mngmt (Last Documented) Ventilator Ordered Settings Ventilator Support Mode Assist Control 09/22/21 07:21 Respiratory Rate 23 09/22/21 07:21 Ventilator Tidal Volume 380 09/22/21 07:21 Setting Minute Ventilation 11.2 09/22/21 07:21 Ventilator Positive Pressure 8 09/21/21 11:15 Support Setting Positive End Expiratory 5 09/22/21 07:21 Pressure Fraction of Inspired Oxygen 35 09/22/21 07:21 Peak Inspiratory Flow 30 09/20/21 15:30 Machine Comment ABG drawn at this time 09/22/21 03:34 Ventilator - PT Measurements Respiratory Rate 23 Exhaled Tidal Volume 379 Minute Ventilation 11.2 Peak Inspiratory Airway 26 Pressure Plateau Pressure 22.8 Respiratory Cycle Inspiratory: 1:1.2 Expiratory Ratio Inspiratory Phase Time 1.0 End-Tidal CO2 33 Static Lung Compliance 21.29 Dynamic Lung Compliance 18.05 Normal Static Lung Compliance 45.00 Patient Measurements Comment RN suctioned pt for scant amount. Coding Level of Care Code Critical Care 1st 30-74 mins Diagnoses Septic shock A41.9; R65.21 Lactic acidosis E87.2 Acute hypoxemic respiratory failure J96.01 Cachexia R64 Acute renal failure N17.9
[2021-09-22] MEDS: VORICONAZOLE IV SCH ×2 (09:00→20:27)
[2021-09-22] MEDS: SODIUM CHLORIDE 0.9% IV SCH ×2 (09:00→20:27)
[2021-09-22] MEDS ORDERED: FUROSEMIDE INJ 20 MG/2 ML VIAL IV ONE (10:00)
[2021-09-22] MEDS: cefTRIAXone SODIUM 1,000 MG in DEXTROSE 5% 50 ML IV SCH (10:01)
[2021-09-22] MEDS: MULTI VIT W/MINERALS LIQUID 15 ML UDP NG SCH (10:01)
[2021-09-22] MEDS: FAMOTIDINE 20 MG in SYRINGE 3 ML IV SCH ×2 (10:01→20:25)
[2021-09-22 10:41] LABS: Reticulocytes # 0.06 10^6/uL (0.02-0.10)
[2021-09-22] MEDS: ACETAMINOPHEN 500 MG TAB PO PRN ×2 (12:07→20:25)
--- NOTE | 2021-09-22 15:06 | XRay Report ---
XR chest 1V portable CLINICAL HISTORY: Follow-up bilateral alveolar opacities. COMPARISON STUDY: 09/21/2021 TECHNIQUE: 1 view of the chest FINDINGS: Single frontal view of the chest demonstrates the cardiomediastinal silhouette to be within normal li mits. Endotracheal tube appears unchanged. Compared to previous examination, there has been continued interval worsening of interstitial and alveolar opacities bilaterally. No air bronchograms are seen. The findings are again most characteristic of a viral type pneumonitis and probable Covid 19 pneumon ia. There is no evidence for pleural effusion. There is no evidence for vascular congestion. There is no acute osseous pathology. IMPRESSION: Interval worsening of interstitial alveolar opacities bilaterally. ACT 112: Negative or not required by law. Electronically signed by: Danis Aguiar M.D. 09/22/2021 3:05 PM
--- NOTE | 2021-09-22 15:13 | Hospitalist Progress Note ---
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 Cont voriconazole. Weaning trials per ICU. (2) Septic shock: Plan: resuscitated and on pressor support in the ICU. Aspergillus infection noted on bronchoscopy washings. Infectious pulmonary lesion noted on CT chest. Continues on ceftriaxone and voriconazole. WBC decreasing, now to 17K and she appears to be improved. Not able to wean from vent at this point, however. (3) Acute renal failure: Plan: Secondary to sepsis. Creatinine improved after IVF. Cont to monitor. Noted poor PO intake recently and underlying cachexia and malnutrition. Trend BMP daily. (4) CLL (chronic lymphocytic leukemia): Plan: Ongoing therapy with ibrutinib, which has been held. Follows with Dr. Ariel Ortiz for oncology (5) Pneumonia due to COVID-19 virus: Plan: Readmitted with COVID-19 pneumonia Covid PCR positive on previous admission (08/19/21) Covid PCR remains positive. Chest CTA on admission without evidence of pulmonary embolism. Interval development of diffuse ground glass opacities in the lungs which may be seen in pneumonia Blood cultures negative Completed dexamethasone, antibiotic course Repeat CXR on 09/13 showed Slight progression of multifocal bilateral airspace opacities which favor pneumonia. There was initially concern for aspiration at this time. Continued to require oxygen supplementation which was improved to 4LPM from admission. Leukocytosis developed Rocephin/Flagyl started 09/18 Acute respiratory distress developed today with HR 130, consistent with sepsis picture. Worsening sepsis and cavitary infectious lung lesion seen on CT scan, no PE. Transferred to ICU for mechanical ventilation and continued sepsis support. Cont plan as stated above. NO further treatment for covid-19 pneumonia indicated at this point. (6) Thrombocytopenia: Plan: acute drop in platelets today by 50% to 113, now down to 91K. Heparin Ab panel pending. Heparin on hold. (7) Anemia: Plan: H/H decreased with notable history of splenic laceration from traumatic fall during recent admission. Splenic hematoma was noted at that time. Also underlying anemia with multiple chronic conditions including CLL. (8) Hypertension: Plan: antihypertensives are on hold, off pressors. (9) Post-operative state: Plan: H/O left hip fracture S/P hemiarthroplasty on 08/[address] Sánchez Weightbearing as tolerated Follow-up with Dr. Sánchez as outpatient for repeat xrays. (10) Dysphagia: Plan: Recent video swallow study revealing several episodes of silent tracheal aspiration with thin liquids. No aspiration with remainder of the consistencies. Residuals within the piriform sinuses and vallecula with pudding consistencies. OG tube in place now with trickle feeds started. (11) DVT prophylaxis: Plan: heparin held with acute thrombocytopenia. DNR Dispo-cont ICU support with daily weaning trials Leanna Dillon DO [facility] Admission and Anticipated Discharge Date Admission Date: September 04, 2021 Subjective 71 yo F presented to the hospital with covid-19 pneumonia. 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 Remains intubated and sedated, cannot obtain ROS temp is normal today tube feeds are to 30cc/hr no BM yet but urine output has improved she is off sedation and not requiring pressor support, however, difficulty with SBT as she appears to have apneic episodes. breathing slightly over the vent WBC improved Review of Systems Review of Systems: intubated, sedated. Physical Exam Physical Exam: CONSTITUTIONAL: thin, cachectic, intubated, sedated. EYES: pupils are equal and round bilaterally, normal conjunctivae, no scleral icterus ENT: external ear and nose normal, MMM, poor dentition. RESPIRATORY: diminished breath sounds, no adventitial sounds. intubated. CARDIOVASCULAR: reg rate, regular rhythm, S1 and 2 heard without murmurs, gallops or rubs, no JVD, no peripheral edema GASTROINTESTINAL: soft, nondistended MUSCULOSKELETAL: cachectic, sedated, cannot perform. SKIN: warm and dry NEUROLOGIC: sedated. Results & Data Results & Data ([facility]) Vital Signs (Past 12 Hours) Vital Signs Temp Pulse Resp BP Pulse Ox 09/22/21 14:00 37.5 C 90 28 H 117/64 98 09/22/21 13:00 38.5 C H 96 H 24 111/58 L 96 09/22/21 12:00 38.7 C H 105 H 23 136/73 93 09/22/21 11:00 38.0 C H 93 H 27 H 142/70 H 94 09/22/21 10:31 96 H 24 92 09/22/21 10:00 37.9 C H 82 21 123/66 97 09/22/21 09:00 37.8 C H 87 22 116/61 95 09/22/21 08:00 37.8 C H 94 H 20 120/64 92 09/22/21 07:21 89 23 93 09/22/21 07:00 37.7 C H 89 18 111/56 L 93 09/22/21 06:00 37.7 C H 85 19 112/56 L 95 09/22/21 05:00 37.5 C 81 22 104/58 L 94 09/22/21 04:30 37.4 C 80 18 94 09/22/21 04:00 37.4 C 82 20 90/62 L 89 L 09/22/21 03:34 80 18 96 09/22/21 03:30 37.5 C 81 23 94 Laboratory Results Short CBC 09/22/21 Range/Units 05:13 WBC 17.14 H D (4.8-10.8) K/uL Hgb 8.0 L (12.0-16.0) g/dL Hct 25.7 L (37-47) % Plt Count 91 L (130-400) K/uL BMP 09/22/21 05:13 Sodium 144 Potassium 3.2 L Chloride 113 H Carbon Dioxide 28 BUN 35 H Creatinine 0.51 L Glucose 121 H Calcium 9.0 Diagnostic Findings Chest X-Ray 09/22/21 07:00 XR chest 1V portable CLINICAL HISTORY: Follow-up bilateral alveolar opacities. COMPARISON STUDY: 09/21/2021 TECHNIQUE: 1 view of the chest FINDINGS: Single frontal view of the chest demonstrates the cardiomediastinal silhouette to be within normal limits. Endotracheal tube appears unchanged. Compared to previous examination, there has been continued interval worsening of interstitial and alveolar opacities bilaterally. No air bronchograms are seen. The findings are again most characteristic of a viral type pneumonitis and probable Covid 19 pneumonia. There is no evidence for pleural effusion. There is no evidence for vascular congestion. There is no acute osseous pathology. IMPRESSION: Interval worsening of interstitial alveolar opacities bilaterally. ACT 112: Negative or not required by law. Electronically signed by: Danis Aguiar M.D. 09/22/2021 3:05 PM Medications Administered Current Inpatient Medications Acetaminophen (Acetaminophen 500 Mg Tab) 500 mg PO Q4H PRN PRN Reason: Fever Stop: 10/20/21 13:27 Last Admin: 09/22/21 12:07 Dose: 500 mg Documented by: Albuterol (Albuterol Hfa 8 Gm Inhaler) 2 puffs INH Q2H PRN PRN Reason: sob/wheeze Stop: 10/06/21 23:34 Artificial Tears (Artificial Tears) 1 drops OP BID PRN PRN Reason: Dry Eyes Stop: 10/04/21 15:18 Enteral Nutritional Formula (Peptamen 1.5 Enmanuel 1,000 Ml Bag) 1,000 ml OG UD REBEKA; Protocol Stop: 10/21/21 14:29 Last Admin: 09/21/21 15:01 Dose: 1,000 ml Documented by: Fentanyl Citrate (Fentanyl Bolus From Bag) 50 mcg IV Q60M PRN PRN Reason: Pain or Agitation Stop: 10/03/21 19:02 Last Admin: 09/22/21 03:55 Dose: 25 mcg Documented by: Ceftriaxone Sodium 1,000 mg/ (Dextrose) 50 mls @ 100 mls/hr IV Q24H REBEKA; Protocol Stop: 09/25/21 08:59 Last Infusion: 09/22/21 10:55 Dose: Infused Documented by: Propofol (Diprivan) 1,000 mg in 100 mls @ 5.244 mls/hr IV .Q19H5M REBEKA; Protocol Stop: 09/22/21 19:14 Last Admin: 09/22/21 06:54 Dose: 20 mcg/kg/min, 5.2 mls/hr Documented by: Fentanyl Citrate (Fentanyl Drip) 1,250 mcg in 250 mls @ 0 mls/hr IV .Q0M REBEKA; Protocol Stop: 10/03/21 19:14 Last Admin: 09/22/21 13:59 Dose: Not Given Documented by: Famotidine 20 mg/ Syringe 5 mls @ 2.5 mls/min IV BID REBEKA Stop: 10/19/21 20:59 Last Admin: 09/22/21 10:01 Dose: 2.5 mls/min Documented by: Norepinephrine Bitartrate (Levophed/D5w) 8 mg in 508 mls @ 0 mls/hr IV .Q0M REBEKA; Protocol Stop: 10/19/21 20:14 Last Titration: 09/21/21 06:38 Dose: 0 mcg/kg/min, 0 mls/hr Documented by: Voriconazole 185 mg/ Sodium (Chloride) 100 mls @ 50 mls/hr IV Q12H REBEKA Stop: 09/27/21 19:59 Last Infusion: 09/22/21 10:01 Dose: 0 mls/hr Documented by: Miscellaneous (Icu Electrolyte Replacement Protocol) 1 ea N/A BID@06,18 REBEKA; Protocol Stop: 09/29/21 17:59 Multivitamins/Minerals (Multi Vit W/Minerals Liquid 15 Ml Udp) 15 ml NG QAM REBEKA Stop: 10/22/21 08:59 Last Admin: 09/22/21 10:01 Dose: 15 ml Documented by: *Ibrutinib [ Imbruvica]*Non-Form Patient's Own Med 1 ea PO DAILY REBEKA Stop: 10/07/21 08:59 Last Admin: 09/19/21 13:20 Dose: Not Given Documented by: Nystatin (Nystatin Powder 15gm Btl) 1 appln EXT BID PRN PRN Reason: Rash Stop: 10/06/21 18:40 Last Admin: 09/06/21 21:55 Dose: 1 appln Documented by: Ondansetron HCl (Ondansetron Inj 2 Mg/Ml 2 Ml Vial) 4 mg IV Q6H PRN PRN Reason: Nausea Stop: 10/04/21 14:09 Last Admin: 09/18/21 21:53 Dose: 4 mg Documented by: Phenol (Chloraseptic 1.4% Soln 180 Ml Btl) 2 sprays MT Q6H PRN PRN Reason: sore mouth Stop: 10/04/21 15:08 Last Admin: 09/05/21 09:25 Dose: 2 sprays Documented by: Polyethylene Glycol (Polyethylene (Miralax) 17 Gm Pack) 17 gm PO DAILY PRN PRN Reason: Constipation Stop: 10/04/21 14:09 Propofol (Propofol Bolus From Bag) 20 mg IV Q5M PRN PRN Reason: Sedation Stop: 09/22/21 19:02 Last Admin: 09/21/21 19:30 Dose: 20 mg Documented by: Sterile Water (Tube Feeding Water Flush) 125 ml OG Q4 REBEKA Stop: 10/21/21 14:29 Last Admin: 09/22/21 12:00 Dose: 125 ml Documented by:
[2021-09-22 16:37] LABS: Hematocrit (blood only) 25.4 % (37-47); Hemoglobin 7.8 g/dL (12.0-16.0); Mean Corpuscular Hemoglobin 26.3 pg (25-34); Mean Corpuscular Hgb Conc 30.7 g/dL (32-36); Mean Corpuscular Volume 85.5 fL (80-100); Platelet Count 80 K/uL (130-400); Red Blood Count 2.97 M/uL (4.2-5.4); White Blood Count 17.99 K/uL (4.8-10.8)
[2021-09-22 17:09] LABS: Basophils # (auto) 0.01 K/uL (0-0.2); Basophils % (auto) 0.1 %; Eosinophils # (auto) 0.04 K/uL (0-0.5); Eosinophils % (auto) 0.2 %; Immature Granulocytes # (auto) 0.06 K/uL (0.00-0.02); Immature Granulocytes % (auto) 0.3 %; Lymphocytes # (auto) 6.45 K/uL (1.2-3.4); Lymphocytes % (auto) 35.9 %; Monocytes # (auto) 0.82 K/uL (0.11-0.59); Monocytes % (auto) 4.6 %; Neutrophils # (auto) 10.61 K/uL (1.4-6.5); Neutrophils % (auto) 58.9 %; Ovalocytes 1+; Polychromasia 1+
[2021-09-22 20:56] LABS: Hematocrit (blood only) 25.2 % (37-47)
[2021-09-22 21:26] LABS: BUN Creatinine Ratio 43.1 (10-20); Calcium 8.5 mg/dl (8.5-10.1); Creatinine Clr Calc Pharmacy 61.1 ml/min; Est GFR (African American) 105.1 ml/min; Est GFR (Non-African American) 90.7 ml/min; Magnesium 1.8 mg/dl (1.8-2.4); Phosphorus 1.8 mg/dl (2.5-4.9); Potassium 4.1 mmol/L (3.5-5.1)
[2021-09-22] MEDS ORDERED: POTASSIUM PHOS 3 MMOL/1 ML INFUSION IV STA (21:37)
[2021-09-22] MEDS ORDERED: MAGNESIUM SULFATE / D5W 1 GM/100 ML BAG IV ONE (21:37)
[2021-09-22] MEDS ORDERED: POTASSIUM PHOSPHATE 15 MMOL in DEXTROSE 5% 250 ML IV ONE (22:00)
[2021-09-23] MEDS: ACETAMINOPHEN 500 MG TAB PO PRN ×6 (00:33→22:34)
[2021-09-23 04:16] LABS: iSTAT Allen Test Pass; iSTAT Arterial Blood Gas HCO3 24 meg/L (19-24); iSTAT Arterial Blood Gas pCO2 37 mmHg (35-46); iSTAT Arterial Blood Gas pH 7.43 (7.35-7.45); iSTAT Arterial Blood Gas pO2 65 mmHg (80-95); iSTAT Carbon Dioxide 25 mmol/L (24-31); iSTAT FiO2 30 %; iSTAT Site R Radial
[2021-09-23] MEDS: TUBE FEEDING WATER FLUSH OG SCH ×5 (04:17→19:53)
[2021-09-23] MEDS: PEPTAMEN 1.5 CAL 1,000 ML BAG OG SCH (04:35)
[2021-09-23 06:02] LABS: Partial Thromboplastin Ratio 1.2; Partial Thromboplastin Time 32.7 Seconds (21.0-31.0)
[2021-09-23 06:18] LABS: BUN Creatinine Ratio 43.5 (10-20); Calcium 8.4 mg/dl (8.5-10.1); Creatinine Clr Calc Pharmacy 78.1 ml/min; Est GFR (African American) 112.1 ml/min; Est GFR (Non-African American) 96.7 ml/min; Potassium 4.2 mmol/L (3.5-5.1)
[2021-09-23 06:23] LABS: Phosphorus 2.5 mg/dl (2.5-4.9)
[2021-09-23] MEDS: ICU ELECTROLYTE REPLACEMENT PROTOCOL SCH ×3 (06:26→18:08)
[2021-09-23 06:28] LABS: Hematocrit (blood only) 25.5 % (37-47); Hemoglobin 7.9 g/dL (12.0-16.0); Mean Corpuscular Hemoglobin 26.7 pg (25-34); Mean Corpuscular Volume 86.1 fL (80-100); Mean Platelet Volume 12.1 fL (7.4-10.4); Platelet Count 117 K/uL (130-400); Platelet Estimate Decreased (Normal); RDW Coefficient of Variation 18.1 % (11.5-14.5); RDW Standard Deviation 56.1 fL (36.4-46.3); Red Blood Count 2.96 M/uL (4.2-5.4); White Blood Count 23.73 K/uL (4.8-10.8)
[2021-09-23] MEDS: SODIUM CHLORIDE 0.9% IV SCH ×2 (08:29→19:53)
[2021-09-23] MEDS: VORICONAZOLE IV SCH ×2 (08:29→19:53)
[2021-09-23] MEDS: cefTRIAXone SODIUM 1,000 MG in DEXTROSE 5% 50 ML IV SCH (08:29)
[2021-09-23] MEDS: FAMOTIDINE 20 MG in SYRINGE 3 ML IV SCH ×2 (08:30→21:03)
[2021-09-23] MEDS: MULTI VIT W/MINERALS LIQUID 15 ML UDP NG SCH (08:32)
--- NOTE | 2021-09-23 08:45 | XRay Report ---
XR chest 1V portable CLINICAL HISTORY: Follow-up bilateral interstitial alveolar opacities. COMPARISON STUDY: 09/22/2021 TECHNIQUE: 1 view of the chest FINDINGS: Single frontal view of the chest demonstrates the cardiomediastinal silhouette to be within normal li mits. An endotracheal tube is again seen. Compared to previous examination, there is no significant i nterval change in bilateral interstitial and alveolar opacities. There is no evidence for pleural eff usion. There is no evidence for vascular congestion. There is no acute osseous pathology. IMPRESSION: No significant interval change of bilateral interstitial and alveolar opacities. ACT 112: Negative or not required by law. Electronically signed by: Danis Aguiar M.D. 09/23/2021 8:43 AM
--- NOTE | 2021-09-23 10:01 | Critical Care Progress Note ---
Date of Service September 23, 2021 Assessment & Plan (1) Septic shock: (2) Lactic acidosis: (3) Acute hypoxemic respiratory failure: (4) Cachexia: (5) Acute renal failure: Plan: Impression: 71-year-old female with CLL undergoing chemotherapy with prolonged hospitalization transferred to the ICU for respiratory distress, lactic acidosis, and acute renal failure. 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 24 hour events: Patient continues to fail any attempts at spontaneous breathing trials. When placed on pressure support ventilation her RSBI rapidly increases to above 150. Her hemoglobin decreased but has been stable. She is off all sedative medications and off all pressors currently. Recommendations: 1. Neurologic: Off all sedatives. She does arouse to verbal and tactile stimulus and does appear to be neurologically intact. 2. Pulmonary: Attempted several weaning trials today but the patient becomes apneic alternating with tachypnea. Options at this point time would be to continue mechanical ventilation and reassess on a daily basis versus pursue a trial of extubation and see if the patient tolerates. She is on minimal settings currently but again her spontaneous breathing trials or not reassuring. Attempted to contact the patient's but no answer. Would like to clarify status prior to extubation. If she gets reintubated, she is at high risk of requiring tracheostomy. It may be reasonable to extubate her and then not reintubate her prior to pursuing extubation. 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 Continue voriconazole. Will likely need therapy for at least 12 weeks and potentially up to 6 months. May consider ID consultation in the future. 3. Cardiovascular: Pressors have been weaned off. Random cortisol was high. No indication for steroids for relative adrenal insufficiency. Additional diuretics today to try and get net negative 4. GI: Continue tube feeds. Appreciate dietitian assistance. She does appear to be chronically malnourished. Prealbumin was low. 5. Renal: Acute renal insufficiency now resolved. Replacing electrolytes as needed. Continue ICU replacement protocol. Acid-base status appropriate. 6. 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 Pending Fungitell as well as fungal blood isolators. Would an additional 48 hours of Rocephin. ID consultation may be considered in the future. She was positive for Covid and has been on extended course of dexamethasone. No additional steroids are appropriate. She is not a candidate for any additional immunosuppressive currently. 7. Heme-onc: White blood cell continues to slowly increase, differential suggests many lymphocytes and may be related to CLL. Holding chemotherapy for CLL. Her anemia is stable without evidence of ongoing blood loss. Reticulocyte was on the low side suggestive of slow marrow response. Heparin being held due to potential HIT,heparin-induced thrombocytopenia assay currently pending. No evidence of acute blood loss. No indication for transfusion currently continue serial CBCs. Haptoglobin level pending 8. Endocrine: Glycemic control per protocol. Patient will require aggressive therapy if she survives this portion of her illness. Unfortunately none of these acute issues will favorably impact her chronic medical conditions and CLL. Patient overall is severely critically ill with an unclear outcome. Patient is stable but remains critically ill with significant possibility of clinical deterioration and . Her frail status going into this makes her recovery problematic. Outcome remains unclear with guarded prognosis. Total of 40 minutes critical care time was spent evaluation management and stabilization of this patient exclusive of procedures. Discussed with respiratory therapy and bedside critical care nurse. Attempted to reach by phone but no answer. Will update if he presents to bedside later today Admission and Anticipated Discharge Date Admission Date: September 04, 2021 Physical Exam Constitutional: + cachectic, + mechanically ventilated and + malnourished Neck: trachea midline, no thyromegaly Cardiovascular: RRR, no murmur, no edema Gastrointestinal (Abdomen): normal bowel sounds, soft, nontender, no hepatosplenomegaly Musculoskeletal: Extremities: extremities normal to inspection Lymphatic: no cervical lymphadenopathy Results & Data Results & Data ([facility]) Vital Signs (Past 12 Hours) Vital Signs Temp Pulse Resp BP Pulse Ox 09/23/21 07:42 115 H 30 H 95 09/23/21 06:00 38.8 C H 115 H 20 121/74 96 09/23/21 05:30 39.1 C H 116 H 28 H 114/72 95 09/23/21 05:00 39.4 C H 116 H 22 115/79 95 09/23/21 04:30 39.2 C H 118 H 18 139/80 97 09/23/21 04:00 38.7 C H 111 H 28 H 96 09/23/21 03:30 38.4 C H 107 H 21 133/92 98 09/23/21 03:00 38.1 C H 97 H 23 129/79 97 09/23/21 02:50 97 H 26 H 94 09/23/21 02:30 37.9 C H 95 H 22 129/82 95 09/23/21 02:00 37.9 C H 94 H 128/82 97 09/23/21 01:30 38.2 C H 96 H 23 125/76 97 09/23/21 01:00 38.3 C H 99 H 21 131/77 93 09/23/21 00:30 38.1 C H 103 H 21 165/89 H 95 09/23/21 00:00 37.8 C H 103 H 20 94 09/22/21 23:30 37.7 C H 95 H 22 146/80 H 96 09/22/21 23:29 93 H 09/22/21 23:00 37.7 C H 90 24 126/63 98 09/22/21 22:30 37.9 C H 94 H 17 127/67 99 09/22/21 22:00 38.3 C H 96 H 26 H 121/69 99 Critical Care Results & Data Vital Signs (Past 12 Hours) Vital Signs Temp Pulse Resp BP Pulse Ox 09/23/21 07:42 115 H 30 H 95 09/23/21 06:00 38.8 C H 115 H 20 121/74 96 09/23/21 05:30 39.1 C H 116 H 28 H 114/72 95 09/23/21 05:00 39.4 C H 116 H 22 115/79 95 09/23/21 04:30 39.2 C H 118 H 18 139/80 97 09/23/21 04:00 38.7 C H 111 H 28 H 96 09/23/21 03:30 38.4 C H 107 H 21 133/92 98 09/23/21 03:00 38.1 C H 97 H 23 129/79 97 09/23/21 02:50 97 H 26 H 94 09/23/21 02:30 37.9 C H 95 H 22 129/82 95 09/23/21 02:00 37.9 C H 94 H 128/82 97 09/23/21 01:30 38.2 C H 96 H 23 125/76 97 09/23/21 01:00 38.3 C H 99 H 21 131/77 93 09/23/21 00:30 38.1 C H 103 H 21 165/89 H 95 09/23/21 00:00 37.8 C H 103 H 20 94 09/22/21 23:30 37.7 C H 95 H 22 146/80 H 96 09/22/21 23:29 93 H 09/22/21 23:00 37.7 C H 90 24 126/63 98 09/22/21 22:30 37.9 C H 94 H 17 127/67 99 Lab & Micro Results (Past 24 Hours) RBC 2.96 M/uL (4.2-5.4) L 09/23/21 WBC 23.73 K/uL (4.8-10.8) H 09/23/21 Hgb 7.9 g/dL (12.0-16.0) L 09/23/21 Hct 25.5 % (37-47) L 09/23/21 MCV 86.1 fL (80-100) 09/23/21 MCH 26.7 pg (25-34) 09/23/21 MCHC 31.0 g/dL (32-36) L 09/23/21 RDW Standard Deviation 56.1 fL (36.4-46.3) H 09/23/21 RDW Coefficient of Variation 18.1 % (11.5-14.5) H 09/23/21 Plt Count 117 K/uL (130-400) L 09/23/21 MPV 12.1 fL (7.4-10.4) H 09/23/21 Neutrophils (%) (Auto) 58.9 % 09/22/21 Lymphocytes (%) (Auto) 35.9 % 09/22/21 Monocytes # (Auto) 0.82 K/uL (0.11-0.59) H 09/22/21 Eosinophils # (Auto) 0.04 K/uL (0-0.5) 09/22/21 Immature Granulocyte % (Auto) 0.3 % 09/22/21 Neutrophils # (Auto) 10.61 K/uL (1.4-6.5) H 09/22/21 Lymphocytes # (Auto) 6.45 K/uL (1.2-3.4) H 09/22/21 Monocytes # (Auto) 0.82 K/uL (0.11-0.59) H 09/22/21 Eosinophils # (Auto) 0.04 K/uL (0-0.5) 09/22/21 Basophils # (Auto) 0.01 K/uL (0-0.2) 09/22/21 Immature Granulocyte # (Auto) 0.06 K/uL (0.00-0.02) H 09/22/21 Polychromasia 1+ 09/22/21 Ovalocytes 1+ 09/22/21 Na 143 mmol/L (136-145) 09/23/21 K 4.2 mmol/L (3.5-5.1) 09/23/21 Cl 112 mmol/L (98-107) H 09/23/21 CO2 26 mmol/L (21-32) 09/23/21 Anion Gap 5.0 (3-11) 09/23/21 BUN 22 mg/dl (7-18) H 09/23/21 Creatinine 0.51 mg/dl (0.6-1.2) L 09/23/21 Estimated GFR ( Amer) 112.1 ml/min 09/23/21 Estimated GFR (Non-Af Amer) 96.7 ml/min 09/23/21 BUN/Creatinine Ratio 43.5 (10-20) H 09/23/21 Glu 137 mg/dl (70-99) H 09/23/21 Ca 8.4 mg/dl (8.5-10.1) L 09/23/21 Phosphorus Level 2.5 mg/dl (2.5-4.9) 09/23/21 Mg 2.0 mg/dl (1.8-2.4) 09/23/21 05:38 09/23/21 Calcium Level 8.4 mg/dl (8.5-10.1) L 09/23/21 05:38 09/23/21 Collin Test Pass 09/23/21 04:03 09/23/21 Microbiology 09/19/21 18:45 Acid Fast Bacilli Smear - Final Bronch Wash, Right Main Stem Acid Fast Bacilli Culture - Preliminary No Acid-Fast Bacilli Isolated - Report 1, Additional Report to Follow. 09/21/21 10:10 Urine Culture - Preliminary Urine,Straight Cath No growth - Less than 1,000 colonies/mL, Final report to follow. 09/19/21 18:45 Gram Stain - Final Bronch Wash, Right Main Stem Bronchial Culture - Final Aspergillus fumigatus complex Diagnostic Findings (Past 24 Hours) Chest X-Ray 09/22/21 07:00 XR chest 1V portable CLINICAL HISTORY: Follow-up bilateral alveolar opacities. COMPARISON STUDY: 09/21/2021 TECHNIQUE: 1 view of the chest FINDINGS: Single frontal view of the chest demonstrates the cardiomediastinal silhouette to be within normal limits. Endotracheal tube appears unchanged. Compared to previous examination, there has been continued interval worsening of interstitial and alveolar opacities bilaterally. No air bronchograms are seen. The findings are again most characteristic of a viral type pneumonitis and probable Covid 19 pneumonia. There is no evidence for pleural effusion. There is no evidence for vascular congestion. There is no acute osseous pathology. IMPRESSION: Interval worsening of interstitial alveolar opacities bilaterally. ACT 112: Negative or not required by law. Electronically signed by: Danis Aguiar M.D. 09/22/2021 3:05 PM Chest X-Ray 09/23/21 07:00 XR chest 1V portable CLINICAL HISTORY: Follow-up bilateral interstitial alveolar opacities. COMPARISON STUDY: 09/22/2021 TECHNIQUE: 1 view of the chest FINDINGS: Single frontal view of the chest demonstrates the cardiomediastinal silhouette to be within normal limits. An endotracheal tube is again seen. Compared to previous examination, there is no significant interval change in bilateral interstitial and alveolar opacities. There is no evidence for pleural effusion. There is no evidence for vascular congestion. There is no acute osseous pathology. IMPRESSION: No significant interval change of bilateral interstitial and alveolar opacities. ACT 112: Negative or not required by law. Electronically signed by: Danis Aguiar M.D. 09/23/2021 8:43 AM I & O Totals 24 Hours 09/22/21 09/23/21 09/24/21 06:59 06:59 06:59 Intake Total 1328.418 / 7764.098 3942.833 / 2403.833 50 / 50 Output Total 810 / 810 1125 / 1125 Balance 518.418 / 508.442 0022.833 / 1278.833 50 / 50 Cumulative 09/04/21 08:28 thru 09/23/21 09:27 Intake Total 31165.768 Output Total 55664 Balance 3007.768 RT Ventilator Mngmt (Last Documented) Ventilator Ordered Settings Ventilator Support Mode Assist Control 09/23/21 07:42 Respiratory Rate 30 09/23/21 07:42 Ventilator Tidal Volume 380 09/23/21 07:42 Setting Minute Ventilation 14.5 09/23/21 07:42 Ventilator Positive Pressure 8 09/21/21 11:15 Support Setting Positive End Expiratory 5 09/23/21 07:42 Pressure Fraction of Inspired Oxygen 30 09/23/21 07:42 Peak Inspiratory Flow 30 09/20/21 15:30 Machine Comment ABG drawn at this time 09/23/21 02:50 Ventilator - PT Measurements Respiratory Rate 30 Exhaled Tidal Volume 354 Minute Ventilation 14.5 Peak Inspiratory Airway 20 Pressure Plateau Pressure 18.6 Respiratory Cycle Inspiratory: 1:1.1 Expiratory Ratio Inspiratory Phase Time 1.0 End-Tidal CO2 31 Static Lung Compliance 26.03 Dynamic Lung Compliance 23.60 Normal Static Lung Compliance 46.00 Patient Measurements Comment RN suctioned pt for scant amount. Coding Level of Care Code Critical Care 1st 30-74 mins Diagnoses Septic shock A41.9; R65.21 Lactic acidosis E87.2 Acute hypoxemic respiratory failure J96.01 Cachexia R64 Acute renal failure N17.9 Time Spent (min) 40
[2021-09-23] MEDS: MAGNESIUM OXIDE 400 MG TAB NG SCH ×2 (10:41→12:47)
[2021-09-23] MEDS: POT PHOSPHATE MONOBASIC W/ SOD TAB NG SCH ×3 (10:41→18:08)
[2021-09-23] MEDS: FUROSEMIDE INJ 20 MG/2 ML VIAL IV SCH (10:43)
[2021-09-23] MEDS ORDERED: CALCIUM CHLORIDE 10% 1,000 MG in SODIUM CHLORIDE 0.9% 50 ML IV ONE (10:45)
--- NOTE | 2021-09-23 11:34 | Hospitalist Progress Note ---
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 Cont voriconazole. Weaning trials per ICU. Remains off sedation, however, now appears to be worsening with tachycardia, worsening fever and leukocytosis. Defer to ICU for antibiotic expansion or other treatments for sepsis. 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 Continues on ceftriaxone and voriconazole. Worsening leukocytosis and fever. Defer sepsis management to ICU team. Guarded prognosis. (3) Acute renal failure: Plan: Secondary to sepsis. Creatinine improved after IVF. Cont to monitor. Noted poor PO intake recently and underlying cachexia and malnutrition. Trend BMP daily. (4) CLL (chronic lymphocytic leukemia): Plan: Ongoing therapy with ibrutinib, which has been held for the last several days. Follows with Dr. Ariel Ortiz for oncology (5) Pneumonia due to COVID-19 virus: Plan: Readmitted with COVID-19 pneumonia Covid PCR positive on previous admission (08/19/21) Covid PCR remains positive. Chest CTA on admission without evidence of pulmonary embolism. Interval development of diffuse ground glass opacities in the lungs which may be seen in pneumonia Blood cultures negative Completed dexamethasone, antibiotic course Repeat CXR on 09/13 showed Slight progression of multifocal bilateral airspace opacities which favor pneumonia. There was initially concern for aspiration at this time. Continued to require oxygen supplementation which was improved to 4LPM from admission. Leukocytosis developed Rocephin/Flagyl started 09/18 Acute respiratory distress developed today with HR 130, consistent with sepsis picture. Worsening sepsis and cavitary infectious lung lesion seen on CT scan, no PE. Transferred to ICU for mechanical ventilation and continued sepsis support. Cont plan as stated above. NO further treatment for covid-19 pneumonia indicated at this point. (6) Thrombocytopenia: Plan: acute drop in platelets with improvement overnight 80 to 117. Heparin Ab panel pending. Heparin on hold. (7) Anemia: Plan: H/H decreased but stable. Notable history of splenic laceration from traumatic fall during recent admission. Splenic hematoma was noted at that time. Also underlying anemia with multiple chronic conditions including CLL. (8) Hypertension: Plan: antihypertensives are on hold, off pressors. (9) Post-operative state: Plan: H/O left hip fracture S/P hemiarthroplasty on 10/[address] Sánchez Weightbearing as tolerated Follow-up with Dr. Sánchez as outpatient for repeat xrays. (10) Dysphagia: Plan: Recent video swallow study revealing several episodes of silent tracheal aspiration with thin liquids. No aspiration with remainder of the consistencies. Residuals within the piriform sinuses and vallecula with pudding consistencies. OG tube in place and feeds going at 40cc/hr (11) DVT prophylaxis: Plan: heparin held with acute thrombocytopenia and HIT panel pending. DNR Dispo-cont ICU support with daily weaning trials per pediatric nurse practitioner. I discussed the case with son, Jono, by phone yesterday evening and answered all questions. He verbalized understanding that she has a very poor prognosis moving forward. Family is continuing regular communication with ICU team. Leanna Dillon [facility] and Anticipated Discharge Date Admission Date: September 04, 2021 Subjective 71 yo F presented to the hospital with covid-19 pneumonia. 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 Remains intubated and sedated, cannot obtain ROS febrile today tube feeds up to 40cc/hr off sedation and tachypneic, breathing 30/min at settings 18/min, using accessory muscles not requiring pressor support WBC increased from 18 to 23.7 overnight Review of Systems Review of Systems: intubated, sedated. Physical Exam Physical Exam: CONSTITUTIONAL: thin, cachectic, intubated, sedated. EYES: pupils are equal and round bilaterally, normal conjunctivae, no scleral icterus ENT: external ear and nose normal, MMM, poor dentition. RESPIRATORY: diminished breath sounds, no adventitial sounds. intubated. CARDIOVASCULAR: reg rate, regular rhythm, S1 and 2 heard without murmurs, gallops or rubs, no JVD, no peripheral edema GASTROINTESTINAL: soft, nondistended MUSCULOSKELETAL: cachectic, sedated, cannot perform. SKIN: warm and dry NEUROLOGIC: sedated. Results & Data Results & Data ([facility]) Vital Signs (Past 12 Hours) Vital Signs Temp Pulse Resp BP Pulse Ox 09/23/21 11:00 38.6 C H 114 H 29 H 97 09/23/21 10:00 39.1 C H 117 H 29 H 102/64 97 09/23/21 09:00 39.5 C H 122 H 28 H 95 09/23/21 08:00 38.9 C H 117 H 30 H 94 09/23/21 07:42 115 H 30 H 95 09/23/21 07:00 38.6 C H 113 H 29 H 96 09/23/21 06:00 38.8 C H 115 H 20 121/74 96 09/23/21 05:30 39.1 C H 116 H 28 H 114/72 95 09/23/21 05:00 39.4 C H 116 H 22 115/79 95 09/23/21 04:30 39.2 C H 118 H 18 139/80 97 09/23/21 04:00 38.7 C H 111 H 28 H 96 09/23/21 03:30 38.4 C H 107 H 21 133/92 98 09/23/21 03:00 38.1 C H 97 H 23 129/79 97 09/23/21 02:50 97 H 26 H 94 09/23/21 02:30 37.9 C H 95 H 22 129/82 95 09/23/21 02:00 37.9 C H 94 H 128/82 97 09/23/21 01:30 38.2 C H 96 H 23 125/76 97 09/23/21 01:00 38.3 C H 99 H 21 131/77 93 09/23/21 00:30 38.1 C H 103 H 21 165/89 H 95 09/23/21 00:00 37.8 C H 103 H 20 94 09/22/21 23:30 37.7 C H 95 H 22 146/80 H 96 09/22/21 23:29 93 H Laboratory Results Short CBC 09/22/21 09/22/21 09/23/21 Range/Units 15:52 20:44 05:38 WBC 17.99 H 23.73 H (4.8-10.8) K/uL Hgb 7.8 L 8.0 L 7.9 L (12.0-16.0) g/dL Hct 25.4 L 25.2 L 25.5 L (37-47) % Plt Count 80 L 117 L (130-400) K/uL BMP 09/22/21 09/23/21 20:44 05:38 Sodium 148 H 143 Potassium 4.1 D 4.2 Chloride 117 H 112 H Carbon Dioxide 25 26 BUN 27 H 22 H Creatinine 0.62 0.51 L Glucose 139 H 137 H Calcium 8.5 8.4 L Diagnostic Findings Chest X-Ray 09/23/21 07:00 XR chest 1V portable CLINICAL HISTORY: Follow-up bilateral interstitial alveolar opacities. COMPARISON STUDY: 09/22/2021 TECHNIQUE: 1 view of the chest FINDINGS: Single frontal view of the chest demonstrates the cardiomediastinal silhouette to be within normal limits. An endotracheal tube is again seen. Compared to previous examination, there is no significant interval change in bilateral interstitial and alveolar opacities. There is no evidence for pleural effusion. There is no evidence for vascular congestion. There is no acute osseous patholo gy. IMPRESSION: No significant interval change of bilateral interstitial and alveolar opacities. ACT 112: Negative or not required by law. Electronically signed by: Danis Aguiar M.D. 09/23/2021 8:43 AM Medications Administered Current Inpatient Medications Acetaminophen (Acetaminophen 500 Mg Tab) 500 mg PO Q4H PRN PRN Reason: Fever Stop: 10/20/21 13:27 Last Admin: 09/23/21 08:30 Dose: 500 mg Documented by: Albuterol (Albuterol Hfa 8 Gm Inhaler) 2 puffs INH Q2H PRN PRN Reason: sob/wheeze Stop: 10/06/21 23:34 Artificial Tears (Artificial Tears) 1 drops OP BID PRN PRN Reason: Dry Eyes Stop: 10/04/21 15:18 Enteral Nutritional Formula (Peptamen 1.5 Enmanuel 1,000 Ml Bag) 1,000 ml OG UD REBEKA; Protocol Stop: 10/21/21 14:29 Last Admin: 09/23/21 04:35 Dose: 1,000 ml Documented by: Fentanyl Citrate (Fentanyl Bolus From Bag) 50 mcg IV Q60M PRN PRN Reason: Pain or Agitation Stop: 10/03/21 19:02 Last Admin: 09/22/21 03:55 Dose: 25 mcg Documented by: Furosemide (Furosemide Inj 20 Mg/2 Ml Vial) 20 mg IV DAILY REBEKA Stop: 10/23/21 10:14 Last Admin: 09/23/21 10:43 Dose: 20 mg Documented by: Ceftriaxone Sodium 1,000 mg/ (Dextrose) 50 mls @ 100 mls/hr IV Q24H REBEKA; Protocol Stop: 09/25/21 08:59 Last Infusion: 09/23/21 09:27 Dose: Infused Documented by: Fentanyl Citrate (Fentanyl Drip) 1,250 mcg in 250 mls @ 0 mls/hr IV .Q0M [facility]; Protocol Stop: 10/03/21 19:14 Last Titration: 09/23/21 05:46 Dose: 0 mcg/hr, 0 mls/hr Documented by: Famotidine 20 mg/ Syringe 5 mls @ 2.5 mls/min IV BID REBEKA Stop: 10/19/21 20:59 Last Admin: 09/23/21 08:30 Dose: 2.5 mls/min Documented by: Norepinephrine Bitartrate (Levophed/D5w) 8 mg in 508 mls @ 0 mls/hr IV .Q0M [facility]; Protocol Stop: 10/19/21 20:14 Last Titration: 09/21/21 06:38 Dose: 0 mcg/kg/min, 0 mls/hr Documented by: Voriconazole 185 mg/ Sodium (Chloride) 100 mls @ 50 mls/hr IV Q12H REBEKA Stop: 09/27/21 19:59 Last Admin: 09/23/21 08:29 Dose: 50 mls/hr Documented by: Magnesium Oxide (Magnesium Oxide 400 Mg Tab) 400 mg NG Q4H [facility] Stop: 09/23/21 13:46 Last Admin: 09/23/21 10:41 Dose: 400 mg Documented by: Miscellaneous (Icu Electrolyte Replacement Protocol) 1 ea N/A BID@06,18 [facility]; Protocol Stop: 09/29/21 17:59 Last Admin: 09/23/21 09:34 Dose: 1 ea Documented by: Multivitamins/Minerals (Multi Vit W/Minerals Liquid 15 Ml Udp) 15 ml NG QAM [facility] Stop: 10/22/21 08:59 Last Admin: 09/23/21 08:32 Dose: 15 ml Documented by: *Ibrutinib [ Imbruvica]*Non-Form Patient's Own Med 1 ea PO DAILY REBEKA Stop: 10/07/21 08:59 Last Admin: 09/19/21 13:20 Dose: Not Given Documented by: Nystatin (Nystatin Powder 15gm Btl) 1 appln EXT BID PRN PRN Reason: Rash Stop: 10/06/21 18:40 Last Admin: 09/06/21 21:55 Dose: 1 appln Documented by: Ondansetron HCl (Ondansetron Inj 2 Mg/Ml 2 Ml Vial) 4 mg IV Q6H PRN PRN Reason: Nausea Stop: 10/04/21 14:09 Last Admin: 09/18/21 21:53 Dose: 4 mg Documented by: Phenol (Chloraseptic 1.4% Soln 180 Ml Btl) 2 sprays MT Q6H PRN PRN Reason: sore mouth Stop: 10/04/21 15:08 Last Admin: 09/05/21 09:25 Dose: 2 sprays Documented by: Polyethylene Glycol (Polyethylene (Miralax) 17 Gm Pack) 17 gm PO DAILY PRN PRN Reason: Constipation Stop: 10/04/21 14:09 Potassium Phosphate (Pot Phosphate Monobasic W/ Sod Tab) 1 tab NG Q4H REBEKA Stop: 09/23/21 17:46 Last Admin: 09/23/21 10:41 Dose: 1 tab Documented by: Sterile Water (Tube Feeding Water Flush) 150 ml OG Q4 REBEKA Stop: 10/23/21 00:00 Last Admin: 09/23/21 08:32 Dose: 150 ml Documented by:
[2021-09-24] MEDS: TUBE FEEDING WATER FLUSH OG SCH ×6 (00:39→19:33)
[2021-09-24] MEDS: ACETAMINOPHEN 500 MG TAB PO PRN ×4 (03:48→19:34)
[2021-09-24 04:52] LABS: iSTAT Allen Test Pass; iSTAT Art Bld Gas pCO2 Correct 35 mmHg (35-46); iSTAT Art Bld Gas pH Corrected 7.501 (7.35-7.45); iSTAT Arterial Blood Gas HCO3 27 meg/L (19-24); iSTAT Arterial Blood Gas pCO2 32 mmHg (35-46); iSTAT Arterial Blood Gas pH 7.53 (7.35-7.45); iSTAT Arterial Blood Gas pO2 68 mmHg (80-95); iSTAT Arterial Blood Gas pO2 C 78; iSTAT Carbon Dioxide 28 mmol/L (24-31); iSTAT FiO2 30 %; iSTAT Hematocrit 20 % (37-47); iSTAT Hemoglobin 6.8 g/dl (12.0-16.0); iSTAT Potassium 3.7 mmol/L (3.3-5.0); iSTAT Site R Radial; iSTAT Sodium 139 mmol/L (135-144)
[2021-09-24 05:24] LABS: Partial Thromboplastin Ratio 1.2; Partial Thromboplastin Time 31.6 Seconds (21.0-31.0)
[2021-09-24 05:35] LABS: BUN Creatinine Ratio 50.2 (10-20); Calcium 8.3 mg/dl (8.5-10.1); Creatinine Clr Calc Pharmacy 90.4 ml/min; Est GFR (African American) 118.6 ml/min; Est GFR (Non-African American) 102.3 ml/min; Magnesium 1.6 mg/dl (1.8-2.4); Phosphorus 2.4 mg/dl (2.5-4.9); Potassium 3.7 mmol/L (3.5-5.1)
[2021-09-24 05:44] LABS: Hematocrit (blood only) 24.6 % (37-47); Hemoglobin 7.7 g/dL (12.0-16.0); Mean Corpuscular Hemoglobin 26.6 pg (25-34); Mean Corpuscular Hgb Conc 31.3 g/dL (32-36); Mean Corpuscular Volume 84.8 fL (80-100); Mean Platelet Volume 12.8 fL (7.4-10.4); Platelet Count 95 K/uL (130-400); RDW Coefficient of Variation 18.1 % (11.5-14.5); RDW Standard Deviation 55.4 fL (36.4-46.3)
[2021-09-24] MEDS: ICU ELECTROLYTE REPLACEMENT PROTOCOL SCH ×2 (05:46→18:16)
[2021-09-24] MEDS: POT PHOSPHATE MONOBASIC W/ SOD TAB NG SCH ×3 (06:06→13:45)
[2021-09-24] MEDS: MAGNESIUM SULFATE / D5W 1 GM/100 ML BAG IV SCH ×4 (06:06→11:54)
[2021-09-24] MEDS: POTASSIUM CHLORIDE 20 MEQ/15 ML UDC NG SCH ×2 (06:06→10:16)
[2021-09-24] MEDS: PEPTAMEN 1.5 CAL 1,000 ML BAG OG SCH (06:07)
[2021-09-24 06:11] LABS: Basophils # (auto) 0.01 K/uL (0-0.2); Basophils % (auto) 0.1 %; Eosinophils # (auto) 0.08 K/uL (0-0.5); Eosinophils % (auto) 0.4 %; Hypochromasia Present; Immature Granulocytes # (auto) 0.07 K/uL (0.00-0.02); Immature Granulocytes % (auto) 0.4 %; Lymphocytes # (auto) 6.57 K/uL (1.2-3.4); Lymphocytes % (auto) 35.9 %; Monocytes # (auto) 0.51 K/uL (0.11-0.59); Monocytes % (auto) 2.8 %; Neutrophils # (auto) 11.06 K/uL (1.4-6.5); Neutrophils % (auto) 60.4 %; Ovalocytes 1+; Platelet Estimate Decreased (Normal)
[2021-09-24] MEDS: SODIUM CHLORIDE 0.9% IV SCH ×2 (07:49→19:33)
[2021-09-24] MEDS: VORICONAZOLE IV SCH ×2 (07:49→19:33)
[2021-09-24] MEDS: cefTRIAXone SODIUM 1,000 MG in DEXTROSE 5% 50 ML IV SCH (07:52)
[2021-09-24] MEDS: FAMOTIDINE 20 MG in SYRINGE 3 ML IV SCH ×2 (07:53→19:34)
[2021-09-24] MEDS: MULTI VIT W/MINERALS LIQUID 15 ML UDP NG SCH (07:53)
[2021-09-24] MEDS: FUROSEMIDE INJ 20 MG/2 ML VIAL IV SCH (07:57)
--- NOTE | 2021-09-24 08:21 | XRay Report ---
XR chest 1V portable CLINICAL HISTORY: f/u TECHNIQUE: Single frontal radiograph of the chest was obtained. Comparison: Comparison is made to chest one view 09/23/2021 FINDINGS: Lines and tubes are stable. The cardiomediastinal silhouette is normal. Multifocal airspace opacities are seen. No evidence of pleural effusion or pneumothorax. IMPRESSION: Multifocal airspace opacities may represent atelectasis, pneumonia, and/or aspiration. ACT 112: Negative or not required by law. Electronically signed by: Helio Cordova M.D. 09/24/2021 8:19 AM
--- NOTE | 2021-09-24 08:50 | Critical Care Progress Note ---
Date of Service September 24, 2021 Assessment & Plan (1) Acute hypoxemic respiratory failure: Plan: Reason Critically Ill: 71-year-old female with CLL undergoing chemotherapy with prolonged hospitalization transferred to the ICU on 09/19 for respiratory distress, lactic acidosis, and acute renal failure.Intubated on 09/19. 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 Neuro - Intubated but remains off of sedatives, is responsive to verbal stimulation with appropriate alertness, and appears neurologically intact. Cardiac - Intubated but off all pressors. Random cortisol high but no indication for steroids for adrenal insufficiency. - continue Lasix 20mg IV daily, to maintain negative fluid balance in setting of renal failure Respiratory - Acute hypoxic respiratory failure, due to multiple etiologies (aspergillus, a cute renal failure, COVID-19). Remains on minimal vent settings but rapidly becomes apneic/tachypneic (?Mane-Jimenez) with any attempt of spontaneous breathing trial. Aspergillus found on cytology of BAL specimen, and CT chest concerning for invasive aspergillosis. - continue attempts at SBT - given comorbidities and persistent inability to wean vent settings, will need to speak with patient's regarding possibility of terminal extubation, as the patient's has previously mentioned that patient would not want tracheostomy - started Precedex gtt to assist with tachypnea - already received prolonged steroid course, which likely contributed to development of fungal infection - no further steroids - continue Voriconazole as specified below - consider ID consult in the future GI - Continue tube feeds. Continue Pepcid. No BM for ~10 days - start Colace/Senna today. RENAL/LYTES - Acute renal failure has resolved. Hypomagnesemia 1.6 today - repleting. - Replace lytes as needed. - No concerns at this time. - continue onofre ENDO - No history of thyroid disease or diabetes. HEME - Leukocytosis with significant contribution of lymphocytes is improving. Suspect contribution of CLL and ongoing infection. Haptoglobin elevated at 294, Hgb down to 7-8 for several days, plts down to ~100 for several days. HIT assay pending and heparin held for now. However consumptive coagulopathy (i.e. DIC) is possible as well. - holding chemotherapy for CLL - ordered bilat LE venous duplex to further eval for consumptive coagulopathy - anemia stable without evidence of active bleeding - no indication for transfusion for now - repeat H/H at noon ID - Possible invasive aspergillosis given aspergillus in BAL sample and CT chest. Also has been on Ceftriaxone to cover for possible superimposed bacterial pneumonia given recent COVID-19. Patient remains febrile this morning although not requiring fluids/vasopressor support. - ordered Aspergillus IgE/IgG, total IgE - Fungitell pending - stop CTX today - continue Voriconazole for now - plan to continue for at least 7-10 days - continue to monitor fever curve LINES/IV ACCESS - Left Subclavian CVC, PIVs, urinary onofre intact. DVT PROPHYLAXIS - Hold chemoppx for now, pending HIT assay and further consumptive coagulopathy work-up. Thank you for allowing us to be part of this patient's care. Please refer to Dr. Saravia's documentation for any further recommendations. 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 Muñoz was the resident-physician during care of patient. I separately evaluated patient for grigsby portions of the history and the exam. I was present during the critical portion of medical decision making, and I discussed the case with the resident. I generally agree with the findings and plan except for any additions/exceptions noted. Patient had COVID-19 on 08/19/2021 Patient was initially admitted on 08/20/2020 when she finished extended course of dexamethasone and short course of azithromycin CT chest 09/19/2021 personally reviewed: Dense consolidative process appreciated bilaterally in the left upper as well as bilateral lower lobes Patient also seems to have a cavitary lesion in the left upper lobe Patient seen and examined at bedside. Patient was breathing in the mid 30s off sedation. She is also spiking fever T-max of 38.6-38.7 Constitutional: No acute distress HEENT: PERRLA, positive ETT Respiratory system: Decreased air entry bilaterally, no wheeze, rhonchi, positive crackles bilaterally CVS: S1-S2 positive, no murmurs or gallops, left-sided port Abdomen: Soft, nontender, nondistended, positive bowel sounds x4 Extremities: +2 pulses bilaterally radialis/ dorsalis pedis, no cyanosis, ecchymosis appreciated bilateral dorsal surfaces Neuro: Breathing over the vent, opening her eyes, following simple commands Psych: Unable to assess G/U: Positive Onofre --Prophylaxis VTE: IPC's GI: Pepcid Lines: Left subclavian, positive Onofre Diet: Tube feeds Plan: In/out: +536, urine output 1615 ABG 7.53/32/68 on 30%, PEEP of 5 Hypophosphatemia and hypomagnesemia being replaced Patient did have significant drop in her platelets which is greater than 50% but the plateau was greater than 100 HIT antibody had been ordered but it is still pending Doppler bilateral lower extremity negative Patient is currently on voriconazole for possible invasive aspergillosis. I am going to order galactomannan level Patient's hemoglobin is trending down. Continue to monitor and transfuse if the hemoglobin is less than 7 Repeat H&H later today. Patient has completed 7 days of Rocephin. We will stop it today. I will start the patient on Precedex to see if anxiety/pain is playing a role in her tachypnea. Overall prognosis is poor I have personally spent 36 minutes of critical care time in the direct management of this patient. This is a life/limb threatening event. This includes time spent evaluating patient, direct bedside care, chart review, placing orders, interpretation of diagnostic studies, discussion with consultants, patient, and/or family members regarding treatment decisions, as well as other required patient management activities. This time is exclusive of all separately billable procedures, and teaching time and separate from and in addition to any other critical care service time. Admission and Anticipated Discharge Date Admission Date: September 04, 2021 Subjective Patient remains responsive and arousable to voice/verbal stimulation. Intubated; not on pressors or sedatives. Denies pain or trouble breathing on vent. Remainder of HPI/ROS limited by ETT in place. Review of Systems Review of Systems: Unobtainable due to endotracheal tube Physical Exam Physical Exam: General: ETT in place. Awake/alert. Pulm: Coarse breath sounds throughout. -wheezes. Symmetrical chest rise. Breathing in sync with vent. Cardiac: RRR, -mrg. Radial pulses intact and symmetrical. No LE edema. Abdominal: soft, non-tender, non-distended, BS x 4 Skin: warm, dry, no rash Results & Data Results & Data ([facility] [place]) Vital Signs (Past 12 Hours) Vital Signs Temp Pulse Resp BP Pulse Ox 09/24/21 07:40 99 H 32 H 96 09/24/21 07:30 38.0 C H 99 H 32 H 91/58 L 93 09/24/21 07:00 38.0 C H 103 H 28 H 99 09/24/21 06:30 38.2 C H 105 H 31 H 102/64 100 09/24/21 06:00 38.2 C H 98 H 13 100/65 97 09/24/21 05:30 38.3 C H 101 H 31 H 100/65 98 09/24/21 05:15 16 09/24/21 05:00 38.8 C H 102 H 28 H 97 09/24/21 04:00 39.0 C H 109 H 32 H 111/66 98 09/24/21 03:00 38.6 C H 102 H 25 H 101/61 99 09/24/21 02:10 102 H 29 H 94 09/24/21 02:00 38.3 C H 99 H 25 H 92/61 L 96 09/24/21 01:30 38.3 C H 101 H 27 H 96/61 L 95 09/24/21 01:00 38.3 C H 100 H 27 H 101/61 95 09/24/21 00:30 38.4 C H 96 H 28 H 89/54 L 94 09/24/21 00:00 38.7 C H 104 H 32 H 108/67 98 09/23/21 23:30 38.9 C H 108 H 32 H 116/71 100 09/23/21 23:00 39.2 C H 110 H 30 H 89/57 L 92 09/23/21 22:55 110 H 26 H 93 09/23/21 22:30 39.0 C H 109 H 26 H 103/64 93 09/23/21 22:00 38.8 C H 108 H 25 H 97/60 L 95 09/23/21 21:30 38.6 C H 105 H 31 H 113/74 96 09/23/21 21:00 38.5 C H 105 H 25 H 96/63 L 97 Resident Activity Tracking Resident Involvement: Resident Care Provided Care Provided: Adult Hospital Medicine
[2021-09-24] MEDS ORDERED: STAT IV Infusion **Titration per Protocol STA (10:54)
[2021-09-24] MEDS ORDERED: SENNOSIDES 8.8 MG/5 ML UDC PO ONE (11:00)
[2021-09-24] MEDS ORDERED: DOCUSATE SODIUM SYRUP 100 MG/10 ML UDC PO ONE (11:00)
[2021-09-24] MEDS: DEXMEDETOMIDINE HCL 200 MCG in SODIUM CHLORIDE 0.9% 48 ML IV SCH ×2 (11:21→19:33)
--- NOTE | 2021-09-24 11:58 | Ultrasound Report ---
BILATERAL LOWER EXTREMITY VENOUS DOPPLER HISTORY: eval for DVT (consumptive coagulopathy) COMPARISON STUDY: None. FINDINGS: There is normal compressibility, flow, and augmentation within the bilateral lower extremit y deep venous systems. IMPRESSION: No DVT within the right or left lower extremity. ACT 112: Negative or not required by law. Electronically signed by: Mendez Bravo M.D. 09/24/2021 11:56 AM
[2021-09-24 12:26] LABS: Hematocrit (blood only) 23.4 % (37-47); Hemoglobin 7.3 g/dL (12.0-16.0)
--- NOTE | 2021-09-24 15:52 | Billing Data ---
Date of Service September 24, 2021 Coding Level of Care Code Critical Care 1st 30-74 mins Time Spent (min) 36
--- NOTE | 2021-09-24 15:59 | Hospitalist Progress Note ---
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 Cont voriconazole. Weaning trials per ICU. Remains off sedation, however, now appears to be worsening with tachycardia, worsening fever and leukocytosis. Defer to ICU for antibiotic expansion or other treatments for sepsis. 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 Continues on ceftriaxone and voriconazole. Worsening leukocytosis and fever. Defer sepsis management to ICU team. Guarded prognosis. (3) Acute renal failure: Plan: Secondary to sepsis. Creatinine improved after IVF. Cont to monitor. Noted poor PO intake recently and underlying cachexia and malnutrition. Trend BMP daily. (4) CLL (chronic lymphocytic leukemia): Plan: Ongoing therapy with ibrutinib, which has been held since ICU transfer Follows with Dr. Ariel Ortiz for oncology (5) Pneumonia due to COVID-19 virus: Plan: Readmitted with COVID-19 pneumonia Covid PCR positive on previous admission (08/19/21) Covid PCR remains positive. Chest CTA on admission without evidence of pulmonary embolism. Interval development of diffuse ground glass opacities in the lungs which may be seen in pneumonia Blood cultures negative Completed dexamethasone, antibiotic course Repeat CXR on 09/13 showed Slight progression of multifocal bilateral airspace opacities which favor pneumonia. There was initially concern for aspiration at this time. Continued to require oxygen supplementation which was improved to 4LPM from admission. Leukocytosis developed Rocephin/Flagyl started 09/18 Acute respiratory distress developed today with HR 130, consistent with sepsis picture. Worsening sepsis and cavitary infectious lung lesion seen on CT scan, no PE. Transferred to ICU for mechanical ventilation and continued sepsis support. Cont plan as stated above. NO further treatment for covid-19 pneumonia indicated at this point. (6) Thrombocytopenia: Plan: acute drop in platelets with improvement overnight 80 to 117. Heparin Ab panel pending. Heparin on hold. (7) Anemia: Plan: H/H decreased but stable. Notable history of splenic laceration from traumatic fall during recent admission. Splenic hematoma was noted at that time. Also underlying anemia with multiple chronic conditions including CLL. (8) Hypertension: Plan: antihypertensives are on hold, off pressors. (9) Post-operative state: Plan: H/O left hip fracture S/P hemiarthroplasty on 08/[address] Sánchez Weightbearing as tolerated Follow-up with Dr. Sánchez as outpatient for repeat xrays. (10) Dysphagia: Plan: intubated and sedated with OGT in place. (11) DVT prophylaxis: Plan: heparin held with acute thrombocytopenia and HIT panel pending. DNR Dispo-cont ICU support DO [facility] Hospitalist Admission and Anticipated Discharge Date Admission Date: September 04, 2021 Subjective 71 yo F presented to the hospital with covid-19 pneumonia. 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 Remains intubated and sedated, cannot obtain ROS intubated and sedated Review of Systems Review of Systems: intubated and sedated Physical Exam Physical Exam: CONSTITUTIONAL: thin, cachectic, intubated, sedated. EYES: pupils are equal and round bilaterally, normal conjunctivae, no scleral icterus ENT: external ear and nose normal, MMM, poor dentition. RESPIRATORY: diminished breath sounds, no adventitial sounds. intubated. CARDIOVASCULAR: reg rate, regular rhythm, S1 and 2 heard without murmurs, gallops or rubs, no JVD, no peripheral edema GASTROINTESTINAL: soft, nondistended MUSCULOSKELETAL: cachectic, sedated, cannot perform. SKIN: warm and dry NEUROLOGIC: sedated. Results & Data Results & Data ([facility]) Vital Signs (Past 12 Hours) Vital Signs Temp Pulse Resp BP Pulse Ox 09/24/21 14:00 38.7 C H 96 H 29 H 100 09/24/21 13:00 38.2 C H 90 31 H 97 09/24/21 12:00 37.9 C H 94 H 26 H 97 09/24/21 11:15 98 H 31 H 96 09/24/21 11:00 38.1 C H 100 H 23 95 09/24/21 10:00 38.6 C H 108 H 28 H 111/67 98 09/24/21 09:00 38.4 C H 106 H 29 H 108/70 97 09/24/21 08:00 38.2 C H 100 H 29 H 94 09/24/21 07:40 99 H 32 H 96 09/24/21 07:30 38.0 C H 99 H 32 H 91/58 L 93 09/24/21 07:00 38.0 C H 103 H 28 H 99 09/24/21 06:30 38.2 C H 105 H 31 H 102/64 100 09/24/21 06:00 38.2 C H 98 H 13 100/65 97 09/24/21 05:30 38.3 C H 101 H 31 H 100/65 98 09/24/21 05:15 16 09/24/21 05:00 38.8 C H 102 H 28 H 97 09/24/21 04:00 39.0 C H 109 H 32 H 111/66 98 Laboratory Results Short CBC 09/24/21 09/24/21 Range/Units 04:54 12:16 WBC 18.30 H (4.8-10.8) K/uL Hgb 7.7 L 7.3 L (12.0-16.0) g/dL Hct 24.6 L 23.4 L (37-47) % Plt Count 95 L (130-400) K/uL BMP 09/24/21 04:54 Sodium 141 Potassium 3.7 Chloride 107 Carbon Dioxide 29 BUN 22 H Creatinine 0.43 L Glucose 131 H Calcium 8.3 L Diagnostic Findings Chest X-Ray 09/24/21 07:00 XR chest 1V portable CLINICAL HISTORY: f/u TECHNIQUE: Single frontal radiograph of the chest was obtained. Comparison: Comparison is made to chest one view 09/23/2021 FINDINGS: Lines and tubes are stable. The cardiomediastinal silhouette is normal. Multifocal airspace opacities are seen. No evidence of pleural effusion or pneumothorax. IMPRESSION: Multifocal airspace opacities may represent atelectasis, pneumonia, and/or aspiration. ACT 112: Negative or not required by law. Electronically signed by: Helio Cordova M.D. 09/24/2021 8:19 AM Venous Doppler Study 09/24/21 09:42 BILATERAL LOWER EXTREMITY VENOUS DOPPLER HISTORY: eval for DVT (consumptive coagulopathy) COMPARISON STUDY: None. FINDINGS: There is normal compressibility, flow, and augmentation within the bilateral lower extremity deep venous systems. IMPRESSION: No DVT within the right or left lower extremity. ACT 112: Negative or not required by law. Electronically signed by: Mendez Bravo M.D. 09/24/2021 11:56 AM Medications Administered Current Inpatient Medications Acetaminophen (Acetaminophen 500 Mg Tab) 500 mg PO Q4H PRN PRN Reason: Fever Stop: 10/20/21 13:27 Last Admin: 09/24/21 14:14 Dose: 500 mg Documented by: Albuterol (Albuterol Hfa 8 Gm Inhaler) 2 puffs INH Q2H PRN PRN Reason: sob/wheeze Stop: 10/06/21 23:34 Artificial Tears (Artificial Tears) 1 drops OP BID PRN PRN Reason: Dry Eyes Stop: 10/04/21 15:18 Docusate Sodium (Docusate Sodium Syrup 100 Mg/10 Ml Udc) 100 mg PO BID REBEKA Stop: 10/24/21 20:59 Enteral Nutritional Formula (Peptamen 1.5 Enmanuel 1,000 Ml Bag) 1,000 ml OG UD REBEKA; Protocol Stop: 10/21/21 14:29 Last Admin: 09/24/21 06:07 Dose: 1,000 ml Documented by: Fentanyl Citrate (Fentanyl Bolus From Bag) 50 mcg IV Q60M PRN PRN Reason: Pain or Agitation Stop: 10/03/21 19:02 Last Admin: 09/22/21 03:55 Dose: 25 mcg Documented by: Furosemide (Furosemide Inj 20 Mg/2 Ml Vial) 20 mg IV DAILY REBEKA Stop: 10/23/21 10:14 Last Admin: 09/24/21 07:57 Dose: 20 mg Documented by: Ceftriaxone Sodium 1,000 mg/ (Dextrose) 50 mls @ 100 mls/hr IV Q24H REBEKA; Pr otocol Stop: 09/25/21 08:59 Last Admin: 09/24/21 07:52 Dose: 100 mls/hr Documented by: Fentanyl Citrate (Fentanyl Drip) 1,250 mcg in 250 mls @ 0 mls/hr IV .Q0M REBEKA; Protocol Stop: 10/03/21 19:14 Last Titration: 09/23/21 19:08 Dose: Infused Documented by: Famotidine 20 mg/ Syringe 5 mls @ 2.5 mls/min IV BID REBEKA Stop: 10/19/21 20:59 Last Admin: 09/24/21 07:53 Dose: 2.5 mls/min Documented by: Norepinephrine Bitartrate (Levophed/D5w) 8 mg in 508 mls @ 0 mls/hr IV .Q0M REBEKA; Protocol Stop: 10/19/21 20:14 Last Titration: 09/23/21 19:51 Dose: Infused Documented by: Voriconazole 185 mg/ Sodium (Chloride) 100 mls @ 50 mls/hr IV Q12H [facility] Stop: 09/27/21 19:59 Last Infusion: 09/24/21 10:00 Dose: Infused Documented by: Dexmedetomidine HCl 200 mcg/ (Sodium Chloride) 50 mls @ 5.963 mls/hr IV .Q8H24M [facility]; Protocol Stop: 09/28/21 10:59 Last Titration: 09/24/21 14:43 Dose: 0.5 mcg/kg/hr, 6 mls/hr Documented by: Miscellaneous (Icu Electrolyte Replacement Protocol) 1 ea N/A BID@,18 [facility]; Protocol Stop: 09/29/21 17:59 Last Admin: 09/24/21 05:46 Dose: 1 ea Documented by: Multivitamins/Minerals (Multi Vit W/Minerals Liquid 15 Ml Udp) 15 ml NG QAM REBEKA Stop: 10/22/21 08:59 Last Admin: 09/24/21 07:53 Dose: 15 ml Documented by: *Ibrutinib [ Imbruvica]*Non-Form Patient's Own Med 1 ea PO DAILY REBEKA Stop: 10/07/21 08:59 Last Admin: 09/19/21 13:20 Dose: Not Given Documented by: Nystatin (Nystatin Powder 15gm Btl) 1 appln EXT BID PRN PRN Reason: Rash Stop: 10/06/21 18:40 Last Admin: 09/06/21 21:55 Dose: 1 appln Documented by: Ondansetron HCl (Ondansetron Inj 2 Mg/Ml 2 Ml Vial) 4 mg IV Q6H PRN PRN Reason: Nausea Stop: 10/04/21 14:09 Last Admin: 09/18/21 21:53 Dose: 4 mg Documented by: Phenol (Chloraseptic 1.4% Soln 180 Ml Btl) 2 sprays MT Q6H PRN PRN Reason: sore mouth Stop: 10/04/21 15:08 Last Admin: 09/05/21 09:25 Dose: 2 sprays Documented by: Polyethylene Glycol (Polyethylene (Miralax) 17 Gm Pack) 17 gm PO DAILY PRN PRN Reason: Constipation Stop: 10/04/21 14:09 Sennosides (Sennosides 8.8 Mg/5 Ml Udc) 8.8 mg PO BID REBEKA Stop: 10/24/21 20:59 Sterile Water (Tube Feeding Water Flush) 150 ml OG Q4 REBEKA Stop: 10/23/21 00:00 Last Admin: 09/24/21 11:54 Dose: 150 ml Documented by:
--- NOTE | 2021-09-24 16:33 | Electrocardiogram Report ---
Test Reason : Blood Pressure : / mmHG Vent. Rate : 104 BPM Atrial Rate : 104 BPM P-R Int : 130 ms QRS Dur : 124 ms QT Int : 384 ms P-R-T Axes : 040 -04 174 degrees QTc Int : 504 ms Poor data quality, interpretation may be adversely affected Sinus tachycardia Left bundle branch block Abnormal ECG When compared with ECG of 19-SEP-2021 17:00, Left bundle branch block is now Present Confirmed by Evin Bob ([id number]) on 09/24/2021 4:33:14 PM Referred By: [facility] Confirmed By:Evin Bob
[2021-09-24] MEDS: DOCUSATE SODIUM SYRUP 100 MG/10 ML UDC PO SCH (19:34)
[2021-09-24] MEDS: SENNOSIDES 8.8 MG/5 ML UDC PO SCH (19:34)
[2021-09-24] MEDS: NOREPINEPHRINE/D5W 8 MG/508 ML BAG IV SCH (21:48)
[2021-09-25] MEDS: TUBE FEEDING WATER FLUSH OG SCH ×5 (01:13→17:22)
[2021-09-25] MEDS: DEXMEDETOMIDINE HCL 200 MCG in SODIUM CHLORIDE 0.9% 48 ML IV SCH ×5 (03:30→17:22)
[2021-09-25] MEDS: ACETAMINOPHEN 500 MG TAB PO PRN ×2 (04:30→11:11)
[2021-09-25 06:01] LABS: Partial Thromboplastin Time 26.9 Seconds (21.0-31.0)
[2021-09-25 06:29] LABS: BUN Creatinine Ratio 48.3 (10-20); Calcium 7.8 mg/dl (8.5-10.1); Creatinine Clr Calc Pharmacy 83.4 ml/min; Est GFR (African American) 115.2 ml/min; Est GFR (Non-African American) 99.4 ml/min; Magnesium 2.4 mg/dl (1.8-2.4); Phosphorus 2.3 mg/dl (2.5-4.9); Potassium 3.8 mmol/L (3.5-5.1)
[2021-09-25] MEDS: ICU ELECTROLYTE REPLACEMENT PROTOCOL SCH ×2 (06:41→17:22)
[2021-09-25] MEDS ORDERED: POTASSIUM CHLORIDE 20 MEQ/15 ML UDC PO STA (06:43)
[2021-09-25 08:00] LABS: Nucleated RBC # (auto) 0.08 K/uL (0-0); Nucleated RBC % (auto) 0.3 %
[2021-09-25] MEDS: POT PHOSPHATE MONOBASIC W/ SOD TAB PO SCH ×3 (08:05→17:21)
[2021-09-25] MEDS: SENNOSIDES 8.8 MG/5 ML UDC PO SCH (08:06)
[2021-09-25] MEDS: DOCUSATE SODIUM SYRUP 100 MG/10 ML UDC PO SCH (08:06)
[2021-09-25] MEDS: MULTI VIT W/MINERALS LIQUID 15 ML UDP NG SCH (08:06)
[2021-09-25] MEDS: FAMOTIDINE 20 MG in SYRINGE 3 ML IV SCH (08:08)
[2021-09-25] MEDS: SODIUM CHLORIDE 0.9% IV SCH (08:08)
[2021-09-25] MEDS: VORICONAZOLE IV SCH (08:08)
[2021-09-25] MEDS: FUROSEMIDE INJ 20 MG/2 ML VIAL IV SCH (08:52)
[2021-09-25 09:02] LABS: Hemoglobin 7.6 g/dL (12.0-16.0); Mean Corpuscular Hemoglobin 26.9 pg (25-34); Mean Corpuscular Hgb Conc 31.7 g/dL (32-36); Mean Corpuscular Volume 84.8 fL (80-100); Platelet Count 157 K/uL (130-400); RDW Coefficient of Variation 18.2 % (11.5-14.5); RDW Standard Deviation 55.9 fL (36.4-46.3); Red Blood Count 2.83 M/uL (4.2-5.4); White Blood Count 27.16 K/uL (4.8-10.8)
[2021-09-25 09:03] LABS: Anisocytosis Present; Basophils # (auto) 0.03 K/uL (0-0.2); Basophils % (auto) 0.1 %; Eosinophils # (auto) 0.12 K/uL (0-0.5); Eosinophils % (auto) 0.4 %; Immature Granulocytes # (auto) 0.23 K/uL (0.00-0.02); Immature Granulocytes % (auto) 0.8 %; Lymphocytes # (auto) 11.53 K/uL (1.2-3.4); Lymphocytes % (auto) 42.5 %; Monocytes # (auto) 0.74 K/uL (0.11-0.59); Monocytes % (auto) 2.7 %; Neutrophils # (auto) 14.51 K/uL (1.4-6.5); Neutrophils % (auto) 53.5 %; Platelet Estimate Normal (Normal); Poikilocytosis Present; Polychromasia 1+
--- NOTE | 2021-09-25 09:32 | Critical Care Progress Note ---
Date of Service September 25, 2021 Assessment & Plan (1) Acute hypoxemic respiratory failure: Plan: Reason Critically Ill: 71-year-old female with CLL undergoing chemotherapy with prolonged hospitalization transferred to the ICU on 09/19 for respiratory distress, lactic acidosis, and acute renal failure.Intubated on 09/19. Possible angioinvasive aspergillus superimposed on her chronic medical conditions. Neuro - Intubated but remains off of sedatives, is responsive to verbal stimulation with appropriate alertness, and appears neurologically intact. Cardiac - Intubated but off all pressors. Random cortisol high but no indication for steroids for adrenal insufficiency. - continue Lasix 20mg IV daily, to maintain negative fluid balance in setting of renal failure Respiratory - Acute hypoxic respiratory failure, due to multiple etiologies (aspergillus, acute renal failure, COVID-19). Remains on minimal vent settings but rapidly becomes apneic/tachypneic (?Mane-Jimenez) with any attempt of spontaneous breathing trial. Aspergillus found on cytology of BAL specimen, and CT chest concerning for invasive aspergillosis. - continue attempts at SBT - given comorbidities and persistent inability to wean vent settings, patient's has decided on terminal extubation, which will be done either later today or tomorrow - started Precedex gtt to assist with tachypnea - already received prolonged steroid course, which likely contributed to development of fungal infection - no further steroids - continue Voriconazole as specified below GI - Continue tube feeds. Continue Pepcid. No BM for ~10 days - continue Colace/S racheal. RENAL/LYTES - Acute renal failure has resolved. - Replace lytes as needed. - No concerns at this time. - continue onofre ENDO - No history of thyroid disease or diabetes. HEME - Leukocytosis with significant contribution of lymphocytes. Suspect contribution of CLL and ongoing infection. Haptoglobin elevated at 294, Hgb down to 7-8 for several days, plts down to ~100 for several days. HIT assay pending and heparin held for now. However consumptive coagulopathy (i.e. DIC) is possible as well. - holding chemotherapy for CLL - bilat venous duplex LE negative for DVT - anemia stable without evidence of active bleeding - no indication for transfusion for now ID - Possible invasive aspergillosis given aspergillus in BAL sample and CT chest. Also has been on Ceftriaxone to cover for possible superimposed bacterial pneumonia given recent COVID-19. Patient remains febrile this morning although not requiring fluids/vasopressor support. - ordered Aspergillus IgE/IgG, total IgE - Fungitell pending - stopped CTX yesterday - continue Voriconazole for now - plan to continue for at least 7-10 days - continue to monitor fever curve LINES/IV ACCESS - Left Subclavian CVC, PIVs, urinary onofre intact. DVT PROPHYLAXIS - Hold chemoppx for now, pending HIT assay and further consumptive coagulopathy work-up. DISPO - Terminal extubation today vs tomorrow. Thank you for allowing us to be part of this patient's care. Please refer to Dr. Saravia's documentation for any further recommendations. 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 Muñoz was the resident-physician during care of patient. I separately evaluated patient for grigsby portions of the history and the exam. I was present during the critical portion of medical decision making, and I discussed the case with the resident. I generally agree with the findings and plan except for any additions/exceptions noted. Patient had COVID-19 on 08/19/2021 Patient was initially admitted on 08/20/2020 when she finished extended course of dexamethasone and short course of azithromycin CT chest 09/19/2021 personally reviewed: Dense consolidative process appreciated bilaterally in the left upper as well as bilateral lower lobes Patient also seems to have a cavitary lesion in the left upper lobe Patient seen and examined at bedside. Breathing over the vent. Patient started on low dose levophed overnight. 0.07 at night On Precedex 0.7 Constitutional: No acute distress HEENT: PERRLA,positive ETT Respiratory system:Decreased air entry bilaterally, no wheeze, rhonchi, positive crackles bilaterally CVS: S1-S2 positive, no murmurs or gallops,left-sided port Abdomen: Soft, nontender, nondistended, positive bowel sounds x4 Extremities: +2 pulses bilaterally radialis/ dorsalis pedis, no cyanosis, ecchymosis appreciated bilateral dorsal surfaces Neuro:Breathing over the vent, opening her eyes, following simple commands Psych:Unable to assess G/U:Positive Onofre --Prophylaxis VTE: IPC's GI: Pepcid Lines: Left subclavian, positive Onofre Diet: Tube feeds Plan: Discussed with at bedside regarding goals of care. Plan is to make patient comfort measures today once family visits. Will DC voriconazole as patient QTc is very prolonged. I have personally spent 35 minutes of critical care time in the direct management of this patient. This is a life/limb threatening event. This includes time spent evaluating patient, direct bedside care, chart review, placing orders, interpretation of diagnostic studies, discussion with consultants, patient, and/or family members regarding treatment decisions, as well as other required patient management activities. This time is exclusive of all separately billable procedures, and teaching time and separate from and in addition to any other critical care servi Subjective Patient remains responsive and arousable to voice/verbal stimulation. Intubated; not on pressors or sedatives. SBT continues to fail despite Precedex. Denies pain or trouble breathing on vent. Remainder of HPI/ROS limited by ETT in place. Review of Systems Review of Systems: Unobtainable due to endotracheal tube Physical Exam Physical Exam: General: ETT in place. Awake/alert. Pulm: Coarse breath sounds throughout. -wheezes. Symmetrical chest rise. Breathing in sync with vent. Cardiac: RRR, -mrg. Radial pulses intact and symmetrical. No LE edema. Abdominal: soft, non-tender, non-distended, BS x 4 Skin: warm, dry, no rash Results & Data Results & Data ([facility]) Vital Signs (Past 12 Hours) Vital Signs Temp Pulse Resp BP Pulse Ox 09/25/21 07:40 84 30 H 98 09/25/21 07:00 38.1 C H 76 32 H 106/57 L 99 09/25/21 06:30 38.1 C H 81 20 101/57 L 100 09/25/21 06:00 38.3 C H 90 29 H 96/68 L 95 09/25/21 05:30 38.6 C H 85 34 H 100/60 99 09/25/21 05:00 38.6 C H 90 29 H 91/54 L 100 09/25/21 04:30 38.5 C H 92 H 24 103/62 97 09/25/21 04:00 38.4 C H 87 35 H 105/62 100 09/25/21 03:37 75 25 H 97 09/25/21 03:30 38.2 C H 71 27 H 93/54 L 99 09/25/21 03:00 38.1 C H 77 27 H 95/56 L 97 09/25/21 02:30 38.0 C H 72 29 H 100 09/25/21 02:00 37.9 C H 72 28 H 95/53 L 99 09/25/21 01:30 37.8 C H 83 32 H 100 09/25/21 01:00 37.7 C H 73 29 H 95/53 L 99 09/25/21 00:30 37.7 C H 81 30 H 97/58 L 100 09/25/21 00:00 37.7 C H 82 30 H 101/59 L 98 09/24/21 23:30 37.7 C H 82 30 H 93/54 L 100 09/24/21 23:00 37.8 C H 70 30 H 84/55 L 95 09/24/21 22:30 37.8 C H 71 26 H 79/48 L 100 09/24/21 22:00 37.8 C H 68 25 H 88/51 L 100 Resident Activity Tracking Resident Involvement: Resident Care Provided Care Provided: Adult Hospital Medicine
[2021-09-25] MEDS: NOREPINEPHRINE/D5W 8 MG/508 ML BAG IV SCH ×2 (09:36→09:37)
[2021-09-25] MEDS ORDERED: fentaNYL citrate 100 MCG/2 ML VIAL IV PRN (09:45)
[2021-09-25] MEDS ORDERED: POTASSIUM CHLORIDE 20 MEQ/15 ML UDC PO SCH (10:30)
[2021-09-25] MEDS: PEPTAMEN 1.5 CAL 1,000 ML BAG OG SCH (12:07)
[2021-09-25] MEDS ORDERED: STAT IV Infusion **Titration per Protocol STA (15:19)
[2021-09-25] MEDS ORDERED: fentaNYL DRIP 1,250 MCG/250 ML BAG IV SCH (15:30)
[2021-09-25] MEDS ORDERED: MoRPHine SULFATE 2 MG/ML CARP IV STA (17:44)
[2021-09-25] MEDS ORDERED: ONDANSETRON 4 MG OD TAB SL PRN (19:24)
[2021-09-25] MEDS ORDERED: ONDANSETRON INJ 2 MG/ML 2 ML VIAL IV PRN (19:24)
[2021-09-25] MEDS ORDERED: PROMETHAZINE HCL 12.5 MG in SODIUM CHLORIDE 0.9% 50 ML IV PRN (19:24)
[2021-09-25] MEDS ORDERED: LORazepam 0.5 MG/1 ML VIAL IV PRN (19:24)
[2021-09-25] MEDS ORDERED: MoRPHine SULFATE 5 MG/0.25 ML UDP PO PRN (19:24)
[2021-09-25] MEDS ORDERED: ATROPINE SULFATE 1% OP SOLN 5 ML BTL SL PRN (19:24)
[2021-09-25 20:22] LABS: Fungitell (1-3)-B-D-Glucan >500 pg/mL
[2021-09-25] MEDS: MoRPHine SULFATE 2 MG/ML CARP IV PRN (20:31)
--- NOTE | 2021-09-25 20:32 | Billing Data ---
Date of Service September 25, 2021 Coding Level of Care Code Critical Care 1st 30-74 mins Time Spent (min) 35
[2021-09-26] MEDS: MoRPHine SULFATE 2 MG/ML CARP IV PRN ×2 (02:01→07:58)
[2021-09-26] MEDS ORDERED: MoRPHine SULFATE 4 MG/ML 1 ML CARP\\VIAL IV STA (13:55)
[2021-09-26] MEDS ORDERED: STAT IV Infusion **Titration per Protocol STA (13:55)
[2021-09-26] MEDS ORDERED: MoRPHine SULF/NSS 250 MG/250 ML BTL IV SCH (14:00)
--- NOTE | 2021-09-26 15:19 | Hospitalist Progress Note ---
Date of Service September 26, 2021 Assessment & Plan (1) Acute hypoxemic respiratory failure: Plan: Acute respiratory failure initially secondary to 2/2 sepsis from Covid-19 Pneumonia. Initially admitted 08/20/2021 and finished extended course of dexamethasone and azithromycin. Chest CT 09/19 revealed consolidative process b/l along with cavitary lesion in JUMANA. Bronchoscopy further revealed invasive aspergillosis. She had been intubated and treated aggressively for Sepsis with antifungal and antibiotics. Hx of CLL undergoing chemotherapy. opted for terminal extubation and comfort measures only. Pt was transitioned to medical for continued comfort care . Palliative Consulted supplemental oxygen IV morphine gtt IV ativan for restlessness or agitation Atropine gtt prn for secretions D/C vital signs/labs DVT ppx: none 2/2 to comfort only, HIT panel pending due to thrombcytopenia Dispo: med/surg, comfort measures only DNR/DNI Pt was seen and examined in collaboration with Dr. Dillon, please see addendum (2) Septic shock: (3) Acute renal failure: (4) CLL (chronic lymphocytic leukemia): (5) Pneumonia due to COVID-19 virus: (6) Thrombocytopenia: (7) Anemia: (8) Hypertension: (9) Post-operative state: (10) Dysphagia: (11) DVT prophylaxis: Admission and Anticipated Discharge Date Admission Date: September 04, 2021 Supervising Physician Co-Signing Physician Notes I have seen and examined the patient and have discussed the case with the provider above. I agree with the assessment and plan as stated. 71 yo F with CLL and COVID pneumonia complicated by septic shock and acute respiratory failure from pulmonary aspergillosis. She is on comfort measures. PRN morphine is not controlling her tachypnea and she is breathing 30 breaths per minute on average. Switching to a morphine drip with PRN Ativan pushes for comfort. Will schedule Atropine drops. Santana, Subjective 71 yo F presented to the hospital with covid-19 pneumonia. She was admitted to ICU for sepsis and acute respiratory failure on 09/19, found to have aspergillos is after bronchoscopy and further investigation. decided to transition to comfort measures and was terminally extubated. She was seen and examined in room 360-1. ROS unobtainable due to sedation. Review of Systems Review of Systems: Unobtainable due to reduced consciousness Physical Exam Physical Exam: Gen: Elderly, thin, cachectic, sedated, appears in no distress HEENT: Normocephalic, atraumatic, temporal wasting, conjunctivae moist, sclerae anicteric, mucous membranes consult dry, poor dentition Lung: Diminished breath sounds throughout no acute respiratory effort, no periods of apnea Heart: Tachycardic rate, regular rhythm, no murmurs, rubs, or gallops Abdomen: Soft, NT, ND +BS x 4 Extremities: No edema, Skin: Warm, no rash, ecchymoses bilateral lower extremity, negative turgor. Results & Data Results & Data ([facility]) Medications Administered Current Inpatient Medications Artificial Tears (Artificial Tears) 1 drops OP BID PRN PRN Reason: Dry Eyes Stop: 10/04/21 15:18 Atropine Sulfate (Atropine Sulfate 1% Op Soln 5 Ml Btl) 4 drops SL Q1H PRN PRN Reason: Secretions or pulm congestion Stop: 10/25/21 19:23 Lorazepam (Ativan) 0.5 mg in 1 mls @ 1 mls/min IV Q4H PRN PRN Reason: Anxiety/Agitation Stop: 10/25/21 19:23 Morphine Sulfate (Morphine Sulf/Nss) 250 mg in 250 mls @ 1 mls/hr IV .Q96H [facility]; Protocol Stop: 10/10/21 13:59 Last Admin: 09/26/21 14:31 Dose: 2 mg/hr, 2 mls/hr Documented by: Morphine Sulfate (Morphine Sulfate 5 Mg/0.25 Ml Udp) 5 mg PO Q3H PRN PRN Reason: Pain or Respiratory Distress Stop: 10/09/21 19:23 Last Admin: 09/26/21 10:52 Dose: 5 mg Documented by: Morphine Sulfate (Morphine Sulfate 2 Mg/Ml Carp) 2 mg IV Q4H PRN PRN Reason: Pain or RR>15 Stop: 10/09/21 19:23 Last Admin: 09/26/21 07:58 Dose: 2 mg Documented by: Ondansetron HCl (Ondansetron Inj 2 Mg/Ml 2 Ml Vial) 4 mg IV Q6H PRN PRN Reason: Nausea Stop: 10/04/21 14:09 Last Admin: 09/18/21 21:53 Dose: 4 mg Documented by: Ondansetron HCl (Ondansetron Inj 2 Mg/Ml 2 Ml Vial) 4 mg IV Q4H PRN PRN Reason: Nausea &/or Vomiting Stop: 10/25/21 19:23 Ondansetron HCl (Ondansetron 4 Mg Od Tab) 4 mg SL Q4H PRN PRN Reason: Nausea &/or Vomiting Stop: 10/25/21 19:23
[2021-09-26 16:27] LABS: Aspergillus Ag Index 4.01 (<0.50); Aspergillus Antigen, Serum Detected (Not Detected)
[2021-09-26 20:01] LABS: Asperg Fumig Class 0; Asperg Fumig IgE <0.10 kU/L; Immunoglobulin IgE <2 kU/L (<OR=114); Rast Aspergillus fumigatus IgG 3.2 mcg/mL (<2.0)
--- NOTE | 2021-09-26 20:53 | Hospitalist Progress Note ---
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 (3) Acute renal failure: Plan: Secondary to sepsis. Creatinine improved after IVF. Cont to monitor. Noted poor PO intake recently and underlying cachexia and malnutrition. (4) CLL (chronic lymphocytic leukemia): Plan: Ongoing therapy with ibrutinib, which has been held since ICU transfer Follows with Dr. Ariel Ortiz for oncology (5) Pneumonia due to COVID-19 virus: Plan: Readmitted with COVID-19 pneumonia Covid PCR positive on previous admission (08/19/21) Covid PCR remains positive. Chest CTA on admission without evidence of pulmonary embolism. Interval development of diffuse ground glass opacities in the lungs which may be seen in pneumonia Blood cultures negative Completed dexamethasone, antibiotic course Repeat CXR on 09/13 showed Slight progression of multifocal bilateral airspace opacities which favor pneumonia. There was initially concern for aspiration at this time. Continued to require oxygen supplementation which was improved to 4LPM from admission. Leukocytosis developed Rocephin/Flagyl started 09/18 Acute respiratory distress developed today with HR 130, consistent with sepsis picture. Worsening sepsis and cavitary infectious lung lesion seen on CT scan, no PE. Transferred to ICU for mechanical ventilation and continued sepsis support. Cont plan as stated above. NO further treatment for covid-19 pneumonia indicated at this point. (6) Thrombocytopenia: (7) Anemia: (8) Hypertension: (9) Post-operative state: Plan: H/O left hip fracture S/P hemiarthroplasty on 08/[address] Sánchez Weightbearing as tolerated Follow-up with Dr. Sánchez as outpatient for repeat xrays. 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 Terminal extubation and voriconazole and other aggressive therapies were stopped. 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 Leanna Dillon DO [facility] Admission and Anticipated Discharge Date Admission Date: September 04, 2021 Subjective 71 yo F presented to the hospital with covid-19 pneumonia. 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 Remains intubated and sedated, cannot obtain ROS terminally extubated today 1 hour ago around 5pm tachypneic nonverbal, not responding, groaning. Review of Systems Review of Systems: cannot assess as patient is altered. Physical Exam Physical Exam: CONSTITUTIONAL: thin, cachectic, obtunded EYES: normal conjunctivae, no scleral icterus ENT: external ear and nose normal, MMM, poor dentition. RESPIRATORY: coarse breath sounds throughout. She is tachypneic. CARDIOVASCULAR: reg rate, regular rhythm, S1 and 2 heard without murmurs, gallops or rubs, no JVD, no peripheral edema GASTROINTESTINAL: soft, nondistended MUSCULOSKELETAL: cachectic, sedated, cannot perform. SKIN: warm and dry NEUROLOGIC: sedated. Results & Data Results & Data ([facility]) Vital Signs (Past 12 Hours) Vital Signs Temp Pulse Resp BP Pulse Ox 09/25/21 16:00 38.3 C H 77 31 H 99/55 L 93 09/25/21 15:30 38.2 C H 78 21 93 09/25/21 15:00 38.1 C H 84 34 H 100/52 L 100 09/25/21 14:30 38.1 C H 84 31 H 89 L 09/25/21 14:00 38.1 C H 85 33 H 107/59 L 92 09/25/21 13:30 38.2 C H 84 30 H 96/56 L 93 09/25/21 13:00 38.3 C H 88 32 H 97/58 L 94 09/25/21 12:30 38.6 C H 91 H 27 H 94/55 L 92 09/25/21 12:00 38.8 C H 92 H 29 H 93 09/25/21 11:30 38.8 C H 91 H 27 H 88/57 L 96 09/25/21 11:00 38.7 C H 92 H 24 95/57 L 98 09/25/21 10:30 38.6 C H 84 32 H 86/58 L 92 09/25/21 10:00 38.4 C H 73 28 H 84/49 L 100 09/25/21 09:30 38.3 C H 90 31 H 107/64 99 09/25/21 09:00 38.2 C H 88 25 H 97/58 L 99 09/25/21 08:30 38.1 C H 83 32 H 101/60 100 09/25/21 08:00 38.1 C H 85 25 H 101/62 98 09/25/21 07:40 84 30 H 98 09/25/21 07:30 38.1 C H 72 32 H 96/56 L 99 09/25/21 07:00 38.1 C H 76 32 H 106/57 L 99 09/25/21 06:30 38.1 C H 81 20 101/57 L 100 09/25/21 06:00 38.3 C H 90 29 H 96/68 L 95
[2021-09-26] MEDS ORDERED: ATROPINE SULFATE 1% OP SOLN 5 ML BTL SL SCH (21:00)
--- NOTE | 2021-09-27 16:39 | Discharge Summary ---
Date of Service September 27, 2021 Admission HPI Per Admitting Provider This is a 71yo F with a PMH of CLL on chemotherapy, hypogammaglobinemia, hypertension, GERD, gastroparesis, chronic anemia (baseline hemoglobin 10), chronic thrombocytopenia, recent hip fracture, covid and other medical problems listed below who presents from [facility] with pleuritic chest pain and EKG changes. During previous admission, patient underwent surgical repair of hip on 08/21. Covid PCR positive on 08/19/21. Received 4 days of dexamethasone. Was discharged to [facility] for rehab on 08/31/21. Per report, has been experiencing pleuritic chest pain and SOB. EKG was repeated and showed new T wave inversions in V1-V3 so she was sent to ED for further evaluation. TWI had resolved by time of repeat EKG here. Repeat chest CTA today without evidence of pulmonary embolism. Interval development of diffuse ground glass opacities in the lungs which may be seen in pneumonia. Components of aspiration and/or atelectasis may be present. Currently feeling fatigued with LLQ discomfort, nausea and cough. Not currently experiencing chest pain or SOB. No fever, chills, headache, vomiting, dysuria, diarrhea or constipation. Last bowel movement was this morning. Admission Exam Per Admitting Provider Exam: -mildly cachetic -Lungs: b/l rales with good air entry b/l, no wheezing -Cards: normal S1/S1, no murmur -Abd: ND, soft, TTP of the b/l lower quadrant -L hip: sutures are in place, no skin erythema or hematoma ------ no TTP of the area -B/L LE: no edema -Psych: AAOx3 Principal Diagnosis Acute hypoxemic respiratory failure Pneumonia due to covid-19 virus Septic shock Acute renal failure CLL Severe protein calorie malnutrition Pulmonary aspergillosis Discharge Data Allergies Allergy/AdvReac Type Severity Reaction Status Date / Time Penicillins Allergy Unknown Verified 09/04/21 10:08 Consultations 09/08/21 13:49 Consult Orthopedic Surgery Routine 09/10/21 11:52 Consult Psychiatry Routine 09/11/21 10:08 Consult Nephrology Routine 09/19/21 17:49 Consult Delivery Clerk Stat 09/25/21 19:24 Consult Palliative Care Routine Ordered Studies 09/04/21 10:20 CT angio chest PE protocol Stat 09/17/21 13:00 FL video swallow Routine 09/19/21 15:28 CT angio chest PE protocol Stat 09/24/21 09:42 US venous doppler [place] Urgent Hospital Course (1) Acute hypoxemic respiratory failure: Acute respiratory failure initially secondary to 2/2 sepsis from Covid-19 Pneumonia. Initially admitted 08/20/2021 and finished extended course of dexamethasone and azithromycin. Became septic on the floor and developed acute respiratory failure approximately two weeks into the hospital course. Chest CT 09/19 revealed consolidative process b/l along with cavitary lesion in JUMANA. Bronchoscopy further revealed invasive aspergillosis. She had been intubated and treated aggressively for Sepsis with antifungal and antibiotics. Hx of CLL undergoing chemotherapy. opted for terminal extubation and comfort measures only. Pt was transitioned to medical for continued comfort care. Palliative Consulted supplemental oxygen IV morphine gtt IV ativan for restlessness or agitation Atropine gtt prn for secretions in the hospital-see note. (2) Pneumonia due to COVID-19 virus: (3) Septic shock: (4) Acute renal failure: (5) CLL (chronic lymphocytic leukemia): (6) Thrombocytopenia: (7) Anemia: (8) Hypertension: (9) Post-operative state: (10) Dysphagia: (11) Severe protein-calorie malnutrition: (12) Pulmonary aspergillosis: Total Time Total Time Spent Total Time Spent (In Minutes): 60 Discharge Plan Discharge Items Patient Disposition: Other Date/Time: 09/26/21 21:40
[2021-09-28 22:02] LABS: Source LUNG BIOPSY
== END 2021-09-26 22:30 | disposition expired | DRG 207 ==
LOC: ED 08:43 → 2S 12:42 → SUATTDRO 12:42 → 2S 13:09 → 2W 09-17 16:02 → 1E 09-19 17:20 → 3W 09-25 19:19
DX: D62 Acute posthemorrhagic anemia; S36.030A Superficial (capsular) laceration of spleen, initial encounter; Y92.009 Unspecified place in unspecified non-institutional (private) residence as the place of occurrence of the external cause; J12.82 Pneumonia due to coronavirus disease 2019; D69.6 Thrombocytopenia, unspecified; K31.84 Gastroparesis; E22.2 Syndrome of inappropriate secretion of antidiuretic hormone; U07.1 COVID-19; N17.9 Acute kidney failure, unspecified; C91.10 Chronic lymphocytic leukemia of B-cell type not having achieved remission; I95.9 Hypotension, unspecified; N39.0 Urinary tract infection, site not specified; B44.0 Invasive pulmonary aspergillosis; A41.89 Other specified sepsis; D63.8 Anemia in other chronic diseases classified elsewhere; J03.90 Acute tonsillitis, unspecified; R65.21 Severe sepsis with septic shock; E87.6 Hypokalemia; E43 Unspecified severe protein-calorie malnutrition; D80.1 Nonfamilial hypogammaglobulinemia; R64 Cachexia; Z66 Do not resuscitate; K92.2 Gastrointestinal hemorrhage, unspecified; R13.10 Dysphagia, unspecified; Z51.5 Encounter for palliative care; E83.42 Hypomagnesemia; Z83.3 Family history of diabetes mellitus; S72.012A Unspecified intracapsular fracture of left femur, initial encounter for closed fracture; I10 Essential (primary) hypertension; Z88.0 Allergy status to penicillin; B96.20 Unspecified Escherichia coli [E. coli] as the cause of diseases classified elsewhere; R19.5 Other fecal abnormalities; W18.30XA Fall on same level, unspecified, initial encounter; K21.9 Gastro-esophageal reflux disease without esophagitis; F32.9 Major depressive disorder, single episode, unspecified; E87.2 Acidosis; J96.01 Acute respiratory failure with hypoxia; E83.39 Other disorders of phosphorus metabolism